=== PATIENT | female | born 1985 | race Caucasian/White ===

== ENCOUNTER 2020-06-23 08:09 | Outpatient (REF) | payer MEDICAID, SELFPAY | END 2020-06-23 08:10 | disposition home or self-care (01) | LOC: HO.LAB 08:09 | PROVIDERS: Visit Provider Internal Medicine | DX: Z20.828 Contact with and (suspected) exposure to other viral communicable diseases (principal) | CPT/HCPCS: C9803; U0003 ==

== ENCOUNTER 2020-07-22 07:42 | Outpatient (REF) | payer MEDICAID, SELFPAY | END 2020-07-22 07:43 | disposition home or self-care (01) | LOC: HO.LAB 07:42 | PROVIDERS: PCP Family Medicine; Visit Provider Internal Medicine | DX: Z20.828 Contact with and (suspected) exposure to other viral communicable diseases (principal) | CPT/HCPCS: 36415; C9803; U0003 ==

== ENCOUNTER 2020-07-28 09:53 | Outpatient (REF) | payer MEDICAID, SELFPAY ==
--- NOTE | 2020-07-28 | PFT_ITS ---
Forced vital capacity is normal. FEV1 moderately reduced. [id number] is markedly reduced. MVV slightly reduced. Post bronchodilator therapy, there is a significant response with significant increase in all flow volumes. Total lung capacity normal. Residual volume slightly increased. Diffusion capacity normal. CONCLUSION: Moderately severe obstructive airway disorder with almost complete reversibility after bronchodilator therapy. These findings are consistent with bronchial asthma. Clinical correlation is recommended. MD MAMIE Guidry/MODL / [id number]
== END 2020-07-28 09:54 | disposition home or self-care (01) ==
LOC: HO.RESP 09:53
PROVIDERS: Visit Provider Nurse Practitioner Family
DX: G47.30 Sleep apnea, unspecified (principal); R06.02 Shortness of breath; R07.81 Pleurodynia
CPT/HCPCS: 94060; 94727; 94729

== ENCOUNTER 2021-01-05 10:16 | Emergency (ER) | payer MEDICAID, SELFPAY ==
--- NOTE | ~2021-01-05 | US_ITS ---
EXAMINATION: US VENOUS ULTRASOUND WITH DOPPLER LOWER EXTREMITY, BILATERAL CLINICAL INFORMATION: Bilateral lower extremity pain and swelling. Assess for occult DVT. COMPARISON: None TECHNIQUE: Ultrasound of the deep veins is performed from the hip to the calf with compression sonography and color and pulse Doppler assessment. Spectral analysis with color-flow imaging is performed. FINDINGS: RIGHT: There is normal venous compression and respiratory variation and augmented flow. The visualized common femoral vein, superficial femoral vein, profunda femoral vein, popliteal vein, and the trifurcation region shows no evidence of deep venous thrombosis. No popliteal fossa cyst demonstrated. LEFT: There is normal venous compression and respiratory variation and augmented flow. The visualized common femoral vein, superficial femoral vein, profunda femoral vein, popliteal vein, and the trifurcation region shows no evidence of deep venous thrombosis. No popliteal fossa cyst demonstrated. US/US venous duplex LE BI IMPRESSION: No DVT demonstrated in the bilateral lower extremity.
[2021-01-05 10:54] VITALS: BP 151/93; PULSE 75; RESP 17; TEMP 36.7; O2SAT 100; BMI 40.7
--- NOTE | 2021-01-05 12:42 | ED_ITS ---
HPI - Extremity Injury (Lower) General Chief Complaint: Extremity Injury, Lower Stated Complaint: leg pain Time Seen by Provider: 01/05/21 11:19 Source: patient Mode of arrival: ambulatory History of Present Illness HPI Narrative: 35-year-old female with a past medical history of asthma presenting to the ED complaining of bilateral lower extremity swelling, heaviness, and paresthesias x2 weeks. Admits was sent in by PCP for rule out DVT. Reports area feeling cold . Denies taking oral OCPs, cigarette smoking, recent travel, personal history of blood clots. Denies fever, chills, SOB/CP, weakness Related Data Allergies Allergy/AdvReac Type Severity Reaction Status Date / Time No Known Allergies Allergy Mild NKA Verified 01/05/21 10:56 Review of Systems Review of Systems: Constitutional: No Fever, No Chills Cardiovascular: No Chest Pain, No SOB Respiratory: No Cough, No Wheezing Gastrointestinal: No Nausea, No Vomiting, No Abdominal pain Musculoskeletal: +joint pain, No Myalgias, + Joint Swelling Skin: No Skin Lesions, No rash Neuro: No Weakness, No Numbness, + Paresthesias Yes all other systems are reviewed and are negative [facility] Past Medical History Attestation statement: The following information was validated with the patient. Medical History (Updated 01/05/21 @ 12:48 by JOHN Millan) Asthma Physical Exam Vital Signs: Vital Signs: Last Vital Signs Temp 98.0 F 01/05/21 10:54 Pulse 75 01/05/21 10:54 Resp 17 01/05/21 10:54 BP 151/93 H 01/05/21 10:54 Pulse Ox 100 01/05/21 10:54 Body Mass Index 40.7 Const: General: cooperative and healthy appearing Orientation/consciousness: patient oriented x3 Limitations: no limitations HENMT: Head: Yes normal to inspection Ears: hearing grossly normal bilaterally General nose exam: Normal external nose present Face and sinus: Yes normal facial exam Eyes: General: appearance normal, both eyes and all related structures EOM: EOMs intact bilaterally Neck: Neck: Yes normal visual inspection Resp: Effort & Inspection: normal respiratory effort Cardio: Rate: regular rate Peripheral pulses: dorsalis pedis present Skin: Rashes: no rashes Wounds: no wounds Neuro: General: patient oriented x3, gait normal, tone normal and moves all extremities Gait exam (Neuro): Normal gait present Extrem: Other: Slight swelling in right lower extremity, no appreciable pitting edema, no calf tenderness. Neurovascular intact distally. Sensation intact to light touch. No cellulitis. General: Yes normal to inspection and Yes no calf tenderness Course Course Course Narrative: US venous duplex LE BI IMPRESSION: No DVT demonstrated in the bilateral lower extremity. >> results discussed with patient including worrisome signs and symptoms and strict return precautions. Is to follow up with PCP MDM - Extremity Injury (Lower) MDM Narrative Medical decision making narrative: 35-year-old female with a past medical history of asthma presenting to the ED complaining of bilateral lower extremity swelling, heaviness, and paresthesias x2 weeks. On exam VSS, NAD/well- appearing, physical exam as above. Rule out DVT. Low concern for PE Plan: Use duplex ultrasound Discharge Plan Discharge Clinical Impression: Swelling of both lower extremities Patient Disposition: Home, Self-Care Instructions: Leg Edema (ED) Additional Instructions: Your ultrasound was negative for any blood clot in your legs Take Tylenol and Motrin for pain/discomfort You should wear compression socks, elevate her legs If your pain/swelling persists or worsens, you develop any chest pain or shortness of breath please return to the ED Follow-up with your primary care doctor Referrals: Angelica Newman MD [Primary Care Provider] - 2 days
== END 2021-01-05 13:09 | disposition home or self-care (01) ==
PROVIDERS: Emergency Provider Emergency Medicine; PCP Family Medicine
DX: M79.89 Other specified soft tissue disorders (principal); M79.605 Pain in left leg; M79.604 Pain in right leg
CPT/HCPCS: 93970; 99283; 99284

== ENCOUNTER 2021-10-08 19:27 | Emergency (ER) | payer MEDICAID, SELFPAY ==
[2021-10-08 20:29] VITALS: BP 144/81; PULSE 75; RESP 18; TEMP 36.7; O2SAT 100; BMI 42.5
--- NOTE | 2021-10-09 00:44 | ED_ITS ---
HPI - Abdominal Pain General Chief Complaint: Abdominal Pain Stated Complaint: Lower abdominal pain Time Seen by Provider: 10/09/21 00:36 Source: patient Mode of arrival: ambulatory Limitations: no limitations History of Present Illness HPI narrative: Patient comes to the emergency room complaining of bilateral lower quadrant pain. Patient states that the pain started right after she lifted some heavy water bottle cases. Patient states that she has been feeling very nauseous, not vomiting or having any diarrhea. Patient states that the pain is worse in bilateral lower quadrants, seems a bit worse in the left lower quadrant. Related Data Previous Rx's Medication Instructions Recorded cyclobenzaprine 10 mg tablet 10 mg PO TID PRN #10 tab 10/09/21 ibuprofen 600 mg tablet 600 mg PO TID PRN #14 tab 10/09/21 Allergies Allergy/AdvReac Type Severity Reaction Status Date / Time No Known Allergies Allergy Mild NKA Verified 10/08/21 20:29 Review of Systems Review of Systems Constitutional : No Weight loss, No Fever, No Chills, No Night Sweats, No Fatigue, No Malaise ENT/Mouth : No Hearing loss, No Ear Pain, No Nasal Congestion, No Sinus Pain, No Hoarseness, No sore throat, No Rhinorrhea, No Swallowing Difficulty Eyes: No Eye Pain, No Swelling, No Redness, No Foreign Body, No Discharge, No Vision Changes Cardiovascular : No Chest Pain, No SOB, No Dyspnea on Exertion, No Orthopnea, No Edema, No Palpitations Respiratory : No Cough, No Sputum, No Wheezing, No Smoke Exposure, No Dyspnea Gastrointestinal : Complaining of Nausea, No Vomiting, No Diarrhea, No Constipation, complaining of bilateral lower quadrant pain pulling sensation. No Hematochezia, No Melena Genitourinary : no irregular bleeding, No Dysuria, No Urinary Frequency, No Hematuria, No Urinary Incontinence, No Urgency, No Flank Pain, No Urinary Flow Changes, No Hesitancy Musculoskeletal : No joint pain, No Myalgias, No Joint Swelling Skin : No Skin Lesions, No rash Neuro : No Weakness, No Numbness, No Paresthesias, No Loss of Consciousness, No Dizziness, No Headache Psych : No Anxiety/Panic, No Depression, No SI/HI/AH/VH, No Social Issues, Heme/Lymph: No Bruising, No Bleeding,No Lymphadenopathy Endocrine : No Polyuria, No Polydipsia, No Temperature Intolerance [facility], [facility] Past Medical History Medical History (Updated 10/09/21 @ 02:02 by Lavonne Garibay MD) Asthma Surgical History (Updated 10/09/21 @ 00:47 by Lavonne Garibay MD) History of cholecystectomy Hx of appendectomy Social History Social History Advance Directives: No Patient : No Physical Exam ED Vital Signs: Vital Signs - 24 hr 10/08/21 20:29 10/09/21 00:49 Temperature 98.0 F Pulse Rate 75 68 Respiratory Rate 18 14 Blood Pressure 144/81 H 126/71 Pulse Oximetry 100 100 BMI result Body Mass Index 42.5 Const Other: Appearance: Alert. Oriented X3. No acute distress. Well-appearing Eyes: Pupils equal, round and reactive to light. ENT: Pharynx normal. Neck: Normal inspection. Neck supple. No lymph nodes noted. No crepitus CVS: Normal heart rate and rhythm. Pulses normal. Normal S1 and S2 Respiratory: No respiratory distress. Breath sounds normal. No Wheezing. No rales Abdomen: Soft , abdomen is nontender to palpation, patient has mild discomfort on palpation in the inguinal canals, no palpable hernias Skin: Skin warm and dry. Normal skin color. Normal skin turgor. Extremities: No lower extremity edema. No Lacerations. No Rash Neuro: Oriented X 3. No motor deficit. No sensory deficit. Moving all extremities. No slurred speech. CN 2 through 12 grossly intact Psych: calm, cooperative, normal affect Course Course Course Narrative: Patient's labs are at baseline. Urinalysis is negative for UTI. Patient's abdominal exam is benign. Patient's source of pain likely musculoskeletal, strainedinguinal muscles/ligaments MDM - Abdominal Pain Lab Data Result diagrams: 10/09/21 00:55 10/09/21 00:55 Labs: Lab Results 10/09/21 10/09/21 10/09/21 Range/Units 00:55 00:55 01:25 WBC 8.0 (4.8-10.8) X10*3/uL RBC 4.76 (4.20-5.50) X10*6/uL Hgb 11.5 L (12.0-16.0) g/dl Hct 37.1 (37.0-47.0) % MCV 77.9 L (80.0-98.0) fL MCH 24.2 L (27.0-33.0) pg MCHC 31.0 (31.0-35.0) g/dl RDW 15.5 (11.0-16.0) % Plt Count 395 (160-400) X10*3/uL MPV 9.9 (9.4-12.3) fL Immature Gran % (Auto) 0.3 (0.0-0.4) % Neut % (Auto) 59.5 (45-73) % Lymph % (Auto) 32.1 (20-40) % Dent % (Auto) 5.5 (2-11) % Eos % (Auto) 2.3 (0-4) % Baso % (Auto) 0.3 (0-2) % Lymph # (Auto) 2.6 (1.2-4.9) X10*3/uL Dent # (Auto) 0.4 (0.1-1.2) X10*3/uL Eos # (Auto) 0.2 (0.0-0.4) X10*3/uL Baso # (Auto) 0.0 (0.0-0.2) X10*3/uL Abs Immat Gran (auto) 0.02 (0.00-0.03) X10*3/uL Absolute Neuts (auto) 4.8 (2.0-8.3) x10*3/uL Absolute Nucleated RBC 0.000 (0.0-0.012) X10*3/uL Nucleated RBC % (auto) 0.0 (0.0-0.2) /100WBC Sodium 140 (135-145) mmol/L Potassium 3.5 (3.3-5.1) mmol/L Chloride 102 (96-108) mmol/L Carbon Dioxide 28 (22-29) mmol/L Anion Gap 14 (12-20) BUN 9 (9-16) mg/dL Creatinine 0.77 (0.5-1.4) mg/dL Estim Creat Clear Calc 120.7 Estimated GFR > 60 Random Glucose 90 (60-115) mg/dL Calcium 9.5 (8.4-10.2) mg/dL Total Bilirubin 0.3 (0.0-1.0) mg/dL Direct Bilirubin < 0.2 (0.0-0.5) mg/dL AST 17 (5-31) U/L ALT 18 (0-31) U/L Alkaline Phosphatase 70 (39-117) U/L Total Protein 7.5 (6.5-8.0) g/dL Albumin 4.1 (3.5-5.0) g/dL Urine Color YELLOW Urine Appearance CLEAR Urine pH 6.0 (5.0-8.0) Ur Specific [place] >= 1.030 H (1.005-1.025) Urine Protein NEG (NEG-TRACE) MG/DL Urine Glucose (UA) NEG (NEG) MG/DL Urine Ketones NEG (NEG) MG/DL Urine Blood NEG (NEG) Urine Nitrite NEG (NEG) Ur Leukocyte Esterase NEG (NEG) Urine Test (NEGATIVE) 10/09/21 Range/Units 01:25 WBC (4.8-10.8) X10*3/uL RBC (4.20-5.50) X10*6/uL Hgb (12.0-16.0) g/dl Hct (37.0-47.0) % MCV (80.0-98.0) fL MCH (27.0-33.0) pg MCHC (31.0-35.0) g/dl RDW (11.0-16.0) % Plt Count (160-400) X10*3/uL MPV (9.4-12.3) fL Immature Gran % (Auto) (0.0-0.4) % Neut % (Auto) (45-73) % Lymph % (Auto) (20-40) % Dent % (Auto) (2-11) % Eos % (Auto) (0-4) % Baso % (Auto) (0-2) % Lymph # (Auto) (1.2-4.9) X10*3/uL Dent # (Auto) (0.1-1.2) X10*3/uL Eos # (Auto) (0.0-0.4) X10*3/uL Baso # (Auto) (0.0-0.2) X10*3/uL Abs Immat Gran (auto) (0.00-0.03) X10*3/uL Absolute Neuts (auto) (2.0-8.3) x10*3/uL Absolute Nucleated RBC (0.0-0.012) X10*3/uL Nucleated RBC % (auto) (0.0-0.2) /100WBC Sodium (135-145) mmol/L Potassium (3.3-5.1) mmol/L Chloride (96-108) mmol/L Carbon Dioxide (22-29) mmol/L Anion Gap (12-20) BUN (9-16) mg/dL Creatinine (0.5-1.4) mg/dL Estim Creat Clear Calc Estimated GFR Random Glucose (60-115) mg/dL Calcium (8.4-10.2) mg/dL Total Bilirubin (0.0-1.0) mg/dL Direct Bilirubin (0.0-0.5) mg/dL AST (5-31) U/L ALT (0-31) U/L Alkaline Phosphatase (39-117) U/L Total Protein (6.5-8.0) g/dL Albumin (3.5-5.0) g/dL Urine Color Urine Appearance Urine pH (5.0-8.0) Ur Specific [place] (1.005-1.025) Urine Protein (NEG-TRACE) MG/DL Urine Glucose (UA) (NEG) MG/DL Urine Ketones (NEG) MG/DL Urine Blood (NEG) Urine Nitrite (NEG) Ur Leukocyte Esterase (NEG) Urine Test NEGATIVE (NEGATIVE) Discharge Plan Discharge Clinical Impression: Inguinal muscle strain Patient Disposition: Home, Self-Care Instructions: Muscle Strain (ED) Additional Instructions: Please follow-up with your primary care physician tomorrow. If you have any worsening or new symptoms, please return to the emergency room or call 911 Prescriptions: New ibuprofen 600 mg tablet 600 mg PO TID PRN (Reason: pain) Qty: 14 0RF cyclobenzaprine 10 mg tablet 10 mg PO TID PRN (Reason: muscle spasm) Qty: 10 0RF
[2021-10-09 00:49] VITALS: BP 126/71; PULSE 68; RESP 14; O2SAT 100
[2021-10-09] MEDS: Ketorolac Tromethamine 30 MG/ML VIAL IVPUSH (01:01)
[2021-10-09 01:02] LABS: MANUAL DIFF FLAG NO
[2021-10-09] MEDS: ondansetron HCL 4 MG/2 ML VIAL IVPUSH (01:02)
[2021-10-09 01:03] LABS: Basophils Percent Auto 0.3 % (0-2); Eosinophils Absolute Auto 0.2 X10*3/uL (0.0-0.4); Eosinophils Percent Auto 2.3 % (0-4); Hematocrit 37.1 % (37.0-47.0); Hemoglobin 11.5 g/dl (12.0-16.0); Imm Gran Abs Auto 0.02 X10*3/uL (0.00-0.03); Imm Gran Pct Auto 0.3 % (0.0-0.4); Lymphocytes Absolute Auto 2.6 X10*3/uL (1.2-4.9); Lymphocytes Percent Auto 32.1 % (20-40); Mean Corpuscular Hemoglobin 24.2 pg (27.0-33.0); Mean Corpuscular Volume 77.9 fL (80.0-98.0); Mean Platelet Volume 9.9 fL (9.4-12.3); Monocytes Absolute Auto 0.4 X10*3/uL (0.1-1.2); Monocytes Percent Auto 5.5 % (2-11); Neutrophils Absolute Auto 4.8 x10*3/uL (2.0-8.3); Neutrophils Percent Auto 59.5 % (45-73); Platelet Count 395 X10*3/uL (160-400); Red Blood Count 4.76 X10*6/uL (4.20-5.50); Red Cell Distribution Width 15.5 % (11.0-16.0)
[2021-10-09 01:25] LABS: Alanine Aminotransferase 18 U/L (0-31); Albumin Level 4.1 g/dL (3.5-5.0); Alkaline Phosphatase 70 U/L (39-117); Anion Gap 14 (12-20); Aspartate Amino Transferase 17 U/L (5-31); Bilirubin Direct < 0.2 mg/dL (0.0-0.5); Bilirubin Total 0.3 mg/dL (0.0-1.0); Blood Urea Nitrogen 9 mg/dL (9-16); Calcium 9.5 mg/dL (8.4-10.2); Carbon Dioxide 28 mmol/L (22-29); Chloride 102 mmol/L (96-108); Creatinine Clr Calc Pharmacy 120.7; Estimated Glomerular Filt Rate > 60; Glucose Random 90 mg/dL (60-115); Potassium 3.5 mmol/L (3.3-5.1); Sodium 140 mmol/L (135-145); Total Protein 7.5 g/dL (6.5-8.0)
[2021-10-09 01:34] LABS: Appearance Urine CLEAR; Color Urine YELLOW; Glucose Urine UA NEG (NEG); Leukocyte Esterase Urine NEG (NEG); Nitrite Urine NEG (NEG); Specific Gravity - Urine >= 1.030 (1.005-1.025); Urine Blood NEG (NEG); Urine Ketones NEG (NEG); Urine Protein NEG (NEG-TRACE)
[2021-10-09 01:35] LABS: UPreg QC Valid YES; Urine Pregnancy NEGATIVE (NEGATIVE)
[2021-10-09 02:02] VITALS: BP 132/79; PULSE 67; RESP 14; O2SAT 100
== END 2021-10-09 02:06 | disposition home or self-care (01) ==
PROVIDERS: Emergency Provider Emergency Medicine; PCP Family Medicine
DX: S39.011A Strain of muscle, fascia and tendon of abdomen, initial encounter (principal); X50.0XXA Overexertion from strenuous movement or load, initial encounter; Y93.89 Activity, other specified; Y92.9 Unspecified place or not applicable; Y99.9 Unspecified external cause status
CPT/HCPCS: 36415; 80048; 80076; 81003; 81025; 85025; 96374; 96375; 99284; J1885; J2405

== ENCOUNTER 2021-11-17 04:22 | Emergency (ER) | payer MEDICAID, SELFPAY ==
[2021-11-17 04:43] VITALS: BP 144/86; PULSE 84; RESP 18; TEMP 36.6; O2SAT 97; BMI 42.5
--- NOTE | 2021-11-17 04:46 | ECG_ITS ---
Test Reason : arm pain Blood Pressure : / mmHG Vent. Rate : 073 BPM Atrial Rate : 073 BPM P-R Int : 140 ms QRS Dur : 076 ms QT Int : 414 ms P-R-T Axes : 018 011 029 degrees QTc Int : 456 ms Normal sinus rhythm Normal ECG When compared with ECG of 04-FEB-2020 20:39, No significant change was found Referred By: Generic ED Physician Electronically Signed By:DEIDRE SHULTZ MD
[2021-11-17 05:04] LABS: Hematocrit 34.5 % (37.0-47.0); Hemoglobin 10.8 g/dl (12.0-16.0); Mean Corpuscular HGB Conc 31.3 g/dl (31.0-35.0); Mean Corpuscular Hemoglobin 24.1 pg (27.0-33.0); Mean Platelet Volume 9.9 fL (9.4-12.3); Platelet Count 352 X10*3/uL (160-400); Red Blood Count 4.48 X10*6/uL (4.20-5.50); Red Cell Distribution Width 15.6 % (11.0-16.0); White Blood Count 7.2 X10*3/uL (4.8-10.8)
[2021-11-17 05:18] LABS: Alanine Aminotransferase 17 U/L (0-31); Albumin Level 3.6 g/dL (3.5-5.0); Alkaline Phosphatase 63 U/L (39-117); Anion Gap 11 (12-20); Aspartate Amino Transferase 16 U/L (5-31); Bilirubin Total 0.4 mg/dL (0.0-1.0); Blood Urea Nitrogen 8 mg/dL (9-16); Carbon Dioxide 26 mmol/L (22-29); Chloride 105 mmol/L (96-108); Creatinine Clr Calc Pharmacy 132.8; Estimated Glomerular Filt Rate > 60; Glucose Random 105 mg/dL (60-115); Potassium 3.4 mmol/L (3.3-5.1); Sodium 139 mmol/L (135-145)
[2021-11-17 05:24] LABS: Troponin-I High Sensitivity < 3.5 ng/L (<3.5-17.0)
[2021-11-17 05:25] LABS: Total Protein 6.7 g/dL (6.5-8.0)
--- NOTE | 2021-11-17 06:33 | ED_ITS ---
HPI - Extremity Problem General Chief complaint: General Medical Stated complaint: right arm pain Time Seen by Provider: 11/17/21 06:33 Source: patient Mode of arrival: ambulatory Limitations: no limitations History of Present Illness MD Complaint: extremity pain and joint pain Onset (ago): day(s) (few) Pain Consistency: constant Location: right and upper extremity Quality: aching, dull and constant Radiation: none Relieving factors: immobilization Exacerbating factors: range of motion and palpation Associated symptoms: denies other symptoms Context: other (no trauma) Related Data Previous Rx's Medication Instructions Recorded cyclobenzaprine 10 mg tablet 10 mg PO TID PRN #10 tab 10/09/21 ibuprofen 600 mg tablet 600 mg PO TID PRN #14 tab 10/09/21 diclofenac sodium 1 % topical gel 2 g TOPICAL QID #100 g 11/17/21 (Voltaren Arthritis Pain) prednisone 20 mg tablet 40 mg PO DAILY 4 Days #8 tab 11/17/21 tramadol 50 mg tablet 50 mg PO TID PRN #10 tab 11/17/21 Allergies Allergy/AdvReac Type Severity Reaction Status Date / Time No Known Allergies Allergy Mild NKA Verified 10/08/21 20:29 Review of Systems Review of Systems: Constitutional : No Fever, No Chills ENT/Mouth : No Ear Pain, No Hoarseness, No sore throat Eyes: No Eye Pain, No Swelling, No Redness, No Foreign Body Cardiovascular : No Chest Pain, No SOB Respiratory : No Cough, No Dyspnea Gastrointestinal : No Nausea, No Vomiting, No Diarrhea, No abdominal Pain Genitourinary : No Dysuria, No Hematuria Musculoskeletal : positive joint pain, No Myalgias, No Joint Swelling Skin : No Skin lacerations, No rash Neuro : No Weakness, No Numbness, No Loss of Consciousness, No Dizziness, No Headache All other systems reviewed and are negative [facility] Past Medical History Attestation statement: The following information was validated with the patient. Medical History Asthma Fibromyalgia Surgical History History of cholecystectomy Hx of appendectomy Social History Social History (Updated 11/17/21 @ 06:47 by Cheryle Welch DO) Patient Tobacco Use Status: Never used Tobacco Advance Directives: No Advance Directives Information Provided: Yes Physical Exam Vital Signs: Vital Signs: Last Vital Signs Temp 97.9 F 11/17/21 04:43 Pulse 84 11/17/21 04:43 Resp 18 11/17/21 04:43 BP 144/86 H 11/17/21 04:43 Pulse Ox 97 11/17/21 04:43 BMI result Body Mass Index 42.5 Appearance: Alert. Oriented X3. No acute distress. Eyes: Pupils equal, round and reactive to light. ENT: Pharynx normal. Neck: Normal inspection. Neck supple. CVS: Normal heart rate and rhythm. Pulses normal. Respiratory: No respiratory distress. Breath sounds normal. Abdomen: Soft and nontender. Skin: Skin warm and dry. Normal skin color. Normal skin turgor. Extremities: No lower extremity edema. RUE elbow ttp along medial and lateral condyles no joint swelling, full ROM no swelling no warmth distal NV intact SILT intact no signs of infection 2+ radial pulse Neuro: Oriented X 3. No motor deficit. No sensory deficit. MDM - Extremity (Nontraumatic) MDM Narrative Medical decision making narrative: 36 yo female with hx of fibromyalgia comes here with c/o R elbow pain no signs of infection, full ROM no swelling, distal NV intact ttp along epicondyles concerning for tendonitis - will rigoberto wrap the patient and start on anti- inflammatories Lab Data Result diagrams: 11/17/21 04:56 11/17/21 04:56 Labs: Lab Results 11/17/21 11/17/21 11/17/21 Range/Units 04:56 04:56 04:56 WBC 7.2 (4.8-10.8) X10*3/uL RBC 4.48 (4.20-5.50) X10*6/uL Hgb 10.8 L (12.0-16.0) g/dl Hct 34.5 L (37.0-47.0) % MCV 77.0 L (80.0-98.0) fL MCH 24.1 L (27.0-33.0) pg MCHC 31.3 (31.0-35.0) g/dl RDW 15.6 (11.0-16.0) % Plt Count 352 (160-400) X10*3/uL MPV 9.9 (9.4-12.3) fL Absolute Nucleated RBC 0.000 (0.0-0.012) X10*3/uL Nucleated RBC % (auto) 0.0 (0.0-0.2) /100WBC Sodium 139 (135-145) mmol/L Potassium 3.4 (3.3-5.1) mmol/L Chloride 105 (96-108) mmol/L Carbon Dioxide 26 (22-29) mmol/L Anion Gap 11 L (12-20) BUN 8 L (9-16) mg/dL Creatinine 0.70 (0.5-1.4) mg/dL Estim Creat Clear Calc 132.8 Estimated GFR > 60 Random Glucose 105 (60-115) mg/dL Calcium 9.0 (8.4-10.2) mg/dL Total Bilirubin 0.4 (0.0-1.0) mg/dL AST 16 (5-31) U/L ALT 17 (0-31) U/L Alkaline Phosphatase 63 (39-117) U/L Troponin I High Sens < 3.5 (<3.5-17.0) ng/L Total Protein 6.7 (6.5-8.0) g/dL Albumin 3.6 (3.5-5.0) g/dL ECG Data Attestation EKG: I personally reviewed and interpreted this ECG as follows: ECG interpretation date: 11/17/21 ECG interpretation time: 06:33 Interpretation: Rate: 73 Rhythm: NSR [place]: normal Normal P waves. Normal DERIC. Normal QRS complex. ST T wave : normal no CHERI qTC: normal prior studies: no acute ischemia The study has been interpreted contemporaneously by me. . Discharge Plan Discharge Clinical Impression: Right elbow tendinitis Patient Disposition: Home, Self-Care Instructions: Tendinitis (ED) Additional Instructions: return to ED for any worsening symptoms or concerns wear rigoberto wrap or anything with mild pressure for comfort Prescriptions: New prednisone 20 mg tablet 40 mg PO DAILY 4 Days Qty: 8 0RF diclofenac sodium [Voltaren Arthritis Pain] 1 % gel 2 g topical QID Qty: 100 0RF Rx Instructions: apply to single elbow, wrist or hand; for hand includes palm/fingers/back of hand tramadol 50 mg tablet 50 mg PO TID PRN (Reason: pain) Qty: 10 0RF No Action ibuprofen 600 mg tablet 600 mg PO TID PRN (Reason: pain) Qty: 14 0RF cyclobenzaprine 10 mg tablet 10 mg PO TID PRN (Reason: muscle spasm) Qty: 10 0RF Referrals: [facility] [Primary Care Provider] - 2 days (if not better)
[2021-11-17 06:42] VITALS: BP 128/76; PULSE 72; RESP 17; TEMP 36.4; O2SAT 98
[2021-11-17] MEDS: HYDROcodone Bit/Acetam 5/325 TABLET 1 TAB PO (06:54)
[2021-11-17] MEDS: predniSONE 20 MG TABLET 40 MG PO (06:54)
== END 2021-11-17 06:57 | disposition home or self-care (01) ==
PROVIDERS: Emergency Provider Emergency Medicine
DX: M65.221 Calcific tendinitis, right upper arm (principal); M79.601 Pain in right arm; Z79.899 Other long term (current) drug therapy
CPT/HCPCS: 36415; 80053; 84484; 85027; 93005; 99283; 99284

== ENCOUNTER → 2021-12-04 07:48 | Outpatient (BNVA) | payer MEDICAID, SELFPAY | PROVIDERS: Visit Provider Physician Assistant | DX: M77.11 Lateral epicondylitis, right elbow (principal) | CPT/HCPCS: 99202 ==

== ENCOUNTER → 2022-07-26 12:48 | Outpatient (REF) | payer MEDICAID, SELFPAY ==
--- NOTE | 2022-07-26 | HM_ITS ---
* Total monitoring time 1 day. * Underlying rhythm is sinus. Average ventricular rate 80/Min. Range 56 to 128/min. * No significant ectopy or arrhythmias. * Chest pain in diary correlates with sinus rhythm. MTDD
== END ==
LOC: HO.CARD 12:48
PROVIDERS: PCP Family Medicine; Visit Provider Registered Nurse
DX: R00.2 Palpitations (principal)
CPT/HCPCS: 93225

== ENCOUNTER → 2022-08-11 10:04 | Outpatient (BNVA) | payer MEDICAID, SELFPAY | PROVIDERS: PCP Family Medicine; Referring Provider Family Medicine; Visit Provider Internal Medicine Cardiovascular Disease | DX: R42 Dizziness and giddiness (principal) | CPT/HCPCS: 93005; 99202 ==

== ENCOUNTER → 2022-08-13 13:57 | Outpatient (REF) | payer MEDICAID, SELFPAY ==
--- NOTE | 2022-08-13 14:01 | CA_ITS ---
Transthoracic Echocardiogram Patient (Last, First, Middle): Brigette Burt, Gender: Female Date of : 1985 Age: 36 Procedure Date: 08/13/2022 Procedure Type: Transthoracic Echocardiogram Location: OP Height: 160.02 cm Weight: 108.86 kg BSA: 2.09 m2 Heart Rate: 82 bpm BP: 135 / 75 mmHg Finish Off Operator: SIMEON Referring MD: Ion Can MD Symptoms: R42 - Dizziness and giddiness Study Quality: Adequate ECG Rhythm: Sinus Conclusions: - The left ventricular systolic function is normal. The calculated ejection fraction is 66% by biplane method. - No obvious valvular pathology seen on this study. Findings Left Ventricle Normal left ventricular cavity size. There is normal left ventricular wall thickness. The left ventricular systolic function is normal. The calculated ejection fraction is 66% by biplane method. There is no evidence of regional wall motion abnormalities. Diastolic function is normal for age. LV peak GLS -18%. Right Ventricle Normal right ventricular cavity size and systolic function. Atria Both atria are normal in size. Aortic Valve There is a normal trileaflet aortic valve. There is no aortic valve stenosis. There is no aortic valve regurgitation. Mitral Valve The mitral valve appears normal. There is no mitral valve regurgitation. There is no mitral valve stenosis. Pulmonic Valve The pulmonic valve is likely normal. Tricuspid Valve Normal tricuspid valve structure. There is trace tricuspid valve regurgitation. There is no evidence of pulmonary hypertension. Great Vessels The asc aorta is normal in size. Venous The inferior vena cava is normal in size and collapses greater than 50% with inspiration. Pericardium/Pleural There is no evidence of pericardial effusion. Prior Study Comparison No prior study available for comparison. Recommendations, Care & Conclusions No obvious valvular pathology seen on this study. Measurements 2D Linear Measurements IVSd: 0.86 0.6-0.9/0.6-1.0 cm LVIDd: 4.32 3.9-5.3/4.2-5.9 cm LVIDd Index: 2.07 2.4-3.2/2.2-3.1 cm/m2 LVIDs: 2.45 2.0-3.6 cm LVPWd: 0.93 0.7-1.1 cm Ao Root: 3.20 2.1-3.5 cm LA Diam: 3.10 2.7-3.8/3.0-4.0 cm LAIDs Index: 1.48 1.5-2.3 cm/m2 LV Mass: 152.68 67-162/88-224 g LV Mass Index: 73.05 43-95/49-115 g/m2 LVOT Diam: 1.90 3.0+(-)1.3 cm 2D Systolic Function EF 4C: 72.60 >55% EF 2C: 56.00 >55% EF BiP: 66.40 >55% Mitral Valve MV Pk E: 0.97 MV PK A: 0.56 MV Decel Time: 223.00 E/A: 1.70 E'Lateral: 12.50 E'Medial: 9.68 E/E' Med: 10.10 E/E' Lat: 7.80 PHT: 65.00 MVA PHT: 3.38 Decel [place]: 4.36 Aortic Valve AoV Pk [place]: 1.71 AoV Mn [place]: 1.14 AoV VTI: 0.32 AoV Pk Grad: 12.00 Aov Mn Grad: 6.00 JANNET Cont.VTI: 2.09 LVOT LVOT Pk [place]: 1.32 LVOT Mn [place]: 0.89 LVOT VTI: 0.24 LVOT Pk Grad: 7.00 LVOT Mn Grad: 4.00 LVOT Diam: 1.90 LVOT Area: 2.84 Diastolic Function MV Pk E: 0.97 MV Pk A: 0.56 E/A: 1.70 E'Medial: 9.68 E/E' Med: 10.10 E' Laterial: 12.50 E/E' Lat: 7.80 Right Ventricle TAPSE (mm): 20.90 TVS' Celso: 12.80 Tricuspid Valve RA Press: 3.00 Great Vessels Aorta Ao Root-2D: 3.20 2.0-3.7 cm Sinus of Valsalva: 3.20 2.0-3.5 cm Ao Asc: 3.20 2.1-3.4 cm Pulmonary Valve PV Pk [place]: 1.24 Peak PV Grad: 6.00 Updated in Other Vendor System with Status of Final Monty Morgan MD electronically signed on 08/14/2022 12:31:29 PM with status of Final
--- NOTE | 2022-08-13 14:01 | HM_ITS ---
CARDIAC EVENT MONITOR Indication: Dizziness Technique: I was requested to reduce study on 09/28/2022. Patient is hooked up to cardiac event monitor on 08/13/2022 for total period of 30 days, this study was finalized today. Compliance rate is reported as 73%. Findings: Baseline was normal sinus rhythm with minimal heart rate of 61 beats per minute and maximum heart rate 141 beats per minute. No significant tachy or Fred arrhythmias noted. No significant pauses noted. Patient reported multiple symptoms including chest pressure, dizziness, irregular heartbeat and palpitations all correlated with sinus rhythm Conclusion: 1. Baseline was normal sinus rhythm with no pauses 2. No significant arrhythmias noted 3. Patient reported symptoms correlated with sinus rhythm MTDD
== END ==
LOC: HO.CARD 13:57
PROVIDERS: Visit Provider Internal Medicine Cardiovascular Disease
DX: R42 Dizziness and giddiness (principal)
CPT/HCPCS: 93270; 93306; 93356

== ENCOUNTER 2023-07-20 11:00 | Outpatient (REF) | payer OTHER, SELFPAY | END 2023-07-20 11:01 | disposition home or self-care (01) | LOC: HO.HHCL 11:00 | PROVIDERS: Visit Provider Family Medicine | DX: E61.1 Iron deficiency (principal); E55.9 Vitamin D deficiency, unspecified; E53.8 Deficiency of other specified B group vitamins | CPT/HCPCS: 36415; 82306; 82607; 82728; 85025 ==

== ENCOUNTER → 2023-08-18 12:49 | Outpatient (BNVA) | payer SELFPAY | PROVIDERS: PCP Family Medicine; Visit Provider Physician Assistant Medical | DX: S83.92XD Sprain of unspecified site of left knee, subsequent encounter (principal); X50.9XXD Other and unspecified overexertion or strenuous movements or postures, subsequent encounter | CPT/HCPCS: 73564; 99203 ==

== ENCOUNTER → 2023-08-25 13:01 | Outpatient (BNVA) | payer OTHER, SELFPAY | PROVIDERS: PCP Family Medicine; Visit Provider Physician Assistant Medical | DX: S83.92XD Sprain of unspecified site of left knee, subsequent encounter (principal); X50.9XXD Other and unspecified overexertion or strenuous movements or postures, subsequent encounter | CPT/HCPCS: 99213 ==

== ENCOUNTER 2023-08-31 19:44 | Emergency (ER) | payer MEDICAID, SELFPAY ==
--- NOTE | ~2023-08-31 | XR_ITS ---
EXAMINATION: XR CHEST CLINICAL INFORMATION: Shortness of breath COMPARISON: Previous chest x-ray most recent January 2020 TECHNIQUE: 2 views of the chest were obtained. FINDINGS: No significant abnormality is noted involving the heart, lungs, mediastinum, bony thorax or soft tissues. XR/XR chest 2V IMPRESSION: Unremarkable examination.
[2023-08-31 20:06] VITALS: BP 150/95; PULSE 85; RESP 18; TEMP 36.1; O2SAT 98; BMI 41.4
--- NOTE | 2023-08-31 20:07 | ECG_ITS ---
Test Reason : SOB Blood Pressure : / mmHG Vent. Rate : 090 BPM Atrial Rate : 090 BPM P-R Int : 122 ms QRS Dur : 076 ms QT Int : 362 ms P-R-T Axes : 026 010 037 degrees QTc Int : 442 ms Normal sinus rhythm Normal ECG When compared with ECG of 17-NOV-2021 04:47, No significant change was found Referred By: Ike Kang Electronically Signed By:Leo Lynch
--- NOTE | 2023-08-31 20:10 | ED_ITS ---
HPI - Asthma General Chief Complaint: Asthma Stated Complaint: asthma, difficulty breathing since tuesday Time Seen by Provider: 08/31/23 21:44 History of Present Illness HPI Narrative: 37 yo female with PMH of asthma, fibromyalgia was seen by [facility] on Tuesday for asthma - chest tightness but no wheezing started on nebs and prednisone - no improvement went back Tuesday and prednisone now x 1 week and using nebs every 3 hours but has chest tightness. She denies travel, procedures, OCP use. She notes she feels short of breath. She denies anxiety. No productive cough. She also notes the prednisone is giving her headaches MD complaint: shortness of breath Onset (ago): day(s) (7) Severity: moderate Context: none known Associated symptoms: dry cough Asthma History: childhood onset Treatments Prior to Arrival: other (steroid, nebulizer) Related Data Home Medications Medication Instructions Recorded Confirmed ferrous gluconate 324 mg (37.5 mg 324 mg PO DAILY 08/11/22 08/11/22 iron) tablet loratadine 10 mg tablet (Allergy 10 mg PO DAILY 08/11/22 08/11/22 Relief (loratadine)) sennosides 8.6 mg tablet (senna) 17.2 mg PO DAILY PRN constipation 08/11/22 08/11/22 Previous Rx's Medication Instructions Recorded cyclobenzaprine 10 mg tablet 10 mg PO TID PRN muscle spasm #10 10/09/21 tabs ibuprofen 600 mg tablet 600 mg PO TID PRN pain #14 tabs 10/09/21 prednisone 20 mg tablet 40 mg (2 x 20 mg) PO DAILY 4 days 11/17/21 #8 tabs naproxen 500 mg tablet 500 mg PO BID PRN back pain #28 08/18/23 tabs azithromycin 250 mg tablet See Rx Instructions PO .COMPLEX #6 09/01/23 tabs Allergies Allergy/AdvReac Type Severity Reaction Status Date / Time No Known Allergies Allergy Mild NKA Verified 08/31/23 20:06 Review of Systems 2 Review of Systems: Constitutional : No Fever, No Chills ENT/Mouth : No Hoarseness, No sore throat, No Rhinorrhea Eyes: No Redness, No Discharge, No Vision Changes Cardiovascular : No Chest Pain, positive SOB, positive Dyspnea on Exertion, No Edema Respiratory : positive Cough, No Sputum, no Wheezing, Gastrointestinal : No Nausea, No Vomiting, No Diarrhea, No abdominal Pain Genitourinary : No Dysuria, No Hematuria Musculoskeletal : No joint pain, No Myalgias Skin : No rash Neuro : No Weakness, No Numbness, No Headache Psych : No anxiety, depression Heme/Lymph: No Bruising, No Bleeding Endocrine : No Polyuria, No Polydipsia All other systems reviewed and are negative PMFSH Past Medical History Attestation statement: The following information was validated with the patient. Source: old records reviewed Medical History Fibromyalgia Asthma Surgical History Hx of appendectomy History of cholecystectomy Family History Family History Mother Diabetes Father Hypertension Social History Social History Alcohol intake: never Patient Tobacco Use Status: Never used Tobacco Smoked in Last 30 Days: No Use of substances other than those prescribed or required for medical reasons: No Advance Directives: No Advance Directives Information Provided: No Patient : No Current occupational status: unemployed Physical Exam 2 Vital Signs: Vital Signs: Last Vital Signs Temp 98.1 F 08/31/23 23:31 Pulse 95 09/01/23 00:05 Resp 18 09/01/23 00:05 BP 131/75 08/31/23 23:31 Pulse Ox 96 08/31/23 23:31 O2 Del Method Room Air 08/31/23 23:31 BMI result Body Mass Index 41.4 Appearance: Alert. Oriented X3. No acute distress. appears anxious Eyes: Pupils equal, round and reactive to light. ENT: Pharynx normal. Neck: Normal inspection. Neck supple. CVS: Normal heart rate and rhythm. Pulses normal. Respiratory: No respiratory distress. Breath sounds normal. Abdomen: Soft and nontender. Skin: Skin warm and dry. Normal skin color. Normal skin turgor. Extremities: No lower extremity edema. No calf ttp Neuro: Oriented X 3. No motor deficit. No sensory deficit. Course Course Course Narrative: Patient complains of chest pain with deep breath, wheezing and short of breath similar to prior asthma with frequent nebulizer use over past several days Chest x-ray COVID and flu tests are ordered This is rapid medical exam done in triage pending full evaluation and disposition by ER provider Reevaluation(s) Reevaluation #1: the patient was asleep and had to be woken up appears in no distress at sleep but then woken up states she is short of breath. at this time she can follow up with PCP Medications Administered Discontinued Medications Generic Name Dose Route Start Last Admin Trade Name Td PRN Reason Stop Dose Admin Acetaminophen 975 mg 08/31/23 23:52 09/01/23 00:15 Acetaminophen 325 Mg Tablet PO 08/31/23 23:53 975 mg ONCE ONE Administration Albuterol Sulfate 2.5 mg 09/01/23 00:01 09/01/23 00:05 Albuterol Sulfate (0.083%) 2.5 Mg/3 Ml Vial.Neb INHALE 09/01/23 00:02 2.5 mg ONCE ONE Administration Ketorolac Tromethamine 30 mg 08/31/23 23:52 09/01/23 00:15 Ketorolac Tromethamine 30 Mg/Ml Vial IM 08/31/23 23:53 30 mg ONCE ONE Administration Lorazepam 0.5 mg 08/31/23 22:19 08/31/23 22:42 Lorazepam 0.5 Mg Tablet PO 08/31/23 22:20 0.5 mg ONCE ONE Administration Medical Decision Making Medical Decision Making [facility] Narrative: 37 yo female with PMH of asthma who was seen by PCP comes in with c/o chest tightness and difficulty breathing but no wheezing she is PERC negative she appears anxious. At this time will need labs, EKG, CXR, swabs. PO anxiety medications. Possible anemia, pneumonia, dehydration, anxiety, reactive airway disease, CHF Differential Diagnosis Differential Diagnoses: The differential diagnosis associated with the presentation includes anemia, pneumonia, dehydration, anxiety, reactive airway disease, CHF Admission/Observation Consideration of admission/observation: Escalation of care including admission/observation considered labs, CXR, exam and VS reassuring - no hypoxia no distress has headache at this time will start on zpak and treat as bronchitis Lab Data [facility] Lab Attestation statement: I reviewed the patient's lab results. 08/31/23 22:34 08/31/23 22:34 Labs: Lab Results 08/31/23 08/31/23 Range/Units 20:23 22:34 WBC 12.7 H (4.8-10.8) X10*3/uL RBC 4.79 (4.20-5.50) X10*6/uL Hgb 11.8 L (12.0-16.0) g/dl Hct 36.7 L (37.0-47.0) % MCV 76.6 L (80.0-98.0) fL MCH 24.6 L (27.0-33.0) pg MCHC 32.2 (31.0-35.0) g/dl RDW 15.4 (11.0-16.0) % Plt Count 421 H (160-400) X10*3/uL MPV 9.6 (9.4-12.3) fL Immature Gran % (Auto) 0.8 H (0.0-0.4) % Neut % (Auto) 91.3 H (45-73) % Lymph % (Auto) 5.9 L (20-40) % Roosevelt % (Auto) 1.8 L (2-11) % Eos % (Auto) 0.0 (0-4) % Baso % (Auto) 0.2 (0-2) % Lymph # (Auto) 0.8 L (1.2-4.9) X10*3/uL Roosevelt # (Auto) 0.2 (0.1-1.2) X10*3/uL Eos # (Auto) 0.0 (0.0-0.4) X10*3/uL Baso # (Auto) 0.0 (0.0-0.2) X10*3/uL Abs Immat Gran (auto) 0.10 H (0.00-0.03) X10*3/uL Absolute Neuts (auto) 11.6 H (2.0-8.3) x10*3/uL Absolute Nucleated RBC 0.000 (0.0-0.012) X10*3/uL Nucleated RBC % (auto) 0.0 (0.0-0.2) /100WBC Smear Tech's Comments VERIFIED Sodium 137 (135-145) mmol/L Potassium 4.1 (3.3-5.1) mmol/L Chloride 104 (96-108) mmol/L Carbon Dioxide 24 (22-29) mmol/L Anion Gap 13 (12-20) BUN 12 (9-16) mg/dL Creatinine 0.85 (0.5-1.4) mg/dL Estim Creat Clear Calc 106.7 Estimated GFR > 60 Random Glucose 208 H (60-115) mg/dL Calcium 9.3 (8.4-10.2) mg/dL Magnesium 2.2 (1.6-2.6) mg/dL Total Bilirubin 0.1 (0.0-1.0) mg/dL Direct Bilirubin < 0.2 (0.0-0.5) mg/dL AST 19 (5-31) U/L ALT 25 (0-31) U/L Alkaline Phosphatase 74 (39-117) U/L Troponin I High Sens < 2.7 (<3.5-17.0) ng/L B-Natriuretic Peptide < 10 (<100) pg/mL Total Protein 7.1 (6.5-8.0) g/dL Albumin 3.8 (3.5-5.0) g/dL COVID-19 (NIKKIE) Negative (Negative) COVID-19 Clin Com See Note Influenza Type A (VERONICA) Negative (Negative) Influenza Type B (VERONICA) Negative (Negative) Influenza A & B Note N Independent Interpretation I performed an independent interpretation of an: EKG and Plain X-Ray (normal ) Interpretation: Rate: 90 Rhythm: NSR [place]: normal Normal P waves. Normal DERIC. Normal QRS complex. ST T wave : normal no CHERI qTC: 442 prior studies: no acute ischemia The study has been interpreted contemporaneously by me. . Radiology Impression Discussion of test interpretation with radiology: I have reviewed the radiologist's reading. Independent Historian Clinical information obtained from an independent historian. History obtained from or confirmed by: Spouse External Record Review External record reviewed: Office record Prescription Management I considered prescription management with: Antibiotic Discharge Plan Discharge Clinical Impression: Acute asthmatic bronchitis Patient Disposition: Home, Self-Care Instructions: Acute Bronchitis (ED) Additional Instructions: return for worsening symptoms or concerns. at this time given side effects of steroids will add on zpak for bronchitis inflammation. your labs and chest xray/electrocardiogram are normal your oxygen levels are all normal as well. Prescriptions: New azithromycin 250 mg tablet See Rx Instructions PO .COMPLEX Qty: 6 0RF Rx Instructions: For 250 mg dose pack: take 500 mg today (day 1), then 250 mg for 4 days (days 2-5) No Action ibuprofen 600 mg tablet 600 mg PO TID PRN (Reason: pain) Qty: 14 0RF cyclobenzaprine 10 mg tablet 10 mg PO TID PRN (Reason: muscle spasm) Qty: 10 0RF prednisone 20 mg tablet 40 mg PO DAILY 4 Days Qty: 8 0RF ferrous gluconate 324 mg (37.5 mg iron) tablet 324 mg PO DAILY sennosides [senna] 8.6 mg tablet 17.2 mg PO DAILY PRN (Reason: constipation) loratadine [Allergy Relief (loratadine)] 10 mg tablet 10 mg PO DAILY naproxen 500 mg tablet 500 mg PO BID PRN (Reason: back pain) Qty: 28 0RF Referrals: Angelica Newman MD [Primary Care Provider] - 1 day (call to follow up) Stand Alone Forms: Work/School Release
[2023-08-31 20:47] LABS: IDNOW Serial# 152EDE1D; Influenza A Negative (Negative); Influenza A & B2 Note N; Influenza B2 Negative (Negative)
[2023-08-31 20:48] LABS: COVID-19 Test Negative (Negative); IDNOW Serial# 08D9AD1C
[2023-08-31 21:29] VITALS: BP 143/74; PULSE 87; RESP 20; TEMP 37.1; O2SAT 97
[2023-08-31] MEDS: LORazepam 0.5 MG TABLET PO (22:42)
[2023-08-31 22:53] LABS: Basophils Percent Auto 0.2 % (0-2); Hematocrit 36.7 % (37.0-47.0); Hemoglobin 11.8 g/dl (12.0-16.0); Imm Gran Pct Auto 0.8 % (0.0-0.4); Lymphocytes Absolute Auto 0.8 X10*3/uL (1.2-4.9); Lymphocytes Percent Auto 5.9 % (20-40); MANUAL DIFF FLAG SCAN; Mean Corpuscular HGB Conc 32.2 g/dl (31.0-35.0); Mean Corpuscular Hemoglobin 24.6 pg (27.0-33.0); Mean Corpuscular Volume 76.6 fL (80.0-98.0); Mean Platelet Volume 9.6 fL (9.4-12.3); Monocytes Absolute Auto 0.2 X10*3/uL (0.1-1.2); Monocytes Percent Auto 1.8 % (2-11); Neutrophils Absolute Auto 11.6 x10*3/uL (2.0-8.3); Neutrophils Percent Auto 91.3 % (45-73); Platelet Count 421 X10*3/uL (160-400); Red Blood Count 4.79 X10*6/uL (4.20-5.50); Red Cell Distribution Width 15.4 % (11.0-16.0); SCAN SMEAR FLAG 1; White Blood Count 12.7 X10*3/uL (4.8-10.8)
[2023-08-31 23:04] LABS: Alanine Aminotransferase 25 U/L (0-31); Albumin Level 3.8 g/dL (3.5-5.0); Alkaline Phosphatase 74 U/L (39-117); Anion Gap 13 (12-20); Aspartate Amino Transferase 19 U/L (5-31); Bilirubin Direct < 0.2 mg/dL (0.0-0.5); Bilirubin Total 0.1 mg/dL (0.0-1.0); Blood Urea Nitrogen 12 mg/dL (9-16); Calcium 9.3 mg/dL (8.4-10.2); Carbon Dioxide 24 mmol/L (22-29); Chloride 104 mmol/L (96-108); Creatinine Clr Calc Pharmacy 106.7; Estimated Glomerular Filt Rate > 60; Glucose Random 208 mg/dL (60-115); Magnesium 2.2 mg/dL (1.6-2.6); Potassium 4.1 mmol/L (3.3-5.1); Sodium 137 mmol/L (135-145); Total Protein 7.1 g/dL (6.5-8.0)
[2023-08-31 23:07] LABS: B Type Natriuretic Peptide < 10 pg/mL (<100)
[2023-08-31 23:11] LABS: Troponin-I High Sensitivity < 2.7 ng/L (<3.5-17.0)
[2023-08-31 23:25] LABS: SLIDE REVIEW VERIFIED
[2023-08-31 23:31] VITALS: BP 131/75; PULSE 79; RESP 16; TEMP 36.7; O2SAT 96
[2023-09-01 00:05] VITALS: PULSE 95; RESP 18; O2SAT 98
[2023-09-01] MEDS: Albuterol Sulfate (0.083%) 2.5 MG/3 ML VIAL.NEB INHALE (00:05)
[2023-09-01] MEDS: Acetaminophen 325 MG TABLET 975 MG PO (00:15)
[2023-09-01] MEDS: Ketorolac Tromethamine 30 MG/ML VIAL IM (00:15)
== END 2023-09-01 01:43 | disposition home or self-care (01) ==
PROVIDERS: Physician Assistant Medical; Emergency Provider Emergency Medicine; PCP Family Medicine
DX: J20.9 Acute bronchitis, unspecified (principal); J45.909 Unspecified asthma, uncomplicated; R06.02 Shortness of breath; Z11.52 Encounter for screening for COVID-19
CPT/HCPCS: 36415; 71046; 80048; 80076; 83735; 83880; 84484; 85025; 87502; 87635; 93005; 94640; 96372; 99284; 99285; J1885

== ENCOUNTER → 2023-08-31 20:07 | Outpatient (BNV) | payer OTHER, SELFPAY | PROVIDERS: Emergency Provider Emergency Medicine; PCP Family Medicine; Visit Provider Internal Medicine Cardiovascular Disease | DX: R06.02 Shortness of breath (principal) | CPT/HCPCS: 93010 ==

== ENCOUNTER 2023-09-07 10:06 | Outpatient (AMB) | payer OTHER, SELFPAY ==
--- NOTE | 2023-09-07 10:19 | A.OFFVIS_ITS ---
Intake Vital Signs 09/07/23 10:20 Height 5 ft 3 in Weight 235 lb BMI 41.6 BP 132/70 Blood Pressure Location Lt brachial Pulse 88 Pulse Source Pulse Oximeter Pulse Oximetry (%) 99 Oxygen Delivery Method Room Air Intake Visit Reasons: Asthma Aging Room Operator Required: No Associate Software Application Engineer: Associate Software Application Engineer offered & declined Accompanied by: Spouse Allergies cat dander Allergy (Intermediate, Verified 09/07/23 10:30) wheezing, sneezing Medication List - Last Reconciled 09/07/23 by Dominga Han LPN albuterol sulfate 90 mcg/actuation 2 puffs inhalation Q6H PRN budesonide-formoterol 160-4.5 mcg/actuation (Symbicort) 2 puffs inhalation BID cetirizine (Allergy Relief (cetirizine)) 10 mg PO DAILY PRN cyclobenzaprine 10 mg PO TID PRN ergocalciferol (vitamin D2) 1,250 mcg PO QWEEK ferrous gluconate 324 mg PO DAILY fluticasone propionate 50 mcg/actuation (Flonase Allergy Relief) 2 sprays intranasal DAILY ibuprofen 600 mg PO TID PRN naproxen 500 mg PO BID PRN sennosides (senna) 17.2 mg PO DAILY PRN HPI Asthma HPI Details Brigette is a pleasant 37 year old female, never smoker with underlying asthma since childhood. She reports worsening asthma control with associated chest tightness and dyspnea that started on 08/26 after suspected URI. She denies fever, chills or sick contacts. At baseline she was moderately controlled on Symbicort 160, however after symptoms started she began using her albuterol more frequently without effect then was evaluated at urgent care where she was prescribed prednisone 40 mg x 5 days and advised to use albuterol neb q 4 hours. She again reported no help after a few days, went back to urgent care, where they increased prednisone to 60 mg x 7 days, again with minimal effect. On 08/31 she was evaluated at [facility] who stopped prednisone and started on azithromycin which was ultimately discontinued when she was evaluated at the [facility]. She was given IM dexamethasone followed by Po and reports improvements in symptoms. She continues to report chest tightness, dry cough and dyspnea. She denies wheezing. She reports mother with asthma otherwise no pertinent family history. She reports significant environmental allergies, no recent allergy testing. She does have pets at home including 1 dog to cats and 2 chinchillas. 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 [facility] Medical History (Updated 09/07/23 @ 11:27 by Lavonne Zuluaga NP) Fibromyalgia Asthma Surgical History Hx of appendectomy History of cholecystectomy Family History Mother Diabetes Father Hypertension Social History (Updated 09/07/23 @ 10:37 by Dominga Han LPN) Alcohol intake: never Patient Tobacco Use Status: Never used Tobacco Current occupational status: unemployed Review of Systems Const Denies chills, Denies excessive sweating, Denies fever(s), Denies headache(s) and Denies night sweats Eyes Denies dry eyes, Denies irritation and Denies itchy eyes ENT Reports Normal hearing present, Denies headache(s), Denies nasal congestion, Denies nasal discharge, Denies post nasal drip and Denies sore throat Card Denies chest pain, Denies chest pain at rest, Denies chest pain with activity, Denies claudication, Denies leg edema, Denies orthopnea and Denies paroxysmal nocturnal dyspnea Resp Denies chest congestion, Denies excessive phlegm production, Denies pain on inspiration, Denies pain with cough, Denies stridor and Denies wheezing Musc Denies myalgias Neuro Reports Normal hearing present and Denies headache(s) Endo Denies excessive sweating Remi/Lymph Denies lymphadenopathy Aller/Immun Denies itchy eyes, Denies seasonal rhinorrhea and Denies wheezing Physical Exam Vital Signs: Last Vital Signs Pulse 88 09/07/23 10:20 BP 132/70 09/07/23 10:20 Pulse Ox 99 09/07/23 10:20 Oxygen Delivery Method Room Air 09/07/23 10:20 BMI result Body Mass Index 41.6 Const General: cooperative, healthy appearing, comfortable, no acute distress, well developed and alert Nutritional Appearance: obese Orientation/consciousness: patient oriented x3 Limitations: no limitations HEENT Head: Yes normal to inspection, Yes normocephalic and Yes atraumatic Ears: hearing grossly normal bilaterally and external ears normal Eyes General: appearance normal, both eyes and all related structures Eyelids: Yes eyelids normal Sclerae: sclerae normal EOM: EOMs intact bilaterally Neck Neck: Yes normal visual inspection and Yes no lymphadenopathy Lymphatic: no lymphadenopathy noted Chest Chest palpation & inspection: normal inspection of the chest Resp Other: Diminished lung sounds, improved after DuoNeb Effort & Inspection: normal respiratory effort, able to speak in complete sentences, no audible wheezes, no cough, no stridor, not tachypneic, no tripod positioning and no use of accessory muscles Cardio Jugular venous distension: no JVD Rate: regular rate Rhythm: regular rhythm Skin Other: warm, dry General skin exam: no rashes or lesions noted Neuro General: patient oriented x3 Cranial nerves: Yes Normal hearing present Cognition (Neuro): normal cognition Gait exam (Neuro): Normal gait present Extrem General: Yes normal to inspection, Yes capillary refill normal, Yes no clubbing, cyanosis or edema and Yes no pedal edema Psych Appearance: grossly normal and well kempt Speech and movement: Normal speech and movement present and Clear speech present Affect: normal affect Attitude: cooperative Thought process: Normal thought process present Thought content: Normal thought content present Insight: Good insight present (Psych) Judgement: Good judgement present (Psych) Office Procedures Nebulizer Treatment Nebulizer Treatment [id number] RX initial, or Nebulizer Subsequent Treatment Office Meds ipratropium 0.5 mg-albuterol 3 mg (2.5 mg base)/3 mL nebulization soln Performing Provider: Lavonne Zuluaga NP Performing Location: [facility] Pulmonology [facility] Administered by: Dominga Han LPN on 09/07/23 11:20 Dose Route Admin Location Dispensed Lot Number Expiration Date [facility] Jamb Cutter 3 mL inhalation 3 mL [id number] 04/16/25 25111-228-83 [employer] Assessment & Plan Assessment & Plan (1) Asthma: Code(s): J45.909 - Unspecified asthma, uncomplicated (2) Environmental allergies: Code(s): Z91.09 - Other allergy status, other than to drugs and biological substances Plan Luzdey's if symptoms are likely from underlying asthma with allergic component. She was given a nebulizer treatment in office with significant improvement in symptoms. Will send prescription for DuoNeb and add Spiriva to regimen. Will also send for PFT and RAST to evaluate. All questions were answered and patient is in agreement of plan. Will follow-up to review response to regimen and results, or sooner if needed. Orders: Orders Immunoglobulin E 09/07/23 Z. - Other allergy status, other than to drugs and biological substances Resp Allergy Profile Region I 09/07/23 Z91.09 - Other allergy status, other than to drugs and biological substances AMB Nebulizer Treatment 09/07/23 J45.909 - Unspecified asthma, uncomplicated Complete Blood Count Auto Diff 09/07/23 Z. - Other allergy status, other than to drugs and biological substances Medications: New tiotropium bromide 1.25 mcg/actuation (Spiriva Respimat) 2 puffs inhalation DAILY 4 grams 3RF ipratropium-albuterol 0.5 mg-3 mg(2.5 mg base)/3 mL 3 mL inhalation Q6H PRN 180 mL 0RF wheezing Coding Level of Care Code New Pt Level 4 (23633) Diagnoses Asthma J45.909 Environmental allergies Z. CPT Codes Nebulizer Treatment - Nebulizer Treatment, initial or subsequent: 06973- Nebulizer/MDI RX initial, or Nebulizer Subsequent Treatment ([id number])
[2023-09-07 10:20] VITALS: BP 132/70; PULSE 88; O2SAT 99; BMI 41.6
== END 2023-09-07 11:26 | disposition home or self-care (01) ==
PROVIDERS: PCP Family Medicine; Referring Provider Internal Medicine; Visit Provider Nurse Practitioner Family
DX: J45.909 Unspecified asthma, uncomplicated (principal); Z91.09 Other allergy status, other than to drugs and biological substances
CPT/HCPCS: 99204

== ENCOUNTER → 2023-09-07 10:06 | Outpatient (BNVA) | payer OTHER, SELFPAY | PROVIDERS: PCP Family Medicine; Referring Provider Internal Medicine; Visit Provider Nurse Practitioner Family | DX: J45.909 Unspecified asthma, uncomplicated (principal); Z91.09 Other allergy status, other than to drugs and biological substances | CPT/HCPCS: 94640; 99202 ==

== ENCOUNTER → 2023-09-12 12:56 | Outpatient (BNVA) | payer OTHER, SELFPAY | PROVIDERS: PCP Family Medicine; Visit Provider Physician Assistant Medical | DX: S89.82XD Other specified injuries of left lower leg, subsequent encounter (principal); X50.9XXD Other and unspecified overexertion or strenuous movements or postures, subsequent encounter | CPT/HCPCS: 99213 ==

== ENCOUNTER 2023-09-22 13:00 | Outpatient (RCR) | payer OTHER, SELFPAY | END 2023-12-15 10:49 | disposition home or self-care (01) | LOC: HO.PT 13:00 | PROVIDERS: PCP Family Medicine; Visit Provider Physician Assistant Medical | DX: S89.92XD Unspecified injury of left lower leg, subsequent encounter (principal) | CPT/HCPCS: 97110; 97162 ==

== ENCOUNTER → 2023-09-26 13:04 | Outpatient (BNVA) | payer OTHER, SELFPAY | PROVIDERS: PCP Family Medicine; Visit Provider Physician Assistant Medical | DX: S83.8X2D Sprain of other specified parts of left knee, subsequent encounter (principal); X50.9XXD Other and unspecified overexertion or strenuous movements or postures, subsequent encounter | CPT/HCPCS: 99213 ==

== ENCOUNTER 2023-09-28 08:08 | Outpatient (REF) | payer OTHER, SELFPAY ==
[2023-09-28 08:32] LABS: MANUAL DIFF FLAG NO
[2023-09-28 08:42] LABS: Basophils Percent Auto 0.5 % (0-2); Eosinophils Absolute Auto 0.5 X10*3/uL (0.0-0.4); Eosinophils Percent Auto 6.5 % (0-4); Hematocrit 34.9 % (37.0-47.0); Hemoglobin 11.3 g/dl (12.0-16.0); Imm Gran Abs Auto 0.03 X10*3/uL (0.00-0.03); Imm Gran Pct Auto 0.4 % (0.0-0.4); Lymphocytes Absolute Auto 1.6 X10*3/uL (1.2-4.9); Lymphocytes Percent Auto 20.9 % (20-40); Mean Corpuscular HGB Conc 32.4 g/dl (31.0-35.0); Mean Corpuscular Hemoglobin 24.5 pg (27.0-33.0); Mean Corpuscular Volume 75.5 fL (80.0-98.0); Mean Platelet Volume 9.5 fL (9.4-12.3); Monocytes Absolute Auto 0.4 X10*3/uL (0.1-1.2); Monocytes Percent Auto 5.1 % (2-11); Neutrophils Absolute Auto 5.2 x10*3/uL (2.0-8.3); Neutrophils Percent Auto 66.6 % (45-73); Platelet Count 373 X10*3/uL (160-400); Red Blood Count 4.62 X10*6/uL (4.20-5.50); Red Cell Distribution Width 15.1 % (11.0-16.0); White Blood Count 7.8 X10*3/uL (4.8-10.8)
[2023-10-03 09:18] LABS: Immunoglobulin E 65
[2023-10-03 09:19] LABS: Class Cockroach 0; Class Dermatophagoides farinae 2; Class Mouse Urine Protein 0; E072-IgE Mouse Urine <0.10; I006-IgE Cockroach, German <0.10
[2023-10-03 09:20] LABS: Class Alternaria alternata 0; Class Aspergillus fumigatus 0; Class Cat Dander 3; Class Cladosporium herbarum 0; Class Dog Dander 1; Class Timothy Grass 0; G006 - IgE Timothy Grass <0.10; M002 - IgE Cladosporium herbar <0.10; M003 - IgE Aspergillus fumigat <0.10; M006 - IgE Alternaria alternat <0.10
[2023-10-03 09:21] LABS: Class Derm. pterony 2; Class Mountain Cedar 0; Class Oak 0; T006 - IgE Cedar, Mountain <0.10; T007 - IgE Oak, White <0.10
[2023-10-03 09:22] LABS: Class Bermuda Grass 0; Class Birch 0; Class Common Ragweed 0; Class Cottonwood 0; Class Elm 0; Class Maple Box Elder 0; Class Mugwort 0; Class Penicillium crysogenum 0; Class Rough Pigweed 0; Class Sheep Sorrel 0; Class Sycamore 0; Class Walnut Tree 0; Class White Ash 0; Class White Mulberry 0; G002 IgE Bermuda Grass <0.10; M001 IgE Penicillium chrysogen <0.10; T001 IgE Maple/Box Elder <0.10; T003 IgE Common Silver Birch <0.10; T008 IgE Elm, American <0.10; T010 - IgE Walnut <0.10; T011 - IgE Maple Leaf Sycamore <0.10; T014 - IgE Cottonwood <0.10; T015 - IgE Ash, White <0.10; T070 - IgE White Mulberry <0.10; W001 - IgE Ragweed, Short <0.10; W006 - IgE Mugwort <0.10; W014 IgE Pigweed, Common <0.10; W018 IgE Sheep Sorrel <0.10
== END 2023-09-28 08:09 | disposition home or self-care (01) ==
LOC: HO.LAB 08:08
PROVIDERS: PCP Family Medicine; Visit Provider Nurse Practitioner Family
DX: Z91.09 Other allergy status, other than to drugs and biological substances (principal)
CPT/HCPCS: 36415; 82785; 85025; 86003

== ENCOUNTER 2023-10-07 19:38 | Outpatient (REF) | payer OTHER, SELFPAY ==
--- NOTE | ~2023-10-07 | MR_ITS ---
EXAMINATION: MR KNEE WITHOUT CONTRAST, LEFT CLINICAL INFORMATION: Knee pain and swelling. COMPARISON: Radiographs 08/18/2023. TECHNIQUE: MRI of the knee without contrast was performed using routine sequences on a high-field scanner. FINDINGS: MENISCI: Medial Meniscus: Ill-defined degenerative partial tearing at the root of the posterior horn. Lateral Meniscus: Intact. LIGAMENTS: Cruciate: Intact. Collateral: Intact. EXTENSOR MECHANISM: Intact prepatellar subcutaneous edema. ARTICULAR CARTILAGE/BONE: Patellofemoral Compartment: Minimal cartilage surface irregularity along the median ridge of the patella. Medial Compartment: Mild cartilage thinning with areas of surface irregularity along the weightbearing aspect and small marginal osteophytes. Lateral Compartment: Normal. JOINT FLUID AND BURSAE: Small joint effusion and Russo's cyst. MR/MR knee LT wo con IMPRESSION: 1. Ill-defined degenerative partial tearing at the root of the posterior horn of the medial meniscus. 2. Mild patellofemoral/medial compartment osteoarthritis with a small joint effusion and Russo's cyst.
== END 2023-10-07 19:39 | disposition home or self-care (01) ==
LOC: HO.MRI 19:38
PROVIDERS: PCP Family Medicine; Visit Provider Internal Medicine
DX: M25.562 Pain in left knee (principal)
CPT/HCPCS: 73721

== ENCOUNTER → 2023-10-17 12:46 | Outpatient (BNVA) | payer OTHER, SELFPAY | PROVIDERS: PCP Family Medicine; Visit Provider Physician Assistant Medical | DX: S83.242D Other tear of medial meniscus, current injury, left knee, subsequent encounter (principal); M25.462 Effusion, left knee; X50.9XXD Other and unspecified overexertion or strenuous movements or postures, subsequent encounter | CPT/HCPCS: 99213 ==

== ENCOUNTER 2023-10-24 10:48 | Outpatient (REF) | payer OTHER, SELFPAY ==
--- NOTE | ~2023-10-24 | XR_ITS ---
EXAMINATION: XR CHEST CLINICAL INFORMATION: Patient stated cough, shortness of breath for one week, patient is asthmatic. Order states decreased airflow, moderately persistent asthma exacerbation. . COMPARISON: 08/31/2023 TECHNIQUE: 2 views of the chest were obtained. FINDINGS: There is no gross pneumothorax . Heart size is normal. Lung volumes are low. No pleural effusion. No focal consolidation to suggest pneumonia. Surgical clips in the upper abdomen. XR/XR chest 2V IMPRESSION: No evidence of pneumonia.
== END 2023-10-24 10:49 | disposition home or self-care (01) ==
LOC: HO.HHCX 10:48
PROVIDERS: Visit Provider General Practice
DX: J45.41 Moderate persistent asthma with (acute) exacerbation (principal)
CPT/HCPCS: 71046

== ENCOUNTER 2023-11-04 12:09 | Outpatient (AMB) | payer OTHER, SELFPAY ==
[2023-11-04 12:25] VITALS: BMI 41.6
--- NOTE | 2023-11-04 12:25 | MHC.OFFVIS ---
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 Currently states she has limited ROM, selling and feels as if her knee will give out when walking. Xrays updated with work connection as well as an MRI. Allergies cat dander Allergy (Intermediate, Verified 11/04/23 12:31) wheezing, sneezing Medication List - Last Reconciled 11/04/23 by Hang Caputo PA-C albuterol sulfate 90 mcg/actuation 2 puffs inhalation Q6H PRN budesonide-formoterol 160-4.5 mcg/actuation (Symbicort) 2 puffs inhalation BID cetirizine (Allergy Relief (cetirizine)) 10 mg PO DAILY PRN cyclobenzaprine 10 mg PO TID PRN ergocalciferol (vitamin D2) 1,250 mcg PO QWEEK ferrous gluconate 324 mg PO DAILY fluticasone propionate 50 mcg/actuation (Flonase Allergy Relief) 2 sprays intranasal DAILY ibuprofen 600 mg PO TID PRN ipratropium-albuterol 0.5 mg-3 mg(2.5 mg base)/3 mL 3 mL inhalation Q6H PRN naproxen 500 mg PO BID PRN sennosides (senna) 17.2 mg PO DAILY PRN tiotropium bromide 1.25 mcg/actuation (Spiriva Respimat) 2 puffs inhalation DAILY HPI 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 She was seen at work connection where x-rays were performed and an MRI order was placed. She currently states she has limited ROM, pain, and swelling in her knee which is aggravated with walking and going up and down the stairs. She does not have a history of diabetes. 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 Lateral retropatellar tenderness present. Full ROM with crepitus. Negative Xavi?s. No ligamentous laxity. NVI. Office Procedures Joint Injection/Drain Joint Injection/Drain Primary Site: left knee Prep: site was prepped using aseptic technique, ethochloride spray was applied and injection warnings given Injected: 80 mg of, DepoMedrol, with 8 mL of, 1% plain lidocaine and in the joint Approach Used: anterolateral Procedure: The patient tolerated the procedure well and there was some relief with the local anesthesia Coding 73265 - Glenohumeral/Tronchanteric Bursa/Intraarticular Procedure code (CPT) selection complete Results Reviewed Results Reviewed: MRI left knee 10/07/23 IMPRESSION: 1. Ill-defined degenerative partial tearing at the root of the posterior horn of the medial meniscus. 2. Mild patellofemoral/medial compartment osteoarthritis with a small joint effusion and Russo's cyst. IMPRESSION: 1. Ill-defined degenerative partial tearing at the root of the posterior horn of the medial meniscus. 2. Mild patellofemoral/medial compartment osteoarthritis with a small joint effusion and Russo's cyst. Assessment & Plan Assessment & Plan (1) Patellofemoral arthritis of left knee: Code(s): M17.12 - Unilateral primary osteoarthritis, left knee Category: Medical Plan We discussed options today which include steroid injection. They did consent to move forward with the left knee injection, which was tolerated well. I recommended rest, ice and elevation and OTC anti-inflammatories PRN for discomfort. If symptoms persist or worsens over the next 6-8 weeks, patient will contact the office, otherwise follow-up in 4 weeks, sooner if needed. A new order for physical therapy was placed today. She will continue with current light duty restrictions till November 18. Orders: Orders PT Evaluation and Treatment Today M17.12 - Unilateral primary osteoarthritis, left knee Medications: New celecoxib (Celebrex) 200 mg PO BID 60 caps 3RF 30 days Patient Instructions: Scribed for Hang Caputo PA-C, by Ar Choe medical billing instructor, on 11/04/2023 at 12:30 PM EST. Hang Rodriguez PA-C, have personally reviewed and agree with the information entered by the scribe.
== END 2023-11-04 13:19 | disposition home or self-care (01) ==
PROVIDERS: PCP Family Medicine; Visit Provider Physician Assistant
DX: M17.12 Unilateral primary osteoarthritis, left knee (principal)
CPT/HCPCS: 20610; 99214

== ENCOUNTER → 2023-11-04 12:09 | Outpatient (BNVA) | payer OTHER, SELFPAY | PROVIDERS: PCP Family Medicine; Visit Provider Physician Assistant | DX: M17.12 Unilateral primary osteoarthritis, left knee (principal) | CPT/HCPCS: 20610; 99212; J1010 ==

== ENCOUNTER 2023-11-11 14:02 | Outpatient (AMB) | payer OTHER, SELFPAY ==
--- NOTE | 2023-11-11 14:05 | MHC.OFFVIS ---
Vital Signs 11/11/23 14:06 Height 5 ft 3 in Weight 245 lb 2 oz BMI 43.4 BP 132/78 Blood Pressure Location Rt brachial Position Sitting Pulse 83 Pulse Source Pulse Oximeter Pulse Oximetry (%) 97 Oxygen Delivery Method Room Air Intake Visit Reasons: asthma Allergies cat dander Allergy (Intermediate, Verified 11/11/23 14:08) wheezing, sneezing HPI HPI asthma: Details: Brigette is a pleasant 38 year old female, never smoker with underlying asthma since childhood. She reported suboptimal control on symbicort requiring multiple courses of steroids over the last few months. At the last visit, she was started on spiriva and reports notable improvements overall. She denies dyspnea, cough or wheezing. She continues to report intermittent chest tightness which resolves with albuterol. Today she presents to review allergy testing. 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 Review of Systems Const Denies chills, Denies excessive sweating, Denies fever(s), Denies headache(s) and Denies night sweats Eyes Denies dry eyes, Denies irritation and Denies itchy eyes ENT Reports Normal hearing present, Denies headache(s), Denies nasal congestion, Denies nasal discharge, Denies post nasal drip and Denies sore throat Card Denies chest pain, Denies chest pain at rest, Denies chest pain with activity, Denies claudication, Denies leg edema, Denies orthopnea and Denies paroxysmal nocturnal dyspnea Resp Denies chest congestion, Denies excessive phlegm production, Denies pain on inspiration, Denies pain with cough, Denies stridor and Denies wheezing Musc Denies myalgias Neuro Reports Normal hearing present and Denies headache(s) Endo Denies excessive sweating Remi/Lymph Denies lymphadenopathy Aller/Immun Denies itchy eyes, Denies seasonal rhinorrhea and Denies wheezing Physical Exam Vital Signs: Last Vital Signs Pulse 83 11/11/23 14:06 BP 132/78 11/11/23 14:06 Pulse Ox 97 11/11/23 14:06 Oxygen Delivery Method Room Air 11/11/23 14:06 BMI result Body Mass Index 43.4 Const General: cooperative, healthy appearing, comfortable, no acute distress, well developed and alert Nutritional Appearance: obese Orientation/consciousness: patient oriented x3 Limitations: no limitations HEENT Head: Yes normal to inspection, Yes normocephalic and Yes atraumatic Ears: hearing grossly normal bilaterally and external ears normal Eyes General: appearance normal, both eyes and all related structures Eyelids: Yes eyelids normal Sclerae: sclerae normal EOM: EOMs intact bilaterally Neck Neck: Yes normal visual inspection and Yes no lymphadenopathy Lymphatic: no lymphadenopathy noted Chest Chest palpation & inspection: normal inspection of the chest Resp Effort & Inspection: normal respiratory effort, able to speak in complete sentences, no audible wheezes, no cough, no stridor, not tachypneic, no tripod positioning and no use of accessory muscles Auscultation: clear to auscultation bilaterally Cardio Jugular venous distension: no JVD Rate: regular rate Rhythm: regular rhythm Skin Other: warm, dry General skin exam: no rashes or lesions noted Neuro General: patient oriented x3 Cranial nerves: Yes Normal hearing present Cognition (Neuro): normal cognition Gait exam (Neuro): Normal gait present Extrem General: Yes normal to inspection, Yes capillary refill normal, Yes no clubbing, cyanosis or edema and Yes no pedal edema Psych Appearance: grossly normal and well kempt Speech and movement: Normal speech and movement present and Clear speech present Affect: normal affect Attitude: cooperative Thought process: Normal thought process present Thought content: Normal thought content present Insight: Good insight present (Psych) Judgement: Good judgement present (Psych) Assessment & Plan Assessment & Plan (1) Asthma: Code(s): J45.909 - Unspecified asthma, uncomplicated Category: Medical (2) Environmental allergies: Code(s): Z91.09 - Other allergy status, other than to drugs and biological substances Category: Medical Plan Brigette reports improvement in symptoms with adding spiriva. Reviewed allergy testing which revealed allergies to dust, cats and dogs. She does have both cats and a dog at home, which she frqeuently is triggered by despite using daily zyrtec. Recommended adding singulair. Discussed possible side effects. Will also send for PFT as this was not performed since 2020. All questions were answered and patient is in agreement of plan. Will follow-up to review response to regimen and results, or sooner if needed. If no improvement, will consider biologics. Orders: Orders PFT pulmonary function test Today J45.909 - Unspecified asthma, uncomplicated Medications: New montelukast (Singulair) 10 mg PO BEDTIME 30 tabs 3RF Coding Level of Care Code Est Pt Level 4 (35795) Diagnoses Asthma J45.909 Environmental allergies Z91.09
[2023-11-11 14:06] VITALS: BP 132/78; PULSE 83; O2SAT 97; BMI 43.4
== END 2023-11-11 16:16 | disposition home or self-care (01) ==
PROVIDERS: PCP Family Medicine; Visit Provider Nurse Practitioner Family
DX: J45.909 Unspecified asthma, uncomplicated (principal); Z91.09 Other allergy status, other than to drugs and biological substances
CPT/HCPCS: 99214

== ENCOUNTER → 2023-11-11 14:02 | Outpatient (BNVA) | payer OTHER, SELFPAY | PROVIDERS: PCP Family Medicine; Visit Provider Nurse Practitioner Family | DX: J45.909 Unspecified asthma, uncomplicated (principal); Z91.09 Other allergy status, other than to drugs and biological substances | CPT/HCPCS: 99212 ==

== ENCOUNTER 2023-11-17 10:35 | Outpatient (REF) | payer OTHER, SELFPAY ==
[2023-11-17 11:30] LABS: MANUAL DIFF FLAG NO
[2023-11-17 11:32] LABS: Basophils Percent Auto 0.3 % (0-2); Eosinophils Absolute Auto 0.2 X10*3/uL (0.0-0.4); Eosinophils Percent Auto 1.8 % (0-4); Hematocrit 36.4 % (37.0-47.0); Hemoglobin 11.8 g/dl (12.0-16.0); Imm Gran Abs Auto 0.05 X10*3/uL (0.00-0.03); Imm Gran Pct Auto 0.4 % (0.0-0.4); Lymphocytes Absolute Auto 1.7 X10*3/uL (1.2-4.9); Lymphocytes Percent Auto 14.8 % (20-40); Mean Corpuscular HGB Conc 32.4 g/dl (31.0-35.0); Mean Corpuscular Hemoglobin 24.4 pg (27.0-33.0); Mean Corpuscular Volume 75.2 fL (80.0-98.0); Mean Platelet Volume 9.9 fL (9.4-12.3); Monocytes Absolute Auto 0.5 X10*3/uL (0.1-1.2); Monocytes Percent Auto 4.7 % (2-11); Neutrophils Absolute Auto 8.9 x10*3/uL (2.0-8.3); Platelet Count 444 X10*3/uL (160-400); Red Blood Count 4.84 X10*6/uL (4.20-5.50); Red Cell Distribution Width 15.8 % (11.0-16.0); White Blood Count 11.5 X10*3/uL (4.8-10.8)
[2023-11-17 12:12] LABS: Erythrocyte Sedimentation Rate 27 MM/HR (0-20)
[2023-11-17 12:32] LABS: Anion Gap 13 (12-20); Blood Urea Nitrogen 11 mg/dL (9-16); Calcium 9.8 mg/dL (8.4-10.2); Carbon Dioxide 24 mmol/L (22-29); Chloride 104 mmol/L (96-108); Estimated Glomerular Filt Rate > 60; Glucose Random 88 mg/dL (60-115); Potassium 3.5 mmol/L (3.3-5.1); Sodium 137 mmol/L (135-145)
[2023-11-17 12:38] LABS: HBc Num1 5.52 S/CO (0.00-0.79); HBsAGNum1 0.28 S/CO (0.00-0.99); HIV AB/AG Nonreactive (Nonreactive); HIV Num 1 0.07 S/CO (0.00-0.99); Hepatitis A Antibody IgM 0.19 Index (0-0.79); Hepatitis B Surface Antigen Negative (Negative); ~HepC Num1 0.16 S/CO (0.00-0.79); ~Hepatitis A Antibody IgM Nonreactive (Nonreactive); ~Hepatitis B Surface Antibody REACTIVE (Nonreactive); ~Hepatitis C Antibody Nonreactive (Nonreactive)
[2023-11-17 12:39] LABS: TSH reflex Free T4 1.23 uIU/mL (0.32-4.0)
[2023-11-17 13:38] LABS: HBc Num2 5.57 S/CO; HBc Num3 5.46 S/CO; Hepatitis B Core Antibody Reactive (Nonreactive)
[2023-11-18 13:43] LABS: EBV-NA IgG Index >600.00 U/mL; EBV-VCA IgG Ab >750.00 U/mL; EBV-VCA IgM Ab <36.00 U/mL
[2023-11-18 17:34] LABS: RPR Rapid Plasma Reagin NON-REACTIVE (NON-REACTIVE)
[2023-11-18 23:28] LABS: Immunoglobulin E 95 kU/L (<OR=114)
[2023-11-20 00:23] LABS: TS Negative Control Passed; TS Panel A 0; TS Panel B 0; TS Positive Control Passed; TSpotTB Negative (Negative)
[2023-11-21 12:38] LABS: Anti Nuclear Antibody Pattern Nuclear, Speckled; Anti Nuclear Antibody Screen POSITIVE (NEGATIVE)
== END 2023-11-17 10:36 | disposition home or self-care (01) ==
LOC: HO.HHCL 10:35
PROVIDERS: Visit Provider Internal Medicine
DX: Z11.4 Encounter for screening for human immunodeficiency virus [HIV] (principal); G93.31 Postviral fatigue syndrome; R52 Pain, unspecified; J02.9 Acute pharyngitis, unspecified; I10 Essential (primary) hypertension
CPT/HCPCS: 36415; 80048; 82785; 84443; 85025; 85652; 86038; 86039; 86481; 86592; 86664; 86665; 86704; 86706; 86709; 86803; 87340; 87389

== ENCOUNTER → 2023-11-21 13:51 | Outpatient (BNVA) | payer OTHER, SELFPAY | PROVIDERS: PCP Family Medicine; Visit Provider Physician Assistant Medical | DX: S83.207D Unspecified tear of unspecified meniscus, current injury, left knee, subsequent encounter (principal); X50.9XXD Other and unspecified overexertion or strenuous movements or postures, subsequent encounter; M17.12 Unilateral primary osteoarthritis, left knee | CPT/HCPCS: 99213 ==

== ENCOUNTER 2023-11-22 08:57 | Outpatient (AMB) | payer OTHER, SELFPAY ==
--- NOTE | 2023-11-22 09:01 | A.OFFVIS_ITS ---
Vital Signs 11/22/23 09:02 Height 5 ft 3 in Weight 241 lb BMI 42.7 BP 132/80 Blood Pressure Location Lt brachial Position Sitting Pulse 75 Pulse Source Pulse Oximeter Pulse Oximetry (%) 97 Oxygen Delivery Method Room Air Intake Visit Reasons: asthma Allergies cat dander Allergy (Intermediate, Verified 11/22/23 09:04) wheezing, sneezing HPI HPI asthma: Details: Brigette is a pleasant 38 year old female, never smoker with underlying asthma since childhood. She reported suboptimal control on symbicort requiring multiple courses of steroids over the last few months. At the last visit, she was started on spiriva and reports notable improvements overall. She was also started on singulair but has yet to pick this up. Today she was scheduled for an acute visit as she reported white oral patches and wanted to be evaluated for thrush. Of note, she was recently seen by PCP with positive EBV suggestive of recent mono infection. Today she reports respiratory symptoms are controlled. 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 Review of Systems Const Denies chills, Denies excessive sweating, Denies fever(s), Denies headache(s) and Denies night sweats Eyes Denies dry eyes, Denies irritation and Denies itchy eyes ENT Reports Normal hearing present, Denies headache(s), Denies nasal congestion, Denies nasal discharge, Denies post nasal drip and Denies sore throat Card Denies chest pain, Denies chest pain at rest, Denies chest pain with activity, Denies claudication, Denies leg edema, Denies dyspnea, Denies dyspnea on exertion, Denies orthopnea and Denies paroxysmal nocturnal dyspnea Resp Denies chest congestion, Denies cough, Denies excessive phlegm production, [place] es pain on inspiration, Denies pain with cough, Denies dyspnea, Denies dyspnea on exertion, Denies stridor and Denies wheezing Musc Denies myalgias Neuro Reports Normal hearing present and Denies headache(s) Endo Denies excessive sweating Remi/Lymph Denies lymphadenopathy Aller/Immun Denies itchy eyes, Denies seasonal rhinorrhea and Denies wheezing Physical Exam Vital Signs: Last Vital Signs Pulse 75 11/22/23 09:02 BP 132/80 11/22/23 09:02 Pulse Ox 97 11/22/23 09:02 Oxygen Delivery Method Room Air 11/22/23 09:02 BMI result Body Mass Index 42.7 Const General: cooperative, healthy appearing, comfortable, no acute distress, well developed and alert Nutritional Appearance: obese Orientation/consciousness: patient oriented x3 Limitations: no limitations HEENT Head: Yes normal to inspection, Yes normocephalic and Yes atraumatic Ears: hearing grossly normal bilaterally and external ears normal Mouth: Normal oral and palatal mucosa present and oropharynx normal Eyes General: appearance normal, both eyes and all related structures Eyelids: Yes eyelids normal Sclerae: sclerae normal EOM: EOMs intact bilaterally Neck Neck: Yes normal visual inspection and Yes no lymphadenopathy Lymphatic: no lymphadenopathy noted Chest Chest palpation & inspection: normal inspection of the chest Resp Effort & Inspection: normal respiratory effort, able to speak in complete sentences, no audible wheezes, no cough, no stridor, not tachypneic, no tripod positioning and no use of accessory muscles Auscultation: clear to auscultation bilaterally Cardio Jugular venous distension: no JVD Rate: regular rate Rhythm: regular rhythm Skin Other: warm, dry General skin exam: no rashes or lesions noted Neuro General: patient oriented x3 Cranial nerves: Yes Normal hearing present Cognition (Neuro): normal cognition Gait exam (Neuro): Normal gait present Extrem General: Yes normal to inspection, Yes capillary refill normal, Yes no clubbing, cyanosis or edema and Yes no pedal edema Psych Appearance: grossly normal and well kempt Speech and movement: Normal speech and movement present and Clear speech present Affect: normal affect Attitude: cooperative Thought process: Normal thought process present Thought content: Normal thought content present Insight: Good insight present (Psych) Judgement: Good judgement present (Psych) Assessment & Plan Assessment & Plan (1) Asthma: Code(s): J45.909 - Unspecified asthma, uncomplicated Category: Medical (2) Environmental allergies: Code(s): Z91.09 - Other allergy status, other than to drugs and biological substances Category: Medical Plan Respiratory exam unremarkable. Advised patient to continue current regimen and start singulair. Oral patches likely related to recent mono, no abnormalities seen on exam today. All questions were answered and patient is in agreement of plan. Will follow-up to review response to regimen and PFT results which was ordered at the last visit. Coding Level of Care Code Est Pt Level 4 (71601) Diagnoses Asthma J45.909 Environmental allergies Z91.09
[2023-11-22 09:02] VITALS: BP 132/80; PULSE 75; O2SAT 97; BMI 42.7
== END 2023-11-22 09:29 | disposition home or self-care (01) ==
PROVIDERS: PCP Family Medicine; Visit Provider Nurse Practitioner Family
DX: J45.909 Unspecified asthma, uncomplicated (principal); Z91.09 Other allergy status, other than to drugs and biological substances
CPT/HCPCS: 99214

== ENCOUNTER → 2023-11-22 08:57 | Outpatient (BNVA) | payer OTHER, SELFPAY | PROVIDERS: PCP Family Medicine; Visit Provider Nurse Practitioner Family | DX: J45.909 Unspecified asthma, uncomplicated (principal); Z91.09 Other allergy status, other than to drugs and biological substances | CPT/HCPCS: 99212 ==

== ENCOUNTER 2023-12-05 10:59 | Outpatient (AMB) | payer OTHER, SELFPAY ==
--- NOTE | 2023-12-05 11:02 | A.OFFVIS_ITS ---
Vital Signs 12/05/23 11:05 Height 5 ft 3 in Weight 241 lb BMI 42.7 Intake Visit Reasons: ov- left knee s/p injection Intake Note: Brigette winters 38 year old female presents today for a WC follow up of left knee pain, DOI 08/10/23. Patient reports last injection on 11/04/23 did not provide her with any relief, she continues to have ongoing pain. No relief with ibuprofen or Tyle nol. Allergies cat dander Allergy (Intermediate, Verified 12/05/23 11:05) wheezing, sneezing HPI HPI ov- left knee s/p injection: Details: 38-year-old female who returns to the office today for a follow-up of left knee pain s/p work injury, 08/10/23. She had her last injection on 11/04/23 which did not provide her any relief. She continues to have ongoing pain and swelling in her knee that is aggravated with getting up after prolonged sitting, bending, stair use and walking. She finds no relief with ibuprofen or Tylenol. She had tried physical therapy that made pain worse. 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 Lateral retropatellar tenderness present. Full ROM with crepitus. Negative Xavi?s. No ligamentous laxity. NVI. Assessment & Plan Assessment & Plan (1) Patellofemoral arthritis of left knee: Code(s): M17.12 - Unilateral primary osteoarthritis, left knee Category: Medical Plan Dr. Fontenot was available to see the patient with me today. She will remain out of work till 6 weeks. She will continue working with physical therapy and we will get a preapproval for gel injection. She will see me back as planned in 6 weeks. Patient Instructions: Scribed for Hang Caputo PA-C, by Ar Choe family practice medical doctor, on 12/05/2023 at 11:00 AM EST.? I, Hang Caputo PA-C, have personally reviewed and agree with the information entered by the scribe. Coding Level of Care Code Est Pt Level 3 (16889) Diagnoses Patellofemoral arthritis of left knee M17.12
[2023-12-05 11:05] VITALS: BMI 42.7
== END 2023-12-05 11:46 | disposition home or self-care (01) ==
PROVIDERS: PCP Family Medicine; Visit Provider Physician Assistant
DX: M17.12 Unilateral primary osteoarthritis, left knee (principal)
CPT/HCPCS: 99213

== ENCOUNTER → 2023-12-05 10:59 | Outpatient (BNVA) | payer OTHER, SELFPAY | PROVIDERS: PCP Family Medicine; Visit Provider Physician Assistant | DX: M17.12 Unilateral primary osteoarthritis, left knee (principal) | CPT/HCPCS: 99212 ==

== ENCOUNTER 2024-01-10 11:00 | Outpatient (RCR) | payer OTHER, SELFPAY ==
--- NOTE | 2023-11-28 13:01 | MHC.PT.EP ---
[facility] [place] Office [place] Office [place] Office [address] Micheal Rosales [address] [phone] F: [phone] F: [phone] F: [phone] F: [phone] Physical Therapy Plan of Care Date of Evaluation: 11/28/23 Date of Surgery: NA Diagnosis: LEFT KNEE (KP) Assessment: INA IS A PLEASANT 38 YO FEMALE WHO RETURNS FOR A SECOND COURSE OF PT. ORIGINAL INJURY AT WORK IN JULY AND FIRST TRIAL OF PT WAS CAUSED INCREASED PAIN SO SHE WAS REFERRED BACK TO WORK CONNECTION WHO THEN SENT HER TO ORTHO. NOW TO TRIAL A SECOND COURSE OF PT FOLLOWING INJECTION. UPON EXAM SHE DEMONSTRATES DECREASED LE ROM, DECREASED STRENGTH, ALTERED GAIT AND INCREASED PAIN. FUNCTIONAL LIMITATIONS INCLUDE DECREASED TOLERANCE TO WALKING, STATIC POSITIONING, STAIR NEGOTIATION AND SQUATTING. 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 Manual therapy to restore motion and function. Therapeutic exercise to improve strength and flexibility. Neuromuscular re-education for posture and balance. Therapeutic activities to return to functional activities of daily living. Electronically signed by: TOMAS HUYNH PT DPT Please sign and return to therapist. Thank you for your referral.
== END 2024-02-09 15:42 | disposition home or self-care (01) ==
LOC: HO.PT 11:00
PROVIDERS: PCP Family Medicine; Visit Provider Physician Assistant
DX: M17.12 Unilateral primary osteoarthritis, left knee (principal)
CPT/HCPCS: 97110; 97140; 97161; 97530

== ENCOUNTER 2024-01-20 10:37 | Outpatient (AMB) | payer OTHER, SELFPAY ==
--- NOTE | 2024-01-20 10:47 | A.OFFVIS_ITS ---
Vital Signs 01/20/24 11:05 Height 5 ft 3 in Weight 240 lb BMI 42.5 Intake Visit Reasons: 6wk f/u LT knee PF syndrome-follow up Intake Note: Brigette winters 38 year old female presents today for a follow up for patellofemoral arthritis of left knee, DOI 08/10/23. Patient reports she has completed physical therapy two weeks ago and states she feels no improvement with her symptoms. She expresses her last 3 visit with PT made her feel worse, the pain has increased. She says she pushed herself to do the exercises they requested and each day was more time doing these so when she would leave therapy she had an exacerbation of pain and swelling. She would be interested in discussing injections today. No hx of DM. Allergies cat dander Allergy (Intermediate, Verified 01/20/24 11:05) wheezing, sneezing Medication List - Last Reconciled 01/20/24 by Hang Caputo PA-C albuterol sulfate 90 mcg/actuation 2 puffs inhalation Q6H PRN budesonide-formoterol 160-4.5 mcg/actuation (Symbicort) 2 puffs inhalation BID celecoxib (Celebrex) 200 mg PO BID 30 days cetirizine (Allergy Relief (cetirizine)) 10 mg PO DAILY PRN ergocalciferol (vitamin D2) 1,250 mcg PO QWEEK ferrous gluconate 324 mg PO DAILY fluticasone propionate 50 mcg/actuation (Flonase Allergy Relief) 2 sprays intranasal DAILY ipratropium-albuterol 0.5 mg-3 mg(2.5 mg base)/3 mL 3 mL inhalation Q6H PRN montelukast (Singulair) 10 mg PO BEDTIME naproxen 500 mg PO BID PRN sennosides (senna) 17.2 mg PO DAILY PRN tiotropium bromide 1.25 mcg/actuation (Spiriva Respimat) 2 puffs inhalation DAILY tramadol 50 mg PO BID PRN HPI HPI 6wk f/u LT knee PF syndrome-follow up: Details: 38-year-old female who returns to the office today for a follow-up of left knee pain, DOI 08/10/23. She has tried physical therapy with no relief and reports her last 3 PT visits made her pain worse. She currently states she has increased pain and swelling in her knee due to overusing her knee from the exercises. She is interested in having an injection today. She does not have a history of diabetes. 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 Lateral retropatellar tenderness present. Full ROM with crepitus. Negative Xavi?s. No ligamentous laxity. NVI. Office Procedures Joint Injection/Drain Joint Injection/Drain Primary Site: left knee Prep: site was prepped using aseptic technique, ethochloride spray was applied and injection warnings given Injected: 80 mg of, DepoMedrol, with 8 mL of, 1% plain lidocaine and in the joint Approach Used: anterolateral Procedure: The patient tolerated the procedure well and there was some relief with the local anesthesia Coding 93462 - Glenohumeral/Tronchanteric Bursa/Intraarticular Procedure code (CPT) selection complete Assessment & Plan Assessment & Plan (1) Patellofemoral arthritis of left knee: Code(s): M17.12 - Unilateral primary osteoarthritis, left knee Category: Medical Plan We discussed options today, which include steroid injection. The patient did consent to move forward with the left knee injection, which was tolerated well. I recommended rest, ice, and elevation and OTC anti-inflammatories as needed for discomfort. She will remain out of work for 2 weeks and then return full duty. We will also obtain a prior authorization of gel injection. If symptoms persist or worsen over the next 6-8 weeks, patient will contact the office, otherwise follow-up as needed. Patient Instructions: Scribed for Hang Caputo PA-C, by Ar Choe medical education specialist, on 01/20/2024 at 10:45 AM EST.? I, Hang Caputo PA-C, have personally reviewed and agree with the information entered by the scribe. Coding Level of Care Code Est Pt Level 3 (54060) Diagnoses Patellofemoral arthritis of left knee M17.12 CPT Codes Coding - Joint 7: 19476 - Glenohumeral/Tronchanteric Bursa/Intraarticular ([id number])
[2024-01-20 11:05] VITALS: BMI 42.5
== END 2024-01-20 12:47 | disposition home or self-care (01) ==
PROVIDERS: PCP Family Medicine; Visit Provider Physician Assistant
DX: M17.12 Unilateral primary osteoarthritis, left knee (principal); Z04.2 Encounter for examination and observation following work accident
CPT/HCPCS: 20610; 99213

== ENCOUNTER → 2024-01-20 10:37 | Outpatient (BNVA) | payer OTHER, SELFPAY | PROVIDERS: PCP Family Medicine; Visit Provider Physician Assistant | DX: M17.12 Unilateral primary osteoarthritis, left knee (principal) | CPT/HCPCS: 20610; 99212; J1010 ==

== ENCOUNTER 2024-01-26 09:16 | Outpatient (REF) | payer OTHER, SELFPAY ==
[2024-01-26 11:48] LABS: MANUAL DIFF FLAG NO
[2024-01-26 11:54] LABS: Basophils Percent Auto 0.3 % (0-2); Eosinophils Absolute Auto 0.2 X10*3/uL (0.0-0.4); Eosinophils Percent Auto 2.3 % (0-4); Hematocrit 35.5 % (37.0-47.0); Imm Gran Abs Auto 0.06 X10*3/uL (0.00-0.03); Imm Gran Pct Auto 0.6 % (0.0-0.4); Lymphocytes Absolute Auto 1.9 X10*3/uL (1.2-4.9); Lymphocytes Percent Auto 18.3 % (20-40); Mean Corpuscular Hemoglobin 23.3 pg (27.0-33.0); Mean Corpuscular Volume 75.1 fL (80.0-98.0); Mean Platelet Volume 9.8 fL (9.4-12.3); Monocytes Absolute Auto 0.5 X10*3/uL (0.1-1.2); Monocytes Percent Auto 4.3 % (2-11); Neutrophils Absolute Auto 7.7 x10*3/uL (2.0-8.3); Neutrophils Percent Auto 74.2 % (45-73); Platelet Count 426 X10*3/uL (160-400); Red Blood Count 4.73 X10*6/uL (4.20-5.50); White Blood Count 10.4 X10*3/uL (4.8-10.8)
[2024-01-26 12:04] LABS: Estimated Average Glucose 114 mg/dL; Hemoglobin A1c % 5.6 % (<6.0)
[2024-01-26 12:09] LABS: Rheumatoid Factor < 13.0 IU/mL (<15.0)
[2024-01-26 12:11] LABS: Alanine Aminotransferase 15 U/L (0-31); Albumin Level 3.8 g/dL (3.5-5.0); Alkaline Phosphatase 69 U/L (39-117); Anion Gap 10 (12-20); Aspartate Amino Transferase 14 U/L (5-31); Bilirubin Direct < 0.2 mg/dL (0.0-0.5); Bilirubin Total 0.2 mg/dL (0.0-1.0); Blood Urea Nitrogen 11 mg/dL (9-16); C Reactive Protein 1.04 mg/dL (< or = 0.50); Calcium 9.5 mg/dL (8.4-10.2); Carbon Dioxide 27 mmol/L (22-29); Chloride 105 mmol/L (96-108); Cholesterol 141 mg/dL (<200); Estimated Glomerular Filt Rate > 60; Glucose Random 92 mg/dL (60-115); HDL Cholesterol 45 mg/dL (>40); Iron 29 mcg/dL (30-160); LDL Cholesterol Calculated 86 mg/dL (<100); Percent Iron Saturation 9 % (15-50); Potassium 3.3 mmol/L (3.3-5.1); Sodium 139 mmol/L (135-145); Total Iron Binding Capacity 314 mcg/dL (228-428); Total Protein 7.1 g/dL (6.5-8.0); Triglycerides 52 mg/dL (<150); Unsaturated Iron Binding 285 ug/dL
[2024-01-26 12:23] LABS: Creatinine Urine 106.19 mg/dL; Microalbum/Creatinine Ratio Ur 5.6 ug/mg cr (<30)
[2024-01-26 12:28] LABS: Ferritin 18 ng/mL (10-122)
[2024-01-26 12:30] LABS: Vitamin B12 523 pg/mL (200-900)
[2024-01-26 12:35] LABS: Erythrocyte Sedimentation Rate 24 MM/HR (0-20)
[2024-01-27 13:44] LABS: Anti DNA DS Antibody <1 IU/mL
[2024-02-07 11:43] LABS: Anti Nuclear Antibody Pattern Nuclear, Speckled; Anti Nuclear Antibody Screen POSITIVE (NEGATIVE); Anti Nuclear Antibody Titer 1:40 titer
== END 2024-01-26 09:17 | disposition home or self-care (01) ==
LOC: HO.HHCL 09:16
PROVIDERS: Visit Provider Family Medicine
DX: Z13.1 Encounter for screening for diabetes mellitus (principal); R76.8 Other specified abnormal immunological findings in serum; R70.0 Elevated erythrocyte sedimentation rate; I10 Essential (primary) hypertension; E66.01 Morbid (severe) obesity due to excess calories; Z68.41 Body mass index [BMI] 40.0-44.9, adult; R53.82 Chronic fatigue, unspecified
CPT/HCPCS: 36415; 80048; 80061; 80076; 82043; 82570; 82607; 82728; 83036; 83540; 84443; 85025; 85652; 86038; 86039; 86140; 86225; 86431

== ENCOUNTER 2024-02-13 09:10 | Outpatient (AMB) | payer OTHER, SELFPAY ==
--- NOTE | 2024-02-13 09:22 | A.OFFVIS_ITS ---
Vital Signs 02/13/24 09:25 Height 5 ft 3 in Weight 240 lb BMI 42.5 Intake Visit Reasons: inj- LT knee Durolane injection Intake Note: Brigette a 38 year old female who presents today for a left knee Durolane injection. Allergies cat dander Allergy (Intermediate, Verified 02/13/24 09:25) wheezing, sneezing Medication List - Last Reconciled 02/13/24 by Hang Caputo PA-C albuterol sulfate 90 mcg/actuation 2 puffs inhalation Q6H PRN budesonide-formoterol 160-4.5 mcg/actuation (Symbicort) 2 puffs inhalation BID celecoxib (Celebrex) 200 mg PO BID 30 days cetirizine (Allergy Relief (cetirizine)) 10 mg PO DAILY PRN ergocalciferol (vitamin D2) 1,250 mcg PO QWEEK ferrous gluconate 324 mg PO DAILY fluticasone propionate 50 mcg/actuation (Flonase Allergy Relief) 2 sprays intranasal DAILY ipratropium-albuterol 0.5 mg-3 mg(2.5 mg base)/3 mL 3 mL inhalation Q6H PRN montelukast (Singulair) 10 mg PO BEDTIME naproxen 500 mg PO BID PRN sennosides (senna) 17.2 mg PO DAILY PRN tiotropium bromide 1.25 mcg/actuation (Spiriva Respimat) 2 puffs inhalation DAILY tramadol 50 mg PO BID PRN HPI HPI inj- LT knee Durolane injection: Details: Brigette is a 38-year-old female who presents today for a left knee Durolane injection. She states that she notices significant improvement. 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 Review of Systems Const All systems reviewed & are unremarkable except as noted in HPI and below Physical Exam Vital Signs: BMI result Body Mass Index 42.5 Const General: cooperative, healthy appearing, comfortable and no acute distress Orientation/consciousness: patient oriented x3 Neck Neck: Yes normal visual inspection and Yes no JVD Chest Chest palpation & inspection: normal inspection of the chest Resp Effort & Inspection: normal respiratory effort Auscultation: clear to auscultation bilaterally, crackles (no), rales (no), rhonchi (no) and wheezes (no) Cardio Jugular venous distension: no JVD Rate: regular rate Rhythm: regular rhythm Heart sounds: S1 normal heart sound present, S2 normal heart sound present, Murmur heart sound present (no) and Rub heart sound present (no) Neuro General: patient oriented x3 Extrem Other: Left knee: Skin intact, no erythema or joint effusion. Lateral retropatellar tenderness present. Full ROM with crepitus. Negative Xavi?s. No ligamentous laxity. NVI. General: Yes normal to inspection, Yes no pedal edema and Yes no calf tenderness Psych Appearance: grossly normal Mental Status: mental status grossly normal Speech and movement: Normal speech and movement present Office Procedures Joint Injection/Aspiration Joint Injection/Aspiration Details: durolane injection Primary Site: left knee Prep: site was prepped using aseptic technique, ethochloride spray was applied and injection warnings given Injected: in the joint Approach Used: anterolateral Procedure: The patient tolerated the procedure well Coding 35808 - Glenohumeral/Tronchanteric Bursa/Intraarticular Procedure code (CPT) selection complete Assessment & Plan Assessment & Plan (1) Patellofemoral arthritis of left knee: Code(s): M17.12 - Unilateral primary osteoarthritis, left knee Category: Medical Plan We discussed options today, which include Durolane injection. The patient did consent to move forward with the left knee Durolane injection, which was tolerated well. I recommended rest, ice, and elevation and OTC anti- inflammatories as needed for discomfort. If symptoms persist over the next 6-8 weeks, they will contact the office, otherwise as needed. Patient Instructions: Scribed for Hang Caputo PA-C, by tan Gtz scribe, on 02/13/2024 at 9:15 AM Hang MARTIN PA-C, have personally reviewed and agree with the information entered by the scribe. Coding Level of Care Code Procedure Only Diagnoses Patellofemoral arthritis of left knee M17.12 CPT Codes Coding - Joint 7: 51266 - Glenohumeral/Tronchanteric Bursa/Intraarticular ([id number])
[2024-02-13 09:25] VITALS: BMI 42.5
== END 2024-02-13 09:54 | disposition home or self-care (01) ==
PROVIDERS: PCP Family Medicine; Visit Provider Physician Assistant
DX: M17.12 Unilateral primary osteoarthritis, left knee (principal)
CPT/HCPCS: 20610

== ENCOUNTER → 2024-02-13 09:10 | Outpatient (BNVA) | payer OTHER, SELFPAY | PROVIDERS: PCP Family Medicine; Visit Provider Physician Assistant | DX: M17.12 Unilateral primary osteoarthritis, left knee (principal) | CPT/HCPCS: 20610; J7318 ==

== ENCOUNTER 2024-03-26 10:59 | Outpatient (AMB) | payer OTHER, SELFPAY ==
[2024-03-26 11:12] VITALS: BMI 42.5
--- NOTE | 2024-03-26 11:12 | A.OFFVIS_ITS ---
Vital Signs 03/26/24 11:12 Height 5 ft 3 in Weight 240 lb BMI 42.5 Intake Visit Reasons: OV - LT knee follow up Intake Note: Brigette is a 38 year old female who presents today for a follow up of her Left Knee Durolane injection administered on 02/13/24. Patient reports that this injection made the left knee worse as she has had increased knee pain since injection. Allergies cat dander Allergy (Intermediate, Verified 03/26/24 11:12) wheezing, sneezing HPI HPI OV - LT knee follow up: Details: Brigette is a 38 year old female who presents today for a follow up of her Left Knee Durolane injection administered on 02/13/24. Patient reports that this injection made the left knee worse as she has had increased knee pain since injection. This is a work-related injury. It occurred in July of this year. She has been frustrated that she has not improved and she still feels she can not engage in daily activities without pain. She has posteromedial pain as well as anterior pain. She feels swollen with fullness in the back of her knee. The only thing that helped for a brief period of time as a steroid injection. This helped for about a week. 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 Results Reviewed Results Reviewed: I personally reviewed the MR images. 1. Ill-defined degenerative partial tearing at the root of the posterior horn of the medial meniscus. 2. Mild patellofemoral/medial compartment osteoarthritis with a small joint effusion and Russo's cyst. Assessment & Plan Assessment & Plan (1) Medial meniscus tear: Code(s): S83.249A - Other tear of medial meniscus, current injury, unspecified knee, initial encounter Category: Medical Plan: This is a 38-year-old woman who has a work-related injury of her left knee. On exam and she has some medial tenderness with ongoing effusion. She reports having had pain now for almost 9 months with minimal improvement. I reviewed her MRI and she has a small posteromedial meniscus tear. She has some mild patellofemoral arthritis as well. Given her lack of improvement I recommend knee arthroscopy possible medial meniscus repair. I can not fully evaluate the integrity of the posterior horn of the medial meniscus and given her lack of and it is possible that she has a root tear that would benefit from repair. I discussed this with her as well as the risk of incomplete symptom resolution the risk of stiffness and the importance postoperative recovery. She is currently not working. I recommend she continue to stay out of work and we will proceed forward with knee arthroscopy and possible medial meniscus repair. All her questions were answered. Coding Level of Care Code Est Pt Level 4 (16352) Diagnoses Medial meniscus tear S83.249A
== END 2024-03-26 13:44 | disposition home or self-care (01) ==
PROVIDERS: PCP Family Medicine; Visit Provider Orthopaedic Surgery
DX: S83.242A Other tear of medial meniscus, current injury, left knee, initial encounter (principal)
CPT/HCPCS: 99214

== ENCOUNTER → 2024-03-26 10:59 | Outpatient (BNVA) | payer OTHER, SELFPAY | PROVIDERS: PCP Family Medicine; Visit Provider Orthopaedic Surgery | DX: S83.242A Other tear of medial meniscus, current injury, left knee, initial encounter (principal) | CPT/HCPCS: 99212 ==

== ENCOUNTER 2024-04-06 08:58 | Outpatient (REF) | payer OTHER, SELFPAY | END 2024-04-06 08:59 | disposition home or self-care (01) | LOC: HO.XRAY 08:58 | PROVIDERS: PCP Family Medicine; Visit Provider Physician Assistant | DX: M23.91 Unspecified internal derangement of right knee (principal) | CPT/HCPCS: 99212 ==

== ENCOUNTER 2024-04-06 09:42 | Outpatient (AMB) | payer OTHER, SELFPAY ==
--- NOTE | 2024-04-06 09:57 | A.OFFVIS_ITS ---
Intake Visit Reasons: NewProb- RT knee pain Intake Note: Brigette a 38 year old female who presents today for an evaluation of right knee pain. Patient reports pain in her right knee has been present for about 2 weeks. Denies injury. She believes this may be cause from over compensation. a little numbness in bilateral feet and toes. Her pain is mostly located at the posterior aspect of knee and travels to her calf as well as the anterior aspect. Find no relief with Tylenol or aleve. Allergies cat dander Allergy (Intermediate, Verified 03/26/24 11:12) wheezing, sneezing HPI HPI NewProb- RT knee pain: Details: 38-year-old female who presents to the office today for an evaluation of right knee pain for about 2 weeks. She denies any injury however she believes her right knee pain started due to overcompensating for her left knee. She currently states she has severe worsening pain at the posterior aspect of her knee that radiates to her calf as well as anterior aspect. Her pain is aggravated with going up and down the stairs. She also experiences mild numbness and tingling in her bilateral feet and toes. She denies any catching or locking of her knee. She finds no relief with Tylenol or Aleve. 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 Tenderness along the medial and lateral joint line. Full ROM with crepitus. Positive Xavi?s. No ligamentous laxity. NVI. Assessment & Plan Assessment & Plan (1) Internal derangement of right knee: Code(s): M23.91 - Unspecified internal derangement of right knee Category: Medical Plan An MRI of the right knee was ordered to further evaluate the integrity of meniscus given the pain and limitations with activities. Once the scan is complete, she will see me back to determine the next step in her treatment. She is content with this plan. Orders: Orders MR knee RT wo con Today M17.11 - Unilateral primary osteoarthritis, right knee Patient Instructions: Scribed for Hang Caputo PA-C, by Ar Choe medical health researcher, on 04/06/2024 at 9:45 AM EST.? I, Hang Caputo PA-C, have personally reviewed and agree with the information entered by the scribe. Coding Level of Care Code Est Pt Level 3 (58606) Complex EM visit Add On G2211 Diagnoses Internal derangement of right knee M23.91
== END 2024-04-06 11:49 | disposition home or self-care (01) ==
PROVIDERS: PCP Family Medicine; Visit Provider Physician Assistant
DX: M23.91 Unspecified internal derangement of right knee (principal)
CPT/HCPCS: 99213; G2211

== ENCOUNTER 2024-04-11 15:52 | Outpatient (REF) | payer OTHER, SELFPAY ==
--- NOTE | ~2024-04-11 | XR_ITS ---
EXAMINATION: XR KNEE, RIGHT XR KNEE, LEFT CLINICAL INFORMATION: Right and left knee pain. COMPARISON: Most recent left knee MRI dated 10/07/2023. TECHNIQUE: AP standing views of the right and left knee as well as lateral and sunrise views of the right knee. FINDINGS: Right knee: No acute fracture or dislocation. Mild medial compartment joint space narrowing. No marginal osteophytes. No osseous erosion. No abnormal soft tissue calcification. Trace joint effusion. Left knee: No acute fracture or dislocation. Mild medial compartment joint space narrowing with tiny marginal osteophytes. No osseous erosion. No abnormal soft tissue calcification. XR/XR knee LT 1V IMPRESSION: RIGHT KNEE: Mild medial compartment arthrosis. Trace joint effusion. LEFT KNEE: Mild medial compartment osteoarthritis. Electronically signed by: Glenn Don MD 06/13/2024 11:34 AM SURJIT
--- NOTE | ~2024-04-11 | XR_ITS ---
EXAMINATION: XR KNEE, RIGHT XR KNEE, LEFT CLINICAL INFORMATION: Right and left knee pain. COMPARISON: Most recent left knee MRI dated 10/07/2023. TECHNIQUE: AP standing views of the right and left knee as well as lateral and sunrise views of the right knee. FINDINGS: Right knee: No acute fracture or dislocation. Mild medial compartment joint space narrowing. No marginal osteophytes. No osseous erosion. No abnormal soft tissue calcification. Trace joint effusion. Left knee: No acute fracture or dislocation. Mild medial compartment joint space narrowing with tiny marginal osteophytes. No osseous erosion. No abnormal soft tissue calcification. XR/XR knee RT 3V IMPRESSION: RIGHT KNEE: Mild medial compartment arthrosis. Trace joint effusion. LEFT KNEE: Mild medial compartment osteoarthritis. Electronically signed by: Glenn Don MD 06/13/2024 11:34 AM SURJIT
== END 2024-04-11 15:53 | disposition home or self-care (01) ==
LOC: HO.XRAY 15:52
PROVIDERS: PCP Family Medicine; Visit Provider Physician Assistant
DX: M17.11 Unilateral primary osteoarthritis, right knee (principal); M25.562 Pain in left knee
CPT/HCPCS: 73560; 73562

== ENCOUNTER 2024-05-02 07:26 | Day surgery (SDC) | payer OTHER, SELFPAY ==
--- NOTE | 2024-05-01 08:18 | P.CONAN_ITS ---
Documented by User: Anna Lomeli NP 05/01/24 08:18 HPI - Anesthesia Eval Consult details Narrative: 38yo F for Left Knee Arthroscopy PMFSH Active Problems Active Problems: All Active Problems Internal derangement of right knee (Acute) Medial meniscus tear (Acute) Patellofemoral arthritis of left knee (Acute) Environmental allergies (Acute) Asthma (Acute) Dizziness (Acute) Lateral epicondylitis, right elbow (Acute) Past Medical History Medical History Fibromyalgia Asthma Family History Family History Mother Diabetes Father Hypertension Surgical History Surgical History Hx of appendectomy History of cholecystectomy Social History Social History Are you a primary healthcare risk control consultant to a significant other at home: No Do you presently have visiting nurse or other home services: No Alcohol intake: never Patient Tobacco Use Status: Never used Tobacco Use of substances other than those prescribed or required for medical reasons: No Have you been hit, kicked, punched, or otherwise hurt by someone within the past year? 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 Meds Allergies Allergy/AdvReac Type Severity Reaction Status Date / Time cat dander Allergy Intermediate wheezing, Verified 05/02/24 09:11 sneezing Home Medications ?Medication ?Instructions ?Recorded ?Confirmed ?Last Taken ?Type sennosides 8.6 mg tablet (senna) 17.2 mg PO DAILY PRN constipation 08/11/22 05/02/24 Unknown History albuterol sulfate 90 mcg/actuation 2 puff inhalation Q6H PRN 09/07/23 05/02/24 Unknown History aerosol inhaler Shortness Of Breath Or Wheezing budesonide-formoterol HFA 160 2 puff inhalation BID 02/05/02/24 05/02/24 History mcg-4.5 mcg/actuation aerosol inhaler (Symbicort) cetirizine 10 mg tablet (Allergy 10 mg PO DAILY PRN asthma 09/07/23 05/02/24 Unknown History Relief (cetirizine)) ergocalciferol (vitamin D2) 1,250 1,250 mcg PO QWEEK 09/07/23 05/02/24 Unknown History mcg (50,000 unit) capsule Assessment and Plan Assessment Anesthesia Assessment: Chart Reviewed Documented by User: Cinthia Murray MD 05/02/24 10:35 PMFSH Past Medical History Medical History Fibromyalgia Asthma Family History Family History Mother Diabetes Father Hypertension Family history of problems with anesthesia: No Surgical History Surgical History Hx of appendectomy History of cholecystectomy History of Problems with Anesthesia: No Social History Social History Are you a primary healthcare risk control consultant to a significant other at home: No Do you presently have visiting nurse or other home services: No Alcohol intake: never Patient Tobacco Use Status: Never used Tobacco Use of substances other than those prescribed or required for medical reasons: No Have you been hit, kicked, punched, or otherwise hurt by someone within the past year? 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 Meds Allergies Allergy/AdvReac Type Severity Reaction Status Date / Time cat dander Allergy Intermediate wheezing, Verified 05/02/24 09:11 sneezing Home Medications ?Medication ?Instructions ?Recorded ?Confirmed ?Last Taken ?Type sennosides 8.6 mg tablet (senna) 17.2 mg PO DAILY PRN constipation 08/11/22 05/02/24 Unknown History albuterol sulfate 90 mcg/actuation 2 puff inhalation Q6H PRN 09/07/23 05/02/24 Unknown History aerosol inhaler Shortness Of Breath Or Wheezing budesonide-formoterol HFA 160 2 puff inhalation BID 09/07/23 05/02/24 05/02/24 History mcg-4.5 mcg/actuation aerosol inhaler (Symbicort) cetirizine 10 mg tablet (Allergy 10 mg PO DAILY PRN asthma 09/07/23 05/02/24 Unknown History Relief (cetirizine)) ergocalciferol (vitamin D2) 1,250 1,250 mcg PO QWEEK 09/07/23 05/02/24 Unknown History mcg (50,000 unit) capsule Exam Airway Mallampati Class: II TM Dist: >3cm Neck ROM: Full Heart: RRR Lungs: CTA Assessment and Plan Assessment Anesthesia Assessment: Anesthesia Plan Discussed Final Anesthetic Review Family History of Problems with Anesthesia: No History of Problems with Anesthesia: No NPO: Yes ASA Class: III Final Preanesthetic Review: No Changes in Pt Med Stat, Meds/Allgs Chart Reviewed, Consent Obtained/Reviewed and Anes Risks/Benef Reviewed Patient Risk: Intermediate Procedure Risk: Low Anesthetic Plan Anesthetic Plan: GA Disposition: Standard PACU
[2024-05-02] VITALS (8 sets, daily range): BP systolic 142–154; BP diastolic 87–100; PULSE 71–85; RESP 14–18; TEMP 36.2–37.1; O2SAT 96–97; BMI 42.2
[2024-05-02 08:28] LABS: UPreg QC Valid YES; Urine Pregnancy NEGATIVE (NEGATIVE)
--- NOTE | 2024-05-02 08:42 | MHC.SHP ---
Pre-Procedural Eval Section A - 24 Hr Update-Section A only Date of Service: 05/02/24 The patient is an INPATIENT: No Changes since office visit: No Cold of Flu in the past 2 weeks, No New Medical Problems, No Changes in Medication and No Patient answered all questions The patient has been examined within 24 hours of the surgical procedure. The History & Physical has been completed within 30 days and I have reviewed it.: Yes Section B - Complete if H&P > 30 days Chief Complaint: Other tear of medial meniscus, current injury, Allergies: Allergies Allergy/AdvReac Type Severity Reaction Status Date / Time cat dander Allergy Intermediate wheezing, Verified 03/26/24 11:12 sneezing Plan I have reviewed the history and physical and performed a pertinent physical examination on my patient. No changes have occurred unless specified. Time Spent With Patient Time: Total time managing care of this patient today ____ minutes.
[2024-05-02] MEDS: Lactated Ringers 1,000 ML 100 ML IVCONT (09:08)
--- NOTE | 2024-05-02 11:14 | MHC.SHP ---
Pre-Procedural Eval Section A - 24 Hr Update-Section A only Date of Service: 05/02/24 Section B - Complete if H&P > 30 days Chief Complaint: Other tear of medial meniscus, current injury, Details of Present Illness: left knee MMT Relevant Family History (Specify if Yes): No Relevant Social History: None Present Medications: see Short Stay Collaborative assessment Medical History: No relevant PMH History of Previous Operations: No relevant previous surgery Allergies: Allergies Allergy/AdvReac Type Severity Reaction Status Date / Time cat dander Allergy Intermediate wheezing, Verified 05/02/24 09:11 sneezing Review of Systems Sugical H&P ROS: Negative: Constitution, Cardiovascular, Respiratory, Neurological, Psychiatric, Hem-Onc, Allergic/Immunologic, Gastrointestinal, Genitourinary, Musculoskeletal, Integumentary, Endocrine and Eyes/Ears/Nose/Throat Exam Surgical H&P Exam: Normal: HEENT, Normal: Heart, Normal: Lungs, Normal: Abdomen, Normal: Skin and Normal: Neurological and Significant Findings: Extremities Plan Diagnosis/Plan: Unchanged I have reviewed the history and physical and performed a pertinent physical examination on my patient. No changes have occurred unless specified. Time Spent With Patient Time: Total time managing care of this patient today ____ minutes.
--- NOTE | 2024-05-02 12:07 | P.BOP_ITS ---
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
--- NOTE | 2024-05-15 09:54 | P.OP_ITS ---
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 A time-out was called to identify proper site proper procedure proper surgeon and IV antibiotics per weight were administered. I began by exsanguinating the limb and insufflating tourniquet to 300 mm Hg. Then made a standard anterolateral stab incision. The knee was insufflated with water and 30 degree arthroscope was placed. There was grade 1 fibrillations of the patella but overall suprapatellar pouch and the gutters were clean. I descended into the medial compartment where I made my medial portal under direct visualization. There was obvious of complex tear of the posterior horn of the medial meniscus. The root was intact and there was grade 2 changes over the weight bearing portion of the MFC. I used a combination of biter shaver and cautery to remove unstable portions of the meniscus. Apporximately 30% meniscal volume was removed. Once I was satsfied with this the ACL was examined and found to be intact and the lateral compartment also was without the need for intervention. I then removed all instrumentation and closed the portals with skin glue. 25 mL of 2% Marcaine with epinephrine was injected into the joint and the surrounding soft tissues. Patient was then placed in sterile dressing extubated brought recovery room stable condition. There were no known complications.
== END 2024-05-02 13:46 | disposition home or self-care (01) ==
PROVIDERS: Nurse Practitioner; PCP Family Medicine; Visit Provider Orthopaedic Surgery
PROC: (CPT 29870; principal; 2024-05-02 10:30)
DX: S83.232A Complex tear of medial meniscus, current injury, left knee, initial encounter (principal); M17.12 Unilateral primary osteoarthritis, left knee; M23.322 Other meniscus derangements, posterior horn of medial meniscus, left knee; M25.562 Pain in left knee; M25.462 Effusion, left knee; X58.XXXA Exposure to other specified factors, initial encounter; Y93.9 Activity, unspecified; Y92.63 Factory as the place of occurrence of the external cause; Y99.8 Other external cause status; M79.7 Fibromyalgia; J45.909 Unspecified asthma, uncomplicated; Z79.51 Long term (current) use of inhaled steroids; Z79.899 Other long term (current) drug therapy; Z90.49 Acquired absence of other specified parts of digestive tract
CPT/HCPCS: 29881; 81025; J0131; J0171; J0690; J1100; J2003; J2250; J2405; J2704; J2795; J3010

== ENCOUNTER → 2024-05-02 07:26 | Outpatient (BNV) | payer OTHER, SELFPAY | PROVIDERS: PCP Family Medicine; Visit Provider Orthopaedic Surgery | DX: S83.232A Complex tear of medial meniscus, current injury, left knee, initial encounter (principal) | CPT/HCPCS: 29881 ==

== ENCOUNTER 2024-05-05 02:01 | Emergency (ER) | payer OTHER, SELFPAY ==
--- NOTE | 2024-05-05 | ECG_ITS ---
Test Reason : CHEST PRESSURE Blood Pressure : / mmHG Vent. Rate : 080 BPM Atrial Rate : 080 BPM P-R Int : 136 ms QRS Dur : 074 ms QT Int : 392 ms P-R-T Axes : 022 006 022 degrees QTc Int : 452 ms Normal sinus rhythm Normal ECG When compared with ECG of 31-AUG-2023 20:42, No significant change was found Referred By: Generic ED Physician Electronically Signed By:NELLY BOND
--- NOTE | ~2024-05-05 | XR_ITS ---
EXAMINATION: XR CHEST CLINICAL INFORMATION: Cough. COMPARISON: October 24, 2023 TECHNIQUE: Frontal view of the chest was obtained. FINDINGS: No significant abnormality is noted involving the heart, lungs, mediastinum, bony thorax or soft tissues. XR/XR chest 1V IMPRESSION: Unremarkable examination. Electronically signed by: Anish Aldridge MD 05/05/2024 03:02 AM EDT
[2024-05-05 02:08] VITALS: BP 134/92; PULSE 81; O2SAT 99
[2024-05-05 02:11] VITALS: BP 139/85; PULSE 79; RESP 20; TEMP 36.4; O2SAT 97; BMI 43.9
[2024-05-05 02:32] LABS: Hematocrit 34.8 % (37.0-47.0); Hemoglobin 11.1 g/dl (12.0-16.0); Mean Corpuscular HGB Conc 31.9 g/dl (31.0-35.0); Mean Corpuscular Hemoglobin 23.7 pg (27.0-33.0); Mean Corpuscular Volume 74.4 fL (80.0-98.0); Mean Platelet Volume 8.8 fL (9.4-12.3); Platelet Count 369 X10*3/uL (160-400); Red Blood Count 4.68 X10*6/uL (4.20-5.50); Red Cell Distribution Width 16.4 % (11.0-16.0); White Blood Count 11.3 X10*3/uL (4.8-10.8)
[2024-05-05 02:37] LABS: INTERNATIONAL NORM RATIO 0.9 (0.9-1.1); Prothrombin Time 10.6 SEC (10.9-12.4)
[2024-05-05 02:43] LABS: D Dimer High Sensitivity < 150 NG/ML
[2024-05-05 02:45] LABS: Anion Gap 13 (12-20); Blood Urea Nitrogen 9 mg/dL (9-16); Calcium 9.4 mg/dL (8.4-10.2); Carbon Dioxide 27 mmol/L (22-29); Chloride 103 mmol/L (96-108); Creatinine Clr Calc Pharmacy 122.2; Estimated Glomerular Filt Rate > 60; Glucose Random 105 mg/dL (60-115); Sodium 140 mmol/L (135-145)
--- NOTE | 2024-05-05 02:51 | ED_ITS ---
HPI - SOB/Dyspnea General Chief Complaint: Dyspnea Stated Complaint: SOB x9hrs and CP Time Seen by Provider: 05/05/24 02:50 Source: patient, family and EMS Mode of arrival: EMS Limitations: no limitations History of Present Illness ED Provider: Dr. Rao HPI Narrative: Patient is a 38 yo female with asthma who presents with increasing shortness of breath and wheezing. 3 days prior patient had knee surgery has been not ambulatory since that time. Related Data Home Medications ?Medication ?Instructions ?Recorded ?Confirmed sennosides 8.6 mg tablet (senna) 17.2 mg PO DAILY PRN constipation 08/11/22 05/02/24 albuterol sulfate 90 mcg/actuation 2 puff inhalation Q6H PRN 09/07/23 05/02/24 aerosol inhaler Shortness Of Breath Or Wheezing budesonide-formoterol HFA 160 2 puff inhalation BID 09/07/23 05/02/24 mcg-4.5 mcg/actuation aerosol inhaler (Symbicort) cetirizine 10 mg tablet (Allergy 10 mg PO DAILY PRN asthma 09/07/23 05/02/24 Relief (cetirizine)) ergocalciferol (vitamin D2) 1,250 1,250 mcg PO QWEEK 09/07/23 05/02/24 mcg (50,000 unit) capsule Previous Rx's ?Medication ?Instructions ?Recorded naproxen 500 mg tablet 500 mg PO BID PRN back pain #28 08/18/23 tabs ipratropium 0.5 mg-albuterol 3 mg 3 ml inhalation Q6H PRN wheezing 09/07/23 (2.5 mg base)/3 mL nebulization #180 mL soln tiotropium bromide 1.25 2 puff inhalation DAILY #4 grams 09/07/23 mcg/actuation mist for inhalation (Spiriva Respimat) hydrocodone 5 mg-acetaminophen 325 1 tab PO Q8H PRN pain 7 days #21 05/02/24 mg tablet tabs prednisone 20 mg tablet 60 mg (3 x 20 mg) PO DAILY #12 tabs 05/05/24 Allergies Allergy/AdvReac Type Severity Reaction Status Date / Time cat dander Allergy Intermediate wheezing, Verified 05/05/24 02:12 sneezing Review of Systems 2 Review of Systems: Yes all other systems are reviewed and are negative Neurologic: Denies Sensory deficit (Neuro) [facility] Past Medical History Medical History Fibromyalgia Asthma Surgical History Hx of appendectomy History of cholecystectomy Family History Family History Mother Diabetes Father Hypertension Social History Social History Are you a primary rn palliative care to a significant other at home: No Do you presently have visiting nurse or other home services: No Alcohol intake: never Patient Tobacco Use Status: Never used Tobacco Advance Directives: No Advance Directives Information Provided: No Current occupational status: employed 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 Physical Exam 2 Vital Signs: Vital Signs: Last Vital Signs Temp 97.6 F 05/05/24 02:11 Pulse 79 05/05/24 02:11 Resp 20 05/05/24 02:11 BP 139/85 05/05/24 02:11 Pulse Ox 97 05/05/24 02:11 O2 Del Method Room Air 05/05/24 02:11 BMI result Body Mass Index 43.9 Const: General: healthy appearing Nutritional Appearance: average body habitus Orientation/consciousness: oriented to person and patient oriented x3 Limitations: no limitations HEENT: Head: Yes normal to inspection Ears: external ears normal General nose exam: Normal external nose present Mouth: Normal oral and palatal mucosa present and oropharynx normal Throat: Yes posterior oropharynx normal Eyes: General: appearance normal, both eyes and all related structures Neck: Other: supple Neck: Yes normal visual inspection Chest: Chest palpation & inspection: normal inspection of the chest Resp: Auscultation: clear to auscultation bilaterally Cardio: Jugular venous distension: no JVD Rate: regular rate Rhythm: r egular rhythm Heart sounds: S1 normal heart sound present and S2 normal heart sound present GI: Inspection: Yes normal to inspection Palpation (GI): Soft to palpation, nontender and No hepatosplenomegaly present Auscultation: normal bowel sounds : General: Yes no CVA tenderness Back/Spine/Pelvis: Back: no CVA tenderness Skin: General skin exam: no rashes or lesions noted Neuro: General: oriented to person and patient oriented x3 Cranial nerves: Yes CN's II-XII intact bilaterally Motor exam (neuro): 5/5 motor strength present throughout Sensory Exam: No Sensory deficit (Neuro) Extrem: General: Yes normal to inspection Psych: Appearance: grossly normal Course Reevaluation(s) Reevaluation #1: no evidence of cardiac ischemia, negative ddimer, patient using her inhailer more frequently will start prednisone and dc home Time: 03:03 Medical Decision Making Differential Diagnosis Differential Diagnoses: The differential diagnosis associated with the presentation includes (PE, pneumonia, asthma exacerbation) Admission/Observation Consideration of admission/observation: Escalation of care including admission/observation considered (upon arrival patient was considered for admission) Lab Data 05/05/24 02:26 05/05/24 02:25 Labs: Lab Results 05/05/24 05/05/24 Range/Units 02:25 02:26 WBC 11.3 H (4.8-10.8) X10*3/uL RBC 4.68 (4.20-5.50) X10*6/uL Hgb 11.1 L (12.0-16.0) g/dl Hct 34.8 L (37.0-47.0) % MCV 74.4 L (80.0-98.0) fL MCH 23.7 L (27.0-33.0) pg MCHC 31.9 (31.0-35.0) g/dl RDW 16.4 H (11.0-16.0) % Plt Count 369 (160-400) X10*3/uL MPV 8.8 L (9.4-12.3) fL Absolute Nucleated RBC 0.000 (0.0-0.012) X10*3/uL Nucleated RBC % (auto) 0.0 (0.0-0.2) /100WBC PT 10.6 L (10.9-12.4) SEC INR 0.9 (0.9-1.1) D-Dimer High Sensitivty < 150 NG/ML Sodium 140 (135-145) mmol/L Potassium 3.0 L (3.3-5.1) mmol/L Chloride 103 (96-108) mmol/L Carbon Dioxide 27 (22-29) mmol/L Anion Gap 13 (12-20) BUN 9 (9-16) mg/dL Creatinine 0.76 (0.5-1.4) mg/dL Estim Creat Clear Calc 122.2 Estimated GFR > 60 Random Glucose 105 (60-115) mg/dL Calcium 9.4 (8.4-10.2) mg/dL Troponin I High Sens < 2.7 (<3.5-17.0) ng/L Independent Interpretation I performed an independent interpretation of an: EKG (sinus 80, no st or twave changes) and Plain X-Ray (CXR: no infiltrate) Independent Historian Clinical information obtained from an independent historian. History obtained from or confirmed by: Spouse Tests considered The following testing was considered but not selected: CT chest angio considered but ddimer was negative Prescription Management I considered prescription management with: Antibiotic (no evidence of pneumonia on xray) Discharge Plan Discharge Clinical Impression: Asthma Patient Disposition: Home, Self-Care Instructions: Asthma (ED) Prescriptions: New prednisone 20 mg tablet 60 mg PO DAILY Qty: 12 0RF No Action hydrocodone-acetaminophen 5-325 mg tablet 1 tab PO Q8H PRN (Reason: pain) 7 Days Qty: 21 0RF Rx Instructions: Partial Fill upon patient request. sennosides [senna] 8.6 mg tablet 17.2 mg PO DAILY PRN (Reason: constipation) albuterol sulfate 90 mcg/actuation HFA aerosol inhaler 2 puff inhalation Q6H PRN (Reason: Shortness Of Breath Or Wheezing) budesonide-formoterol [Symbicort] 160-4.5 mcg/actuation HFA aerosol inhaler 2 puff inhalation BID cetirizine [Allergy Relief (cetirizine)] 10 mg tablet 10 mg PO DAILY PRN (Reason: asthma) ergocalciferol (vitamin D2) 1,250 mcg (50,000 unit) capsule 1,250 mcg PO QWEEK Spiriva Respimat 1.25 mcg/actuation mist 2 puff inhalation DAILY Qty: 4 3RF ipratropium-albuterol 0.5 mg-3 mg(2.5 mg base)/3 mL solution for nebulization 3 ml inhalation Q6H PRN (Reason: wheezing) Qty: 180 0RF naproxen 500 mg tablet 500 mg PO BID PRN (Reason: back pain) Qty: 28 0RF Print Language: Kenyan
[2024-05-05 02:56] LABS: Troponin-I High Sensitivity < 2.7 ng/L (<3.5-17.0)
[2024-05-05 03:57] VITALS: BP 137/83; PULSE 77; RESP 18; TEMP 36.4; O2SAT 98
[2024-05-05] MEDS: Potassium Chloride ER 20 MEQ TAB.ER.PRT PO (03:57)
[2024-05-05] MEDS: predniSONE 20 MG TABLET 60 MG PO (03:57)
[2024-05-05 04:56] VITALS: BP 137/83; PULSE 77; RESP 18; TEMP 36.4; O2SAT 98
== END 2024-05-05 03:30 | disposition home or self-care (01) ==
PROVIDERS: Emergency Provider Emergency Medicine; PCP Family Medicine
DX: J45.909 Unspecified asthma, uncomplicated (principal); R06.02 Shortness of breath; Z79.899 Other long term (current) drug therapy
CPT/HCPCS: 36415; 71045; 80048; 84484; 85027; 85379; 85610; 93005; 99283; 99284

== ENCOUNTER → 2024-05-05 02:14 | Outpatient (BNV) | payer OTHER, SELFPAY | PROVIDERS: Emergency Provider Emergency Medicine; PCP Family Medicine; Visit Provider Internal Medicine | DX: R07.9 Chest pain, unspecified (principal) | CPT/HCPCS: 93010 ==

== ENCOUNTER 2024-05-10 13:16 | Outpatient (AMB) | payer OTHER, SELFPAY ==
--- NOTE | 2024-05-10 13:18 | A.OFFVIS_ITS ---
Intake Visit Reasons: PO LT Knee 05/02/24 NE Intake Note: Brigette a 38 year old female who presents today for a post operative visit s/p left knee on 05/02/24 NE. Patient reports she is doing well, states her current pain level is a 6 out of 10. Allergies cat dander Allergy (Intermediate, Verified 05/10/24 13:19) wheezing, sneezing HPI HPI PO LT Knee 05/02/24 NE: Details: 38-year-old female who returns to the office today for post-op left knee , 05/02/[address] Fontenot. She continues to have pain and rates the pain as 6 on the scale of 0-10. She is doing well otherwise and has no other concerns today. 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 No redness or drainage. Rom 0-90 degrees. Calf supple, nontender. NVI. 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 She will avoid any type of deep bending, kneeling, twisting, pivoting, or squatting and stair climbing for the next 6 weeks. She was given a course of physical therapy. She will see me back in 4 weeks for her routine postop appointment, sooner if needed. Orders: Orders PT Evaluation and Treatment Today M17.12 - Unilateral primary osteoarthritis, left knee Patient Instructions: Scribed for Hang Caputo PA-C, by Ar Choe medical billing supervisor, on 05/10/2024 at 1:30 PM EST.? I, Hang Caputo PA-C, have personally reviewed and agree with the information entered by the scribe. Coding Level of Care Code Global (42022) Diagnoses Patellofemoral arthritis of left knee M17.12
== END 2024-05-10 13:53 | disposition home or self-care (01) ==
PROVIDERS: PCP Family Medicine; Visit Provider Physician Assistant
DX: M17.12 Unilateral primary osteoarthritis, left knee (principal)
CPT/HCPCS: 99024

== ENCOUNTER → 2024-05-10 13:16 | Outpatient (BNVA) | payer OTHER, SELFPAY | PROVIDERS: PCP Family Medicine; Visit Provider Physician Assistant | DX: Z47.89 Encounter for other orthopedic aftercare (principal) | CPT/HCPCS: 99212 ==

== ENCOUNTER 2024-06-01 17:56 | Outpatient (REF) | payer OTHER, SELFPAY ==
--- NOTE | ~2024-06-01 | MR_ITS ---
EXAMINATION: MR KNEE WITHOUT CONTRAST, RIGHT CLINICAL INFORMATION: Right knee pain and swelling. Persistent pain. Osteoarthritis. COMPARISON: Most recent right knee radiograph dated 04/11/2024. TECHNIQUE: MRI of the knee without contrast was performed using routine sequences on a high-field scanner. FINDINGS: MENISCI: Medial Meniscus: Complete radial tear of the posterior root measuring up to 1.0 cm in ML dimension. Medial extrusion of the meniscal body with intrasubstance degenerative signal within the body and posterior horn. Lateral Meniscus: Intact. LIGAMENTS: Cruciate: Intact Collateral: Edema adjacent to the medial collateral ligament with slightly increased T2 signal within the intrasubstance, consistent with an acute grade 1 sprain/partial tear. Intact fibular collateral ligament. EXTENSOR MECHANISM: Intact. ARTICULAR CARTILAGE/BONE: Patellofemoral Compartment: Intact articular cartilage. Medial Compartment: Intact articular cartilage. Marrow edema within the medial aspect of the medial tibial plateau, consistent with an osseous contusion. Lateral Compartment: Intact articular cartilage. JOINT FLUID AND BURSAE: Small joint effusion and small Russo's cyst. MR/MR knee RT wo con IMPRESSION: 1. Complete radial tear of the medial meniscus posterior root measuring 1.0 cm in ML dimension with medial extrusion of the meniscal body. 2. Acute grade 1 sprain/partial tear of the medial collateral ligament. 3. Osseous contusion within the medial tibial plateau. No articular cartilage defect. 4. Small joint effusion and small Russo's cyst. Electronically signed by: Glenn Don MD 06/13/2024 11:33 AM [facility]
== END 2024-06-01 17:57 | disposition home or self-care (01) ==
LOC: HO.MRI 17:56
PROVIDERS: PCP Family Medicine; Visit Provider Physician Assistant
DX: M17.11 Unilateral primary osteoarthritis, right knee (principal)
CPT/HCPCS: 73721

== ENCOUNTER 2024-06-12 12:47 | Outpatient (AMB) | payer OTHER, SELFPAY ==
--- NOTE | 2024-06-12 12:52 | MHC.OFFVIS ---
Vital Signs 06/12/24 13:23 Height 5 ft 3 in Weight 248 lb BMI 43.9 Intake Visit Reasons: PO LT Knee 05/02/24 NE Intake Note: Brigette is a 38 year old female who presents today for a post operative visit s/p left knee (Medial Menisectomy & Chondroplasty) on 05/02/24 NE Allergies cat dander Allergy (Intermediate, Verified 05/10/24 13:19) wheezing, sneezing HPI HPI PO LT Knee 05/02/24 NE: Details: Six weeks status post left knee arthroscopy with intraoperative findings of medial meniscus tear and osteoarthritis. She is improving but still unable to stand for a long periods of time and has significant swelling in her left knee. 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 0-120 degrees of motion. Antalgic gait. Assessment & Plan Assessment & Plan (1) Medial meniscus tear: Code(s): S83.249A - Other tear of medial meniscus, current injury, unspecified knee, initial encounter Category: Medical Plan: Status post medial meniscectomy doing well. She has less medial joint line pain than prior to surgery but still with pain secondary to her patellofemoral OA. (2) Patellofemoral arthritis of left knee: Code(s): M17.12 - Unilateral primary osteoarthritis, left knee Category: Medical Plan: Intraoperative findings of patellofemoral osteoarthritis. She is having repeated effusions but improving slowly. I recommend that she may return to light duty but sedentary work only no extended standing and no lifting. Will see her back in 6 weeks. Coding Level of Care Code Global (23085) Diagnoses Medial meniscus tear S83.249A Patellofemoral arthritis of left knee M17.12
[2024-06-12 13:23] VITALS: BMI 43.9
== END 2024-06-12 14:45 | disposition home or self-care (01) ==
PROVIDERS: PCP Family Medicine; Visit Provider Orthopaedic Surgery
DX: S83.249A Other tear of medial meniscus, current injury, unspecified knee, initial encounter (principal); M17.12 Unilateral primary osteoarthritis, left knee
CPT/HCPCS: 99024

== ENCOUNTER → 2024-06-12 12:47 | Outpatient (BNVA) | payer OTHER, SELFPAY | PROVIDERS: PCP Family Medicine; Visit Provider Orthopaedic Surgery | DX: S83.242D Other tear of medial meniscus, current injury, left knee, subsequent encounter (principal); M17.12 Unilateral primary osteoarthritis, left knee | CPT/HCPCS: 99212 ==

== ENCOUNTER 2024-06-21 10:09 | Outpatient (AMB) | payer OTHER, SELFPAY ==
[2024-06-21 10:23] VITALS: BMI 43.9
--- NOTE | 2024-06-21 10:23 | MHC.OFFVIS ---
Vital Signs 06/21/24 10:23 Height 5 ft 3 in Weight 248 lb BMI 43.9 Intake Visit Reasons: OV-MRI f/u RT knee-book with NE Intake Note: Brigette is a 38 year old female who presents today for an MRI review of her right knee. Patient denies injury & believes that her right knee pain has started due to compensating for the left knee post operatively. History of Left Knee (Medial Meniscectomy & Chondroplasty) 05/02/24. At her last visit she was released for light duty but sedentary work only no extended standing and no lifting. Post op follow up booked for 07/26/24 IMPRESSION: 1. Complete radial tear of the medial meniscus posterior root measuring 1.0 cm in ML dimension with medial extrusion of the meniscal body. 2. Acute grade 1 sprain/partial tear of the medial collateral ligament. 3. Osseous contusion within the medial tibial plateau. No articular cartilage defect. 4. Small joint effusion and small Russo's cyst. Allergies cat dander Allergy (Intermediate, Verified 06/21/24 10:24) wheezing, sneezing HPI HPI OV-MRI f/u RT knee-book with NE: Details: Brigette is a 38 year old female who presents today for an MRI review of her right knee. Patient denies injury & believes that her right knee pain has started due to compensating for the left knee injury .History of Left Knee (Medial Meniscectomy & Chondroplasty) 05/02/24. At her last visit she was released for light duty but sedentary work only no extended standing and no lifting. Post op follow up booked for 07/26/24. She had an MRI of her right knee. Today she complains of pain with activity especially of the twisting and stairs in her right knee that is progressively worsened over the past 6 months. 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 Results Reviewed Results Reviewed: I personally reviewed the MR images. IMPRESSION: 1. Complete radial tear of the medial meniscus posterior root measuring 1.0 cm in ML dimension with medial extrusion of the meniscal body. 2. Acute grade 1 sprain/partial tear of the medial collateral ligament. 3. Osseous contusion within the medial tibial plateau. No articular cartilage defect. 4. Small joint effusion and small Russo's cyst. Assessment & Plan Assessment & Plan (1) Tear of medial meniscus of right knee: Code(s): S83.241A - Other tear of medial meniscus, current injury, right knee, initial encounter Category: Medical Plan: This is a 38-year-old with a right knee medial meniscus root tear. Given her age and the paucity of arthritic findings I recommend meniscus repair. This is important to prevent the early onset of osteoarthritis. I discussed the injury with her as well as the specifics of surgery. This does appear to be work related and in I recommend that she continue light duty. We will schedule surgery and I discussed with her the risks, benefits and alternatives including to, but not limited to, infection, pain, stiffness, extended recovery, arthritis, need for additional procedures. I explained the medical risks associated with surgery. She recently underwent left knee arthroscopy and understands this risks. She understands that the recovery from a medial meniscus root repair we will be more extensive in the recovery from a partial medial meniscectomy. Coding Level of Care Code Est Pt Level 4 (75245) Diagnoses Tear of medial meniscus of right knee S83.241A
== END 2024-06-21 11:06 | disposition home or self-care (01) ==
PROVIDERS: PCP Family Medicine; Visit Provider Orthopaedic Surgery
DX: S83.241A Other tear of medial meniscus, current injury, right knee, initial encounter (principal)
CPT/HCPCS: 99214

== ENCOUNTER → 2024-06-21 10:09 | Outpatient (BNVA) | payer OTHER, SELFPAY | PROVIDERS: PCP Family Medicine; Visit Provider Orthopaedic Surgery | DX: S83.241A Other tear of medial meniscus, current injury, right knee, initial encounter (principal); X58.XXXA Exposure to other specified factors, initial encounter; Y93.9 Activity, unspecified; Y92.9 Unspecified place or not applicable; Y99.9 Unspecified external cause status; Z98.890 Other specified postprocedural states | CPT/HCPCS: 99212 ==

== ENCOUNTER 2024-07-26 10:54 | Outpatient (RCR) | payer OTHER, SELFPAY ==
--- NOTE | 2024-07-26 16:23 | MHC.PT.DC ---
[facility] [place] Office [place] Office [place] [facility] [address] Micheal Rosales [address] [facility] [phone] F: [phone] F: [phone] F: [phone] F: [phone] Physical Therapy Discharge Report Diagnosis: LEFT knee Patellofemoral arthritis, medial femoral condyle chondromalacia and degenerative medial meniscal tear s/p LEFT knee medial meniscectomy (DOS: 05/02/24) (RS) Date of Surgery: 05/02/24 Date of Evaluation: 05/17/24 Date of Discharge: 07/26/24 Treatments to Date: 9 Cancellations to Date: No Shows to Date: Discharge Status: Achieved Goals Improved Function Independent with HEP Discharge Summary: Brigette presents with significant improvement with PT interventions post surgically for L knee and presents now with full AROM and strength of L knee, with only occasional soreness across joint line. She has met all her PT goals. We discuss proper form of stairs for when she has surgery soon to R knee. She feels ready for discharge for L knee today due to upcoming R knee surgery as R knee has limited progressions of L knee strengthening due to pain in WB positions in R LE. Electronically signed by: Devin Pollard, PT, DPT Please sign and return to therapist. Thank you for your referral.
== END 2024-07-26 16:24 | disposition home or self-care (01) ==
LOC: HO.PT 10:54
PROVIDERS: PCP Family Medicine; Visit Provider Physician Assistant
DX: M17.12 Unilateral primary osteoarthritis, left knee (principal)
CPT/HCPCS: 97110; 97161; 97530

== ENCOUNTER 2024-08-08 11:39 | Outpatient (REF) | payer OTHER, SELFPAY ==
[2024-08-08 13:31] LABS: MANUAL DIFF FLAG NO
--- OUTSIDE RECORDS SUMMARY | 2024-08-08 13:31 | XMS_ITS | Encounter Summary ---
Author Organization [employer] Address [address] [place] [address] Care Team Providers Care Corporate Auditor Name Role Phone [place], Angelica RAPP Primary Care Provider [phone]- [phone] Mike Fontenot MD Unavailable Reason for Visit * Reason Onset Date Comments chartprep 08/03/2024 Encounter Details Date Type Department Care Team (Late st Contact Info) Description 08/03/2024 Telephone [facility] [address] [place], [place] [phone] Macarena Ricci MA chartprep Social History Tobacco Use Types Packs/Day Years Used Date Smoking Tobacco: Never Passive Smoke Exposure: Never Smokeless Tobacco: Never Alcohol Use Standard Drinks/Week Comments Never 0 (1 standard drink = 0.6 oz pur e alcohol) Depression Answer Date Recorded Patient Health Questionnaire-9 Score 0 01/25/2024 Patient Health Questionnaire-9 Score 0 01/25/2024 Last PHQ-9: Questionnaire Data Not on file 0 01/25/2024 Housing Stability Answer Date Recorded What is your housing situation today? I have keri jose 07/20/[address] you li ve. Do you have problems with any of the following? None of the above 07/20/2023 Food Insecurity Answer Date Recorded Within the past 12 months, y ou worried that your food would run out before you got money to buy more: Never True 07/20/2023 Within the past 12 months,th e food you bought just didn't last and you didn't have enough money to get more: Never True 09/2023 Transportation Answer Date Recorded In the past 12 months, has l ack of transportation kept you from medical appts, meetings, work or from getting things needed for daily living? No 07/20/2023 Utilities Answer Date Recorded In the past 12 months, has t he electric, gas, oil or water company threatened to shut off services in your home? No 07/20/2023 Depression Answer Date Recorded Patient Health Questionnaire-2 Score 0 01/25/2024 Comments Unknown Sex and Gender Information Value Date Recorded Sex Assigned at Female 05/17/2022 10:19 AM EDT Legal Sex Female 10:19 AM EDT Gender Identity Female 05/17/2022 10:19 AM EDT Sexual Orientation Straight 05/17/2022 10 :19 AM EDT documented as of this encounter Miscellaneous Notes * Telephone Encounter - Macarena Ricci MA - 08/03/2024 3:17 PM EST ..Chart Prep Labs: none Images: none Vaccines due: Covid 19 /flu Referrals: complete Screenings: pap smear Overdue care gaps: Sbirt, SDOH documented in this encounter Plan of Treatment Not on file documented as of this encounter Visit Diagnoses Not on filedocumented in this encounter Additional Health Concerns Assessment Noted Time PHQ-9 Depression Total Score: 0 01/25/20 24 10:23 AM EDT documented as of this encounter Care Teams Corporate Auditor Relationship Specialty Start Date End Date Angelica Newman MD [address] [place] [id number] PCP - General Family Medicine 08/04/12 Mike Fontenot MD [address] [place] [address] [address] [place] [id number] Orthopaedic Surgery 06/13/24 documented as of this encounter
--- OUTSIDE RECORDS SUMMARY | 2024-08-08 13:31 | XMS_ITS | Encounter Summary ---
Author Organization [employer] Address [address] [facility] [address] [place] [address] Care Team Providers Care Certified Professional Midwife Name Role Phone Angelica Newman MD Primary Care Provider [phone]- [phone] Mike Fontenot MD Unavailable Reason for Visit * Reason Comments Med Refill Encounter Details Date Type Department Care Team ([facility] st Contact Info) Description 07/28/2024 Refill [facility] [address] [place], [place] [phone] Angelica Newman MD [address] [place], [place] [phone] Iron deficiency anemia, unspecified iron deficiency anemia type Social History Tobacco Use Types Packs/Day Years [...] AM EDT documented as of this encounter Plan of Treatment Not on file documented as of this encounter Visit Diagnoses Diagnosis Iron deficiency anemia, unspecified iron deficiency anemia type documented in this encounter Additional Health Concerns Assessment Noted Time PHQ-9 Depression Total Score: 0 01/25/20 24 10:23 AM EDT documented as of this encounter Care Teams Certified Professional Midwife Relationship Specialty Start Date End Date Angelica Newman MD [address] [place] [id number] PCP - General Family Medicine 08/04/12 Mike Fontenot MD [address] [place] [address] Orthopaedic Surgery 06/13/24 documented as of this encounter
--- OUTSIDE RECORDS SUMMARY | 2024-08-08 13:31 | XMS_ITS | Clinical Summary ---
Author Organization [employer] Address [address] [facility] [address] [place] [address] Care Team Providers Care Anode Crew Supervisor Name Role Phone Angelica Newman MD Primary Care Provider [phone] Mike Fontenot MD Unavailable Stephanie Strange Unavailable Herbert Self MD Unavailable [phone] Allergies No known active allergies Medications * This document contains information received from the source organization and may not represent a complete record from that organization. albuterol 108 (90 Base) MCG/ACT inhalerIndicati ons:Moderate persistent asthma with acute exacerbation Inhale 2 puffs every 6 (six) hours if needed for wheezing. 18 g 11 024 2024 Active albuterol (2.5 MG/3ML) 0.083% nebulizer solutionIndicat ions:Moderate persistent asthma with exacerbation Take 3 mL (2.5 mg) by nebulization every 4 (four) hours if needed for wheezing. 75 mL 3 024 2024 Active celecoxib (CeleBREX) 200 MG capsuleIndicati ons:Chronic midline low back pain, unspecified whether sciatica present Take 200 mg by mouth 2 times daily. Active montelukast (Singulair) 10 MG tabletIndicatio ns:Moderate persistent asthma without complication 10 MG ORALLY BEDTIME Active fluticasone (Flonase) 50 MCG/ACT nasal sprayIndication s:Seasonal allergies Administer 1-2 sprays into each nostril Once per day. Shake gently. Before first use, prime pump. After use, clean tip and replace cap. 16 g 2 024 2024 Active cholecalciferol (Vitamin D-3) 25 MCG (1000 UT) tabletIndicatio ns:Vitamin D Deficiency Take 1 tablet (25 mcg) by mouth Once per day. 90 tablet 3 024 2024 Active budesonide-form oterol (Symbicort) 160-4.5 MCG/ACT inhalerIndicati ons:Mild intermittent asthma without complication TAKE 2 PUFFS BY MOUTH TWICE A DAY IN THE MORNING AND IN THE EVENING 10.2 each 3 024 Active cetirizine (Allergy, Cetirizine,) 10 MG tabletIndicatio ns:Seasonal allergies 10 mg. 024 Active DULoxetine (Cymbalta) [address] capsuleIndicati ons:Fibromyalgi a Take 30 mg by mouth Once per day. Active ferrous sulfate 325 (65 Fe) MG EC tabletIndicatio ns:Iron deficiency anemia, unspecified iron deficiency anemia type TAKE 1 TABLET BY MOUTH EVERY OTHER DAY. DO NOT CRUSH, CHEW, OR SPLIT. 45 tablet 025 Active diclofenac (Voltaren) 75 MG EC tabletIndicatio ns:Fibromyalgia Take 1 tablet by mouth if needed in the morning and at bedtime for pain. 024 Active senna (Senokot) 8.6 MG tabletIndicatio ns:Constipation , unspecified constipation type Take 1 tablet (8.6 mg) by mouth at bedtime. 60 tablet 2 025 Active cetirizine (ZyrTEC) 10 MG tabletIndicatio ns:Seasonal allergies Take 1 tablet (10 mg) by mouth in the morning. 30 tablet 11 024 2024 Discontinued(D uplicate order (will not trigger notification to Pharmacy)) azithromycin (Zithromax) 250 MG tabletIndicatio ns:Moderate persistent asthma with acute exacerbation TAKE 2 TABLETS BY MOUTH TODAY, THEN TAKE 1 TABLET DAILY FOR 4 DAYS DIRECTED 024 2024 Discontinued ipratropium-alb uterol (Duo-Neb) 0.5-2.5 mg/3 mL nebulizer solutionIndicat ions:Moderate persistent asthma with acute exacerbation INHALE 1 VIAL VIA NEBULIZER EVERY 6 HOURS NEEDED FOR WHEEZING 024 2024 Discontinued naproxen (Naprosyn) 500 MG tabletIndicatio ns:Moderate persistent asthma with acute exacerbation TAKE 1 TABLET BY MOUTH TWICE A DAY NEEDED FOR BACK PAIN 024 2024 Discontinued Spiriva Respimat 1.25 MCG/ACT inhalerIndicati ons:Moderate persistent asthma with acute exacerbation TAKE 2 PUFFS BY MOUTH EVERY DAY 024 2024 Discontinued ergocalciferol (Vitamin D2) 1.25 MG (22820 UT) capsule TAKE 1 CAPSULE BY MOUTH ONE TIME PER WEEK 8 capsule 024 2024 Discontinued ferrous sulfate 325 (65 Fe) MG EC tabletIndicatio ns:Iron deficiency anemia, unspecified iron deficiency anemia type TAKE 1 TABLET BY MOUTH EVERY OTHER DAY. DO NOT CRUSH, CHEW, OR SPLIT. 45 tablet 2024 Discontinued butalbital-acet aminophen-caffe ine 50-325-40 MG tablet take 1 tab po daily prn migraine, no more than one per week 4 tablet 2 024 2024 Discontinued tiotropium (Spiriva Respimat) 1.25 MCG/ACT inhalerIndicati ons:Moderate persistent asthma with acute exacerbation daily 024 2024 Discontinued Active Problems Problem Noted Date Diagnosed Date Dietary counseling 08/08/2024 Assessment & Plan (08/08/2024 11:08 AM EST): Dietary Recommendations: Fruits, vegetables, whole grains, protein foods, and fat-free or low-fat dairy products are healthy choices. Eat different types of protein foods in your diet. This can include seafood, lean meats, poultry, beans, peas, lentils, nuts, seeds, soy products, and eggs. Limit foods and beverages higher in added sugars, saturated fat, and sodium. Exercise counseling 08/08/2024 Assessment & Plan (08/08/2024 11:08 AM EST): Exercise Recommendations: At least 150 minutes of moderate-intensity physical activity per week, or an equivalent combination of moderate- and vigorous-intensity activity Seasonal allergies 08/08/2024 Constipation 08/08/2024 Overview (08/08/2024): Reports intermittent mild constipation. No acute concerns, requests for Senna for better relief. -prescribed ariel (Senokot) 8.6 MG 08/08/24 Assessment & Plan (08/08/2024 11:24 AM EST): Reports intermittent mild constipation. No acute concerns, requests for Senna for better relief. -prescribed ariel (Senokot) 8.6 MG 08/08/24 H/O arthroscopic knee surgery left 05/16/2024 Overview (05/16/2024): Dr. Fontenot SHAWN positive 01/25/2024 Overview (01/25/2024): For years she has reported chronic pain, fatigue, arthralgias, myalgias and difficulty sleeping. Initial work up with labs was unremarkable and in September 2018 we diagnosed her with fibromyalgia. She repots over the last year symptoms have been worse and Labs on 11/2023 showed Pos low titers SHAWN (speckled, they were NEG on 2017), mildly high ESR and Pos EBV abs (hx old disease, no evidence of acute illness), other labs are normal. We explained that sxs may be related to previous EBV or that he is developing an autoimmune condition and may need addtl labs. Today, pt reports continued pain, fatigue and arthralgias. She agrees to repeat labs. Assessment & Plan (01/25/2024 1:00 PM EDT): For years she has reported chronic pain, fatigue, arthralgias, myalgias and difficulty sleeping. Initial work up with labs was unremarkable and in September 2018 we diagnosed her with fibromyalgia. She repots over the last year symptoms have been worse and Labs on 11/2023 showed Pos low titers SHAWN (speckled, they were NEG on 2018), mildly high ESR and Pos EBV abs (hx old disease, no evidence of acute illness), other labs are normal. We explained that sxs may be related to previous EBV or that he is developing an autoimmune condition and may need addtl labs. Today, pt reports continued pain, fatigue and arthralgias. She agrees to repeat labs. Elevated erythrocyte sedimentation rate 01/25/20 Chronic fatigue 01/25/2024 Class 3 severe obesity due t o excess calories with serious comorbidity and body mass index (BMI) of 40.0 to 44.9 in adult 01/25/2024 Overview (08/08/2024): Discussed weight, diet, exercise with patient in relation to health conditions. Used motivational interviewing to illicit change talk and established initial goals with patient. -ordered routine labs 08/08/24 Assessment & Plan (08/08/2024 11:25 AM EST): Discussed weight, diet, exercise with patient in relation to health conditions. Used motivational interviewing to illicit change talk and established initial goals with patient. -ordered routine labs 08/08/24 Pap smear for cervical cancer screening 01/25/20 Overview (08/08/2024): -will call [employer] to make appt today for PAP smear, 01/25/24 -has appt to have PAP done in September 2024. Assessment & Plan (08/08/2024 11:07 AM EST): -will call [employer] to make appt today for PAP smear, 01/25/24 -has appt to have PAP done in September 2024. Assessment & Plan (01/25/2024 10:46 AM EDT): -will call [employer] [facility] to make appt today for PAP smear, 01/25/24 Acute pain of left knee 07/20/2023 Overview (05/16/2024): -referral to PT sent 07/20/23 -ween by [facility] 11/04/23 for left knee injection, which was tolerated well -recommended rest, ice and elevation and OTC anti-inflammatories PRN for discomfort. If symptoms persist or worsens over the next 6-8 weeks, patient will contact the office, otherwise follow-up in 4 weeks, sooner if needed. -a new order for physical therapy was placed by ortho 11/04/23. She will continue with current light duty restrictions till November 18. -Seen 12/05/[address] Fontenot. She will remain out of work till 6 weeks. She will continue working with physical therapy and we will get a preapproval for gel injection. -Steroid injection with Ta-Ruby Caputo PA-C done 01/25/24 and left knee Durolane injection, which was tolerated well 02/13/24 -note from Dr. Recinos 03/27/24 recommend knee arthroscopy possible medial meniscus repair -s/p athroscopic repair 05/16/[address] Recinos Assessment & Plan (07/20/2023 11:00 AM EST): Referral to PT sent 07/20/23 Other specified health status 05/24/2023 Overview (08/08/2024): -next physical exam due after 08/08/25 -eye care facilitated by [facility] is encourage to make appt -Healthcare proxy given and filed 01/25/24 Assessment & Plan (08/08/2024 11:08 AM EST): -next physical exam due after 08/08/25 -eye care facilitated by [facility] is encourage to make appt -Healthcare proxy given and filed 01/25/24 Assessment & Plan (01/25/2024 10:43 AM EDT): -next physical exam due after 07/20/2024 -eye care facilitated by [facility] is encourage to make appt -Healthcare proxy given and filed 01/25/24 Assessment & Plan (07/20/2023 10:48 AM EST): -next physical exam due after 07/20/2024 -eye care facilitated by [facility] is encouraged to make appt Mild episode of recurrent major depressive disor cheli 09/02/2022 Overview (09/02/2022): Pt reports controlled off meds. Assessment & Plan (07/20/2023 9:03 AM EST): Pt reports controlled off meds. Assessment & Plan (09/02/2022 9:25 AM EST): Pt reports controlled off meds. Benign hypertension 09/03/2021 Overview (08/08/2024): -Blood pressure is at goal -Continue lifestyle modifications -Continue current medications Assessment & Plan (08/08/2024 11:09 AM EST): -Blood pressure is at goal -Continue lifestyle modifications -Continue current medications Assessment & Plan (01/25/2024 10:35 AM EDT): -Blood pressure is at goal -Continue lifestyle modifications -Continue current medications Assessment & Plan (11/17/2023 1:53 PM EDT): Uncontrolled today Recommended to check BP at home 3 x per wk and fu w/ PCP I gave her info regarding DASH diet and other lifestyle modifications to control HTN Fu w PCP in 4-6 wks Assessment & Plan (07/20/2023 9:03 AM EST): -Blood pressure is at goal -Continue lifestyle modifications -Continue current medications Migraine 09/03/2021 Sleep apnea 09/03/2021 Vitamin D deficiency 09/03/2021 Overview (07/20/2023): Lab Results Component Value Date [id number] 62 09/10/2022 VITD3 62 09/10/2022 VITD2 <8 09/10/2022 Assessment & Plan (07/20/2023 9:03 AM EST): No results found for: [id number] Lab Results Component Value Date [id number] 62 09/10/2022 VITD3 62 09/10/2022 VITD2 <8 09/10/2022 Moderate persistent asthma 09/17/2020 Overview (08/08/2024): -Seen by pulmonology with Lavonne Zuluaga [employer] 11/22/23 PFT ordered -Singular added 11/11/23, pt started 11/22/23 -continue albuterol prn -has FMLA for exacerbations. Assessment & Plan (08/08/2024 11:24 AM EST): -Seen by pulmonology with Lavonne Zuluaga [employer] RE[employer] 11/22/23 PFT ordered -Singular added 11/11/23, pt started 11/22/23 -continue albuterol prn -has FMLA for exacerbations. Assessment & Plan (02/22/2024 7:15 PM EDT): Limited aeration despite IRINA usage, rx for prednisone 40 mg prescribed, resume rescue inhalers this evening Call for persistent or worsening symptoms Assessment & Plan (01/25/2024 8:03 AM EDT): -Seen by pulmonology with Lavonne Zuluaga [employer] 11/22/23 PFT ordered -Duo neb and Spiriva added 09/13/23 -Singular added 11/11/23, pt started 11/22/23 -continue albuterol prn Assessment & Plan (07/20/2023 10:51 AM EST): Rx for albuterol sent 07/20/23 Fibromyalgia 10/04/2018 Overview (08/08/2024): Dx'd September 2018. She reports sx's are keeping her from working. Symptoms not controlled. Somatic sx's include: CP, SOB, HAs, sleep disturbance, chronic fatigue, total body pain, and gastritis. She did not have a response to Cymbalta or cyclobenzaprine but she did not take it regularly. She has had good response with amitriptyline 10mg qhs. Lower dose because she is sensitive to medications and it may help her HAs as well. She will continue amitriptyline 10mg. . -Restarted vitamin D 04/2021 -Saw beekeeper farmer recently has follow-up on 08/10/24. -Stable on Celebrex 200 mg. Assessment & Plan (08/08/2024 11:22 AM EST): Dx'd September 2018. She reports sx's are keeping her from working. Symptoms not controlled. Somatic sx's include: CP, SOB, HAs, sleep disturbance, chronic fatigue, total body pain, and gastritis. She did not have a response to Cymbalta or cyclobenzaprine but she did not take it regularly. She has had good response with amitriptyline 10mg qhs. Lower dose because she is sensitive to medications and it may help her HAs as well. She will continue amitriptyline 10mg. . -Restarted vitamin D 04/2021 -Saw beekeeper farmer recently has follow-up on 08/10/24. -Stable on Celebrex 200 mg. Assessment & Plan (07/20/2023 9:03 AM EST): Dx'd September 2018. She reports sx's are keeping her from working. Symptoms not controlled. Somatic sx's include: CP, SOB, HAs, sleep disturbance, chronic fatigue, total body pain, and gastritis. She did not have a response to Cymbalta or cyclobenzaprine but she did not take it regularly. She has had good response with amitriptyline 10mg qhs. Lower dose because she is sensitive to medications and it may help her HAs as well. She will continue amitriptyline 10mg. She is scheduled for drive thru testing later today because of increased body pain. -Restart vitamin D 04/2021 Assessment & Plan (09/02/2022 9:26 AM EST): Dx'd September 2018. She reports sx's are keeping her from working. Symptoms not controlled. Somatic sx's include: CP, SOB, HAs, sleep disturbance, chronic fatigue, total body pain, and gastritis. She did not have a response to Cymbalta or cyclobenzaprine but she did not take it regularly. She has had good response with amitriptyline 10mg qhs. Lower dose because she is sensitive to medications and it may help her HAs as well. She will continue amitriptyline 10mg. She is scheduled for drive thru testing later today because of increased body pain. -Restart vitamin D 04/2021 Chronic low back pain 12/13/2017 Anemia 09/16/2014 Overview (09/02/2022): Hgb improved 11.8 from 10.8 09/2020. Iron is low, she started iron supplementation on 10/09/2020. Assessment & Plan (07/20/2023 9:02 AM EST): Hgb improved 11.8 from 10.8 09/2020. Iron is low, she started iron supplementation on 10/09/2020. Assessment & Plan (09/03/2022 11:47 AM EST): Hgb improved 11.8 from 10.8 09/2020. Iron is low, she started iron supplementation on 10/09/2020. Hgb was 11 06/22/22. She completed iron, will recheck. BP well controlled. 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 07/21/19 Assessment & Plan (11/17/2023 1:53 PM EDT): Pt seems to have complications, will order labs Recommended to take tylenol PRN and rest and take 2-3 breaks / day Fu w/ PCP Body aches 11/17/2023 07/21/2024 Assessment & Plan (11/17/2023 1:53 PM EDT): Seems to be related post viral syndrome vs autoimmune disorder Recommended to take tylenol PRN and increase water intake and take 2-3 breaks /day Order labs and fu PCP No evidence of acute infection at this time Sore throat 11/17/2023 07/21/2024 Right elbow tendinitis 10/24/202307/21 Moderate persistent asthma with exacerbation 07/21/2024 Assessment & Plan (10/26/2023 8:31 AM EDT): Patient educated to avoid triggers C/w with Duonebs every 4-6 hours Prednisone 40mg for 7 days If symptoms persist or worsen I told patient she will have to go to emergency room for possible inpatient management ED precautions reviewed Note given for work excuse-- she needs her FMLA paperwork adjusted to cover a longer period, instructed her to go to and get that paperwork and bring it to medical records Followup with pulmonology Assessment & Plan (08/29/2023 11:46 AM EST): Patient educated to avoid triggers C/w albuteorl nebz Q 4hrs PRN Prednisone 60mg for 7 days If symptoms persist or worse I told patient she will have to go to emergency room for possible inpatient management ED precautions reviewed Referral to pulmonology Physical exam 07/20/2023 07/21/2024 Overview (07/20/2023): -Normal growth and development. -Anticipatory guidance discussed. -Preventative care / harm reduction discussed. Assessment & Plan (07/20/2023 9:04 AM EST): -Normal growth and development. -Anticipatory guidance discussed. -Preventative care / harm reduction discussed. Anxiety 04/29/2023 07/21/2024 Assessment & Plan (05/03/2023 10:46 AM EDT): Patient with symptoms of depression, anxiety and difficulty managing stress. Reason for visit was to assess symptoms, provide support and offer referral. Anxiety symptoms and stress are leading to an increase of symptoms. No risk for self- harm, SI or HI. Plan is to refer patient for OP individual therapy and provided follow-up BE to assess symptoms. At this time Brigette Chaudhari meets criteria for Visit Diagnoses: Problem List Items Addressed This Visit Other Anxiety Work-related stress Depression, unspecified Patient ready to address current needs Yes Strengths include strong family support. PLAN: 1. Follow up with [facility]: Recommended for follow-up: Scheduled BE in three weeks 2. Patient goal is to feel less anxious and start therapy 3. Behavioral Recommendations a. Referral for OP individual therapy b. Incorporate coping skills into daily routine Work-related stress 04/29/2023 05/24/20 Assessment & Plan (05/03/2023 10:46 AM EDT): Patient with symptoms of depression, anxiety and difficulty managing stress. Reason for visit was to assess symptoms, provide support and offer BH referral. Anxiety symptoms and stress are leading to an increase of symptoms. No risk for self- harm, SI or HI. Plan is to refer patient for OP individual therapy and provided follow-up BE to assess symptoms. At this time Brigette Chaudhari meets criteria for Visit Diagnoses: Problem List Items Addressed This Visit Other Anxiety Work-related stress Depression, unspecified Patient ready to address current needs Yes Strengths include strong family support. PLAN: 1. Follow up with [facility]: Recommended for follow-up: Scheduled BE in three weeks 2. Patient goal is to feel less anxious and start therapy 3. Behavioral Recommendations a. Referral for OP individual therapy b. Incorporate coping skills into daily routine Depression, unspecified 04/29/202301/2023 Assessment & Plan (05/03/2023 10:46 AM EDT): Patient with symptoms of depression, anxiety and difficulty managing stress. Reason for visit was to assess symptoms, provide support and offer BH referral. Anxiety symptoms and stress are leading to an increase of symptoms. No risk for self- harm, SI or HI. Plan is to refer patient for OP individual therapy and provided follow-up BE to assess symptoms. At this time Brigette Chaudhari meets criteria for Visit Diagnoses: Problem List Items Addressed This Visit Other Anxiety Work-related stress Depression, unspecified Patient ready to address current needs Yes Strengths include strong family support. PLAN: 1. Follow up with [facility]: Recommended for follow-up: Scheduled BE in three weeks 2. Patient goal is to feel less anxious and start therapy 3. Behavioral Recommendations a. Referral for OP individual therapy b. Incorporate coping skills into daily routine Encounters Date Type Department Care Team Description 08/08/2024 10:30 AM EST Office Visit [address] [address] Angelica Newman MD Fibromyalgia (Primary Dx); Benign hypertension; Moderate persistent asthma with acute exacerbation; Allergic rhinitis, unspecified seasonality, unspecified trigger; Seasonal allergies; Anemia, unspecified type; Constipation, unspecified constipation type; Dietary counseling; Exercise counseling; Class 3 severe obesity due to excess calories with serious comorbidity and body mass index (BMI) of 40.0 to 44.9 in adult ([facility]); Pap smear for cervical cancer screening; Encounter for immunization; Other specified health status 08/08/2024 Travel 08/03/2024 Telephone [facility] [address] [place] [phone] Macarena Ricci MA chartprep 07/28/2024 Refill [facility] [address] [place], [place] [phone] Angelica Newman MD Iron deficiency anemia, unspecified iron deficiency anemia type 07/27/2024 Patient Outreach [facility] [address] [place], [place] [phone] Angelica Newman MD Pre-visit Planning (Pre-visit planning - LVM ) 05/28/2024 Telephone [facility] [address] [place], [place] [phone] Jdae Rockwell MA July Recall from Last 3 Months Immunizations Name Administration Dates Next Due HPV, Quadrivalent 09/15/2012,05/02/2012,02/18/20 12 Hep B, adult 01/25/2024,08/24/2023,07/20/2023 Influenza High-dose Quadriva lent Preservative Free 07/20/2023 Influenza injectable quadriv alent preservative free 09/03/2021,07/05/2018,09/16/2014 Influenza, Split (incl. bina fied surface antigen) 10/02/2012 Influenza, seasonal, injecta ble, preservative free 08/08/2024 Pfizer Covid-19 Vaccine 12+ 12/18/2020, Pneumococcal Conjugate PCV 20 07/20/2023 Pneumococcal Polysaccharide PPSV23 01/10/2019, Tdap 09/16/2014 Social History Tobacco Use Types Packs/Day Years Used Date Smoking Tobacco: Never Passive Smoke Exposure: Never Smokeless Tobacco: Never Tobacco Cessation:Counseling Given: Not Answered Alcohol Use Standard Drinks/Week Comments Never 0 (1 standard drink = 0.6 oz pur e alcohol) Depression Answer Date Recorded Patient Health Questionnaire-9 Score 0 01/25/2024 Patient Health Questionnaire-9 Score 0 01/25/2024 Last PHQ-9: Questionnaire Data Not on file 0 01/25/2024 Housing Stability Answer Date Recorded What is your housing situation today? I have keri jose 08/08/[address] you li ve. Do you have problems with any of the following? None of the above 08/08/2024 Food Insecurity Answer Date Recorded Within the past 12 months, y ou worried that your food would run out before you got money to buy more: Never True 08/08/2024 Within the past 12 months,th e food you bought just didn't last and you didn't have enough money to get more: Never True Transportation Answer Date Recorded In the past 12 months, has l ack of transportation kept you from medical appts, meetings, work or from getting things needed for daily living? No 08/08/2024 Utilities Answer Date Recorded In the past 12 months, has t he electric, gas, oil or water company threatened to shut off services in your home? No 08/08/2024 Depression Answer Date Recorded Patient Health Questionnaire-2 Score 0 01/25/2024 Internet Access Answer Date Recorded Internet Access Q1 No 08/08/2024 Internet Access Q2 I do not want or need it 07/19 Comments Unknown Sex and Gender Information Value Date Recorded Sex Assigned at Female 05/17/2022 10:19 AM EDT Legal Sex Female 10:19 AM EDT Gender Identity Female 05/17/2022 10:19 AM EDT Sexual Orientation Straight 05/17/2022 10 :19 AM EDT Last Filed Vital Signs Vital Sign Reading Time Taken Comments Blood Pressure 134/66 08/08/2024 11:04 AM EST Pulse 85 08/08/2024 11:04 AM EST Temperature 36.5 ??C (97.7 ??F) 08/08/2024 11:[address] Respiratory Rate 20 08/08/2024 11:04 AM EST Oxygen Saturation 100% 08/08/2024 11:04 AM EST Inhaled Oxygen Concentration - - Weight 113 kg (250 lb) 08/08/2024 11:04 AM EST Height 160 cm (5' 3 ) 08/08/2024 11:04 AM EST Body Mass Index 44.29 08/08/2024 11:04 AM EST Plan of Treatment Health Maintenance Due Date Last Done Comments Cervical Cancer Screening 05/17/2023 HPV/Cotest 05/17/2023 Pap Smear 05/17/2023 05/17/2018 DTaP/Tdap/Td Vaccines (2 - Td or Tdap) 09/16/2024 09/16/2014 Depression Screening 01/24/2025 01/25/2024, 01/25/20 Alcohol/Substance Use Screening 08/08/2025 08/08/2024 COVID-19 Vaccine ( season) 2025 12/18/2020, 11/27/2020 Postponed from 03/18/2024 (Patient Refused) Family Planning (PISQ) 08/08/2025 08/08/2024 SDOH Screening 08/08/2025 08/08/2024 Tobacco Screening 08/08/2025 08/08/2024 Lipid Panel 01/25/2029 01/26/2024, 08/19, 08/20/2021, Additional history exists Zoster Vaccines (1 of 2) 2036 RSV Patients and Patients Aged 60 years or older (1 - 1-dose 75+ series) 2061 HPV Vaccines Completed 09/15/2012, 04/17, 02/18/2012 Pneumococcal Vaccine: Pediatrics (0 to 5 Years) and At-Risk Patients (6 to 64 Years) Completed 07/20/2023, 01/10/2019, 09/16/2014 HIV Screening Completed 11/17/2023, 09/10/2022 Hepatitis C Screening Completed 11/17/2023, 023 Hepatitis B Vaccines Completed 01/25/2024, 08/24/2023, 07/20/2023 Influenza Vaccine Completed 08/08/2024, , 09/03/2021, Additional history exists HIB Vaccines Aged Out No longer eligi ble based on patient's age to complete this topic Hepatitis A Vaccines Aged Out No long er eligible based on patient's age to complete this topic IPV Vaccines Aged Out No longer eligi ble based on patient's age to complete this topic Meningococcal Vaccine Aged Out No kim leena eligible based on patient's age to complete this topic RSV under 20 months Aged Out No longe r eligible based on patient's age to complete this topic Rotavirus Vaccines Aged Out No longer eligible based on patient's age to complete this topic Procedures Procedure Name Priority Date/Time Associated Diagnosis Comments KNEE WO CONTRAST RIGHT Routine 06/01/2024 6:36 PM EST LIPID PANEL, STANDARD Routine 01/26/2024 9:18 AM EDT Class 3 severe obesity due to excess calories with serious comorbidity and body mass index (BMI) of 40.0 to 44.9 in adult (CMS/HCC) HEPATITIS PANEL, GENERAL Routine 11/17/2023 10:36 AM EDT Body aches Post viral syndrome HIV 1/2 ANTIGEN/ANTIBODY, FOURTH GENERATION W/RFL Routine 11/17/2023 10:36 AM EDT Body aches Post viral syndrome PAP SMEAR Routine 05/17/2018 12:00 AM EDT from Last 3 Months or Most Recently Relevant to Health Maintenance Results * Knee w/o Contrast Right (06/01/2024 6:36 PM EST) Anatomical Region Laterality Modality Magnetic Resonan ce 06/01/2024 6:36 PM EST Narrative 06/13/2024 11:36 AM EST ? [facility] ?[address] ?[place] [address] ? Magnetic Resonance Report ? Signed ? Patient: Brigette Burt ?MR#: [id number] ?? [id number] ? : 1985 ?Acct:[id number] ? Age/Sex: 38 / F ?ADM Date: 11/15/24 ? Loc: HO.MRI ? Attending Dr: Hang Caputo PA-C ? Ordering Physician: Hang Caputo PA-C ?? Date of Service: 06/01/24 ?? Procedure(s): MR knee RT wo con ?? Accession Number(s): [id number] ? cc: Angelica Newman MD; Hang Caputo PA-C ? EXAMINATION: ?? MR KNEE WITHOUT CONTRAST, RIGHT ? CLINICAL INFORMATION: ?? Right knee pain and swelling. Persistent pain. Osteoarthritis. ? COMPARISON: ?? Most recent right knee radiograph dated 04/11/2024. ? TECHNIQUE: ?? MRI of the knee without contrast was performed using routine sequences ?? on a high-field scanner. ? FINDINGS: ? MENISCI: ? Medial Meniscus: Complete radial tear of the posterior root measuring ?? up to 1.0 cm in ML dimension. Medial extrusion of the meniscal body ?? with intrasubstance degenerative signal within the body and posterior ?? horn. ?? Lateral Meniscus: Intact. ? LIGAMENTS: ? Cruciate: Intact ?? Collateral: Edema adjacent to the medial collateral ligament with ?? slightly increased T2 signal within the intrasubstance, consistent with ?? an acute grade 1 sprain/partial tear. Intact fibular collateral ?? ligament. ? EXTENSOR MECHANISM: Intact. ? ARTICULAR CARTILAGE/BONE: ? Patellofemoral Compartment: Intact articular cartilage. ? Medial Compartment: Intact articular cartilage. Marrow edema within the ?? medial aspect of the medial tibial plateau, consistent with an osseous ?? contusion. ? Lateral Compartment: Intact articular cartilage. ? JOINT FLUID AND BURSAE: Small joint effusion and small Russo's cyst. ? MR/MR knee RT wo con ?? IMPRESSION: ?? 1. Complete radial tear of the medial meniscus posterior root measuring ?? 1.0 cm in ML dimension with medial extrusion of the meniscal body. ?? 2. Acute grade 1 sprain/partial tear of the medial collateral ligament. ?? 3. Osseous contusion within the medial tibial plateau. No articular ?? cartilage defect. ?? 4. Small joint effusion and small Russo's cyst. ? Electronically signed by: ??Glenn Don MD ??06/13/2024 11:33 AM EST ?? RP ? Dictated By: ?Glenn Don MD ? Signed By: ?<Electronically signed by Glenn Don MD in OV> ?06/13/24 1133 ? DD/ 1836 ? TD/TT: 06/01/24 1851 ? Curriculum Writer: SR ? Procedure Note Donotuseinterpreter, Image - 06/13/2024 [place] [address] Magnetic Resonance Report Signed Patient: Demetra Burt#: [id number] : 1985Acct:[id number] Age/Sex: 38 / FADM Date: 06/01/24 Loc: HO.MRI Attending Dr: Hang Caputo PA-C Ordering Physician: Hang Caputo PA-C Date of Service: 06/01/24 Procedure(s): MR knee RT wo con Accession Number(s): [id number] cc: Angelica Newman MD; Hang Caputo PA-C EXAMINATION: MR KNEE WITHOUT CONTRAST, RIGHT CLINICAL INFORMATION: Right knee pain and swelling. Persistent pain. Osteoarthritis. COMPARISON: Most recent right knee radiograph dated 04/11/2024. TECHNIQUE: MRI of the knee without contrast was performed using routine sequences on a high-field scanner. FINDINGS: MENISCI: Medial Meniscus: Complete radial tear of the posterior root measuring up to 1.0 cm in ML dimension. Medial extrusion of the meniscal body with intrasubstance degenerative signal within the body and posterior horn. Lateral Meniscus: Intact. LIGAMENTS: Cruciate: Intact Collateral: Edema adjacent to the medial collateral ligament with slightly increased T2 signal within the intrasubstance, consistent with an acute grade 1 sprain/partial tear. Intact fibular collateral ligament. EXTENSOR MECHANISM: Intact. ARTICULAR CARTILAGE/BONE: Patellofemoral Compartment: Intact articular cartilage. Medial Compartment: Intact articular cartilage. Marrow edema within the medial aspect of the medial tibial plateau, consistent with an osseous contusion. Lateral Compartment: Intact articular cartilage. JOINT FLUID AND BURSAE: Small joint effusion and small Russo's cyst. MR/MR knee RT wo con IMPRESSION: 1. Complete radial tear of the medial meniscus posterior root measuring 1.0 cm in ML dimension with medial extrusion of the meniscal body. 2. Acute grade 1 sprain/partial tear of the medial collateral ligament. 3. Osseous contusion within the medial tibial plateau. No articular cartilage defect. 4. Small joint effusion and small Russo's cyst. Electronically signed by: Glenn Don MD 06/13/2024 11:33 AM EST Dictated By: Glenn Don MD Signed By: <Electronically signed by Glenn Don MD in OV> 06/13/24 1133 DD/ 1836 TD/TT: 06/01/24 1851 Curriculum Writer: SR [facility] External Provider IMG MRI PROCEDURES Edited Result - Final * Lipid Panel, Standard (01/26/2024 9:18 AM EDT) Triglycerides 52 <150 mg/dL [facility] Comment:Desirable Triglyceri de: less than 150 mg/dLBorderline High Triglyceride 150-199 mg/dLHigh Triglyceride: 200-499 mg/dLVery High Triglyceride: greater than or equal to 5OO mg/dL Cholesterol 141 <200 mg/dL [facility] Comment:Desirable Cholestero l: less than 200 mg/dLBorderline High Cholesterol: 200-239 mg/dLHigh Cholesterol: greater than 239 mg/dL LDL Cholesterol Calculated 86 <100 mg/dL [facility] Comment:Desirable LDL: less than 100 mg/dLNear Optimal/Above Optimal LDL: 110- 129 mg/dLBorderline High LDL: 130-159 mg/dLHigh LDL: 160-189 mg/dLVery High LDL: greater than or equal to 190 mg/dL HDL Cholesterol 45 >40 mg/dL [facility] Comment:Desirable HDL: great er than 40 mg/dL Note: This HDL assay may give artificially low results in patients with liver disease. Blood Venous blood specimen / Unknown 01/26/2024 9:18 AM EDT 01/26/2024 11:45 AM EDT Angelica Newman MD LAB BLOOD ORDERABLES Final Result [facility] [address] [place] [phone] * Hepatitis Panel, General (11/17/2023 10:36 AM EDT) Hepatitis A IgM Nonreactive Nonreactive [facility] Comment:IgM antibodies to MAHAN V not detected; does not exclude earlyacute or recovered HAV infection. ~Hepatitis B Surface Antibody REACTIVE Nonreactive [facility] Comment:REACTIVE: > 11.99 mI U/mL Hepatitis B Core Antibody Reactive Nonreactive [facility] Comment:Presumptive evidence of anti-HBc. Hepatitis C Antibody Nonreactive Nonreactive [facility] Comment:Antibodies to HCV no t detected; does not exclude early acuteHCV infection. Hepatitis B Surface Ag Negative Negative [facility] Blood 11/17/2023 10:3 6 AM EDT 11/17/2023 11:28 AM EDT us Shawn House MD LAB BLOOD ORDERABLES Fin al Result [facility] [address] [place] [phone] * HIV-1/2 Antigen and Antibodies, Fourth Generation, with Reflexes (11/17/2023 10:36 AM EDT) Pathologist [facility] [place] HIV AB/AG Nonreactive Nonreactive [facility] Comment:HIV-1 p24 Ag and/or HIV-1/HIV-2 Ab not detected.A test result that is nonreactive does not exclude thepossibility of exposure to or infection with HIV-1 and/orHIV-2. Nonreactive results in this assay for individualswith prior exposure to HIV-1 and/or HIV-2 may be due toantigen and antibody levels that are below the limit ofdetection of this assay.The [employer] HIV Ag/Ab Combo assay result andsupplemental assay results should be interpreted inconjunction with the patient's clinical presentation,history and other laboratory results. If the results areinconsistent with clinical evidence, additional testing issuggested to confirm the result. Blood Venous blood specimen / Unknown 11/17/2023 10:36 AM EDT 11/17/2023 11:28 AM EDT us Shawn House MD LAB BLOOD ORDERABLES Fin al Result [facility] [address] [place] [phone] [phone] * Pap Smear (05/17/2018 12:00 AM EDT) Swab Historical Provider LAB CYTOLOGY ORDERABLES F inal Result IMAGING from Last 3 Months or Most Recently Relevant to Health Maintenance Insurance [facility] Advance Directives Documents on File Type Date Recorded Patient Painter Helper Expl anation Advance Directives and Living Will 01/25/2024 11:29 AM Health Care Proxy 01/25/24 Care Teams Anode Crew Supervisor Relationship Specialty Start Date End Date [place], MD Angelica [address] [place] [address] PCP - General Family Medicine 08/04/12 Mike Fontenot MD [address] [place] [address] [address] [place] [phone] Orthopaedic Surgery 06/13/24 Stephanie Strange [address] [place] [phone] Obstetrics and Gynecology 08/08/24 [place] [address] [place] [phone] Rheumatology 08/08/24
--- OUTSIDE RECORDS SUMMARY | 2024-08-08 13:31 | XMS_ITS | Clinical Summary ---
Author Organization [facility] Address [address] [place] [address] Phone Care Team Providers Care Hot Metal Charger Name Role Phone Angelica Newman MD Primary Care Provider [phone] Allergies No known active allergies Medications Medication Sig Dispensed Refills Start Date End Date Status DULoxetine (CYMBALTA) [address] capsule Take 30 mg by mouth daily. Active cyclobenzaprine (FLEXERIL) 5 mg tablet Take 5 mg by mouth 3 times daily as needed. Active Vitamin C tablet Take 100 mg by mouth daily. Active cholecalciferol (VITAMIN D-3) 50 mcg (2,000 unit) capsule Take 1 capsule (2,000 Units total) by mouth 1 (one) time each day. 12/25/2018 Active naproxen (NAPROSYN) 500 mg tablet Take 500 mg by mouth 2 times daily (with meals). Active albuterol 2.5 mg /3 mL (0.083 %) nebulizer solution Take 1 Vial by nebulization every 4 hours as needed. Active ferrous sulfate 325 mg (65 mg elemental iron) tablet Take 1 tablet (325 mg total) by mouth 1 (one) time each day. Active Symbicort 160-4.5 mcg/actuation inhaler 06/07/2024 Active celecoxib (CeleBREX) 200 mg capsule Take 1 capsule (200 mg total) by mouth 2 (two) times a day. 11/04/2023 Active cetirizine (ZyrTEC) 10 mg tablet Take 1 tablet (10 mg total) by mouth 1 (one) time each day in the morning. 08/16/2023 Active dexAMETHasone (DECADRON) 4 mg tablet TAKE 2 TABLETS BY MOUTH ONCE,INSTR:TO BE TAKEN ON 09/06 IN EVENING OR ACUTE COORDINATOR ON 09/0709/04/2023 Active ergocalciferol (VITAMIN D-2) 1,250 mcg (50,000 unit) capsule Take 1 capsule (50,000 Units total) by mouth 1 (one) time per week. 07/20/2023 Active fluticasone propionate (FLONASE) 50 mcg/actuation nasal spray USE 1 TO 2 SPRAYS INTO EACH NOSTRIL EVERY MORNING SHAKE GENTLY BEFORE USE 08/16/2023 Active HYDROcodone-acetami nophen (NORCO) 5-325 mg per tablet 1 TAB ORALLY EVERY 8 HOURS NEEDED FOR PAIN FOR 7 DAYS 05/02/2024 Active ipratropium-albuter oL (DUONEB) 0.5-2.5 mg/3 mL nebulizer solution INHALE 1 VIAL VIA NEBULIZER EVERY 6 HOURS NEEDED FOR WHEEZING 09/07/2023 Active montelukast (SINGULAIR) 10 mg tablet 10 MG ORALLY BEDTIME 12/15/2023 Acti ve Spiriva Respimat 1.25 mcg/actuation inhalation spray TAKE 2 PUFFS BY MOUTH EVERY DAY 12/19/2023 Active Immunizations Name Administration Dates Next Due HPV, Quadrivalent 09/15/2012,05/02/2012,02/18/20 12 Surgical History Surgery Date Site/Laterality Comments APPENDECTOMY 2004 PROCEDURE: [place] APPENDECTOMY TONSILLECTOMY ADENOIDECTOMY, BILATERAL MYRINGOTOMY AND TUBES PROCEDURE: [place] TONSILLECTOMY & ADENOIDECTOMY <AGE 13 TUBAL LIGATION PROCEDURE: HISTORICAL TUBAL LIGATION Medical History Medical History Date Comments Anemia 01/29/2008 DX:Anemia; COMME NT: H & H 9.7 / 29.8 Asthma DX:Asthma Bacterial vaginosis 09/19/2014 DX:Bacterial vaginosis; COMMENT: 02/18/12,02/13/08 Vitamin D insufficiency 09/19/2014 DX:Vitam in D insufficiency; COMMENT: Vitamin D = 23 History of colposcopy 01/03/2013 DX:History of colposcopy; COMMENT: chronic cervicitis with squamous metaplasia / FLOYD 1... Colpo 02/18/12 FLOYD 1 History of vitamin D deficiency 10/23/2012 DX:History of vitamin D deficiency; COMMENT: Vitamin D = 15 ASCUS with positive high ris k HPV cervical 10/23/2012 DX:ASCUS with positive high risk HPV cervical; COMMENT: ASCUS - H + HPV and 10/09/07 Dysplasia of cervix, high grade FLOYD 2 09/10/2011 DX:Dysplasia of cervix, high grade FLOYD 2 Dysplasia of cervix, low grade (FLOYD 1) 8 DX:Dysplasia of cervix, low grade (FLOYD 1) Family History Medical History Relation Name Comments Asthma Mother Diabetes Mother Colon cancer Paternal Grandmother Breast cancer Neg Hx Cervical cancer Neg Hx Ovarian cancer Neg Hx Prostate cancer Neg Hx Relation Name Status Comments Mother Paternal Grandmother Social History Tobacco Use Types Packs/Day Years Used Date Smoking Tobacco: Never Smokeless Tobacco: Never Alcohol Use Standard Drinks/Week Comments No 0 (1 standard drink = 0.6 oz pur e alcohol) Sex and Gender Information Value Date Recorded Sex Assigned at Not on file Gender Identity Not on file Sexual Orientation Not on file Job Start Date Occupation Industry Not on file Not on file Not on file Obstetrics History Para Term AB IAB SAB Ectopic Multiple Livin g Live Births 3 3 2 1 3 3 Date Outcome GA Total Labor Labor/2nd/3rd Weight Sex Type Anes PTL Bal[place] A1 A5 Name Clin 005 Term 37w 0d 3204 g (113 oz) M Vag-S pont None N Livin g Complications:None Delivery Location:[place] 006 Term 39w 0d 3175 g (112 oz) F Vag-S pont None N Livin g Delivery Location[place] Comments:shortened cer vix @ 3 months dilated 2 cm on bed rest 008 34w 2d 2211 g (78 oz) F Vag-S pont None Livin g [address] Plata Complications: labor Delivery Location:[facility] Plan of Treatment Upcoming Encounters Date Type Department Care Team (Late st Contact Info) Description 10/08/2024 2:30 PM EDT Office Visit Obstetrics & Gynecology - [address] [phone] Nicolle Aldridge, DEON [address] [place] [address] Health Maintenance Due Date Last Done Comments DTaP,Tdap,and Td Vaccines (1 - Tdap) 2005 Hepatitis B Vaccines (1 of 3 - 19+ 3-dose series) 2005 Cervical Cancer Screening: Pap Smear 05/17/2021 05/17/2018, 05/17/2018, 05/17/2018, Additional history exists Depression Screening 06/20/2022 Social Influencers of Health Screening 06/20/2022 COVID-19 Vaccine ( season) 2024 Influenza Vaccine (#1) 2024 HPV Vaccines Completed 09/15/2012, 04/17, 02/18/2012 HIV Screening Completed 05/17/2018 Hepatitis C Screening Completed 05/17/2018 HIB Vaccines Aged Out No longer eligi ble based on patient's age to complete this topic Hepatitis A Vaccines Aged Out No long er eligible based on patient's age to complete this topic IPV Vaccines Aged Out No longer eligi ble based on patient's age to complete this topic MMR Vaccines Aged Out No longer eligi ble based on patient's age to complete this topic Meningococcal ACWY Vaccine Aged Out N o longer eligible based on patient's age to complete this topic Pneumococcal Vaccine: Pediatrics (0 to 5 Years) and At-Risk Patients (6 to 64 Years) Aged Out No longer eligible based on patient's age to complete this topic RSV Immunization Patients Under 20 months Aged Out No longer eligible based on patient's age to complete this topic Varicella Vaccines Aged Out No longer eligible based on patient's age to complete this topic Procedures Procedure Name Priority Date/Time Associated Diagnosis Comments HEPATITIS C SCREENING Routine 05/17/2018 HIV SCREENING Routine 05/17/2018 PAP SMEAR Routine 05/17/2018 from Last 3 Months or Most Recently Relevant to Health Maintenance Results * HIV Screening (05/17/2018) HIV Screening abstracted Historical Provider MD ERIC HERNÁNDEZ E * Hepatitis C Screening (05/17/2018) Hepatitis C Screening abstracted Historical Provider MD ERIC HERNÁNDEZ E * Pap smear (05/17/2018) 05/17/2018 Narrative HISTORICAL TESTING LAB RESULTING AGENCY - 05/29/2018 3:27 PM EST [id number] THINPREP PAP, IMAGED: NEGATIVE FOR SQUAMOUS INTRAEPITHELIAL LESION AND MALIGNANCY . REACTIVE CELLULAR CHANGES. RESULT OF APTIMA HIGH RISK HPV ASSAY: ??NEGATIVE ?? (SEROTYPES 16,18,31,33,35,39,45,51,52,56,58,59,66,68) YANDY URENA , KATE(ASCP) (CASE SCREENED 05 25 2018) ASHISH YOO M.D. , PATHOLOGIST (CASE ELECTRONICALLY SIGNED 05 26 2018) ADEQUACY: SATISFACTORY ENDOCERVICAL/TRANSFORMATION ZONE COMPONENT PRESENT. SOURCE: THINPREP PAP HPV ANY DX: ??REFLEX 16 AND 18, CERVICAL, IMAGED: CLINICAL INFORMATION: HPV ANY DIAGNOSIS. PAP HX POSITIVE 09/10/11 FLOYD 2 [Z12.4, Z01.419] Stephanie Alexandr [facility] LAB CYTOLOGY ORDERAB LES HISTORICAL TESTING LAB RESULTING AGENCY from Last 3 Months or Most Recently Relevant to Health Maintenance Care Teams Hot Metal Charger Relationship Specialty Start Date End Date [place], MD Angelica [address] [place] [phone] PCP - General Internal Medicine 12/01/16
--- OUTSIDE RECORDS SUMMARY | 2024-08-08 13:31 | XMS_ITS | Encounter Summary ---
Author Organization [employer] Address [address] [facility] [address] [place] [address] Care Team Providers Care Hand Stone Polisher Name Role Phone Angelica Newman MD Primary Care Provider [phone]- [phone] Mike Fontenot MD Unavailable Stephanie Strange Unavailable Herbert Self MD Unavailable [phone] Encounter Details Date Type Department Care Team (Latest Contact Info) Description 08/08/2024 Travel Social History Tobacco Use Types Packs/Day Years [...] is your housing situation today? I have kerijosette jose 08/08/[address] you [...] documented as of this encounter Care Teams Hand Stone Polisher Relationship Specialty Start Date End Date Angelica Newman MD [address] [place] [address] PCP - General Family Medicine 08/04/12 Mike Fontenot MD [address] [place] [phone] Orthopaedic Surgery 06/13/24 Stephanie Strange [address] [address] Obstetrics and Gynecology 08/08/24 [place] [address] [place] [phone] Rheumatology 08/08/24 documented as of this encounter
--- OUTSIDE RECORDS SUMMARY | 2024-08-08 13:31 | XMS_ITS | Encounter Summary ---
Author Organization [employer] Address [address] [facility] 7t [place] [address] Care Team Providers Care Medical Director Name Role Phone Angelica Newman MD Primary Care Provider [phone] Mike Fontenot MD Unavailable Stephanie Strange Unavailable Herbert Self MD Unavailable [phone] Reason for Visit * Reason Comments physical Encounter Details Date Type Department Care Team (Late st Contact Info) Description 08/08/2024 10:30 AM EST Office Visit [facility] [address] [place] [address] Angelica Newman MD [address] [place], [place] [phone] Fibromyalgia (Primary Dx); Benign hypertension; Moderate persistent asthma with acute exacerbation; Allergic rhinitis, unspecified seasonality, unspecified trigger; Seasonal allergies; Anemia, unspecified type; Constipation, unspecified constipation type; Dietary counseling; Exercise counseling; Class 3 severe obesity due to excess calories with serious comorbidity and body mass index (BMI) of 40.0 to 44.9 in adult (CMS/HCC); Pap smear for cervical cancer screening; Encounter for immunization; Other specified health status Social History Tobacco Use Types Packs/Day Years [...] your housing situation today? I have keri sing 08/08/[address] you li [...] AM EDT documented as of this encounter Last Filed Vital Signs Vital Sign Reading [...] Mass Index 44.29 08/08/2024 11:04 AM EST documented in this encounter Progress Notes * Angelica Newman MD - 08/08/2024 10:30 AM EST Ellen Machuca is a 38 y.o. female with PMHx of hypertension, asthma, fibromyalgia, and depression who presents to the office today for chronic medical conditions and comprehensive annual evaluation. Pt reports she had some URI symptoms but is feeling better now. She notes she has an upcoming surgery next week possibly. Pt reports her ears feel blocked most of the time and she has had some dizziness. She also reports she had seen the [employer] Pattern[employer] and has a follow-up on this 08/10/24. Agrees to Flu vaccine today. Social History Lives with and 3 children. Wears seatbelt. Tobacco: denied Drugs: none Alcohol: No Sexuality: Sexually active. Partner(s) current: 1 Contraception: bilateral tubal ligation Suicide/Depression: The patient denies any present symptoms of depression or anxiety. Review of Systems Constitutional: Negative for fever and unexpected weight change. HENT: Ear feels blocked Respiratory: Negative for shortness of breath. Cardiovascular: Negative for chest pain. Gastrointestinal: Negative for abdominal pain. Genitourinary: Negative for difficulty urinating. Neurological: Positive for light-headedness. Current Outpatient Medications: cetirizine (Allergy, Cetirizine,) 10 MG tablet, 10 mg., Disp: , Rfl: diclofenac (Voltaren) 75 MG EC tablet, Take 1 tablet by mouth if needed in the morning and at bedtime for pain., Disp: , Rfl: albuterol (2.5 MG/3ML) 0.083% nebulizer solution, Take 3 mL (2.5 mg) by nebulization every 4 (four)hours if needed for wheezing., Disp: 75 mL, Rfl: 3 albuterol 108 (90 Base) MCG/ACT inhaler, Inhale 2 puffs every 6 (six) hours if needed for wheezing., Disp: 18 g, Rfl: 11 budesonide-formoterol (Symbicort) 160-4.5 MCG/ACT inhaler, TAKE 2 PUFFS BY MOUTH TWICE A DAY IN THEMORNING AND IN THE EVENING, Disp: 10.2 each, Rfl: 3 celecoxib (CeleBREX) 200 MG capsule, Take 200 mg by mouth 2 times daily., Disp: , Rfl: cholecalciferol (Vitamin D-3) 25 MCG (1000 UT) tablet, Take 1 tablet (25 mcg) by mouth Once per day., Disp: 90 tablet, Rfl: 3 DULoxetine (Cymbalta) [address] capsule, Take 30 mg by mouth Once per day., Disp: , Rfl: ferrous sulfate 325 (65 Fe) MG EC tablet, TAKE 1 TABLET BY MOUTH EVERY OTHER DAY. DO NOT CRUSH, CHEW, OR SPLIT., Disp: 45 tablet, Rfl: 0 fluticasone (Flonase) 50 MCG/ACT nasal spray, Administer 1-2 sprays into each nostril Once per day.Shake gently. Before first use, prime pump. After use, clean tip and replace cap., Disp: 16 g, Rfl:2 montelukast (Singulair) 10 MG tablet, 10 MG ORALLY BEDTIME, Disp: , Rfl: senna (Senokot) 8.6 MG tablet, Take 1 tablet (8.6 mg) by mouth at bedtime., Disp: 60 tablet, Rfl: 2 No Known Allergies Past Medical History: Diagnosis Date Allergic rhinitis 10/02/2012 Referral to negative notcher sent 07/20/23 SHAWN positive 01/25/2024 For years she has reported chronic pain, [...] (hx old disease, no evidence of acute Anemia 09/16/2014 Hgb improved 11.8 from 10.8 09/2020. Iron is low, she started iron supplementation on 10/09/2020. Benign hypertension 09/03/2021 -Blood pressure is at goal -Continue lifestyle modifications -Continue current medications Fibromyalgia 10/04/2018 Dx'd September 2018. She reports sx's are [...] she is sensitive to medications and it H/O arthroscopic knee surgery left 05/16/2024 Dr. Fontenot Mild episode of recurrent major depressive disorder (CMS/HCC) 09/02/2022 Pt reports controlled off meds. Moderate persistent asthma 09/17/2020 -Seen by pulmonology with Lavonne Zuluaga [employer] 11/22/23 PFT ordered -Duo neb and Spiriva added 09/13/23 -Singular added 11/11/23, pt started 11/22/23 -continue albuterol prn Vitamin D deficiency 09/03/2021 Lab Results Component Value Date [id number] 62 09/10/2022 VITD3 62 09/10/2022 VITD2 <8 09/10/2022 Past Surgical History: Procedure Laterality Date APPENDECTOMY CHOLECYSTECTOMY KNEE SURGERY Left 05/16/2024 Dr. Fontenot TUBAL LIGATION No family history on file. Objective Visit Vitals BP 134/66 (BP Location: Left arm, Patient Position: Sitting, BP Cuff Size: Adult) Pulse 85 Temp 97.7 ??F (36.5 ??C) (Oral) Resp 20 Ht 5' 3 (1.6 m) Wt 250 lb (113 kg) SpO2 100% BMI 44.29 kg/m?? Smoking Status Never BSA 2.24 m?? Physical Exam Constitutional: Appearance: Normal appearance. HENT: Head: Normocephalic. Right Ear: Tympanic membrane normal. Left Ear: Tympanic membrane normal. Mouth/Throat: Pharynx: Oropharynx is clear. Eyes: Pupils: Pupils are equal, round, and reactive to light. Cardiovascular: Rate and Rhythm: Normal rate and regular rhythm. Heart sounds: Normal heart sounds. Pulmonary: Effort: Pulmonary effort is normal. Breath sounds: Normal breath sounds. Abdominal: General: Abdomen is flat. Palpations: There is no mass. Tenderness: There is no abdominal tenderness. Musculoskeletal: General: Normal range of motion. Cervical back: Normal range of motion and neck supple. Lymphadenopathy: Cervical: No cervical adenopathy. Skin: General: Skin is warm and dry. Neurological: General: No focal deficit present. Mental Status: She is alert. Psychiatric: Behavior: Behavior normal. 38 y.o. female annual evaluation. Problem List Items Addressed This Visit Fibromyalgia - Primary Dx'd September 2018. She reports sx's are [...] because she is sensitive to medications and itmay help her HAs as well. She will continue amitriptyline 10mg. . -Restarted vitamin D 04/2021 -Saw setter out recently has follow-up on 08/10/24. -Stable on Celebrex 200 mg. Relevant Medications DULoxetine (Cymbalta) [address] capsule diclofenac (Voltaren) 75 MG EC tablet Benign hypertension -Blood pressure is at goal -Continue lifestyle modifications -Continue current medications Moderate persistent asthma -Seen by pulmonology with Lavonne Zuluaga [employer] 11/22/23 PFT ordered -Singular added 11/11/23, pt started 11/22/23 -continue albuterol prn -has FMLA for exacerbations. Allergic rhinitis Seasonal allergies Relevant Medications cetirizine (Allergy, Cetirizine,) 10 MG tablet Anemia Relevant Orders CBC auto differential Iron And Total Iron Binding Capacity Ferritin Constipation Reports intermittent mild constipation. No acute concerns, requests for Senna for better relief. -prescribed ariel (Senokot) 8.6 MG 08/08/24 Relevant Medications senna (Senokot) 8.6 MG tablet Dietary counseling Dietary Recommendations: Fruits, vegetables, whole grains, protein foods, and fat-free or low-fat dairy products are healthychoices. Eat different types of protein foods in your diet. This can include seafood, lean meats, poultry, beans, peas, lentils, nuts, seeds, soy products, and eggs. Limit foods and beverages higher in added sugars, saturated fat, and sodium. Exercise counseling Exercise Recommendations: At least 150 minutes of moderate-intensity physical activity per week, or an equivalent combinationof moderate- and vigorous-intensity activity Class 3 severe obesity due to excess calories with serious comorbidity and body mass index (BMI) of40.0 to 44.9 in adult ([facility]) Discussed weight, diet, exercise with patient in relation to health conditions. Used motivational interviewing to illicit change talk and established initial goals with patient. -ordered routine labs 08/08/24 Pap smear for cervical cancer screening -will call [employer] to make appt today for PAP smear, 01/25/24 -has appt to have PAP done in September 2024. Other specified health status -next physical exam due after 08/08/25 -eye care facilitated by [facility] [place] [facility] -dental home is encourage to make appt -Healthcare proxy given and filed 01/25/24 Other Visit Diagnoses Encounter for immunization Relevant Orders FLU VACCINE TRIVALENT (Fluarix) 6 mo + Annual Evaluation -Normal growth and development. -Anticipatory guidance discussed. -Preventative care / harm reduction discussed. Follow up in about 1 year (around 08/08/2025) for annual evaluation. I, Lele Swanson, am serving as a scribe to document services personally performed by Dr. Garcia, based on the patient's response to questions by provider and providers statements to me. documented in this encounter Miscellaneous Notes * Assessment & Plan Note - Lele Swanson - 08/08/2024 11:25 AM ESTAssociated Problem(s): Class 3 severe obesity due to excess calories with serious comorbidity and body mass index (BMI) of 40.0 to 44.9 in adult (CMS/[facility]) Discussed weight, diet, exercise with patient in relation to health conditions. Used motivational interviewing to illicit change talk and established initial goals with patient. -ordered routine labs 08/08/24 * Assessment & Plan Note - Lele Swanson - 08/08/2024 11:24 AM ESTAssociated Problem(s): Constipation Reports intermittent mild constipation. No acute concerns, requests for Senna for better relief. -prescribed ariel (Senokot) 8.6 MG 08/08/24 * Assessment & Plan Note - Lele Swanson - 08/08/2024 11:21 AM ESTAssociated Problem(s): Fibromyalgia Dx'd September 2018. She reports sx's are [...] because she is sensitive to medications and itmay help her HAs as well. She will continue amitriptyline 10mg. . -Restarted vitamin D 04/2021 -Saw setter out recently has follow-up on 08/10/24. -Stable on Celebrex 200 mg. * Assessment & Plan Note - Lele Swanson - 08/08/2024 11:13 AM ESTAssociated Problem(s): Moderate persistent asthma -Seen by pulmonology with Lavonne Zuluaga [employer] 11/22/23 PFT ordered -Singular added 11/11/23, pt started 11/22/23 -continue albuterol prn -has FMLA for exacerbations. * Assessment & Plan Note - Lele Swanson - 08/08/2024 11:09 AM ESTAssociated Problem(s): Benign hypertension -Blood pressure is at goal -Continue lifestyle modifications -Continue current medications * Assessment & Plan Note - Lele Sky - 08/08/2024 11:08 AM ESTAssociated Problem(s): Exercise counseling Exercise Recommendations: At least 150 minutes of moderate-intensity physical activity per week, or an equivalent combinationof moderate- and vigorous-intensity activity * Assessment & Plan Note - Lele Swanson - 08/08/2024 11:08 AM ESTAssociated Problem(s): Dietary counseling Dietary Recommendations: Fruits, vegetables, whole grains, protein foods, and fat-free or low-fat dairy products are healthychoices. Eat different types of protein foods in your diet. This can include seafood, lean meats, poultry, beans, peas, lentils, nuts, seeds, soy products, and eggs. Limit foods and beverages higher in added sugars, saturated fat, and sodium. * Assessment & Plan Note - Lele Swanson - 08/08/2024 11:08 AM ESTAssociated Problem(s): Other specified health status -next physical exam due after 08/08/25 -eye care facilitated by [facility] -dental home is encourage to make appt -Healthcare proxy given and filed 01/25/24 * Assessment & Plan Note - Lele Swanson - 08/08/2024 11:07 AM ESTAssociated Problem(s): Pap smear for cervical cancer screening -will call [employer] to make appt today for PAP smear, 01/25/24 -has appt to have PAP done in September 2024. documented in this encounter Plan of Treatment Scheduled Orders Name Type Priority Associated Diagnoses Orde r Schedule CBC auto differential Lab Routine Anemia, unspecified type Expected: 08/08/2024, Expires: 08/08/2025 Iron And Total Iron Binding Capacity Lab Routine Anemia, unspecified type Expected: 08/08/2024, Expires: 08/08/2025 Ferritin Lab Routine Anemia, unspecified type Expected: 08/08/2024, Expires: 08/08/2025 documented as of this encounter Visit Diagnoses Diagnosis Fibromyalgia- Primary Unspecified myalgia and myositis Benign hypertension Essential hypertension, benign Moderate persistent asthma with acute exacerbation Allergic rhinitis, unspecified seasonality, unspecified trigger Seasonal allergies Allergic rhinitis, cause unspecified Anemia, unspecified type Constipation, unspecified constipation type Dietary counseling Dietary surveillance and counseling Exercise counseling Class 3 severe obesity due to excess calories with serious comorbidity and body mass index (BMI) of 40.0 to 44.9 in adult ([facility]) Pap smear for cervical cancer screening Screening for malignant neoplasm of the cervix Encounter for immunization Other specified health status documented in this encounter Additional Health Concerns Assessment Noted Time PHQ-9 Depression Total Score: 0 01/25/20 24 10:23 AM EDT documented as of this encounter Care Teams Medical Director Relationship Specialty Start Date End Date Angelica Newman MD [address] [place] [address] PCP - General Family Medicine 08/04/12 Mike Fontenot MD [address] [place] [address] [address] [place] [address] Orthopaedic Surgery 06/13/24 Stephanie Strange [address] [place] [address] Obstetrics and Gynecology 08/08/24 [place] [address] [place] [phone] Rheumatology 08/08/24 documented as of this encounter
--- OUTSIDE RECORDS SUMMARY | 2024-08-08 13:32 | XMS_ITS | Encounter Summary ---
Author Organization [employer] Address [address] [facility] 7t [place] [address] Care Team Providers Care Supervisor Dog License Officer Name Role Phone Angelica Newman MD Primary Care Provider [phone] Mike Fontenot MD Unavailable Stephanie Strange Unavailable Herbert Self MD Unavailable [phone] Encounter Details Date Type Department Care Team (Late st Contact Info) Description 08/26/2023 Telephone [facility] [address] [place] [address] Angelica Newman MD [address] [place] [address] Social History Tobacco Use Types Packs/Day Years Used Date Smoking Tobacco: Never Passive Smoke Exposure: Never Smokeless Tobacco: Never Alcohol Use Standard Drinks/Week Comments Never 0 (1 standard drink = 0.6 oz pur e alcohol) Depression Answer Date Recorded Patient Health Questionnaire-9 Score 14 05/03/2023 Patient Health Questionnaire-9 Score 14 05/03/2023 Last PHQ-9: Questionnaire Data Not on file 1 Housing Stability Answer Date Recorded What is [...] Answer Date Recorded Patient Health Questionnaire-2 Score 6 05/03/2023 Comments Unknown Sex and Gender Information Value [...] Assessment Noted Time PHQ-9 Depression Total Score: 14 023 10:17 AM EDT documented as of this encounter Care Teams Supervisor Dog License Officer Relationship Specialty Start Date End Date Angelica Newman MD [address] [place] [address] PCP - General Family Medicine 08/04/12 Mike Fontenot MD [address] [place] [address] Orthopaedic Surgery 06/13/24 Stephanie Strange [address] [place] [address] Obstetrics and Gynecology 08/08/24 [place] [address] [place] [phone] Rheumatology 08/08/24 documented as of this encounter
--- OUTSIDE RECORDS SUMMARY | 2024-08-08 13:32 | XMS_ITS | Encounter Summary ---
Author Organization [employer] Address [address] [facility] 7t [place] [address] Care Team Providers Care Seismic Prospecting Observer Name Role Phone Angelica Newman MD Primary Care Provider [phone] Mike Fontenot MD Unavailable Stephanie Strange Unavailable Herbert Self MD Unavailable [phone] Reason for Visit * Reason Comments Med Refill Encounter Details Date Type Department Care Team (Late st Contact Info) Description 12/19/2023 Refill [facility] [address] [place], [place] [phone] Angelica Newman MD [address] [place], [place] [phone] Social History Tobacco Use Types Packs/Day Years [...] encounter Miscellaneous Notes * Telephone Encounter - Roma Godfrey RN - 12/22/2023 9:33 AM EDT Telephone call placed to pt regarding below message. No answer, left v/m. If pt returns call please inform her that she is done with weekly vitamin D. We are now sending parish daily lower dose vitamin D. It was sent to her pharmacy. Thank you! Please let pt know vit d changed to daily tab now that she has completed leeann. Rx sent t her pharmacy on file. Thank you. documented in this encounter Plan of Treatment Not on file documented as of this encounter Visit Diagnoses Not on filedocumented in this encounter Additional Health Concerns Assessment Noted Time PHQ-9 Depression Total Score: 14 023 10:17 AM EDT documented as of this encounter Care Teams Seismic Prospecting Observer Relationship Specialty Start Date End Date Angelica Newman MD [address] [place] [address] PCP - General Family Medicine 08/04/12 Mike Fontenot MD [address] [place] [address] Orthopaedic Surgery 06/13/24 Stephanie Strange [address] [address] Obstetrics and Gynecology 08/08/24 Herbert Self MD [address] [place] [address] Rheumatology 08/08/24 documented as of this encounter
--- OUTSIDE RECORDS SUMMARY | 2024-08-08 13:32 | XMS_ITS | Encounter Summary ---
Author Organization [employer] Address [address] [facility] 7t [place] [address] Care Team Providers Care Cost Control Analyst Name Role Phone Angelica Newman MD Primary Care Provider [phone] Mike Fontenot MD Unavailable Reason for Visit * Reason Onset Date Comments Med Refill 11/18/2023 Encounter Details Date Type Department Care Team ([facility] st Contact Info) Description 11/18/2023 Telephone [facility] MED[facility]INE [address] [place], [place] [phone] Angelica Newman MD [address] [place], [place] [phone] Med Refill Social History Tobacco Use Types Packs/Day Years [...] encounter Miscellaneous Notes * Telephone Encounter - Marilyn Viramontes LPN - 11/18/2023 3:54 PM EDT Please review medication below was discontinued * Telephone Encounter - Nilo Rock - 11/18/2023 3:51 PM EDT Tc from pt requesting a refill for ferrous gluconate (Fergon) 324 (38 Fe) MG table documented in this encounter Plan of Treatment Not on file documented as of this encounter Visit Diagnoses Not on filedocumented in this encounter Additional Health Concerns Assessment Noted Time PHQ-9 Depression Total Score: 14 023 10:17 AM EDT documented as of this encounter Care Teams Cost Control Analyst Relationship Specialty Start Date End Date Angelica Newman MD [address] [place] [address] PCP - General Family Medicine 08/04/12 Mike Fontenot MD [address] [place] [address] Orthopaedic Surgery 06/13/24 documented as of this encounter
--- OUTSIDE RECORDS SUMMARY | 2024-08-08 13:32 | XMS_ITS | Encounter Summary ---
Author Organization [employer] Address [address] [place] [address] 7t [place] [address] Care Team Providers Care Commercial Baking Teacher Name Role Phone Angelica Newman MD Primary Care Provider [phone] Mike Fontenot MD Unavailable Stephanie Strange Unavailable Herbert Self MD Unavailable [phone] Encounter Details Date Type Department Care Team (Late st Contact Info) Description 08/24/2022 Abstract [facility] MEDICINE [address] [place] [address] Angelica Newman MD [address] [place] [address] Social History Tobacco Use Types Packs/Day Years Used Date Smoking Tobacco: Never Smokeless Tobacco: Never Alcohol Use Standard Drinks/Week Comments Never 0 (1 standard drink = 0.6 oz pur e alcohol) Comments Unknown Sex and Gender Information Value Date Recorded Sex Assigned at Female 05/17/2022 10:19 AM EDT Legal Sex Female 10:19 AM EDT Gender Identity Female 05/17/2022 10:19 AM EDT Sexual Orientation Straight 05/17/2022 10 :19 AM EDT documented as of this encounter Plan of Treatment Not on file documented as of this encounter Procedures Procedure Name Priority Date/Time Associated Diagnosis Comments PAP SMEAR Routine 05/17/2018 12:00 AM EDT documented in this encounter Results * Pap Smear (05/17/2018 12:00 AM EDT) Swab us Historical Provider LAB CYTOLOGY ORDERABLES F inal Result IMAGING documented in this encounter Visit Diagnoses Not on filedocumented in this encounter Care Teams Commercial Baking Teacher Relationship Specialty Start Date End Date Angelica Newman MD [address] [place] [address] PCP - General Family Medicine 08/04/12 Mike Fontenot MD [address] [place] [address] Orthopaedic Surgery 06/13/24 Stephanie Strange [address] [place] [address] Obstetrics and Gynecology 08/08/24 [place] [address] [place] [phone] Rheumatology 08/08/24 documented as of this encounter
--- OUTSIDE RECORDS SUMMARY | 2024-08-08 13:32 | XMS_ITS | Encounter Summary ---
Author Organization [employer] Address [address] [facility] 7t [place] [address] Care Team Providers Care Supervisor Fish Hatchery Name Role Phone IroquoisAngelica MD Primary Care Provider [phone] Mike Fontenot MD Unavailable Stephanie Strange Unavailable Herbert Self MD Unavailable [phone] Encounter Details Date Type Department Care Team (Late st Contact Info) Description 08/16/2023 Orders Only [facility] MEDICINE [address] [place] [address] Trupti Parada MD [address] [place], [place] [phone] Chronic pain of left knee (Primary Dx) Social History Tobacco Use Types Packs/Day Years [...] your housing situation today? I have keri damon 07/20/[address] you li [...] as of this encounter Plan of Treatment Scheduled Orders Name Type Priority Associated Diagnoses Orde r Schedule XR Knee 1-2 Views Left Imaging Routine Chronic pain of left knee Expected: 08/16/2023, Expires: 08/16/2024 documented as of this encounter Visit Diagnoses Diagnosis Chronic pain of left knee- Primary documented in this encounter Additional Health Concerns Assessment Noted Time PHQ-9 Depression Total Score: 14 023 10:17 AM EDT documented as of this encounter Care Teams Supervisor Fish Hatchery Relationship Specialty Start Date End Date Angelica Newman MD [address] [place] [address] PCP - General Family Medicine 08/04/12 Mike Fontenot MD [address] [place] [address] Orthopaedic Surgery 06/13/24 Stephanie Strange [address] [place] [address] Obstetrics and Gynecology 08/08/24 [place] [address] [place] [phone] Rheumatology 08/08/24 documented as of this encounter
--- OUTSIDE RECORDS SUMMARY | 2024-08-08 13:32 | XMS_ITS | Encounter Summary ---
Author Organization [employer] Address [address] [facility] [address]t [place] [address] Care Team Providers Care Generator Mechanic Name Role Phone Angelica Newman MD Primary Care Provider [phone] Mike Fontenot MD Unavailable Stephanie Strange Unavailable Herbert Self MD Unavailable [phone] Reason for Visit * Reason Onset Date Comments Nurse Triage 02/22/2024 Encounter Details Date Type Department Care Team (Late st Contact Info) Description 02/22/2024 Telephone [facility] [address] [place] [address] Angelica Newman MD [address] [place], [place] [phone] Nurse Triage Social History Tobacco Use Types Packs/Day Years [...] encounter Miscellaneous Notes * Telephone Encounter - Sabine Chandler LPN - 02/22/2024 8:39 AM EDT Triage call returned to patient who reports onset of Asthma symptoms on Tuesday worsening today has chest tightness no cough no acute shortness of breath. No wheezing. [place] feverish yesterday. Has only had nebulizer medicine at home as she has not been able to afford co pays for other medications. Agrees to have case management contact her to see if she can get some assistance. ASK/Tristan SKETCH LINER today at 1115am. Protocol Used: Asthma Attack (Adult) Protocol-Based Disposition: See in Office or Video Visit Today Video visit not offered Positive Triage Question: * Patient wants to be seen * All higher-acuity triage questions were negative Care Advice Discussed: * Asthma Attack - Symptoms * Asthma Attack - Treatment - Quick-Relief Medicine * Asthma Attack - Treatment - Controller Medicine * Drink Plenty of Liquids and Use a Humidifier * Avoid Asthma Triggers * Reasons To Call Back - An asthma attack is not better after 2 or 3 quick-relief treatments (such as albuterol by inhaleror nebulizer) 20 minutes apart. - Quick-relief asthma medicine (such as albuterol by inhaler or nebulizer) is needed more often than every 4 hours - Mild asthma symptoms not better after 24 hours - Mild wheezing or other asthma symptoms come and go for more than 3 days - You become worse * Telephone Encounter - Mackenzie Jet - 02/22/2024 8:10 AM EDT Symptom: Asthma Attack - Caller Reports Outcome: Schedule a same-day appointment or talk to a nurse or provider today Reason: Trouble breathing and wheezing. The caller accepted this outcome Pt is asking for twice call, pt is at work. documented in this encounter Plan of Treatment Not on file documented as of this encounter Visit Diagnoses Not on filedocumented in this encounter Additional Health Concerns Assessment Noted Time PHQ-9 Depression Total Score: 0 01/25/20 24 10:23 AM EDT documented as of this encounter Care Teams Generator Mechanic Relationship Specialty Start Date End Date Angelica Newman MD [address] [place] [address] PCP - General Family Medicine 08/04/12 Mike Fontenot MD [address] [place] [address] Orthopaedic Surgery 06/13/24 Stephanie Strange [address] [place] [phone] Obstetrics and Gynecology 08/08/24 [place] [address] [place] [phone] Rheumatology 08/08/24 documented as of this encounter
--- OUTSIDE RECORDS SUMMARY | 2024-08-08 13:32 | XMS_ITS | Encounter Summary ---
Author Organization [employer] Address [address] [place] [address] 7t [place] [address] Care Team Providers Care Layout Man Name Role Phone Angelica Newman MD Primary Care Provider [phone]- [phone] Mike Fontenot MD Unavailable Stephanie Strange Unavailable Herbert Self MD Unavailable [phone] Encounter Details Date Type Department Care Team (Late st Contact Info) Description 03/23/2023 Orders Only [facility] [address] [place], [place] [phone] Angelica Newman MD [address] [place], [place] [phone] Social History Tobacco Use Types Packs/Day Years [...] on filedocumented in this encounter Care Teams Layout Man Relationship Specialty Start Date End Date Angelica Newman MD [address] [place], [place] [phone] PCP - General Family Medicine 08/04/12 Mike Fontenot MD [address] [place] [address] Orthopaedic Surgery 06/13/24 Stephanie Strange [address] [place] [phone] Obstetrics and Gynecology 08/08/24 [place] [address] [place] [phone] Rheumatology 08/08/24 documented as of this encounter
--- OUTSIDE RECORDS SUMMARY | 2024-08-08 13:32 | XMS_ITS | Encounter Summary ---
Author Organization [employer] [facility] Address [address] [facility] 7t [place] [address] Care Team Providers Care Client Technical Support Associate Name Role Phone Angelica Newman MD Primary Care Provider [phone]- [phone] Mike Fontenot MD Unavailable Stephanie Strange Unavailable Herbert Self MD Unavailable [phone] Encounter Details Date Type Department Care Team (Late st Contact Info) Description 06/23/2022 Orders Only [facility] [address] [place] [address] [facility] [address] [place] [address] Palpitations (Primary Dx) Social History Tobacco Use Types [...] Orientation Straight 05/17/2022 10 :19 AM EDT COVID-19 Exposure Response Date Recorded In the last 10 days, have yo u been in contact with someone who was confirmed or suspected to have Coronavirus/COVID-19? No / Unsure 06/22/2022 12:56 PM EST documented as of this encounter Plan of Treatment Not on file documented as of this encounter Visit Diagnoses Diagnosis Palpitations- Primary documented in this encounter Care Teams Client Technical Support Associate Relationship Specialty Start Date End Date Angelica Newman MD [address] [place] [address] PCP - General Family Medicine 08/04/12 Mike Fontenot MD [address] [place] [address] Orthopaedic Surgery 06/13/24 Stephanie Strange [address] [place] [address] Obstetrics and Gynecology 08/08/24 [place] [address] [place] [phone] Rheumatology 08/08/24 documented as of this encounter
--- OUTSIDE RECORDS SUMMARY | 2024-08-08 13:32 | XMS_ITS | Encounter Summary ---
Author Organization [employer] Address [address] [facility] 7[address] [place] [address] Care Team Providers Care Tenant Coordinator Name Role Phone Angelica Newman MD Primary Care Provider [phone] Mike Fontenot MD Unavailable Reason for Visit * Reason Comments Pre-visit Planning Pre-visit planning - LVM Encounter Details Date Type Department Care Team ([facility] st Contact Info) Description 07/27/2024 Patient Outreach [facility] [address] [place] [address] Angelica Newman MD [address] [place], [place] [phone] Pre-visit Planning (Pre-visit planning - LVM ) Social History Tobacco Use Types Packs/Day Years [...] AM EDT documented as of this encounter Progress Notes * Macarena Serna - 07/27/2024 11:24 AM EST CC Macarena Stacy placed outbound call to patient to complete pre-visit planning. No answer at this time. Patient name and were not confirmed. CC left voicemail requesting return call. Direct contact information provided. documented in this encounter Plan of Treatment Not on file documented as of this encounter Visit Diagnoses Not on filedocumented in this encounter Additional Health Concerns Assessment Noted Time PHQ-9 Depression Total Score: 0 01/25/20 10:23 AM EDT documented as of this encounter Care Teams Tenant Coordinator Relationship Specialty Start Date End Date Angelica Newman MD [address] [place] [address] PCP - General Family Medicine 08/04/12 Mike Fontenot MD [address] [place] [address] [address] [place] [address] Orthopaedic Surgery 06/13/24 documented as of this encounter
[2024-08-08 14:00] LABS: Basophils Percent Auto 0.3 % (0-2); Eosinophils Absolute Auto 0.3 X10*3/uL (0.0-0.4); Eosinophils Percent Auto 3.9 % (0-4); Hemoglobin 10.6 g/dl (12.0-16.0); Imm Gran Abs Auto 0.05 X10*3/uL (0.00-0.03); Imm Gran Pct Auto 0.7 % (0.0-0.4); Lymphocytes Absolute Auto 1.4 X10*3/uL (1.2-4.9); Lymphocytes Percent Auto 20.1 % (20-40); Mean Corpuscular HGB Conc 31.2 g/dl (31.0-35.0); Mean Corpuscular Hemoglobin 23.3 pg (27.0-33.0); Mean Corpuscular Volume 74.9 fL (80.0-98.0); Mean Platelet Volume 10.2 fL (9.4-12.3); Monocytes Absolute Auto 0.4 X10*3/uL (0.1-1.2); Monocytes Percent Auto 5.8 % (2-11); Neutrophils Absolute Auto 4.8 x10*3/uL (2.0-8.3); Neutrophils Percent Auto 69.2 % (45-73); Platelet Count 375 X10*3/uL (160-400); Red Blood Count 4.54 X10*6/uL (4.20-5.50); Red Cell Distribution Width 17.2 % (11.0-16.0); White Blood Count 6.9 X10*3/uL (4.8-10.8)
[2024-08-08 14:07] LABS: Iron 14 mcg/dL (30-160); Percent Iron Saturation 4 % (15-50); Total Iron Binding Capacity 342 mcg/dL (228-428); Unsaturated Iron Binding 328 ug/dL
[2024-08-08 14:38] LABS: Ferritin 14 ng/mL (10-122)
[2024-08-10 03:09] LABS: Immunoglobulin E 53 kU/L (<OR=114)
== END 2024-08-08 11:40 | disposition home or self-care (01) ==
LOC: HO.HHCL 11:39
PROVIDERS: Nurse Practitioner Family; Visit Provider Family Medicine
DX: D64.9 Anemia, unspecified (principal); Z91.09 Other allergy status, other than to drugs and biological substances
CPT/HCPCS: 36415; 82728; 82785; 83540; 85025

== ENCOUNTER 2024-08-09 10:51 | Outpatient (AMB) | payer OTHER, SELFPAY ==
[2024-08-09 10:55] VITALS: BMI 43.9
--- NOTE | 2024-08-09 10:55 | A.OFFVIS_ITS ---
Vital Signs 08/09/24 10:55 Height 5 ft 3 in Weight 248 lb BMI 43.9 Handedness Right Intake Visit Reasons: Preop RT MM root repair 08/15/24 NE Intake Note: Brigette is a 38 year old female who presents today for a pre op appointment for her right medial meniscus root repair 08/15/24 NE. Allergies cat dander Allergy (Intermediate, Verified 08/09/24 10:56) wheezing, sneezing HPI HPI Preop RT MM root repair 08/15/24 NE: Details: Ms. Chele Chaudhari is a 38-year-old?female?who presents in the office today for?her?preoperative history and physical exam prior to a meniscal root repair?to be performed on?08/15/2024?by?Dr. Fontenot. 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 Review of Systems Const All systems reviewed & are unremarkable except as noted in HPI and below Physical Exam Vital Signs: BMI result Body Mass Index 43.9 Const General: cooperative, healthy appearing, comfortable, no acute distress, well developed, alert and awake Orientation/consciousness: patient oriented x3 HEENT Head: Yes normal to inspection, Yes normocephalic and Yes atraumatic Eyes General: appearance normal, both eyes and all related structures Neck Neck: Yes normal visual inspection and Yes no lymphadenopathy Resp Effort & Inspection: normal respiratory effort and able to speak in complete sentences Cardio Rate: regular rate Peripheral pulses: Peripheral pulses 2+ throughout Skin General skin exam: no rashes or lesions noted Neuro General: patient oriented x3 Extrem Other: Positive Xavi's and tenderness to palpation medial joint line. Psych Mental Status: mental status grossly normal Assessment & Plan Assessment & Plan (1) Medial meniscus tear: Code(s): S83.249A - Other tear of medial meniscus, current injury, unspecified knee, initial encounter Category: Medical (2) Tear of medial meniscus of right knee: Code(s): S83.241A - Other tear of medial meniscus, current injury, right knee, initial encounter Category: Medical Plan Ms. Chele Chaudhari is a 38-year-old?female?who presents in the office today for?her?preoperative history and physical exam prior to a?right knee meniscal root repair?to be performed on?08/15/2024?by?Dr. Fontenot. I discussed in detail the procedure and what to expect pre and post operatively. We discussed the risks, benefits and alternatives to the surgery and the rehabilitation course. The risks include infection, bleeding, nerve injury, ongoing pain, swelling, and stiffness, perioperative risk of injury to bones and soft tissues, and blood clots.?? Post operative medications were sent to the pharmacy,?Percocet,?while in the office today. The patient was instructed that?she?should obtain the prescription prior to surgery but should not consume until after the procedure; as these should only be taken for postoperative pain management. Should the patient take these medications before surgery, a refill will not be sent to the pharmacy until their scheduled refill date.?? Medications sent: oxycodone-acetaminophen 5-325 mg (Percocet) PO Q4-6H PRN, quantity 42 tabs for 7 days Patient was fit for an ACL brace while the office today off the shelf. I have answered all questions and with their understanding they have consented to move forward with a right knee meniscal root repair to be performed on 08/15/[address] Fontenot. Follow-up will be at the post operative appointment on 08/23/2024, or sooner if needed.? Medications: New oxycodone-acetaminophen 5-325 mg Partial Fill upon patient request. 1 tab PO Q4-6H 7 days PRN 42 tabs 0RF pain Coding Level of Care Code Global (34085) Diagnoses Medial meniscus tear S83.249A Tear of medial meniscus of right knee S83.241A
== END 2024-08-09 11:17 | disposition home or self-care (01) ==
PROVIDERS: PCP Family Medicine; Visit Provider Physician Assistant
DX: S83.249A Other tear of medial meniscus, current injury, unspecified knee, initial encounter (principal); S83.241A Other tear of medial meniscus, current injury, right knee, initial encounter
CPT/HCPCS: 99024

== ENCOUNTER → 2024-08-09 10:51 | Outpatient (BNVA) | payer OTHER, SELFPAY | PROVIDERS: PCP Family Medicine; Visit Provider Physician Assistant | DX: Z01.818 Encounter for other preprocedural examination (principal); S83.241A Other tear of medial meniscus, current injury, right knee, initial encounter | CPT/HCPCS: 99212 ==

== ENCOUNTER 2024-08-15 05:54 | Day surgery (SDC) | payer OTHER, SELFPAY ==
[2024-08-13 11:03] VITALS: BMI 43.9
--- NOTE | 2024-08-14 09:40 | HO.ANESPROP2 ---
Documented by User: Anna Lomeli NP 08/14/24 09:42 HPI - Anesthesia Eval Consult details Narrative: 38yo F for Right Knee Arthroscopy (Medial Meniscus Root repair) BMI 44 s/p Left side 04/2024 with GA-LMA 4 PMFSH Active Problems Active Problems: All Active Problems Tear of medial meniscus of right knee (Acute) Internal derangement of right knee (Acute) Medial meniscus tear (Acute) Patellofemoral arthritis of left knee (Acute) Environmental allergies (Acute) Asthma (Acute) Dizziness (Acute) Lateral epicondylitis, right elbow (Acute) Past Medical History Medical History Fibromyalgia Asthma Family History Family History Mother Diabetes Father Hypertension Family history of problems with anesthesia: No Surgical History Surgical History Hx of appendectomy History of cholecystectomy History of Problems with Anesthesia: No Social History Social History Are you a primary landcare facilitator to a significant other at home: No Do you presently have visiting nurse or other home services: No Alcohol intake: never Patient Tobacco Use Status: Never used Tobacco Use of substances other than those prescribed or required for medical reasons: No Advance Directives: No Advance Directives Information Provided: Yes Current occupational status: employed 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 Meds Allergies Allergy/AdvReac Type Severity Reaction Status Date / Time cat dander Allergy Intermediate wheezing, Verified 08/09/24 10:56 sneezing Home Medications ?Medication ?Instructions ?Recorded ?Confirmed ?Last Taken ?Type sennosides 8.6 mg tablet (senna) 17.2 mg PO DAILY PRN constipation 08/11/22 05/02/24 Unknown History albuterol sulfate 90 mcg/actuation 2 puff inhalation Q6H PRN 09/07/23 05/02/24 Unknown History aerosol inhaler Shortness Of Breath Or Wheezing budesonide-formoterol HFA 160 2 puff inhalation BID 09/07/23 05/02/24 05/02/24 History mcg-4.5 mcg/actuation aerosol inhaler (Symbicort) cetirizine 10 mg tablet (Allergy 10 mg PO DAILY PRN asthma 09/07/23 05/02/24 Unknown History Relief (cetirizine)) ergocalciferol (vitamin D2) 1,250 1,250 mcg PO QWEEK 09/07/23 05/02/24 Unknown History mcg (50,000 unit) capsule Exam Height,Weight and Vital Signs: Height 5 ft 3 in Weight 112.491 kg Narrative Narrative: EKG 04/2024 Vent. Rate : 080 BPM Atrial Rate : 080 BPM P-R Int : 136 ms QRS Dur : 074 ms QT Int : 392 ms P-R-T Axes : 022 006 022 degrees QTc Int : 452 ms Normal sinus rhythm Normal ECG When compared with ECG of 31-AUG-2023 20:42, No significant change was found ECHO 2022 Conclusions: - The left ventricular systolic function is normal. The calculated ejection fraction is 66% by biplane method. - No obvious valvular pathology seen on this study. Assessment and Plan Assessment Anesthesia Assessment: Chart Reviewed Final Anesthetic Review Family History of Problems with Anesthesia: No History of Problems with Anesthesia: No Documented by User: Tessie Matthews MD [facility] Active Problems Active Problems: All Active Problems Tear of medial meniscus of right knee (Acute) Internal derangement of right knee (Acute) Medial meniscus tear (Acute) Patellofemoral arthritis of left knee (Acute) Environmental allergies (Acute) Asthma (Acute)- stable. Used inhaler this morning Dizziness (Acute) Lateral epicondylitis, right elbow (Acute) Increased BMI 44 Denies LEESA Past Medical History Medical History Fibromyalgia Asthma Family History Family History Mother Diabetes Father Hypertension Family history of problems with anesthesia: No Surgical History Surgical History Hx of appendectomy History of cholecystectomy History of Problems with Anesthesia: No Social History Social History Are you a primary landcare facilitator to a significant other at home: No Do you presently have visiting nurse or other home services: No Alcohol intake: never Patient Tobacco Use Status: Never used Tobacco Use of substances other than those prescribed or required for medical reasons: No Advance Directives: No Advance Directives Information Provided: Yes Current occupational status: employed 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 Meds Allergies Allergy/AdvReac Type Severity Reaction Status Date / Time cat dander Allergy Intermediate wheezing, Verified 08/09/24 10:56 sneezing Home Medications ?Medication ?Instructions ?Recorded ?Confirmed ?Last Taken ?Type sennosides 8.6 mg tablet (senna) 17.2 mg PO DAILY PRN constipation 08/11/22 05/02/24 Unknown History albuterol sulfate 90 mcg/actuation 2 puff inhalation Q6H PRN 09/07/23 05/02/24 Unknown History aerosol inhaler Shortness Of Breath Or Wheezing budesonide-formoterol HFA 160 2 puff inhalation BID 09/07/23 05/02/24 05/02/24 History mcg-4.5 mcg/actuation aerosol inhaler (Symbicort) cetirizine 10 mg tablet (Allergy 10 mg PO DAILY PRN asthma 09/07/23 05/02/24 Unknown History Relief (cetirizine)) ergocalciferol (vitamin D2) 1,250 1,250 mcg PO QWEEK 09/07/23 05/02/24 Unknown History mcg (50,000 unit) capsule Exam Height,Weight and Vital Signs: Height 5 ft 3 in Weight 112.491 kg Vital Signs Temp Pulse Resp BP Pulse Ox O2 Del Method 08/15/24 06:21 98.3 F 80 16 124/80 97 Room Air Pertinent Lab Results Pertinent Lab Results: Lab Results 08/15/24 Range/Units 06:12 Urine Test NEGATIVE (NEGATIVE) Airway Mallampati Class: II TM Dist: >3cm Neck ROM: Full Loose/Missing/Broken Teeth: Yes (Missing 3 molars) Heart: RRR Lungs: CTAB Assessment and Plan Assessment Anesthesia Assessment: Anesthesia Plan Discussed and Chart Reviewed Final Anesthetic Review Family History of Problems with Anesthesia: No History of Problems with Anesthesia: No NPO: Yes ASA Class: III Final Preanesthetic Review: No Changes in Pt Med Stat, Meds/Allgs Chart Reviewed, Consent Obtained/Reviewed and Anes Risks/Benef Reviewed Patient Risk: Intermediate Procedure Risk: Low Assessment/Block/Sedation in SS: Assess/Block/Sedation-SS Anesthetic Plan Anesthetic Plan: GA Disposition: Standard PACU
[2024-08-15] VITALS (9 sets, daily range): BP systolic 124–158; BP diastolic 80–97; PULSE 71–86; RESP 12–16; TEMP 36.6–37.2; O2SAT 96–98; BMI 43.7
--- OUTSIDE RECORDS SUMMARY | 2024-08-15 05:57 | XMS_ITS | Clinical Summary ---
Author Organization [facility] Address [address] [place] [address] Phone Care Team Providers Care Blower Mechanic Name Role Phone Angelica Newman MD Primary Care Provider +1- [phone] Allergies No known active allergies Medications Medication [...] BE TAKEN ON 09/06 IN EVENING OR TRAFFIC REPRESENTATIVE ON 09/0709/04/2023 Active ergocalciferol (VITAMIN D-2) 1,250 [...] Surgery Date Site/Laterality Comments APPENDECTOMY 2004 PROCEDURE: IN APPENDECTOMY TONSILLECTOMY ADENOIDECTOMY, BILATERAL MYRINGOTOMY AND TUBES PROCEDURE: IN TONSILLECTOMY & ADENOIDECTOMY <AGE 13 TUBAL LIGATION [...] pont None N Livin g Complications:None [place] Location:[place] 006 Term 39w 0d 3175 g (112 oz) F Vag-S pont None N Liv[place] g [place] Location[place] Comments:shortened cer vix @ 3 months dilated 2 cm on bed rest 008 34w 2d 2211 g (78 oz) F Vag-S pont None Livin g [address] Plata Complications: labor Delivery Location:[facility] Plan of Treatment Upcoming Encounters Date Type Department Care Team (Late st Contact Info) Description 10/08/2024 2:30 PM EDT Office Visit Obstetrics & Gynecology - [address] [phone] Nicolle Aldridge, DEON [address] [place] [address] Health Maintenance Due Date Last [...] RESULTING AGENCY - 05/29/2018 3:27 PM EST [id number] THINPREP PAP, IMAGED: NEGATIVE FOR SQUAMOUS INTRAEPITHELIAL [...] 09/10/11 FLOYD 2 [Z12.4, Z01.419] Stephanie Alexandr [facility] CYTOLOGY ORDERAB LES HISTORICAL TESTING LAB RESULTING AGENCY from Last 3 Months or Most Recently Relevant to Health Maintenance Care Teams Blower Mechanic Relationship Specialty Start Date End Date [place], [place] Angelica [address] [place] [phone] PCP - General Internal Medicine 12/01/16
[2024-08-15 06:56] LABS: UPreg QC Valid YES; Urine Pregnancy NEGATIVE (NEGATIVE)
--- NOTE | 2024-08-15 07:24 | MHC.SHP ---
Pre-Procedural Eval Section A - 24 Hr Update-Section A only Date of Service: 08/15/24 The patient is an INPATIENT: No Changes since office visit: No Cold of Flu in the past 2 weeks, No New Medical Problems, No Changes in Medication and No Patient answered all questions The patient has been examined within 24 hours of the surgical procedure. The History & Physical has been completed within 30 days and I have reviewed it.: Yes Section B - Complete if H&P > 30 days Chief Complaint: Other tear of medial meniscus, current injury, Allergies: Allergies Allergy/AdvReac Type Severity Reaction Status Date / Time cat dander Allergy Intermediate wheezing, Verified 08/09/24 10:56 sneezing Plan I have reviewed the history and physical and performed a pertinent physical examination on my patient. No changes have occurred unless specified. Time Spent With Patient Time: Total time managing care of this patient today ____ minutes.
--- NOTE | 2024-08-15 08:57 | PM.OP ---
Brief Operative Note Date of Service: 08/15/24 Pre-op diagnosis: right knee medial meniscus root tear Post-op diagnosis: same Procedure: Medial meniscus root repair Implants: [employer] Footprint x 1 Surgeon: Mike Fontenot MD Anesthesia: GLMA and local Was an Final Assembly Inspector used for this Procedure?: Yes Final Assembly Inspector: Gina Roberts Estimated blood loss (mL): 20 IV fluids (mL): 750 Pathology: none sent Condition: stable Disposition: PACU
[2024-08-15] MEDS: Ketorolac Tromethamine 15 MG/ML VIAL IVPUSH (09:18)
[2024-08-15] MEDS: oxyCODONE HCl Immed Release 5 MG TABLET PO (09:20)
[2024-08-15] MEDS: fentaNYL citrate/PF 100 MCG/2 ML VIAL 25 MCG IVPUSH (09:42)
[2024-08-15] MEDS: Haloperidol Lactate 5 MG/ML VIAL 1 MG IVPUSH (09:45)
--- NOTE | 2024-08-15 10:59 | P.OP_ITS ---
Operative Note Operative Note Date of Service: 08/15/24 Narrative: Date of Service: 08/15/24 Pre-op diagnosis: right knee medial meniscus root tear Post-op diagnosis: same Procedure: Medial meniscus root repair Implants: [employer]print x 1 Surgeon: Mike Fontenot MD Anesthesia: GLMA and local Was an Sales Representative [employer] used for this Procedure?: Yes Sales Representative [employer]: Gina Roberts Estimated blood loss (mL): 20 IV fluids (mL): 750 Pathology: none sent Condition: stable Disposition: PACU Procedure in detail: Patient was brought to the operating room placed supine on the arthroscopic table and prepped and draped in standard sterile fashion. A time-out was called to identify proper site proper procedure proper surgeon and IV antibiotics per weight were administered. I began by exsanguinating the limb and insufflating tourniquet to 300 mm Hg. Then made a standard anterolateral stab incision. The knee was insufflated with water and 30 degree arthroscope was placed. There was a normal PF joint. The suprapatellar pouch and the gutters were clean. I descended into the medial compartment where I made my medial portal under direct visualization. There was a complete tear of the root at its insertion with an otherwise normal meniscus. There were grade 1 changes in the tibial plateau and MFC. I used shaver to perform a limited chondroplasty. I then used a suture passer to pass two suture tapes through the free edge of the medial meniscus. I then used a ringed currette to debride the root insertion site. I then drilled a spin through the anterolateral tibia through the footprint using the root repair guide set at 55deg. I passed a nitinol loop through this and retrieved the two limbs of suture tape attached to the meniscus. I then brought the meniscus to its insertion site while flexed at 30 deg. The suture was then dunked into a footprint anchor anterolateral to the tibial tubercle. The rpepair was anatomic and I was satisfied. The ACL was examined and found to be intact and the lateral compartment also was without the need for intervention. I then removed all instrumentation and closed the portals with skin glue. 25 mL of 2% Marcaine with epinephrine was injected into the joint and the surrounding soft tissues. Patient was then placed in sterile dressing extubated brought recovery room stable condition. There were no known complications.
== END 2024-08-15 10:29 | disposition home or self-care (01) ==
LOC: HO.SSS 05:55
PROVIDERS: Nurse Practitioner; PCP Family Medicine; Visit Provider Orthopaedic Surgery
PROC: (CPT 29870; principal; 2024-08-15 07:30)
DX: S83.241A Other tear of medial meniscus, current injury, right knee, initial encounter (principal); J45.909 Unspecified asthma, uncomplicated; M79.7 Fibromyalgia; Z90.49 Acquired absence of other specified parts of digestive tract; X58.XXXA Exposure to other specified factors, initial encounter; Y93.9 Activity, unspecified; Y92.9 Unspecified place or not applicable; Y99.9 Unspecified external cause status
CPT/HCPCS: 29882; 81025; C1713; J0131; J0171; J0690; J1100; J1171; J1630; J1885; J1920; J2003; J2250; J2405; J2704; J2795; J3010

== ENCOUNTER → 2024-08-24 13:41 | Outpatient (BNVA) | payer OTHER, SELFPAY | PROVIDERS: PCP Family Medicine; Visit Provider Physician Assistant | DX: S83.241D Other tear of medial meniscus, current injury, right knee, subsequent encounter (principal); X58.XXXD Exposure to other specified factors, subsequent encounter; Z98.890 Other specified postprocedural states | CPT/HCPCS: 99212 ==

== ENCOUNTER → 2024-08-24 13:41 | Outpatient (AMB) | payer OTHER, SELFPAY ==
--- NOTE | 2024-08-24 13:50 | MHC.OFFVIS ---
Intake Visit Reasons: PO RT MM root repair 08/15/24 NE Intake Note: Brigette is a 38 year old female who presents today for a post op appointment for her right medial meniscus root repair 08/15/24 NE. Patient states that she is having pain in the knee. Allergies cat dander Allergy (Intermediate, Verified 08/24/24 13:55) wheezing, sneezing HPI HPI PO RT MM root repair 08/15/24 NE: Details: Ms. Chele Chaudhari is a 38-year-old female who presents to the office today status post right knee meniscal root repair performed on 08/15/[address] Fontenot. Patient is wearing the T ROM knee brace locked in extension as directed. She is using crutches to assist with ambulation. She unfortunately missed her 1st physical therapy appointment due to inclement weather. She reports that she has stopped using any narcotic medications. 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 Sutures intact. No surrounding erythema or drainage. No signs of infection. NVI. Assessment & Plan Assessment & Plan (1) Tear of medial meniscus of right knee: Code(s): S83.241A - Other tear of medial meniscus, current injury, right knee, initial encounter Category: Medical (2) S/P medial meniscus repair of right knee: Code(s): Z98.890 - Other specified postprocedural states Category: Surgical Plan Ms. Chele Chaudhari is a 38-year-old female who presents to the office today status post right knee meniscal root repair performed on 08/15/[address] Fontenot. Patient is wearing the T ROM knee brace locked in extension as directed. She is using crutches to assist with ambulation. She unfortunately missed her 1st physical therapy appointment due to inclement weather. She reports that she has stopped using any narcotic medications. While in the office today, the patient's sutures were removed. Steri-Strips were applied. She was encouraged to reach back out to physical therapy to reschedule her initial evaluation appointment as she was unable to make it due to inclement weather. The brace will remain in place and we do accordingly to the meniscal root repair protocol. She will follow up in [address] Fontenot, sooner if needed. Coding Level of Care Code Global (07888) Diagnoses Tear of medial meniscus of right knee S83.241A S/P medial meniscus repair of right knee Z98.890
== END | disposition home or self-care (01) ==
PROVIDERS: PCP Family Medicine; Visit Provider Physician Assistant
DX: S83.241A Other tear of medial meniscus, current injury, right knee, initial encounter (principal); Z98.890 Other specified postprocedural states
CPT/HCPCS: 99024

== ENCOUNTER 2024-09-17 13:39 | Outpatient (AMB) | payer OTHER, SELFPAY ==
--- NOTE | 2024-09-17 13:48 | MHC.OFFVIS ---
Intake Visit Reasons: PO- RT MM root repair 08/15/24 NE Intake Note: Brigette is a 38 year old female who presents today for a follow up 6 weeks s/p Right Medial Meniscus Root Repair 08/15/2024. She missed her first physical therapy appointment due to inclement weather, she has only had one physical therapy session. Allergies cat dander Allergy (Intermediate, Verified 08/24/24 13:55) wheezing, sneezing HPI HPI PO- RT MM root repair 08/15/24 NE: Details: Brigette is a 38 year old female who presents today for a follow up 6 weeks s/p Right Medial Meniscus Root Repair 08/15/2024. She missed her first physical therapy appointment due to inclement weather, she has only had one physical therapy session. She is bending 0-60 and using crutches with minimal weight bearing. 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 F/u 6 weeks. Progress WBAT and crutch weaning. f/u 6 weeks Coding Level of Care Code Global (89475) Diagnoses S/P medial meniscus repair of right knee Z98.890
--- OUTSIDE RECORDS SUMMARY | 2024-09-17 16:08 | XMS_ITS | Encounter Summary ---
Author Organization [facility] Address [address] [place] [address] Care Team Providers Care Electrician Locomotive Name Role Phone Angelica Newman MD Primary Care Provider [phone] Mike Fontenot MD Unavailable Stephanie Strange Unavailable Herbert Self MD Unavailable [phone] Encounter Details Date Type Department Care Team (Late st Contact Info) Description 06/23/2022 Orders Only [facility] MEDICINE [address] [place] [address] [facility] [address] [place] [address] Palpitations (Primary Dx) Social History Tobacco Use [...] Primary documented in this encounter Care Teams Electrician Locomotive Relationship Specialty Start Date End Date Angelica Newman MD [address] [place] [address] PCP - General Family Medicine 08/04/12 Mike Fontenot MD [address] [place] [address] Orthopaedic Surgery 06/13/24 Stephanie Strange [address] [place] [phone] Obstetrics and Gynecology 08/08/24 [place] [address] [place] [phone] Rheumatology 08/08/24 documented as of this encounter
--- OUTSIDE RECORDS SUMMARY | 2024-09-17 16:08 | XMS_ITS | Clinical Summary ---
Author Organization [facility] Address [address] [place] [address] Phone Care Team Providers Care Advertiser Name Role Phone Angelica Newman MD Primary Care Provider [phone] Allergies No known active allergies Medications DULoxetine (CYMBALTA) [address] capsule Take 30 mg by mouth daily. Active cyclobenzaprine (FLEXERIL) 5 mg tablet Take 5 mg by mouth 3 times daily as needed. Active Vitamin C tablet Take 100 mg by mouth daily. Active cholecalciferol (VITAMIN D-3) 50 mcg (2,000 unit) capsule Take 1 capsule (2,000 Units total) by mouth 1 (one) time each day. 9 Active naproxen (NAPROSYN) 500 mg tablet Take [...] each day. Active Symbicort 160-4.5 mcg/actuation inhaler 4 Active celecoxib (CeleBREX) 200 mg capsule Take 1 capsule (200 mg total) by mouth 2 (two) times a day. 4 Active cetirizine (ZyrTEC) 10 mg tablet Take 1 tablet (10 mg total) by mouth 1 (one) time each day in the morning. 4 Active dexAMETHasone (DECADRON) 4 mg tablet TAKE 2 TABLETS BY MOUTH ONCE,INSTR:TO BE TAKEN ON 09/06 IN EVENING OR RECORDER HELPER SEISMOGRAPH ON 09/07 4 Active ergocalciferol (VITAMIN D-2) 1,250 mcg (50,000 unit) capsule Take 1 capsule (50,000 Units total) by mouth 1 (one) time per week. 4 Active fluticasone propionate (FLONASE) 50 mcg/actuation nasal spray USE 1 TO 2 SPRAYS INTO EACH NOSTRIL EVERY MORNING SHAKE GENTLY BEFORE USE 4 Active HYDROcodone-rigoberto taminophen (NORCO) 5-325 mg per tablet 1 TAB ORALLY EVERY 8 HOURS NEEDED FOR PAIN FOR 7 DAYS 4 Active ipratropium-alb uteroL (DUONEB) 0.5-2.5 mg/3 mL nebulizer solution INHALE 1 VIAL VIA NEBULIZER EVERY 6 HOURS NEEDED FOR WHEEZING 4 Active montelukast (SINGULAIR) 10 mg tablet 10 MG ORALLY BEDTIME 4 Active Spiriva Respimat 1.25 mcg/actuation inhalation spray TAKE 2 PUFFS BY MOUTH EVERY DAY 4 Active Immunizations Name Administration Dates Next Due HPV, Quadrivalent 09/15/2012,05/02/2012,02/18/20 12 Surgical History Surgery Date Site/Laterality Comments APPENDECTOMY 2004 PROCEDURE: [place] APPENDECTOMY TONSILLECTOMY ADENOIDECTOMY, BILATERAL MYRINGOTOMY AND TUBES PROCEDURE: [place] TONSILLECTOMY & ADENOIDECTOMY <AGE 13 TUBAL LIGATION [...] Recorded Sex Assigned at Not on file Legal Sex Female 2:14 AM EST Gender Identity Not on file Sexual Orientation Not on file Obstetrics History Para Term AB IAB SAB Ectopic Multiple Livin g Live Births 3 3 2 1 3 3 Date Outcome GA Total Labor Labor/2nd/3rd Weight Sex Type Anes PTL Balbina A1 A5 Name Clin 005 Term 37w 0d 3204 g (113 oz) M Vag-S pont None N Livin g Complications:None Delivery Location:[place] 006 Term 39w 0d 3175 g (112 oz) F Vag-S pont None N Livin g Delivery Location:[place] Comments:shortened cer vix @ 3 months dilated 2 cm on bed rest 008 34w 2d 2211 g (78 oz) F Vag-S pont None Livin g [address] Plata Complications: labor Delivery Location:[facility] Plan of Treatment Upcoming Encounters Date Type Department Care Team (Late st Contact Info) Description 10/08/2024 2:30 PM EDT Office Visit Obstetrics & Gynecology - [address] [phone] Nicolle Aldridge, DEON [address] [place], [place] [id number] Health Maintenance Due Date Last Done Comments [...] patient's age to complete this topic Meningococcal B Vacine Aged Out No lo nger eligible based on patient's age to complete [...] Screening (05/17/2018) HIV Screening abstracted Historical Provider HEALTH MAINTENANCE Final Result * Hepatitis C Screening (05/17/2018) Hepatitis C Screening abstracted Historical Provider HEALTH MAINTENANCE Final Result * Pap smear (05/17/2018) 05/17/2018 Narrative HISTORICAL TESTING LAB RESULTING AGENCY - 05/29/2018 3:27 PM EST [id number] THINPREP PAP, IMAGED: NEGATIVE FOR SQUAMOUS INTRAEPITHELIAL LESION AND MALIGNANCY . REACTIVE CELLULAR CHANGES. RESULT OF APTIMA HIGH RISK HPV ASSAY: ??NEGATIVE ?? (SEROTYPES 16,18,31,33,35,39,45,51,52,56,58,59,66,68) KATE DE LA ROSA(ASCP) (CASE SCREENED 05 25 2018) ASHISH YOO M.D. , PATHOLOGIST (CASE ELECTRONICALLY SIGNED 05 26 2018) ADEQUACY: SATISFACTORY ENDOCERVICAL/TRANSFORMATION ZONE COMPONENT PRESENT. SOURCE: THINPREP PAP HPV ANY DX: ??REFLEX 16 AND 18, CERVICAL, IMAGED: CLINICAL INFORMATION: HPV ANY DIAGNOSIS. PAP HX POSITIVE 09/10/11 FLOYD 2 [Z12.4, Z01.419] Stephanie Strange [facility] LAB CYTOLOGY ORDERABLES Final R esult HISTORICAL TESTING LAB RESULTING AGENCY from Last 3 Months or Most Recently Relevant to Health Maintenance Insurance [facility] [employer] Care Teams Advertiser Relationship Specialty Start Date End Date Trent, MD Angelica [address] [place] [phone] PCP - General Internal Medicine 12/01/16
--- OUTSIDE RECORDS SUMMARY | 2024-09-17 16:08 | XMS_ITS | Encounter Summary ---
Author Organization [employer] Address [address] [facility] [place] [address] Care Team Providers Care Senior Laboratory Technician Name Role Phone Angelica Newman MD Primary Care Provider [phone]- [phone] Mike Fontenot MD Unavailable Stephanie Strange Unavailable Herbert Self MD Unavailable [phone] Reason for Visit * Reason Comments Med Refill Encounter Details Date Type Department Care Team (Late st Contact Info) Description 09/17/2024 Refill [facility] MEDICINE [address] [place] [address] Angelica Newman MD [address] [place], [place] [phone] Mild intermittent asthma without complication Social History Tobacco Use Types Packs/Day Years [...] as of this encounter Visit Diagnoses Diagnosis Mild intermittent asthma without complication documented in this encounter Additional Health Concerns Assessment Noted Time PHQ-9 Depression Total Score: 0 01/25/20 24 10:23 AM EDT documented as of this encounter Care Teams Senior Laboratory Technician Relationship Specialty Start Date End Date Angelica Newman MD [address] [place] [address] PCP - General Family Medicine 08/04/12 Mike Fontenot MD [address] [place] [address] Orthopaedic Surgery 06/13/24 Stephanie Strange [address] [place] [phone] Obstetrics and Gynecology 08/08/24 [place] [address] [place] [phone] Rheumatology 08/08/24 documented as of this encounter
--- OUTSIDE RECORDS SUMMARY | 2024-09-17 16:08 | XMS_ITS | Clinical Summary ---
Author Organization [employer] Address [address] [facility] 7t [place] [address] Care Team Providers Care Coil Rewind Machine Operator Name Role Phone Angelica Newman MD Primary Care Provider [phone] Mike Fontenot MD Unavailable Stephanie Strange Unavailable Herbert Self MD Unavailable [phone] Allergies No known active allergies Medications * This document contains information received from the source organization and may not represent a complete record from that organization. albuterol 108 (90 Base) MCG/ACT inhalerIndicatio ns:Moderate persistent asthma with acute exacerbation Inhale 2 puffs every 6 (six) hours if needed for wheezing. 18 g 11 4 Active albuterol (2.5 MG/3ML) 0.083% nebulizer solutionIndicati ons:Moderate persistent asthma with exacerbation Take 3 mL (2.5 mg) by nebulization every 4 (four) hours if needed for wheezing. 75 mL 3 4 Active celecoxib (CeleBREX) 200 MG capsuleIndicatio ns:Chronic midline low back pain, unspecified whether sciatica present Take 200 mg by mouth 2 times daily. 4 Active montelukast (Singulair) 10 MG tabletIndication s:Moderate persistent asthma without complication 10 MG ORALLY BEDTIME 4 Active fluticasone (Flonase) 50 MCG/ACT nasal sprayIndications :Seasonal allergies Administer 1-2 sprays into each nostril Once per day. Shake gently. Before first use, prime pump. After use, clean tip and replace cap. 16 g 2 4 025 Active cholecalciferol (Vitamin D-3) 25 MCG (1000 UT) tabletIndication s:Vitamin D Deficiency Take 1 tablet (25 mcg) by mouth Once per day. 90 tablet 3 4 025 Active budesonide-formo terol (Symbicort) 160-4.5 MCG/ACT inhalerIndicatio ns:Mild intermittent asthma without complication TAKE 2 PUFFS BY MOUTH TWICE A DAY IN THE MORNING AND IN THE EVENING 10.2 each 3 4 Active cetirizine (Allergy, Cetirizine,) 10 MG tabletIndication s:Seasonal allergies 10 mg. 4 Active DULoxetine (Cymbalta) [address] capsuleIndicatio ns:Fibromyalgia Take 30 mg by mouth Once per day. Active diclofenac (Voltaren) 75 MG EC tabletIndication s:Fibromyalgia Take 1 tablet by mouth if needed in the morning and at bedtime for pain. 4 Active senna (Senokot) 8.6 MG tabletIndication s:Constipation, unspecified constipation type Take 1 tablet (8.6 mg) by mouth at bedtime. 60 tablet 2 5 Active ferrous sulfate 325 (65 Fe) MG EC tabletIndication s:Iron deficiency anemia, unspecified iron deficiency anemia type TAKE 1 TABLET BY MOUTH EVERY DAY. DO NOT CRUSH, CHEW, OR SPLIT. 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 Assessment & Plan (08/08/2024 11:07 AM EST): -will call [facility] to make appt today for PAP smear, 01/25/24 -has appt to have PAP done in September 2024. Assessment & Plan (01/25/2024 10:46 AM EDT): -will call [facility] to make appt today for PAP smear, 01/25/24 Acute pain of left knee 07/20/2023 Overview (08/16/2024): -referral to PT sent 07/20/23 -ween by [facility] 11/04/23 for left knee injection, which [...] medial meniscus repair -s/p athroscopic repair 05/16/24 and 08/15/[address] Recinos Assessment & Plan (07/20/2023 11:00 AM EST): Referral to PT sent 07/20/23 Other specified health status 05/24/2023 Overview (08/08/2024): -next physical exam due after 08/08/25 -[facility] -Healthcare proxy given and filed 01/25/24 Assessment & Plan (08/08/2024 11:08 AM EST): -next physical exam due after 08/08/25 -[facility] -Healthcare proxy given and filed 01/25/24 Assessment & Plan (01/25/2024 10:43 AM EDT): -next physical exam due after 07/20/2024 -eye care facilitated [place] [facility] [place] is encourage to make appt -Healthcare proxy given and filed 01/25/24 Assessment & Plan (07/20/2023 10:48 AM EST): -next physical exam due after 07/20/2024 -[facility] Mild episode [...] Overview (07/20/2023): Lab Results Component Value Date [id number] 62 09/10/2022 VITD3 62 09/10/2022 VITD2 <8 09/10/2022 Assessment & Plan (07/20/2023 9:03 AM EST): No results found for: [id number] Lab Results Component Value Date [id number] 62 09/10/2022 VITD3 62 09/10/2022 VITD2 <8 09/10/2022 Moderate persistent asthma 09/17/2020 Overview (08/08/2024): -Seen by pulmonology with Lavonne Zuluaga ACCOUNT EXECUTIVE [employer] 11/22/23 PFT ordered -Singular added 11/11/23, pt started 11/22/23 -continue albuterol prn -has FMLA for exacerbations. Assessment & Plan (08/08/2024 11:24 AM EST): -Seen by pulmonology with Lavonne Zuluaga ACCOUNT EXECUTIVE [employer] 11/22/23 PFT ordered -Singular added 11/11/23, pt started 11/22/23 -continue albuterol prn -has FMLA for exacerbations. Assessment & Plan (02/22/2024 7:15 PM EDT): Limited aeration despite IRINA usage, rx for prednisone 40 mg prescribed, resume rescue inhalers this evening Call for persistent or worsening symptoms Assessment & Plan (01/25/2024 8:03 AM EDT): -Seen by pulmonology with Lavonne Zuluaga ACCOUNT EXEC[employer]IVE [employer] 11/22/23 PFT ordered -Duo neb and Spiriva [...] 10mg. . -Restarted vitamin D 04/2021 -Saw electrode turner and finisher recently has follow-up on 08/10/24. -Stable on [...] 10mg. . -Restarted vitamin D 04/2021 -Saw electrode turner and finisher recently has follow-up on 08/10/24. -Stable on [...] Allergic rhinitis 10/02/2012 Overview (07/20/2023): Referral to ice cutter sent 07/20/23 Assessment & Plan (07/20/2023 10:52 AM EST): Referral to ice cutter sent 07/20/23 Resolved Problems Problem Noted Date [...] family support. PLAN: 1. Follow up with [facility]: Recommended for follow-up: Scheduled BE in three [...] family support. PLAN: 1. Follow up with [facility]: Recommended for follow-up: Scheduled BE in three [...] family support. PLAN: 1. Follow up with [facility]: Recommended for follow-up: Scheduled BE in three weeks 2. Patient goal is to feel less anxious and start therapy 3. Behavioral Recommendations a. Referral for OP individual therapy b. Incorporate coping skills into daily routine Encounters Date Type Department Care Team Description 09/17/[address] [address] Angelica Newman MD Mild intermittent asthma without complication 08/15/2024 Orders Only GENERIC EXTERNAL DATA DEPARTMENT Provider, Generic External Data 08/08/2024 10:30 AM EST Office Visit [address] [address] Angelica Newman MD Fibromyalgia (Primary Dx); Benign hypertension; Moderate persistent asthma with acute exacerbation; Allergic rhinitis, unspecified seasonality, unspecified trigger; Seasonal allergies; Anemia, unspecified type; Constipation, unspecified constipation type; Dietary counseling; Exercise counseling; Class 3 severe obesity due to excess calories with serious comorbidity and body mass index (BMI) of 40.0 to 44.9 in adult ([facility]); Pap smear for cervical cancer screening; Encounter for immunization; Other specified health status 08/08/2024 Orders Only [address] [address] Angelica Newman MD Iron deficiency anemia, unspecified iron deficiency anemia type 08/08/2024 Travel 08/03/[address] [address] Macarena Ricci MA chartprep 07/28/[address] [address] Angelica Newman MD Iron deficiency anemia, unspecified iron deficiency anemia type 07/27/2024 Patient Outreach [address] [address] Angelica Newman MD Pre-visit Planning (Pre-visit planning - LVM ) from Last 3 Months Immunizations Name Administration [...] 09/16/2024 09/16/2014 Depression Screening 01/24/2025 01/25/2024, 01/25/20 24 Alcohol/Substance Use Screening 08/08/2025 08/08/2024 COVID-19 Vaccine [...] 5 Years) and At-Risk Patients (6 to 49) Years) Completed 07/20/2023, 01/10/2019, 09/16/2014 HIV Screening [...] Procedure Name Priority Date/Time Associated Diagnosis Comments HCG, QL, URINE Routine 08/15/2024 6:12 AM EST IMMUNOGLOBULIN E Routine 08/08/2024 11:4 2 AM EST Iron deficiency anemia, unspecified iron deficiency anemia type FERRITIN Routine 08/08/2024 11:42 AM EST Anemia, unspecified type IRON AND TOTAL IRON BINDING CAPACITY Routine 08/08/2024 11:42 AM EST Anemia, unspecified type CBC WITH AUTO DIFFERENTIAL Routine 08/08/2024 11:42 AM EST Anemia, unspecified type LIPID PANEL, STANDARD Routine 01/26/2024 9:18 AM [...] Recently Relevant to Health Maintenance Results * HCG, Qualitative, Urine (08/15/2024 6:12 AM EST) Urine NEGATIVE NEGATIVE [facility] Comment:This test was develo ped to detect early . Falsenegative results may occur after the 5th - 7th week ofpregnancy when using this test method. If clinicallyindicated, consider a serum hCG. 08/15/2024 6:12 AM EST 08/15/2024 6:49 AM EST us Generic External Data Provider LAB URINE ORDERAB LES Final Result [facility] [address] [place] [phone] * (ABNORMAL) CBC auto differential (08/08/2024 11:42 AM EST) Pathologist [facility] White Blood Count 6.9 4.8 - 10.8 X10*3/uL [facility] Red Blood Count 4.54 4.20 - 5.50 X10*6/uL [facility] Hemoglobin 10.6(L) 12.0 - 16.0 g/dl [facility] Hematocrit 34.0(L) 37.0 - 47.0 % [facility] Mean Corpuscular Volume 74.9(L) 80.0 - 98.0 fL [facility] Mean Corpuscular Hemoglobin 23.3(L) 27.0 - 33.0 pg [facility] Mean Corpuscular HGB Conc 31.2 31.0 - 35.0 g/dl [facility] Red Cell Distribution Width 17.2(H) 11.0 - 16.0 % [facility] Platelet Count 375 160 - 400 X10*3/uL [facility] Mean Platelet Volume 10.2 9.4 - 12.3 fL [facility] Neutrophils Percent Auto 69.2 45 - 73 % [facility] Imm Gran Pct Auto 0.7(H) 0.0 - 0.4 % [facility] Lymphocytes Percent Auto 20.1 20 - 40 % [facility] Monocytes Percent Auto 5.8 2 - 11 % [facility] Eosinophils Percent Auto 3.9 0 - 4 % [facility] Basophils Percent Auto 0.3 0 - 2 % [facility] NRBC Pct Auto 0.0 0.0 - 0.2 /100WBC [facility] Neutrophils Absolute Auto 4.8 2.0 - 8.3 x10*3/uL [facility] Imm Gran Abs Auto 0.05(H) 0.00 - 0.03 X10*3/uL [facility] Lymphocytes Absolute Auto 1.4 1.2 - 4.9 X10*3/uL [facility] Monocytes Absolute Auto 0.4 0.1 - 1.2 X10*3/uL [facility] Eosinophils Absolute Auto 0.3 0.0 - 0.4 X10*3/uL [facility] Basophils Absolute Auto 0.0 0.0 - 0.2 X10*3/uL [facility] NRBC Abs Auto 0.000 0.0 - 0.012 X10*3/uL [facility] Blood Venous blood specimen / Unknown 08/08/2024 11:42 AM EST 08/08/2024 1:27 PM EST Angelica Newman MD LAB BLOOD ORDERABLES Final Result [facility] [address] [place] [phone] * (ABNORMAL) Iron And Total Iron Binding Capacity (08/08/2024 11:42 AM EST) Iron 14(L) 30 - 160 mcg/dL [facility] Total Iron Binding Capacity 342 228 - 428 mcg/dL [facility] Percent Iron Saturation 4(L) 15 - 50 % [facility] Unsaturated Iron Binding 328 ug/dL [facility] Blood Venous blood specimen / Unknown 08/08/2024 11:42 AM EST 08/08/2024 1:27 PM EST Angelica Newman MD LAB BLOOD ORDERABLES Final Result Performing Organization Address [facility] Co de Phone Number [facility] [address] [place] [phone] * Immunoglobulin E (08/08/2024 11:42 AM EST) Immunoglobulin E 53 <CY=993 kU/L [facility] Comment:THIS TEST WAS PERFOR MED AT:[facility] [facility] [place] [id number] HWANG MD 08/08/2024 11:4 2 AM EST 08/08/2024 1:27 PM EST Generic External Data Provider LAB BLOOD ORDERAB LES Final Result Performing Organization Address [facility] Co in Phone Number [facility] [address] [place] [phone] * Ferritin (08/08/2024 11:42 AM EST) Pathologist [facility] Ferritin 14 10 - 122 ng/mL [facility] Blood Venous blood specimen / Unknown 08/08/2024 11:42 AM EST 08/08/2024 1:27 PM EST Angelica Newman MD LAB BLOOD ORDERABLES Final Result Performing Organization Address [facility] Co de Phone Number [facility] [address] [place] [phone] * Lipid Panel, Standard (01/26/2024 9:18 AM EDT) Triglycerides 52 <150 mg/dL [facility] Comment:Desirable Triglyceri de: less than 150 mg/dLBorderline High Triglyceride 150-199 mg/dLHigh Triglyceride: 200-499 mg/dLVery High Triglyceride: greater than or equal to 5OO mg/dL Cholesterol 141 <200 mg/dL [facility] Comment:Desirable Cholestero l: less than 200 mg/dLBorderline High Cholesterol: 200-239 mg/dLHigh Cholesterol: greater than 239 mg/dL LDL Cholesterol Calculated 86 <100 mg/dL [facility] Comment:Desirable LDL: less than 100 mg/dLNear Optimal/Above Optimal LDL: 110- 129 mg/dLBorderline High LDL: 130-159 mg/dLHigh LDL: 160-189 mg/dLVery High LDL: greater than or equal to 190 mg/dL HDL Cholesterol 45 >40 mg/dL [facility] Comment:Desirable HDL: great er than 40 mg/dL Note: This HDL assay may give artificially low results in patients with liver disease. Blood Venous blood specimen / Unknown 01/26/2024 9:18 AM EDT 01/26/2024 11:45 AM EDT us Angelica Newman MD LAB BLOOD ORDERABLES Final Result Performing Organization Address [facility]/ZIP Co de Phone Number [facility] [address] [place] [phone] * Hepatitis Panel, General (11/17/2023 10:36 AM EDT) Hepatitis A IgM Nonreactive Nonreactive [facility] Comment:IgM antibodies to MAHAN V not detected; does not exclude earlyacute or recovered HAV infection. ~Hepatitis B Surface Antibody REACTIVE Nonreactive [facility] Comment:REACTIVE: > 11.99 mI U/mL Hepatitis B Core Antibody Reactive Nonreactive [facility] Comment:Presumptive evidence of anti-HBc. Hepatitis C Antibody Nonreactive Nonreactive [facility] Comment:Antibodies to HCV no t detected; does not exclude early acuteHCV infection. Hepatitis B Surface Ag Negative Negative [facility] Blood 11/17/2023 10:3 6 AM EDT 11/17/2023 11:28 AM EDT us Shawn House MD LAB BLOOD ORDERABLES Fin al Result [facility] [address] [place] [phone] * HIV-1/2 Antigen and Antibodies, Fourth Generation, with Reflexes (11/17/2023 10:36 AM EDT) HIV AB/AG Nonreactive Nonreactive [facility] Comment:HIV-1 p24 Ag and/or HIV-1/HIV-2 Ab not detected.A test result that is nonreactive does not exclude thepossibility of exposure to or infection with HIV-1 and/orHIV-2. Nonreactive results in this assay for individualswith prior exposure to HIV-1 and/or HIV-2 may be due toantigen and antibody levels that are below the limit ofdetection of this assay.[email or web address] HIV Ag/Ab Combo assay result andsupplemental assay results should be interpreted inconjunction with the patient's clinical presentation,history and other laboratory results. If the results areinconsistent with clinical evidence, additional testing issuggested to confirm the result. Blood Venous blood specimen / Unknown 11/17/2023 10:36 AM EDT 11/17/2023 11:28 AM EDT us Shawn House MD LAB BLOOD ORDERABLES Fin al Result [facility] [address] [place] [phone] [phone] * Pap Smear (05/17/2018 12:00 AM EDT) Swab us Historical Provider LAB CYTOLOGY ORDERABLES F inal Result IMAGING from Last 3 Months or Most Recently Relevant to Health Maintenance Insurance [employer] [id number] [place] [address] Advance Directives Documents on File Type Date Recorded Patient Status Controller Expl anation Advance Directives and Living Will 01/25/2024 11:29 AM Health Care Proxy 01/25/24 Care Teams Coil Rewind Machine Operator Relationship Specialty Start Date End Date Trent, MD Angelica [address] [place] [phone] PCP - General Family Medicine 08/04/12 Mike Fontenot MD [address] [place] [phone] Orthopaedic Surgery 06/13/24 Stephanie Strange [address] [address] Obstetrics and Gynecology 08/08/24 [place] [address] [place] [phone] Rheumatology 08/08/24
--- OUTSIDE RECORDS SUMMARY | 2024-09-17 16:08 | XMS_ITS | Encounter Summary ---
Author Organization [employer] Address [address] [facility] 7t [place] [address] Care Team Providers Care Pond Worker Name Role Phone Angelica Newman MD Primary Care Provider [phone] Mike Fontenot MD Unavailable Stephanie Strange Unavailable Herbert Self MD Unavailable [phone] Reason for Visit * Reason Comments Med Refill Encounter Details Date Type Department Care Team (Late st Contact Info) Description 12/19/2023 Refill [facility] [address] [place], [place] [phone] Angelica Newman MD [address] [place], [place] [phone] Social History Tobacco Use Types Packs/Day Years [...] documented as of this encounter Care Teams Pond Worker Relationship Specialty Start Date End Date Angelica Newman MD [address] [place] [phone] PCP - General Family Medicine 08/04/12 Mike Fontenot MD [address] [place] [address] Orthopaedic Surgery 06/13/24 Stephanie Strange [address] [address] Obstetrics and Gynecology 08/08/24 Herbert Self MD [address] [place] [address] Rheumatology 08/08/24 documented as of this encounter
--- OUTSIDE RECORDS SUMMARY | 2024-09-17 16:08 | XMS_ITS | Encounter Summary ---
Author Organization [employer] Address [address] [facility] 7t [place] [address] Care Team Providers Care Manager Monitoring Name Role Phone Angelica Newman MD Primary Care Provider [phone]- [phone] Mike Fontenot MD Unavailable Stephanie Strange Unavailable Herbert Self MD Unavailable [phone] Encounter Details Date Type Department Care Team (Late st Contact Info) Description 08/26/2023 Telephone [facility] [address] [place] [address] Angelica Newman MD [address] [place] [address] Social History Tobacco Use Types Packs/Day Years [...] documented as of this encounter Care Teams Manager Monitoring Relationship Specialty Start Date End Date Angelica Newman MD [address] [place] [address] PCP - General Family Medicine 08/04/12 Mike Fontenot MD [address] [place] [address] Orthopaedic Surgery 06/13/24 Stephanie Strange [address] [place] [phone] Obstetrics and Gynecology 08/08/24 [place] [address] [place] [phone] Rheumatology 08/08/24 documented as of this encounter
--- OUTSIDE RECORDS SUMMARY | 2024-09-17 16:08 | XMS_ITS | Encounter Summary ---
Author Organization [employer] Address [address] [facility] 7t [place] [address] Care Team Providers Care Clinical Laboratory Scientist Name Role Phone Angelica Newman MD Primary Care Provider [phone]- [phone] Mike Fontenot MD Unavailable Stephanie Strange Unavailable Herbert Self MD Unavailable [phone] Reason for Visit * Reason Onset Date Comments Nurse Triage 02/22/2024 Encounter Details Date Type Department Care Team (Late st Contact Info) Description 02/22/2024 Telephone [facility] [address] [place] [address] Angelica Newman MD [address] [place], [place] [phone] Nurse Triage Social History Tobacco Use Types [...] no acute shortness of breath. No wheezing. [place] feverish yesterday. Has only had nebulizer medicine at home as she has not been able to afford co pays for other medications. Agrees to have case management contact her to see if she can get some assistance. ASK/Tristan VOICE PATHOLOGIST today at 1115am. Protocol Used: Asthma Attack [...] documented as of this encounter Care Teams Clinical Laboratory Scientist Relationship Specialty Start Date End Date Angelica Newman MD [address] [place] [address] PCP - General Family Medicine 08/04/12 Mike Fontenot MD [address] [place] [address] Orthopaedic Surgery 06/13/24 Stephanie Strange [address] [place] [phone] Obstetrics and Gynecology 08/08/24 [place] [address] [place] [phone] Rheumatology 08/08/24 documented as of this encounter
--- OUTSIDE RECORDS SUMMARY | 2024-09-17 16:08 | XMS_ITS | Encounter Summary ---
Author Organization [employer] Address [address] [facility] 7t [place] [address] Care Team Providers Care Sorority Mother Name Role Phone TrentAngelica MD Primary Care Provider [phone] Mike Fontenot MD Unavailable Stephanie Strange Unavailable Herbert Self MD Unavailable [phone] Encounter Details Date Type Department Care Team (Late st Contact Info) Description 08/16/2023 Orders Only [facility] [address] [place] [address] Trupti Parada MD [address] [place], [place] [phone] Chronic pain of left knee (Primary Dx) [...] documented as of this encounter Care Teams Sorority Mother Relationship Specialty Start Date End Date Angelica Newman MD [address] [place] [address] PCP - General Family Medicine 08/04/12 Mike Fontenot MD [address] [place] [address] Orthopaedic Surgery 06/13/24 Stephanie Strange [address] [place] [phone] Obstetrics and Gynecology 08/08/24 [place] [address] [place] [phone] Rheumatology 08/08/24 documented as of this encounter
--- OUTSIDE RECORDS SUMMARY | 2024-09-17 16:08 | XMS_ITS | Encounter Summary ---
Author Organization [employer] Address [address] [place] [address] 7t [place] [address] Care Team Providers Care Ramp Boss Name Role Phone Angelica Newman MD Primary Care Provider [phone] Mike Fontenot MD Unavailable Stephanie Strange Unavailable Herbert Self MD Unavailable [phone] Encounter Details Date Type Department Care Team (Late st Contact Info) Description 03/23/2023 Orders Only [facility] [address] [place], [place] [phone] Angelica Newman MD [address] [place], [place] [phone] Social History Tobacco Use Types Packs/Day Years [...] on filedocumented in this encounter Care Teams Ramp Boss Relationship Specialty Start Date End Date Angelica Newman MD [address] [place], [place] [phone] PCP - General Family Medicine 08/04/12 Mike Fontenot MD [address] [place] [address] Orthopaedic Surgery 06/13/24 Stephanie Strange [address] [place] [phone] Obstetrics and Gynecology 08/08/24 [place] [address] [place] [phone] Rheumatology 08/08/24 documented as of this encounter
--- OUTSIDE RECORDS SUMMARY | 2024-09-17 16:08 | XMS_ITS | Encounter Summary ---
Author Organization [employer] Address [address] [place] [address] 7t [place] [address] Care Team Providers Care Nursing Service Administrator Name Role Phone Angelica Newman MD Primary Care Provider [phone]- [phone] Mike Fontenot MD Unavailable Stephanie Strange Unavailable Herbert Self MD Unavailable [phone] Encounter Details Date Type Department Care Team (Late st Contact Info) Description 08/24/2022 Abstract [facility] MEDICINE [address] [place] [address] Angelica Newman MD [address] [place] [address] Social History Tobacco Use Types Packs/Day Years [...] on filedocumented in this encounter Care Teams Nursing Service Administrator Relationship Specialty Start Date End Date Angelica Newman MD [address] [place] [address] PCP - General Family Medicine 08/04/12 Mike Fontenot MD [address] [place] [address] Orthopaedic Surgery 06/13/24 Stephanie Strange [address] [place] [address] Obstetrics and Gynecology 08/08/24 [place] [address] [place] [phone] Rheumatology 08/08/24 documented as of this encounter
--- OUTSIDE RECORDS SUMMARY | 2024-09-17 16:08 | XMS_ITS | Encounter Summary ---
Author Organization [employer] Address [address] [facility] 7t [place] [address] Care Team Providers Care Business Office Associate Name Role Phone Angelica Newman MD Primary Care Provider [phone]- [phone] Mike Fontenot MD Unavailable Stephanie Strange Unavailable Herbert Self MD Unavailable [phone] Encounter Details Date Type Department Care Team (Late st Contact Info) Description 08/08/2024 Orders Only [facility] MEDICINE [address] [place] [address] Angelica Newman MD [address] [place], [place] [phone] Iron deficiency anemia, unspecified iron deficiency anemia [...] Procedure Name Priority Date/Time Associated Diagnosis Comments IMMUNOGLOBULIN E Routine 08/08/2024 11:4 2 AM EST Iron deficiency anemia, unspecified iron deficiency anemia type documented in this encounter Results * Immunoglobulin E (08/08/2024 11:42 AM EST) Immunoglobulin E 53 <KG=551 kU/L [facility] Comment:THIS TEST WAS PERFOR MED AT:[facility] [address] [id number] HWANG MD 08/08/2024 11:4 2 AM EST 08/08/2024 1:27 PM EST us Generic External Data Provider LAB BLOOD ORDERAB LES Final Result [facility] [address] [place] [phone] documented in this encounter Visit Diagnoses Diagnosis Iron deficiency anemia, unspecified iron deficiency anemia type documented in this encounter Additional Health Concerns Assessment Noted Time PHQ-9 Depression Total Score: 0 01/25/20 10:23 AM EDT documented as of this encounter Care Teams Business Office Associate Relationship Specialty Start Date End Date Angelica Newman MD [address] [place] [address] PCP - General Family Medicine 08/04/12 Mike Fontenot MD [address] [place] [address] Orthopaedic Surgery 06/13/24 Stephanie Strange [address] [place] [address] Obstetrics and Gynecology 08/08/24 [place] [address] [place] [phone] Rheumatology 08/08/24 documented as of this encounter
== END 2024-09-17 14:34 | disposition home or self-care (01) ==
PROVIDERS: PCP Family Medicine; Visit Provider Orthopaedic Surgery
DX: Z98.890 Other specified postprocedural states (principal)
CPT/HCPCS: 99024

== ENCOUNTER → 2024-09-17 13:39 | Outpatient (BNVA) | payer OTHER, SELFPAY | PROVIDERS: PCP Family Medicine; Visit Provider Orthopaedic Surgery | DX: Z98.890 Other specified postprocedural states (principal) | CPT/HCPCS: 99212 ==

== ENCOUNTER 2024-11-14 14:45 | Outpatient (RCR) | payer OTHER, SELFPAY ==
--- NOTE | 2024-09-10 15:28 | MHC.PT.EP ---
[facility] [place] Office [place] Office [place] Office [address] Micheal Rosales [address] [phone] F: [phone] F: [phone] F: [phone] F: [phone] Physical Therapy Plan of Care Date of Evaluation: 09/10/24 Date of Surgery: 08/15/24 Diagnosis: s/p RIGHT knee medial meniscal root repair (DOS: 08/15/24) Assessment: Brigette is a pleasant, motivated 38 y.o. female who is referred to PT by Gina Roberts PA-C, surgery performed by Dr. Mike Fontenot MD, with Dx of s/p RIGHT knee medial meniscal root repair (DOS: 08/15/24). Patient impairments include pain, limited ROM of knee, weakness in R knee, healing incision sites, weight bearing restrictions impacting gait pattern. Patient current functional limitations are difficulty with ambulation, stair use, bending, unable to work, unable to stand for prolonged periods of time. Patient will benefit from skilled PT to address aforementioned impairments and functional limitations to meet established goals. Frequency and Duration: The patient will be seen 2x/week for 6 weeks Short Term Goals: 3 weeks Patient demonstrates consistency and independence with HEP to self manage symptoms. Patient is able to show compliance with NWBing R LE restrictions with ambulation using knee brace for 6 weeks with bilateral axillary crutches. Mask Design Engineer Goals: 6 weeks Patient demonstrates increased R knee flexion ROM 90 degrees to be able to follow protocol guidelines and improve sit to stand. Patient presents with increased R knee quad strength to be able to perform SLR with strong contraction to transition out of knee brace when appropriate. Treatment Plan: Modalities to reduce pain, spasms and effusion. Manual therapy to restore motion and function. Therapeutic exercise to improve strength and flexibility. Neuromuscular re-education for posture and balance. Therapeutic activities to return to functional activities of daily living. Electronically signed by: Devin Pollard, PT, DPT Please sign and return to therapist. Thank you for your referral.
--- NOTE | 2025-01-01 15:08 | MHC.PT.DC ---
[facility] [place] Office [place] Office [place] Office [address] Micheal Rosales [address] [phone] F: [phone] F: [phone] F: [phone] F: [phone] Physical Therapy Discharge Report Diagnosis: s/p RIGHT knee medial meniscal root repair (DOS: 08/15/24) Date of Surgery: 08/15/24 Date of Evaluation: 09/10/24 Date of Discharge: 01/01/25 Treatments to Date: 5 Cancellations to Date: 4 No Shows to Date: 6 Discharge Status: Improved Function Recommend MD Follow-up Visit Non-compliance Discharge Summary: Brigette was inconsistent with her PT attendance post operatively. During her PT sessions she was able to wean off AD and brace as her strength and ROM improved. She ceased attending sessions after 11/14/24. She would have received benefit from continuing and completing PT sessions but she ceased attending sessions. She is discharged for non-compliance with attendance. She has FUP appointments with orthopedic MD. Electronically signed by: Devin Pollard, PT, DPT Please sign and return to therapist. Thank you for your referral.
== END 2025-01-01 15:09 | disposition home or self-care (01) ==
LOC: HO.PT 14:45
PROVIDERS: PCP Family Medicine; Visit Provider Physician Assistant
DX: Z98.890 Other specified postprocedural states (principal)
CPT/HCPCS: 97110; 97116; 97161; 97530; 97535

== ENCOUNTER 2024-11-15 12:06 | Outpatient (AMB) | payer OTHER, SELFPAY ==
[2024-11-15 12:15] VITALS: BMI 41.6
--- NOTE | 2024-11-15 12:15 | MHC.OFFVIS ---
Vital Signs 11/15/24 12:15 Height 5 ft 3 in Weight 235 lb BMI 41.6 Intake Visit Reasons: OV- RT MM root repair 08/15/24 NE Intake Note: Brigette is a 38 year old female who presents today for a follow up about 3 months s/p Right Medial Meniscus Root Repair 08/15/2024. At her last visit she was instructed to wean crutches and begin WBAT - continue PT. States she has continued to attend P.T and has notice improvement with her ROM and is having less pain. Accompanied by: Alfred Allergies cat dander Allergy (Intermediate, Verified 11/15/24 12:16) wheezing, sneezing HPI HPI OV- RT MM root repair 08/15/24 NE: Details: Three months status post right medial meniscus root repair. She has been doing well with no complaints. She has been slow to ambulate 100% without stiffness or discomfort but she feels like she is getting there. She is hesitant to go back to work as her job requires significant lifting. 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 No effusion. Full range of motion. Mild discomfort over the posterolateral knee with deep palpation. No pain with Xavi's testing. No pain with deep flexion. Assessment & Plan Assessment & Plan (1) S/P medial meniscus repair of right knee: Code(s): Z98.890 - Other specified postprocedural states Category: Surgical Plan: Status post root repair doing well . She has been compliant is working her fitness and physical therapy exercises. She has a job that requires heavy lifting and twisting and recommend she abstain from that for least another month. She will see me back in 4 weeks to discuss her return to work. Coding Level of Care Code Global (72301) Diagnoses S/P medial meniscus repair of right knee Z98.890
== END 2024-11-15 12:41 | disposition home or self-care (01) ==
LOC: HO.HOS 12:07
PROVIDERS: PCP Family Medicine; Visit Provider Orthopaedic Surgery
DX: Z47.89 Encounter for other orthopedic aftercare (principal); S83.241D Other tear of medial meniscus, current injury, right knee, subsequent encounter
CPT/HCPCS: 99213

== ENCOUNTER → 2024-11-15 12:06 | Outpatient (BNVA) | payer OTHER, SELFPAY | PROVIDERS: PCP Family Medicine; Visit Provider Orthopaedic Surgery | DX: Z98.890 Other specified postprocedural states (principal) | CPT/HCPCS: 99212 ==

== ENCOUNTER 2024-12-17 13:03 | Outpatient (AMB) | payer OTHER, SELFPAY ==
[2024-12-17 13:04] VITALS: BMI 41.6
--- NOTE | 2024-12-17 13:04 | A.OFFVIS_ITS ---
Vital Signs 12/17/24 13:04 Height 5 ft 3 in Weight 235 lb BMI 41.6 Intake Visit Reasons: OV- RT MM root repair 08/15/24 NE- Intake Note: Brigette is a 39 year old female who presents today for a follow up of her Right Knee s/p Right Medial Meniscus Root Repair 08/15/24. 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 Patient reports that she is still having some continued pain of the right knee. She has concerns about returning to work as she is having increased swelling and pain with regional facilities specialist. When descending stairs with right leg first she feels as though the knee may give out/buckle on her. Allergies cat dander Allergy (Intermediate, Verified 12/17/24 13:14) wheezing, sneezing HPI HPI OV- RT MM root repair 08/15/24 NE-: Details: Brigette is a 39 year old female who presents today for a follow up of her Right Knee s/p Right Medial Meniscus Root Repair 08/15/24. 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 Patient reports that she is still having some continued pain of the right knee. She has concerns about returning to work as she is having increased swelling and pain with regional facilities specialist. When descending stairs with right leg first she feels as though the knee may give out/buckle on her. She also has a history of left knee arthroscopy. Intraoperatively she had moderate arthritic changes of the left knee. The left knee actually bothers him more than the right knee. She feels like she has pain and swelling that are constantly present. 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 Full range of motion. Stable to varus and valgus stress. Right knee with no effusion. Full range of motion. Negative Xavi's. No tenderness to palpation. Assessment & Plan Assessment & Plan (1) S/P medial meniscus repair of right knee: Code(s): Z98.890 - Other specified postprocedural states Category: Surgical Plan: Right knee is doing well. She may return to work as tolerated. No restrictions. I do not recommend deep squatting or heavy lifting but she states that is not part of her position. (2) Arthritis of left knee: Code(s): M17.12 - Unilateral primary osteoarthritis, left knee Category: Medical Plan: Left knee osteoarthritis. She has had injections in the past. The most helpful was gel injections which she had over a year ago. I recommend repeat gel injections left knee. Coding Level of Care Code Est Pt Level 3 (76083) Complex EM visit Add On G2211 Diagnoses S/P medial meniscus repair of right knee Z98.890 Arthritis of left knee M17.12
--- OUTSIDE RECORDS SUMMARY | 2024-12-17 14:02 | XMS_ITS | Encounter Summary ---
Author Organization [employer] Address [address] [facility] 7t [place] [address] Care Team Providers Care Monogram And Letter Paster Name Role Phone Angelica Newman MD Primary Care Provider [phone]- [phone] Mike Fontenot MD Unavailable Stephanie Strange Unavailable Herbert Self MD Unavailable [phone] Reason for Visit * Reason Onset Date Comments Nurse Triage 02/22/2024 Encounter Details Date Type Department Care Team (Late st Contact Info) Description 02/22/2024 Telephone [facility] MEDICINE [address] [place], [place] [phone] Angelica Newman MD [address] [place], [place] [phone] Nurse Triage Social History Tobacco Use Types [...] no acute shortness of breath. No wheezing. [place] feverish yesterday. Has only had nebulizer medicine at home as she has not been able to afford co pays for other medications. Agrees to have case management contact her to see if she can get some assistance. ASK/Tristan STRAIGHTEDGE MAN today at 1115am. Protocol Used: Asthma Attack [...] become worse * Telephone Encounter - Mackenzie Chaudhary - 02/22/2024 8:10 AM EDT Symptom: Asthma [...] documented as of this encounter Care Teams Monogram And Letter Paster Relationship Specialty Start Date End Date Angelica Newman MD [address] [place] [address] PCP - General Family Medicine 08/04/12 Mike Fontenot MD [address] [place] [address] Drive [address] [place] [address] Orthopaedic Surgery 06/13/24 Stephanie Strange [address] [place] [address] Obstetrics and Gynecology 08/08/24 [place] [address] [place] [phone] Rheumatology 08/08/24 documented as of this encounter
== END 2024-12-17 14:59 | disposition home or self-care (01) ==
LOC: HO.HOS 13:03
PROVIDERS: PCP Family Medicine; Visit Provider Orthopaedic Surgery
DX: Z47.89 Encounter for other orthopedic aftercare (principal); S82.892D Other fracture of left lower leg, subsequent encounter for closed fracture with routine healing; M17.12 Unilateral primary osteoarthritis, left knee
CPT/HCPCS: 99213; G2211

== ENCOUNTER → 2024-12-17 13:03 | Outpatient (BNVA) | payer OTHER, SELFPAY | PROVIDERS: PCP Family Medicine; Visit Provider Orthopaedic Surgery | DX: M17.12 Unilateral primary osteoarthritis, left knee (principal); Z98.890 Other specified postprocedural states | CPT/HCPCS: 99212 ==

== ENCOUNTER 2025-01-22 11:05 | Outpatient (REF) | payer OTHER, SELFPAY ==
--- OUTSIDE RECORDS SUMMARY | 2025-01-22 12:11 | XMS_ITS | Encounter Summary ---
Author Organization [employer] Address [address] [facility] 7t [place] [address] Care Team Providers Care Light Industrial Supervisor Name Role Phone Angelica Newman MD Primary Care Provider [phone] Mike Fontenot MD Unavailable Stephanie Strange Unavailable Herbert Self MD Unavailable [phone] Encounter Details Date Type Department Care Team (Latest Contact Info) Description 01/22/2025 Travel Social History Tobacco Use Types Packs/Day [...] AM EDT documented as of this encounter Functional Status * Over the last 2 weeks, how often have you been bothered by any of the following problems? Question Answer Date of Assessment Author Feeling nervous, anxious, or on edge 1 01/22/2025 12:11 PM EDT Christy Nolan MA Not being able to stop or co ntrol worrying 1 01/22/2025 12:11 PM EDT Christy Nolan MA Worrying too much about diff erent things 1 01/22/2025 12:11 PM EDT Christy Nolan [place] Trouble relaxing 1 01/22/2025 12:11 PM EDT Christy Nolan MA Being so restless that it is hard to sit still 1 01/22/2025 12:11 PM EDT Christy Nolan MA Becoming easily annoyed or irritable 1 01/22/2025 12:11 PM EDT Christy Nolan MA Feeling afraid as if somethi ng awful might happen 1 01/22/2025 12:11 PM EDT Christy Nolan MA NANY-7 Total Score 7 01/22/2025 12:11 PM SARAHT Christy Nolan MA documented as of this encounter Plan of Treatment Upcoming Encounters Date Type Department Care Team (Late st Contact Info) Description 03/22/2025 11:30 AM EDT Office Visit [facility] MEDICINE [address] [place] [address] Angelica Newman MD [address] [place] [address] documented as of this encounter Visit Diagnoses Not on filedocumented in this encounter Additional Health Concerns Assessment Noted Time PHQ-9 Depression Total Score: 0 01/25/20 24 10:23 AM EDT documented as of this encounter Care Teams Light Industrial Supervisor Relationship Specialty Start Date End Date Angelica Newman MD [address] [place] [address] PCP - General Family Medicine 08/04/12 Mike Fontenot MD [address] [place] [address] Drive [address] [place] [address] Orthopaedic Surgery 06/13/24 Stephanie Strange [address] [place] [address] Obstetrics and Gynecology 08/08/24 [place] [address] [place] [phone] Rheumatology 08/08/24 documented as of this encounter
[2025-01-22 12:21] LABS: MANUAL DIFF FLAG NO
[2025-01-22 12:24] LABS: Hematocrit 35.8 % (37.0-47.0); Hemoglobin 11.2 g/dl (12.0-16.0); Imm Gran Abs Auto 0.03 X10*3/uL (0.00-0.03); Imm Gran Pct Auto 0.4 % (0.0-0.4); Lymphocytes Absolute Auto 1.7 X10*3/uL (1.2-4.9); Mean Corpuscular HGB Conc 31.3 g/dl (31.0-35.0); Mean Corpuscular Hemoglobin 23.7 pg (27.0-33.0); Mean Corpuscular Volume 75.7 fL (80.0-98.0); NRBC Abs Auto 0.000 X10*3/uL (0.0-0.012); NRBC Pct Auto 0.0 /100WBC (0.0-0.2); Platelet Count 413 X10*3/uL (160-400); Red Blood Count 4.73 X10*6/uL (4.20-5.50); White Blood Count 8.2 X10*3/uL (4.8-10.8)
[2025-01-22 12:47] LABS: Alanine Aminotransferase 17 U/L (0-31); Albumin Level 4.3 g/dL (3.5-5.0); Alkaline Phosphatase 72 U/L (39-117); Anion Gap 10 (12-20); Aspartate Amino Transferase 24 U/L (5-31); Blood Urea Nitrogen 10 mg/dL (9-16); Calcium 9.1 mg/dL (8.4-10.2); Carbon Dioxide 28 mmol/L (22-29); Chloride 105 mmol/L (96-108); Estimated Glomerular Filt Rate > 60; Iron 22 mcg/dL (30-160); Percent Iron Saturation 6 % (15-50); Potassium 3.5 mmol/L (3.3-5.1); Sodium 139 mmol/L (135-145); Total Iron Binding Capacity 371 mcg/dL (228-428); Total Protein 7.4 g/dL (6.5-8.0); Unsaturated Iron Binding 349 ug/dL
[2025-01-22 13:07] LABS: Ferritin 10 ng/mL (10-122)
[2025-01-22 13:10] LABS: Folate 8.4 ng/mL (> or = 4.0); Vitamin B12 278 pg/mL (200-900)
== END 2025-01-22 11:06 | disposition home or self-care (01) ==
LOC: HO.HHCL 11:05
PROVIDERS: PCP Family Medicine; Visit Provider Student in an Organized Health Care Education/Training Program
DX: R60.0 Localized edema (principal); D64.9 Anemia, unspecified
CPT/HCPCS: 36415; 80053; 82607; 82728; 82746; 83540; 83880; 84443; 85025

== ENCOUNTER 2025-01-23 14:19 | Outpatient (REF) | payer OTHER, SELFPAY ==
--- NOTE | ~2025-01-23 | US_ITS ---
EXAMINATION: US LOWER EXTREMITY VEINS BILATERAL HISTORY: anemia, BILAT EDEMA, BILAT KNEE SURGERY COMPARISON: Comparison is made with the prior examination dated 01/05/2021. TECHNIQUE: Duplex and color Doppler sonographic examination of the deep venous system of the bilateral lower extremities was performed. FINDINGS: The right common femoral, superficial femoral, and popliteal veins are patent demonstrating normal compressibility, spontaneous flow, and augmentation. There is a normal color and spectral Doppler waveform appearance of the visualized deep venous system above the knee. The posterior tibial and peroneal veins are patent. The left common femoral, superficial femoral, and popliteal veins are patent demonstrating normal compressibility, spontaneous flow, and augmentation. There is a normal color and spectral Doppler waveform appearance of the visualized deep venous system above the knee. The posterior tibial and peroneal veins are patent. Incidental note is made of a 4.9 x 1.1 x 2.8 cm fluid collection in the popliteal fossa, consistent with a Russo's cyst. US/US venous duplex LE BI IMPRESSION: 1. No evidence of acute DVT in the bilateral lower extremities. 2. Left popliteal fossa Russo's cyst as described. Electronically signed by: Sea Eller MD 01/23/2025 03:21 PM EDT
--- OUTSIDE RECORDS SUMMARY | 2025-01-23 14:55 | XMS_ITS | Encounter Summary ---
Author Organization [employer] Address [address] [facility] 7t [place] [address] Care Team Providers Care Osteopathic Neurologist Name Role Phone Angelica Newman MD Primary Care Provider [phone]- [phone] Mike Fontenot MD Unavailable Stephanie Strange Unavailable Herbert Self MD Unavailable [phone] Encounter Details Date Type Department Care Team [...] Description 03/22/2025 11:30 AM EDT Office Visit [facility] MEDICINE [address] [place] [address] Angelica Newman MD [address] [place] [address] documented as of this encounter Visit Diagnoses Not on filedocumented in this encounter Additional Health Concerns Assessment Noted Time PHQ-9 Depression Total Score: 0 01/25/20 24 10:23 AM EDT documented as of this encounter Care Teams Osteopathic Neurologist Relationship Specialty Start Date End Date Angelica Newman MD [address] [place] [address] PCP - General Family Medicine 08/04/12 Mike Fontenot MD [address] [place] [address] Drive [address] [place] [address] Orthopaedic Surgery 06/13/24 Stephanie Strange [address] [place] [address] Obstetrics and Gynecology 08/08/24 [place] [address] [place] [phone] Rheumatology 08/08/24 documented as of this encounter
== END 2025-01-23 14:20 | disposition home or self-care (01) ==
LOC: HO.US 14:19
PROVIDERS: PCP Family Medicine; Visit Provider Student in an Organized Health Care Education/Training Program
DX: D64.9 Anemia, unspecified (principal)
CPT/HCPCS: 93970

== ENCOUNTER → 2025-01-23 14:26 | Outpatient (BNV) | payer OTHER, SELFPAY | PROVIDERS: PCP Family Medicine; Visit Provider Radiology Diagnostic Radiology | DX: M71.22 Synovial cyst of popliteal space [Baker], left knee (principal) | CPT/HCPCS: 93970 ==

== ENCOUNTER 2025-02-25 13:32 | Outpatient (AMB) | payer OTHER, SELFPAY ==
--- NOTE | 2025-02-25 13:34 | A.OFFVIS_ITS ---
Vital Signs 02/25/25 13:36 Height 5 ft 3 in Weight 235 lb BMI 41.6 Intake Visit Reasons: Inj - Bilateral Euflexxa #1 Intake Note: Brigette is a 39 year old female who presents today for Bilateral Knee Euflexxa injections #1. 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 Site was prepped using aseptic technique. Patient tolerated the procedure well. Shoulders, Hips, Knees, Knee Large Joint Injection : Bilateral Knee Coding Procedure code (CPT) selection complete Assessment & Plan Assessment & Plan (1) Localized osteoarthritis of knees, bilateral: Code(s): M17.0 - Bilateral primary osteoarthritis of knee Category: Medical Plan: Euflexxa 1 of 3 bilateral knees. No complications Coding Level of Care Code Est Pt Level 2 (06325) Diagnoses Localized osteoarthritis of knees, bilateral M17.0 CPT Codes Shoulders, Hips, Knees, - Knee Large Joint Injection 97898: Bilateral Knee ([id number])
[2025-02-25 13:36] VITALS: BMI 41.6
== END 2025-02-25 13:50 | disposition home or self-care (01) ==
LOC: HO.HOS 13:33
PROVIDERS: PCP Family Medicine; Visit Provider Orthopaedic Surgery
DX: M17.0 Bilateral primary osteoarthritis of knee (principal)
CPT/HCPCS: 20610

== ENCOUNTER → 2025-02-25 13:32 | Outpatient (BNVA) | payer OTHER, SELFPAY | PROVIDERS: PCP Family Medicine; Visit Provider Orthopaedic Surgery | DX: M17.0 Bilateral primary osteoarthritis of knee (principal) | CPT/HCPCS: 20610; J7323 ==

== ENCOUNTER 2025-03-04 13:07 | Outpatient (AMB) | payer OTHER, SELFPAY ==
--- NOTE | 2025-03-04 13:30 | MHC.OFFVIS ---
Intake Visit Reasons: Inj - Bilateral Euflexxa #2 Allergies cat dander Allergy (Intermediate, Verified 02/25/25 13:36) wheezing, sneezing HPI HPI Inj - Bilateral Euflexxa #2: Details: Here for 2/3 Euflexxa bilateral PFSH Medical History Fibromyalgia Asthma Surgical History Hx of appendectomy History of cholecystectomy Family History Mother Diabetes Father Hypertension Social History Are you a primary home health aide caregiver to a significant other at home: No Do you presently have visiting nurse or other home services: No Alcohol intake: never Patient Tobacco Use Status: Never used Tobacco Current occupational status: employed 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 Site was prepped using aseptic technique. Patient tolerated the procedure well. Shoulders, Hips, Knees, Knee Large Joint Injection : Bilateral Knee Coding Procedure code (CPT) selection complete Assessment & Plan Assessment & Plan (1) Localized osteoarthritis of knees, bilateral: Code(s): M17.0 - Bilateral primary osteoarthritis of knee Category: Medical Plan: Bilateral knees injected. Follow up 1 week Coding Level of Care Code Est Pt Level 2 (21788) Diagnoses Localized osteoarthritis of knees, bilateral M17.0 CPT Codes Shoulders, Hips, Knees, - Knee Large Joint Injection 27958: Bilateral Knee ([id number])
--- OUTSIDE RECORDS SUMMARY | 2025-03-04 14:02 | XMS_ITS | Encounter Summary ---
Author Organization [employer] Address [address] [facility] 7t [place] [address] Care Team Providers Care Floor Care Specialist Name Role Phone Angelica Newman MD Primary Care Provider [phone] Mike Fontenot MD Unavailable Stephanie Strange Unavailable Herbert Self MD Unavailable [phone] Reason for Visit * Reason Onset Date Comments Nurse Triage 02/22/2024 Encounter Details Date Type Department Care Team (Late st Contact Info) Description 02/22/[address] [facility] MEDICINE [address] [place], [place] [phone] Angelica Newman MD [address] [place], [place] [phone] Nurse Triage Social History Tobacco Use Types [...] no acute shortness of breath. No wheezing. [place] feverish yesterday. Has only had nebulizer medicine at home as she has not been able to afford co pays for other medications. Agrees to have case management contact her to see if she can get some assistance. ASK/Tristan SECURITY CHECKER today at 1115am. Protocol Used: Asthma Attack [...] documented in this encounter Plan of Treatment Upcoming Encounters Date Type Department Care Team (Late st Contact Info) Description 03/22/2025 11:30 AM EDT Office Visit [facility] MEDICINE [address] [place] [address] Angelica Newman MD [address] [place] [address] documented as of this encounter Visit Diagnoses Not on filedocumented in this encounter Additional Health Concerns Assessment Noted Time PHQ-9 Depression Total Score: 0 01/25/20 24 10:23 AM EDT documented as of this encounter Care Teams Floor Care Specialist Relationship Specialty Start Date End Date Angelica Newman MD [address] [place] [address] PCP - General Family Medicine 08/04/12 Mike Fontenot MD [address] [place] [address] Orthopaedic Surgery 06/13/24 Stephanie Strange [address] [place] [address] Obstetrics and Gynecology 08/08/24 [place] [address] [place] [phone] Rheumatology 08/08/24 documented as of this encounter
== END 2025-03-04 13:35 | disposition home or self-care (01) ==
LOC: HO.HOS 13:08
PROVIDERS: PCP Family Medicine; Visit Provider Orthopaedic Surgery
DX: M17.0 Bilateral primary osteoarthritis of knee (principal)
CPT/HCPCS: 20610

== ENCOUNTER → 2025-03-04 13:07 | Outpatient (BNVA) | payer OTHER, SELFPAY | PROVIDERS: PCP Family Medicine; Visit Provider Orthopaedic Surgery | DX: M17.0 Bilateral primary osteoarthritis of knee (principal) | CPT/HCPCS: 20610; J7323 ==

== ENCOUNTER 2025-03-11 13:44 | Outpatient (AMB) | payer OTHER, SELFPAY ==
--- NOTE | 2025-03-11 13:46 | MHC.OFFVIS ---
Vital Signs 03/11/25 13:53 Height 5 ft 3 in Weight 235 lb BMI 41.6 Intake Visit Reasons: Inj - Bilateral Euflexxa #3 Intake Note: Brigette is a 39 year old female who presents today for her Last Euflexxa Injection of the series, #3. patient has found slight relief with the injection. Allergies cat dander Allergy (Intermediate, Verified 02/25/25 13:36) wheezing, sneezing HPI HPI Inj - Bilateral Euflexxa #3: Details: Brigette is a 39 year old female who presents today for her Last Euflexxa Injection of the series, #3. patient has found slight relief with the injection. 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 Site was prepped using aseptic technique. Patient tolerated the procedure well. Shoulders, Hips, Knees, Knee Large Joint Injection : Bilateral Knee Coding Procedure code (CPT) selection complete Assessment & Plan Assessment & Plan (1) Localized osteoarthritis of knees, bilateral: Code(s): M17.0 - Bilateral primary osteoarthritis of knee Category: Medical Plan: Injected bilateral knees Euflexxa. November f/u PRN Coding Level of Care Code Est Pt Level 2 (76914) Diagnoses Localized osteoarthritis of knees, bilateral M17.0 CPT Codes Shoulders, Hips, Knees, - Knee Large Joint Injection : Bilateral Knee ([id number])
[2025-03-11 13:53] VITALS: BMI 41.6
--- OUTSIDE RECORDS SUMMARY | 2025-03-11 15:02 | XMS_ITS | Encounter Summary ---
Author Organization [employer] Address [address] [facility] 7t [place] [address] Care Team Providers Care Utility Assembler Name Role Phone Angelica Newman MD Primary Care Provider [phone]- [phone] Mike Fontenot MD Unavailable Stephanie Strange Unavailable Herbert Self MD Unavailable Encounter Details Date Type Department Care Team (Late st Contact Info) Description 08/16/[address] [facility] [address] [place] [address] Trupti Parada MD [address] [place], [place] [phone] Chronic pain of left knee (Primary Dx) [...] [facility] [address] [place] [address] Angelica Newman MD [address] [place] [address] Scheduled Orders Name Type Priority Associated Diagnoses [...] documented as of this encounter Care Teams Utility Assembler Relationship Specialty Start Date End Date Angelica Newman MD [address] [place] [address] PCP - General Family Medicine 08/04/12 Mike Fontenot MD [address] [place] [address] Orthopaedic Surgery 06/13/24 Stephanie Strange [address] [address] Obstetrics and Gynecology 08/08/24 Herbert Self MD [address] [place] [address] Rheumatology 08/08/24 documented as of this encounter
--- OUTSIDE RECORDS SUMMARY | 2025-03-11 15:02 | XMS_ITS | Encounter Summary ---
Author Organization [employer] Address [address] [facility] 7t [place] [address] Care Team Providers Care Gauge And Instrument Inspector Name Role Phone Angelica Newman MD Primary Care Provider [phone]- [phone] Mike Fontenot MD Unavailable Stephanie Strange Unavailable Herbert Self MD Unavailable [phone] Encounter Details Date Type Department Care Team (Late st Contact Info) Description 08/26/2023 Telephone [facility] MED[facility]INE [address] [place] [address] Angelica Newman MD [address] [place], [place] [phone] Social History Tobacco Use Types Packs/Day Years [...] Description 03/22/2025 11:30 AM EDT Office Visit [facility] [address] [place] [address] Angelica Newman MD [address] [place] [address] documented as of this encounter Visit Diagnoses Not on filedocumented in this encounter Additional Health Concerns Assessment Noted Time PHQ-9 Depression Total Score: 14 023 10:17 AM EDT documented as of this encounter Care Teams Gauge And Instrument Inspector Relationship Specialty Start Date End Date Angelica Newman MD [address] [place] [address] PCP - General Family Medicine 08/04/12 Mike Fontenot MD [address] [place] [address] Orthopaedic Surgery 06/13/24 Stephanie Strange [address] [place] [phone] Obstetrics and Gynecology 08/08/24 Herbert Self MD [address] [place] [address] Rheumatology 08/08/24 documented as of this encounter
--- OUTSIDE RECORDS SUMMARY | 2025-03-11 15:02 | XMS_ITS | Encounter Summary ---
Author Organization [employer] [facility] Address [address] [facility] 7t [place] [address] Care Team Providers Care Measurement Superintendent Name Role Phone Angelica Newman MD Primary Care Provider [phone]- [phone] Mike Fontenot MD Unavailable Stephanie Strange Unavailable Herbert Self MD Unavailable [phone] Encounter Details Date Type Department Care Team (Late st Contact Info) Description 03/23/2023 Orders Only [facility] MEDICINE [address] [place] [address] [phone] Angelica Newman MD [address] [place], [place] [phone] Social History Tobacco Use Types Packs/Day Years [...] Description 03/22/2025 11:30 AM EDT Office Visit [facility] MEDICINE [address] [place] [address] [phone] Angelica Newman MD [address] [place] [address] [phone] documented as of this encounter Visit Diagnoses Not on filedocumented in this encounter Care Teams Measurement Superintendent Relationship Specialty Start Date End Date Angelica Newman MD [address] [place] [address] PCP - General Family Medicine 08/04/12 Mike Fontenot MD [address] [place] [address] [address] [place] [address] Orthopaedic Surgery 06/13/24 Stephanie Strange [address] [place] [address] Obstetrics and Gynecology 08/08/24 [place] [address] [place] [phone] Rheumatology 08/08/24 documented as of this encounter
--- OUTSIDE RECORDS SUMMARY | 2025-03-11 15:02 | XMS_ITS | Encounter Summary ---
Author Organization [employer] Address [address] [facility] 7t [place] [address] Care Team Providers Care Exercise Science Internship Name Role Phone Angelica Newman MD Primary Care Provider [phone]- [phone] Mike Fontenot MD Unavailable Stephanie Strange Unavailable Herbert Self MD Unavailable [phone] Reason for Visit * Reason Comments Med Refill Encounter Details Date Type Department Care Team (Late st Contact Info) Description 12/19/[address] [facility] [address] [place], [place] [phone] Angelica Newman MD [address] [place] [address] Social History Tobacco Use Types Packs/Day Years [...] Description 03/22/2025 11:30 AM EDT Office Visit [facility] [address] [place] [address] Angelica Newman MD [address] [place] [address] documented as of this encounter Visit Diagnoses Not on filedocumented in this encounter Additional Health Concerns Assessment Noted Time PHQ-9 Depression Total Score: 14 023 10:17 AM EDT documented as of this encounter Care Teams Exercise Science Internship Relationship Specialty Start Date End Date Angelica Newman MD [address] [place] [address] PCP - General Family Medicine 08/04/12 Mike Fontenot MD [address] [place] [address] Orthopaedic Surgery 06/13/24 Stephanie Strange [address] [place] [address] Obstetrics and Gynecology 08/08/24 [place] [address] [place] [phone] Rheumatology 08/08/24 documented as of this encounter
--- OUTSIDE RECORDS SUMMARY | 2025-03-11 15:02 | XMS_ITS | Encounter Summary ---
Author Organization [facility] Address [address] [facility] 7t [place] [address] Care Team Providers Care Tile Layer Drainage Name Role Phone Angelica Newman MD Primary Care Provider [phone]- [phone] Mike Fontenot MD Unavailable Stephanie Strange Unavailable Herbert Self MD Unavailable [phone] Reason for Visit * Reason Onset Date Comments Nurse Triage 02/22/2024 Encounter Details Date Type Department Care Team (Late st Contact Info) Description 02/22/2024 Telephone [facility] [address] [place], [place] [phone] Angelica Newman MD [address] [place], [place] [phone] Nurse Triage Social History Tobacco Use Types [...] no acute shortness of breath. No wheezing. [place] feverish yesterday. Has only had nebulizer medicine at home as she has not been able to afford co pays for other medications. Agrees to have case management contact her to see if she can get some assistance. ASK/Tristan JEWEL OLIVING MACHINE OPERATOR today at 1115am. Protocol Used: Asthma Attack [...] Description 03/22/2025 11:30 AM EDT Office Visit [facility] [address] [place] [address] Angelica Newman MD [address] [place] [address] documented as of this encounter Visit Diagnoses Not on filedocumented in this encounter Additional Health Concerns Assessment Noted Time PHQ-9 Depression Total Score: 0 01/25/20 24 10:23 AM EDT documented as of this encounter Care Teams Tile Layer Drainage Relationship Specialty Start Date End Date Angelica Newman MD [address] [place] [address] PCP - General Family Medicine 08/04/12 Mike Fontenot MD [address] [place] [address] Orthopaedic Surgery 06/13/24 Stephanie Strange [address] [place] [address] Obstetrics and Gynecology 08/08/24 [place] [address] [place] [phone] Rheumatology 08/08/24 documented as of this encounter
--- OUTSIDE RECORDS SUMMARY | 2025-03-11 15:02 | XMS_ITS | Encounter Summary ---
Author Organization [employer] [facility] Address [address] [facility] 7t [place] [address] Care Team Providers Care Network Support Administrator Name Role Phone Angelica Newman MD Primary Care Provider [phone]- [phone] Mike Fontenot MD Unavailable Stephanie Strange Unavailable Herbert Self MD Unavailable [phone] Encounter Details Date Type Department Care Team (Late st Contact Info) Description 08/24/2022 Abstract [facility] MEDICINE [address] [place] [address] [phone] Angelica Newman MD [address] [place] [address] [phone] Social History Tobacco Use Types Packs/Day Years [...] Description 03/22/2025 11:30 AM EDT Office Visit [facility] MEDICINE [address] [place] [address] [phone] Angelica Newman MD [address] [place] [address] [phone] documented as of this encounter Procedures Procedure Name Priority Date/Time Associated Diagnosis Comments PAP SMEAR Routine 05/17/2018 12:00 AM EDT documented in this encounter Results * Pap Smear (05/17/2018 12:00 AM EDT) Swab us Historical Provider LAB CYTOLOGY ORDERABLES F inal Result IMAGING documented in this encounter Visit Diagnoses Not on filedocumented in this encounter Care Teams Network Support Administrator Relationship Specialty Start Date End Date Angelica Newman MD [address] [place] [address] PCP - General Family Medicine 08/04/12 Mike Fontenot MD [address] [place] [address] Orthopaedic Surgery 06/13/24 Stephanie Strange [address] [place] [address] Obstetrics and Gynecology 08/08/24 [place] [address] [place] [phone] Rheumatology 08/08/24 documented as of this encounter
--- OUTSIDE RECORDS SUMMARY | 2025-03-11 15:02 | XMS_ITS | Clinical Summary ---
Author Organization [employer] Address [address] [facility] [address] [place] [address] Care Team Providers Care Barbed Wire Machine Operator Name Role Phone Angelica Newman MD Primary Care Provider [phone] Mike Fontenot MD Unavailable Stephanie Strange Unavailable Herbert Self MD Unavailable [phone] Allergies No known active allergies Medications * This document contains information received from the source organization and may not represent a complete record from that organization. albuterol (2.5 MG/3ML) 0.083% nebulizer solutionIndicati ons:Moderate persistent asthma with exacerbation Take 3 mL (2.5 mg) by nebulization every 4 (four) hours if needed for wheezing. 75 mL 3 4 Active montelukast (Singulair) 10 MG tabletIndication s:Moderate persistent asthma without complication 10 MG ORALLY BEDTIME 4 Active fluticasone (Flonase) 50 MCG/ACT nasal sprayIndications :Seasonal allergies Administer 1-2 sprays into each nostril Once per day. Shake gently. Before first use, prime pump. After use, clean tip and replace cap. 16 g 2 4 Active cetirizine (Allergy, Cetirizine,) 10 MG tabletIndication s:Seasonal allergies 10 mg. 4 Active DULoxetine (Cymbalta) [address] capsuleIndicatio ns:Fibromyalgia Take 30 mg by mouth Once per day. Active senna (Senokot) 8.6 MG tabletIndication s:Constipation, unspecified constipation type Take 1 tablet (8.6 mg) by mouth at bedtime. 60 tablet 2 5 Active albuterol 108 (90 Base) MCG/ACT inhalerIndicatio ns:Moderate persistent asthma with acute exacerbation INHALE 2 PUFFS EVERY 6 HOURS IF NEEDED FOR WHEEZING. 8.5 g 11 5 Active budesonide-formo terol (Symbicort) 160-4.5 MCG/ACT inhalerIndicatio ns:Mild intermittent asthma without complication TAKE 2 PUFFS BY MOUTH TWICE A DAY IN THE MORNING AND IN THE EVENING 10.2 each 3 5 Active meloxicam (Mobic) 15 MG tablet 5 Active ferrous sulfate 325 (65 Fe) MG EC tabletIndication s:Iron deficiency anemia, unspecified iron deficiency anemia type Take 1 tablet (325 mg) by mouth with breakfast. TAKE 1 TABLET BY MOUTH EVERY DAY. DO NOT CRUSH, CHEW, OR SPLIT. Frequency increased 90 tablet 5 Active Ascorbic Acid (vitamin C) 250 MG tablet Take 1 tablet (250 mg) by mouth Once per day. 90 tablet 5 026 Active Active Problems Problem Noted Date Diagnosed Date Bilateral lower extremity edema 01/22/2025 Assessment & Plan (01/22/2025 10:33 PM EDT): CBC 07/2024 Hb 10.6 -denies menorrhagia,denies melenas nor BRPR on daily iron Bl LE edema 1 + pitting ,no calf tenderness Suggestive with venous insufficiency likely associated w Obesity Will r/o DVT but seems unlikely from clinical presentation -planned to f w ortho for knee inj -bl LE doppler US to r/o DVT sent as STAT and for Bl venous insuff US -advised to raise legs -CBC,chem,TSH m, PRoBNP,anemia labs -f w PCP in next 4 to 6 weeks , if neg workup could consdier compression stockings vs vacular referral -for anemia FOBT given pt denies heavy menstrual periods and anemia can worsen LE edema -weight loss advised and f w PCP Dietary counseling 08/08/2024 Assessment & Plan (08/08/2024 [...] cancer screening 01/25/20 Overview (08/08/2024): -will call Licensed Nurse Practitioner to make appt today for PAP smear, 01/25/24 -has appt to have PAP done in September 2024. Assessment & Plan (08/08/2024 11:07 AM EST): -will call Licensed Nurse Practitioner to make appt today for PAP smear, 01/25/24 -has appt to have PAP done in September 2024. Assessment & Plan (01/25/2024 10:46 AM EDT): -will call Licensed Nurse Practitioner to make appt today for PAP smear, 01/25/24 Acute pain of left knee 07/20/2023 Overview (02/27/2025): -referral to PT sent 07/20/23 -ween by [facility] 11/04/23 for left knee injection, which [...] preapproval for gel injection. -Steroid injection with Albino-Ruby Caputo PA-C done 01/25/24 and left knee Durolane injection, which was tolerated well 02/13/24 -note from Dr. eRcinos 03/27/24 recommend knee arthroscopy possible medial meniscus repair -s/p athroscopic repair 05/16/24 and 08/15/[address] Recinos -s/p Bilateral Euflexxa #[address] Fontenot 02/25/25 Assessment & Plan (07/20/2023 11:00 AM EST): Referral to PT sent 07/20/23 Other specified health status 05/24/2023 Overview (08/08/2024): -next physical exam due after 08/08/25 -eye care facilitated by [facility] -dental home is encourage to make appt -Healthcare proxy given and filed 01/25/24 Assessment & Plan (08/08/2024 11:08 AM EST): -next physical exam due after 08/08/25 -eye care facilitated by [facility] -dental home is encourage to make appt -Healthcare proxy given and filed 01/25/24 Assessment & Plan (01/25/2024 10:43 AM EDT): -next physical exam due after 07/20/2024 -eye care facilitated by [facility] -formerly [facility] is encourage to make appt -Healthcare proxy given and filed 01/25/24 Assessment & Plan (07/20/2023 10:48 AM EST): -next physical exam due after 07/20/2024 -eye care facilitated by [facility] -formerly [facility] is encouraged to make appt Mild [...] Overview (07/20/2023): Lab Results Component Value Date [id number] 62 09/10/2022 VITD3 62 09/10/2022 VITD2 <8 09/10/2022 Assessment & Plan (07/20/2023 9:03 AM EST): No results found for: [id number] Lab Results Component Value Date [id number] 62 09/10/2022 VITD3 62 09/10/2022 VITD2 <8 09/10/2022 Moderate persistent asthma 09/17/2020 Overview (08/08/2024): -Seen by pulmonology with Lavonne Zuluaga [facility] 11/22/23 PFT ordered -Singular added 11/11/23, pt started 11/22/23 -continue albuterol prn -has FMLA for exacerbations. Assessment & Plan (08/08/2024 11:24 AM EST): -Seen by pulmonology with Lavonne Zuluaga [facility] 11/22/23 PFT ordered -Singular added 11/11/23, pt started 11/22/23 -continue albuterol prn -has FMLA for exacerbations. Assessment & Plan (02/22/2024 7:15 PM EDT): Limited aeration despite IRINA usage, rx for prednisone 40 mg prescribed, resume rescue inhalers this evening Call for persistent or worsening symptoms Assessment & Plan (01/25/2024 8:03 AM EDT): -Seen by pulmonology with Lavonne Zuluaga [facility] 11/22/23 PFT ordered -Duo neb and Spiriva [...] 10mg. . -Restarted vitamin D 04/2021 -Saw [facility] attendant recently has follow-up on 08/10/24. -Stable on [...] 10mg. . -Restarted vitamin D 04/2021 -Saw [facility] attendant recently has follow-up on 08/10/24. -Stable on [...] Allergic rhinitis 10/02/2012 Overview (07/20/2023): Referral to [facility] sent 07/20/23 Assessment & Plan (07/20/2023 10:52 AM EST): Referral to [facility] sent 07/20/23 Resolved Problems Problem Noted Date Diagnosed Date Resolved Date Post viral syndrome 11/17/2023 01/04/20 25 Assessment & Plan (11/17/2023 1:53 PM EDT): [...] family support. PLAN: 1. Follow up with [facility]: Recommended for follow-up: Scheduled BE in three [...] family support. PLAN: 1. Follow up with [facility]: Recommended for follow-up: Scheduled BE in three [...] family support. PLAN: 1. Follow up with [facility]: Recommended for follow-up: Scheduled BE in three weeks 2. Patient goal is to feel less anxious and start therapy 3. Behavioral Recommendations a. Referral for OP individual therapy b. Incorporate coping skills into daily routine Encounters Date Type Department Care Team Description 02/08/2025 Orders Only [address] [address] Mariel Lee MD Synovial cyst of popliteal space, unspecified laterality (Primary Dx) 02/08/[address] [address] Angelica Newman MD Referral 02/04/[address] [address] Angelica Newman MD Medication Question 01/23/2025 Orders Only [address] [address] Mariel Lee MD Iron deficiency anemia, unspecified iron deficiency anemia type 01/23/2025 Results Follow-Up [facility] [address] [place] [phone] Angelica Newman MD [facility] US Lower Extremity Venous Duplex Bilateral 01/22/2025 10:00 AM EDT Office Visit [address] [address] Mariel Lee MD Anemia, unspecified type (Primary Dx); Lower extremity edema; Bilateral lower extremity edema 01/22/2025 Results Follow-Up [address] [address] Mariel Lee MD CBC auto differential 01/22/2025 Travel 01/21/[address] [address] Angelica Newman MD Chart Prep 01/21/[address] [facility] [address] [place] [address] [phone] Angelica Newman MD Nurse Triage 01/08/[address] [phone] Angelica Newman MD Mild intermittent asthma without complication 12/28/[address] [phone] Angelica Newman MD No Show 12/13/2024 Refill [facility] [address] [place], [place] [phone] Angelica Newman MD Moderate persistent asthma with acute exacerbation from Last 3 Months Immunizations Immunization Administration Dates Next Due HPV, Quadrivalent 09/15/2012,05/02/2012,02/18/20 [...] Sign Reading Time Taken Comments Blood Pressure 130/82 01/22/2025 10:20 AM EDT Pulse 69 01/22/2025 10:20 AM EDT Temperature 36.1 C (97 F) 01/22/2025 10:20 AM EDT Respiratory Rate 16 01/22/2025 10:20 AM EDT Oxygen Saturation 100% 08/08/2024 11:04 AM EST Inhaled Oxygen Concentration - - Weight 111 kg (245 lb 6 oz) 01/22/2025 10:20 AM EDT Height 160 cm (5' 3 ) 01/22/2025 10:20 AM EDT Body Mass Index 43.47 01/22/2025 10:20 AM EDT Plan of Treatment Upcoming Encounters Date Type Department Care Team (Late st Contact Info) Description 03/22/2025 11:30 AM EDT Office Visit [facility] [address] [place] [address] Angelica Newman MD [address] [place] [address] Health Maintenance Due Date Last Done Comments Cervical Cancer Screening 05/17/2023 HPV/Cotest 05/17/2023 Pap Smear 05/17/2023 05/17/2018 DTaP/Tdap/Td Vaccines (2 - Td or Tdap) 09/16/2024 09/16/2014 Depression Screening 01/24/2025 01/25/2024, 01/25/20 24 Influenza Vaccine (#1) 2025 , 07/20/2023, 09/03/2021, Additional history exists Alcohol/Substance Use Screening 08/08/2025 08/08/2024 COVID-19 Vaccine ( season) 2025 12/18/2020, 11/27/2020 Postponed from 03/18/2024 (Patient Refused) Family Planning (PISQ) 08/08/2025 08/08/2024 SDOH Screening 08/08/2025 08/08/2024 Disability Screening 01/22/2026 01/22/2025 Tobacco Screening 01/22/2026 01/22/2025 Lipid Panel 01/25/2029 01/26/2024, 08/19, 08/20/2021, Additional history exists Zoster Vaccines (1 of 2) 2036 RSV Patients and Patients Aged 60 years or older (1 - 1-dose 75+ series) 2061 HPV Vaccines Completed 09/15/2012, 04/17, 02/18/2012 Pneumococcal Vaccine: Pediatrics (0 to 5 Years) and At-Risk Patients (6 to 49) Years Completed 07/20/2023, 01/10/2019, 09/16/2014 HIV Screening Completed 11/17/2023, 09/10/2022 Hepatitis C Screening Completed 11/17/2023, 023 Hepatitis B Vaccines Completed 01/25/2024, 08/24/2023, 07/20/2023 HIB Vaccines Aged Out No longer eligi ble based on patient's age to complete this topic Hepatitis A Vaccines Aged Out No long er eligible based on patient's age to complete this topic IPV Vaccines Aged Out No longer eligi ble based on patient's age to complete this topic Meningococcal B Vaccine Aged Out No l onger eligible based on patient's age to complete [...] Procedure Name Priority Date/Time Associated Diagnosis Comments VASC US LOWER EXTREMITY VENOUS DUPLEX BILATERAL Routine 01/23/2025 2:43 PM EDT US DOPPLER EXT LOWER VENOUS BILATERAL STAT 01/23/2025 Anemia, unspecified type VITAMIN B12/FOLATE, SERUM PANEL Routine 01/22/2025 11:09 AM EDT Anemia, unspecified type FERRITIN Routine 01/22/2025 11:09 AM EDT Anemia, unspecified type IRON AND TOTAL IRON BINDING CAPACITY Routine 01/22/2025 11:09 AM EDT Anemia, unspecified type TSH W/REFLEX TO FT4 Routine 01/22/2025 1 1:09 AM EDT Lower extremity edema COMPREHENSIVE METABOLIC PANEL Routine 01/22/2025 11:09 AM EDT Lower extremity edema NT-PROBNP Routine 01/22/2025 11:09 AM EDT Lower extremity edema CBC WITH AUTO DIFFERENTIAL Routine 01/22/2025 11:09 AM EDT Anemia, unspecified type LIPID PANEL, STANDARD Routine [...] Recently Relevant to Health Maintenance [facility] Extremity Venous Duplex Bilateral (01/23/2025 2:43 PM EDT) 01/23/2025 2:43 PM EDT Narrative [facility] - 01/23/2025 3:24 PM EDT [place] [address] Ultrasound Report Signed Patient: Brigette Burt MR#: [id number] : 1985 Acct:[id number] Age/Sex: 39 / F ADM Date: 01/23/25 Loc: HO.US Attending Dr: Mariel Morataya MD Ordering Physician: Mariel Lee MD Date of Service: 01/23/25 Procedure(s): US venous duplex LE BI Accession Number(s): [id number] cc: Angelica Newman MD; Mariel Lee MD EXAMINATION: US LOWER EXTREMITY VEINS BILATERAL HISTORY: anemia, BILAT EDEMA, BILAT KNEE SURGERY COMPARISON: Comparison is made with the prior examination dated 01/05/2021. TECHNIQUE: Duplex and color Doppler sonographic examination of the deep venous system of the bilateral lower extremities was performed. FINDINGS: The right common femoral, superficial femoral, and popliteal veins are patent demonstrating normal compressibility, spontaneous flow, and augmentation. There is a normal color and spectral Doppler waveform appearance of the visualized deep venous system above the knee. The posterior tibial and peroneal veins are patent. The left common femoral, superficial femoral, and popliteal veins are patent demonstrating normal compressibility, spontaneous flow, and augmentation. There is a normal color and spectral Doppler waveform appearance of the visualized deep venous system above the knee. The posterior tibial and peroneal veins are patent. Incidental note is made of a 4.9 x 1.1 x 2.8 cm fluid collection in the popliteal fossa, consistent with a Russo's cyst. US/US venous duplex LE BI IMPRESSION: 1. No evidence of acute DVT in the bilateral lower extremities. 2. Left popliteal fossa Russo's cyst as described. Electronically signed by: Sea Eller MD 01/23/2025 03:21 PM EDT RP Dictated By: Sea Eller MD Signed By: <Electronically signed by Sea Eller MD in OV> 01/23/25 1521 DD/ 1443 TD/TT: 01/23/25 1453 Retail Custodial Associate: Procedure Note Donotuseinterpreter, Image - 01/23/2025 [place] [address] Ultrasound Report Signed Patient: Demetra Burt#: [id number] : 1985Acct:[id number] Age/Sex: 39 / FADM Date: 01/23/25 Loc: HO.US Attending Dr: Mariel Morataya MD Ordering Physician: Mariel Lee MD Date of Service: 01/23/25 Procedure(s): US venous duplex LE BI Accession Number(s): [id number] cc: Angelica Newman MD; Mariel Lee MD EXAMINATION: US LOWER EXTREMITY VEINS BILATERAL HISTORY: anemia, BILAT EDEMA, BILAT KNEE SURGERY COMPARISON: Comparison is made with the prior examination dated 01/05/2021. TECHNIQUE: Duplex and color Doppler sonographic examination of the deep venous system of the bilateral lower extremities was performed. FINDINGS: The right common femoral, superficial femoral, and popliteal veins are patent demonstrating normal compressibility, spontaneous flow, and augmentation. There is a normal color and spectral Doppler waveform appearance of the visualized deep venous system above the knee. The posterior tibial and peroneal veins are patent. The left common femoral, superficial femoral, and popliteal veins are patent demonstrating normal compressibility, spontaneous flow, and augmentation. There is a normal color and spectral Doppler waveform appearance of the visualized deep venous system above the knee. The posterior tibial and peroneal veins are patent. Incidental note is made of a 4.9 x 1.1 x 2.8 cm fluid collection in the popliteal fossa, consistent with a Russo's cyst. US/US venous duplex LE BI IMPRESSION: 1. No evidence of acute DVT in the bilateral lower extremities. 2. Left popliteal fossa Russo's cyst as described. Electronically signed by: Sea Eller MD 01/23/2025 03:21 PM EDT RP Dictated By: Sea Eller MD Signed By: <Electronically signed by Sea Eller MD in OV> 01/23/25 1521 DD/ 1443 TD/TT: 01/23/25 1453 Retail Custodial Associate: us Mariel Morataya MD CV VASCULAR PROCE DURES Final Result [facility] [address] [place] [phone] * US Doppler Ext Lower Venous Bilateral (01/23/2025) Anatomical Region Laterality Modality Body Ultrasound us Mariel Morataya MD IMG US PROCEDURES Final Result * Vitamin B12 (Cobalamin) and Folate Panel, Serum (01/22/2025 11:09 AM EDT) Vitamin B12 278 200 - 900 pg/mL [facility] Comment:NORMAL 200-900 PG/ML INDETERMINATE 160-199 PG/ML DEFICIENT < 160 PG/ML Folate 8.4 > or = 4.0 ng/mL [facility] Comment:Reference Values:> o r = 4.0 ng/mL< 4.0 ng/mL suggests folate deficiency Methotrexate, aminopterin and folinic acid(leucovorin) are chemotherapeutic agents whose molecularstructures are similar to folate; therefore, the Architectfolate assay cannot be used for patients using these drugs. Blood 01/22/2025 11:0 9 AM EDT 01/22/2025 12:19 PM EDT us Mariel Morataya MD LAB BLOOD ORDERAB LES Final Result Performing Organization Address [facility] Co de Phone Number [facility] [address] [place] [phone] * TSH W/Reflex to FT4 (01/22/2025 11:09 AM EDT) Pathologist [facility] [place] TSH reflex Free T4 0.94 0.32 - 4.0 uIU/mL [facility] Blood Venous blood specimen / Unknown 01/22/2025 11:09 AM EDT 01/22/2025 12:19 PM EDT us Mariel Morataya MD LAB BLOOD ORDERAB LES Final Result Performing Organization Address [facility] de Phone Number [facility] [address] [place] [phone] * NT-proBNP (01/22/2025 11:09 AM EDT) Pathologist [facility] [place] NT-proBNP 66 <125 pg/mL [facility] Comment:THIS TEST WAS PERFOR MED AT:[facility] [address] [phone] HWANG MD Venous blood specimen / Unknown 01/22/2025 11:09 AM EDT 01/22/2025 12:12 PM EDT us Mariel Morataya MD LAB BLOOD ORDERAB LES Final Result Performing Organization Address [facility] Co de Phone Number [facility] [address] [place] [phone] * (ABNORMAL) CBC auto differential (01/22/2025 11:09 AM EDT) Pathologist [facility] [place] White Blood Count 8.2 4.8 - 10.8 X10*3/uL [facility] Red Blood Count 4.73 4.20 - 5.50 X10*6/uL [facility] Hemoglobin 11.2(L) 12.0 - 16.0 g/dl [facility] Hematocrit 35.8(L) 37.0 - 47.0 % [facility] Mean Corpuscular Volume 75.7(L) 80.0 - 98.0 fL [facility] Mean Corpuscular Hemoglobin 23.7(L) 27.0 - 33.0 pg [facility] Mean Corpuscular HGB Conc 31.3 31.0 - 35.0 g/dl [facility] Red Cell Distribution Width 17.0(H) 11.0 - 16.0 % [facility] Platelet Count 413(H) 160 - 400 X10*3/uL [facility] Mean Platelet Volume 10.1 9.4 - 12.3 fL [facility] Neutrophils Percent Auto 70.4 45 - 73 % [facility] Imm Gran Pct Auto 0.4 0.0 - 0.4 % [facility] Lymphocytes Percent Auto 21.1 20 - 40 % [facility] Monocytes Percent Auto 5.5 2 - 11 % [facility] Eosinophils Percent Auto 2.2 0 - 4 % [facility] Basophils Percent Auto 0.4 0 - 2 % [facility] NRBC Pct Auto 0.0 0.0 - 0.2 /100WBC [facility] Neutrophils Absolute Auto 5.7 2.0 - 8.3 x10*3/uL [facility] Imm Gran Abs Auto 0.03 0.00 - 0.03 X10*3/uL [facility] Lymphocytes Absolute Auto 1.7 1.2 - 4.9 X10*3/uL [facility] Monocytes Absolute Auto 0.5 0.1 - 1.2 X10*3/uL [facility] Eosinophils Absolute Auto 0.2 0.0 - 0.4 X10*3/uL [facility] Basophils Absolute Auto 0.0 0.0 - 0.2 X10*3/uL [facility] NRBC Abs Auto 0.000 0.0 - 0.012 X10*3/uL [facility] Blood Venous blood specimen / Unknown 01/22/2025 11:09 AM EDT 01/22/2025 12:19 PM EDT Angelica Newman MD LAB BLOOD ORDERABLES Final Result Performing Organization Address [facility]/ZIP Co de Phone Number [facility] [address] [place] [phone] * (ABNORMAL) Iron And Total Iron Binding Capacity (01/22/2025 11:09 AM EDT) Iron 22(L) 30 - 160 mcg/dL [facility] Total Iron Binding Capacity 371 228 - 428 mcg/dL [facility] Percent Iron Saturation 6(L) 15 - 50 % [facility] Unsaturated Iron Binding 349 ug/dL [facility] Blood Venous blood specimen / Unknown 01/22/2025 11:09 AM EDT 01/22/2025 12:19 PM EDT Mariel Morataya MD LAB BLOOD ORDERAB LES Final Result Performing Organization Address [facility] Co de Phone Number [facility] [address] [place] [phone] * Ferritin (01/22/2025 11:09 AM EDT) Ferritin 10 10 - 122 ng/mL [facility] Blood Venous blood specimen / Unknown 01/22/2025 11:09 AM EDT 01/22/2025 12:19 PM EDT Mariel Morataya MD LAB BLOOD ORDERAB LES Final Result Performing Organization Address City/[facility]/ZIP Co de Phone Number [facility] [address] [place] [phone] * (ABNORMAL) Comprehensive Metabolic Panel (01/22/2025 11:09 AM EDT) Sodium 139 135 - 145 mmol/L [facility] Potassium 3.5 3.3 - 5.1 mmol/L [facility] Chloride 105 96 - 108 mmol/L [facility] Carbon Dioxide 28 22 - 29 mmol/L [facility] Anion Gap 10(L) 12 - 20 [facility] Urea Nitrogen (BUN) 10 9 - 16 mg/dL [facility] Creatinine, Serum 0.61 0.5 - 1.4 mg/dL [facility] Estimated Glomerular Filt Rate >60 [facility] Comment:Chronic Kidney Disea se: Estimated GFR < 60 mL/min/1.18o2Liuipd Kidney Disease: Estimated GFR < 15 mL/min/1.73m2 Glucose 95 60 - 115 mg/dL [facility] Calcium 9.1 8.4 - 10.2 mg/dL [facility] Bilirubin, Total 0.2 0.0 - 1.0 mg/dL [facility] Aspartate Amino Transferase 24 5 - 31 U/L [facility] Alanine Aminotransferase 17 0 - 31 U/L [facility] Total Protein 7.4 6.5 - 8.0 g/dL [facility] Albumin Level 4.3 3.5 - 5.0 g/dL [facility] Alkaline Phosphatase 72 39 - 117 U/L [facility] Blood Venous blood specimen / Unknown 01/22/2025 11:09 AM EDT 01/22/2025 12:19 PM EDT us Mariel Morataya MD LAB BLOOD ORDERAB LES Final Result [facility] [address] [place] [phone] * Lipid Panel, Standard (01/26/2024 9:18 AM EDT) Triglycerides 52 <150 mg/dL [facility] Comment:Desirable Triglyceri de: less than 150 mg/dLBorderline High Triglyceride 150-199 mg/dLHigh Triglyceride: 200-499 mg/dLVery High Triglyceride: greater than or equal to 5OO mg/dL Cholesterol 141 <200 mg/dL [facility] Comment:Desirable Cholestero l: less than 200 mg/dLBorderline High Cholesterol: 200-239 mg/dLHigh Cholesterol: greater than 239 mg/dL LDL Cholesterol Calculated 86 <100 mg/dL [facility] Comment:Desirable LDL: less than 100 mg/dLNear Optimal/Above Optimal LDL: 110- 129 mg/dLBorderline High LDL: 130-159 mg/dLHigh LDL: 160-189 mg/dLVery High LDL: greater than or equal to 190 mg/dL HDL Cholesterol 45 >40 mg/dL [facility] Comment:Desirable HDL: great er than 40 mg/dL Note: This HDL assay may give artificially low results in patients with liver disease. Blood Venous blood specimen / Unknown 01/26/2024 9:18 AM EDT 01/26/2024 11:45 AM EDT us Angelica Newman MD LAB BLOOD ORDERABLES Final Result [facility] [address] [place] [address] [phone] * Hepatitis Panel, General (11/17/2023 10:36 AM EDT) Hepatitis A IgM Nonreactive Nonreactive [facility] Comment:IgM antibodies to MAHAN V not detected; does not exclude earlyacute or recovered HAV infection. ~Hepatitis B Surface Antibody REACTIVE Nonreactive [facility] Comment:REACTIVE: > 11.99 mI U/mL Hepatitis B Core Antibody Reactive Nonreactive [facility] Comment:Presumptive evidence of anti-HBc. Hepatitis C Antibody Nonreactive Nonreactive [facility] Comment:Antibodies to HCV no t detected; does not exclude early acuteHCV infection. Hepatitis B Surface Ag Negative Negative [facility] Blood 11/17/2023 10:3 6 AM EDT 11/17/2023 11:28 AM EDT Shawn House MD LAB BLOOD ORDERABLES Fin al Result Performing Organization Address [facility] Co de Phone Number [facility] [address] [place] [phone] * HIV-1/2 Antigen and Antibodies, Fourth Generation, with Reflexes (11/17/2023 10:36 AM EDT) HIV AB/AG Nonreactive Nonreactive [facility] Comment:HIV-1 p24 Ag and/or HIV-1/HIV-2 Ab not detected.A test result that is nonreactive does not exclude thepossibility of exposure to or infection with HIV-1 and/orHIV-2. Nonreactive results in this assay for individualswith prior exposure to HIV-1 and/or HIV-2 may be due toantigen and antibody levels that are below the limit ofdetection of this assay.The [employer] HIV Ag/Ab Combo assay result andsupplemental assay results should be interpreted inconjunction with the patient's clinical presentation,history and other laboratory results. If the results areinconsistent with clinical evidence, additional testing issuggested to confirm the result. Blood Venous blood specimen / Unknown 11/17/2023 10:36 AM EDT 11/17/2023 11:28 AM EDT Shawn House MD LAB BLOOD ORDERABLES Fin al Result Performing Organization Address [facility] Co de Phone Number [facility] [address] [place] [phone] * Pap Smear (05/17/2018 12:00 AM EDT) Swab Sarah Provider LAB CYTOLOGY ORDERABLES F inal Result Performing Organization Address [facility] Co de Phone Number IMAGING from Last 3 Months or Most Recently Relevant to Health Maintenance Insurance [facility] [facility] [facility] Advance Directives Documents on File Type Date Recorded Patient Veneer Stacker Expl anation Advance Directives and Living Will 01/25/2024 11:29 AM Health Care Proxy 01/25/24 Care Teams Barbed Wire Machine Operator Relationship Specialty Start Date End Date Haines, MD Angelica [address] [place] [phone] PCP - General Family Medicine 08/04/12 Mike Fontenot MD [address] [place] [address] Orthopaedic Surgery 06/13/24 Stephanie Strange [address] [place] [address] Obstetrics and Gynecology 08/08/24 [place] [address] [place] [phone] Rheumatology 08/08/24
--- OUTSIDE RECORDS SUMMARY | 2025-03-11 15:02 | XMS_ITS | Encounter Summary ---
Author Organization [facility] [facility] Address [address] [facility] 7t [place] [address] Care Team Providers Care Combustion Analyst Name Role Phone Angelica Newman MD Primary Care Provider [phone]- [phone] Mike Fontenot MD Unavailable Stephanie Strange Unavailable Herbert Self MD Unavailable [phone] Encounter Details Date Type Department Care Team (Late Contact Info) Description 06/23/2022 Orders Only [facility] [address] [place] [address] [facility] [address] [place], [place] [phone] Palpitations (Primary Dx) Social History Tobacco Use [...] Encounters Date Type Department Care Team (Late Contact Info) Description 03/22/2025 11:30 AM EDT Office Visit [facility] [address] [place] [address] Angelica Newman MD [address] [place] [address] documented as of this encounter Visit Diagnoses Diagnosis Palpitations- Primary documented in this encounter Care Teams Combustion Analyst Relationship Specialty Start Date End Date Angelica Newman MD [address] [place] [address] PCP - General Family Medicine 08/04/12 Mike Fontenot MD [address] [place] [address] [address] [place] [address] Orthopaedic Surgery 06/13/24 Stephanie Strange [address] [place] [address] Obstetrics and Gynecology 08/08/24 Herbert Self MD [address] [place] [phone] Rheumatology 08/08/24 documented as of this encounter
--- OUTSIDE RECORDS SUMMARY | 2025-03-11 15:03 | XMS_ITS | Encounter Summary ---
Author Organization [employer] Address [address] [facility] 7t [place] [address] Care Team Providers Care Stage Rigger Name Role Phone Angelica Newman MD Primary Care Provider [phone]- [phone] Mike Fontenot MD Unavailable Stephanie Strange Unavailable Herbert Self MD Unavailable [phone] Encounter Details Date Type Department Care Team (Late st Contact Info) Description 08/08/2024 Orders Only [facility] [address] [place] [address] Angelica Newman MD [address] [place], [place] [phone] Iron deficiency anemia, unspecified iron deficiency anemia [...] Description 03/22/2025 11:30 AM EDT Office Visit [facility] [address] [place] [address] Angelica Newman MD [address] [place] [address] documented as of this encounter Procedures Procedure Name Priority Date/Time Associated Diagnosis Comments IMMUNOGLOBULIN E Routine 08/08/2024 11:4 2 AM EST Iron deficiency anemia, unspecified iron deficiency anemia type documented in this encounter Results * Immunoglobulin E (08/08/2024 11:42 AM EST) Immunoglobulin E 53 <UG=192 kU/L [facility] Comment:THIS TEST WAS PERFOR MED AT:[employer] [place] [phone] HWANG MD 08/08/2024 11:4 2 AM EST 08/08/2024 1:27 PM EST us Generic External Data Provider LAB BLOOD ORDERAB LES Final Result [facility] [address] [place] [phone] [phone] documented in this encounter Visit Diagnoses Diagnosis Iron deficiency anemia, unspecified iron deficiency anemia type documented in this encounter Additional Health Concerns Assessment Noted Time PHQ-9 Depression Total Score: 0 01/25/20 10:23 AM EDT documented as of this encounter Care Teams Stage Rigger Relationship Specialty Start Date End Date Angelica Newman MD [address] [place] [address] PCP - General Family Medicine 08/04/12 Mike Fontenot MD [address] [place] [address] Orthopaedic Surgery 06/13/24 Stephanie Strange [address] [place] [address] Obstetrics and Gynecology 08/08/24 [place] [address] [place] [phone] Rheumatology 08/08/24 documented as of this encounter
--- OUTSIDE RECORDS SUMMARY | 2025-03-11 15:03 | XMS_ITS | Encounter Summary ---
Author Organization [employer] Address [address] [facility] 7 [place] [address] Care Team Providers Care Industrial Machine Operator Name Role Phone Angelica Newman MD Primary Care Provider [phone]- [phone] Mike Fontenot MD Unavailable Stephanie Strange Unavailable Herbert Self MD Unavailable Encounter Details Date Type Department Care Team (Latest Contact Info) Description 01/22/2025 Results Follow-Up [facility] [address] [place] [address] Mariel Lee MD [address] [place] [address] CBC auto differential Social History Tobacco Use Types Packs/Day Years [...] Worrying too much about diff erent things 01/22/2025 12:11 PM EDT Christy Nolan [place] Trouble relaxing 1 01/22/2025 12:11 PM EDT Christy Nolan [place] Being so restless that it is hard to sit still 1 01/22/2025 12:11 PM EDT Christy Nolan [place] Becoming easily annoyed or irritable 01/22/2025 12:11 PM EDT Christy Nolan MA Feeling afraid as if somethi ng awful might happen 1 01/22/2025 12:11 PM EDT Christy Nolan MA NANY-7 Total Score 7 01/22/2025 12:11 PM EDT Christy Nolan [place] documented as of this encounter Miscellaneous Notes * Result Encounter Note - Mariel Morataya MD - 01/22/2025 4:05 PM EDT Pd rest of labs documented in this encounter Plan of Treatment Upcoming Encounters Date Type Department Care Team (Late st Contact Info) Description 03/22/2025 11:30 AM EDT Office Visit [facility] [address] [place] [address] Angelica Newman MD [address] [place] [address] documented as of this encounter Visit Diagnoses Not on filedocumented in this encounter Additional Health Concerns Assessment Noted Time PHQ-9 Depression Total Score: 0 01/25/20 24 10:23 AM EDT documented as of this encounter Care Teams Industrial Machine Operator Relationship Specialty Start Date End Date Angelica Newman MD [address] [place] [address] PCP - General Family Medicine 08/04/12 Mike Fontenot MD [address] [place] [address] Orthopaedic Surgery 06/13/24 Stephanie Strange [address] [place] [address] Obstetrics and Gynecology 08/08/24 [place] [address] [place] [phone] Rheumatology 08/08/24 documented as of this encounter
--- OUTSIDE RECORDS SUMMARY | 2025-03-11 15:03 | XMS_ITS | Encounter Summary ---
Author Organization [employer] Address [address] [facility] 7t [place] [address] Care Team Providers Care Cafeteria Supervisor Name Role Phone Angelica Newman MD Primary Care Provider [phone]- [phone] Mike Fontenot MD Unavailable Stephanie Strange Unavailable Herbert Self MD Unavailable [phone] Reason for Visit * Reason Onset Date Comments Referral 02/08/2025 Encounter Details Date Type Department Care Team (Late st Contact Info) Description 02/08/2025 Telephone [facility] [address] [place], [place] [phone] Angelica Newman MD [address] [place] [address] Referral Social History Tobacco Use Types Packs/Day Years [...] encounter Miscellaneous Notes * Telephone Encounter - Bing Londono RN - 02/08/2025 11:40 AM EDT Pt follows with [facility] Orthopedics for right medial meniscus tear. 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 Dr Gary 01/23/25 Please inform pt -bl LE doppler US reports is showing of a 4.9 x 1.1 x 2.8 cm fluid collection in the popliteal fossa, consistent with a Russo's cyst. She has a cyst in back of knee that can continue to follow with her clinical operations specialist if causing pain but this is not explaining leg swelling * Telephone Encounter - Margy Brandon - 02/08/2025 8:49 AM EDT TC from patient requesting a new referral to Orthopedics. Patient stated that the PCP ordered an ultrasound, which showed a cyst behind her left knee. Patient was advised by Orthopedics to obtain a referral. Contact pot at [phone] No need feather renovator documented in this encounter Plan of Treatment Upcoming Encounters Date Type Department Care Team (Late st Contact Info) Description 03/22/2025 11:30 AM EDT Office Visit [facility] [address] [place] [address] Angelica Newman MD [address] [place] [address] documented as of this encounter Visit Diagnoses Not on filedocumented in this encounter Additional Health Concerns Assessment Noted Time PHQ-9 Depression Total Score: 0 01/25/20 24 10:23 AM EDT documented as of this encounter Care Teams Cafeteria Supervisor Relationship Specialty Start Date End Date Angelica Newman MD [address] [place] [address] PCP - General Family Medicine 08/04/12 Mike Fontenot MD [address] [place] [address] Drive [address] [place] [address] Orthopaedic Surgery 06/13/24 Stephanie Strange [address] [place] [address] Obstetrics and Gynecology 08/08/24 [place] [address] [place] [phone] Rheumatology 08/08/24 documented as of this encounter
== END 2025-03-11 14:00 | disposition home or self-care (01) ==
LOC: HO.HOS 13:44
PROVIDERS: PCP Family Medicine; Visit Provider Orthopaedic Surgery
DX: M17.0 Bilateral primary osteoarthritis of knee (principal)
CPT/HCPCS: 20610

== ENCOUNTER → 2025-03-11 13:44 | Outpatient (BNVA) | payer OTHER, SELFPAY | PROVIDERS: PCP Family Medicine; Visit Provider Orthopaedic Surgery | DX: M17.0 Bilateral primary osteoarthritis of knee (principal) | CPT/HCPCS: 20610; J7323 ==

== ENCOUNTER 2025-04-12 12:56 | Emergency (ER) | payer OTHER, SELFPAY ==
[2025-04-12] VITALS (7 sets, daily range): BP systolic 128–154; BP diastolic 67–86; PULSE 66–75; RESP 18; TEMP 36.7–36.8; O2SAT 100; BMI 91.3
--- NOTE | ~2025-04-12 | XR_ITS ---
EXAMINATION: XR CHEST CLINICAL INFORMATION: dyspnea COMPARISON: 05/05/2024 TECHNIQUE: 2 views of the chest were obtained. FINDINGS: No significant abnormality is noted involving the heart, lungs, mediastinum, bony thorax or soft tissues. XR/XR chest 2V IMPRESSION: No acute disease. Electronically signed by: Will Ramsay MD 04/12/2025 01:55 PM EDT RP
--- NOTE | 2025-04-12 12:58 | ECG_ITS ---
Test Reason : pain Blood Pressure : */* mmHG Vent. Rate : 73 BPM Atrial Rate : 73 BPM P-R Int : 140 ms QRS Dur : 78 ms QT Int : 410 ms P-R-T Axes : -1 -2 14 degrees QTcB Int : 451 ms Normal sinus rhythm Normal ECG When compared with ECG of 05-May-2024 02:14, No significant change was found Referred By: Javy Pardo Electronically Signed By: Leo Lynch
--- NOTE | 2025-04-12 13:26 | ED.GENADULT ---
HPI - General Adult General Chief complaint: Chest Pain Stated complaint: chest pain Time Seen by Provider: 04/12/25 17:07 Source: patient, family and RN notes reviewed Limitations: no limitations and language barrier (pt refused formal certified court/medical interpreter; requesting family at bedside) History of Present Illness HPI narrative: 39-year-old female who has a history of asthma, presents for evaluation of chest pain and lightheadedness. Patient states that while at work today she had gradual onset of chest pressure that was located in the center of her chest and radiated throughout. It has been constant throughout the day. She does reported that has improved small amount. She reports having episodes of lightheadedness particularly when she has been ambulating. She denies any fevers chills nausea or vomiting. She does report a history of similar episode on Tuesday but resolved on its own. She does report taking bupropion for weight loss, starting that approximately 3 weeks ago. She has been eating and drinking normally. She has been urinating without difficulty. Related Data Home Medications ?Medication ?Instructions ?Recorded ?Confirmed sennosides 8.6 mg tablet (senna) 17.2 mg PO DAILY PRN constipation 08/11/22 05/02/24 albuterol sulfate 90 mcg/actuation 2 puff inhalation Q6H PRN 09/07/23 05/02/24 aerosol inhaler Shortness Of Breath Or Wheezing budesonide-formoterol HFA 160 2 puff inhalation BID 09/07/23 05/02/24 mcg-4.5 mcg/actuation aerosol inhaler (Symbicort) cetirizine 10 mg tablet (Allergy 10 mg PO DAILY PRN asthma 09/07/23 05/02/24 Relief (cetirizine)) ergocalciferol (vitamin D2) 1,250 1,250 mcg PO QWEEK 09/07/23 05/02/24 mcg (50,000 unit) capsule ferrous sulfate 325 mg (65 mg 325 mg PO DAILY 03/11/25 iron) tablet,delayed release Previous Rx's ?Medication ?Instructions ?Recorded naproxen 500 mg tablet 500 mg PO BID PRN back pain #28 08/18/23 tabs ipratropium 0.5 mg-albuterol 3 mg 3 ml inhalation Q6H PRN wheezing 09/07/23 (2.5 mg base)/3 mL nebulization #180 mL soln tiotropium bromide 1.25 2 puff inhalation DAILY #4 grams 09/07/23 mcg/actuation mist for inhalation (Spiriva Respimat) meloxicam 15 mg tablet 15 mg PO DAILY 30 days #30 tabs 01/21/25 naproxen 500 mg tablet 500 mg PO BID PRN pain 7 days #14 04/12/25 tabs ondansetron 4 mg disintegrating 4 mg PO Q8H PRN nausea and 04/12/25 tablet vomiting #12 tabs Allergies Allergy/AdvReac Type Severity Reaction Status Date / Time cat dander Allergy Intermediate wheezing, Verified 04/12/25 13:26 sneezing Review of Systems Review of Systems: Yes all other systems are reviewed and are negative Cardiovascular: Cardiovascular: Reports chest pain Respiratory: Respiratory: Denies cough Gastrointestinal: Gastrointestinal: Denies abdominal pain Musculoskeletal: Musculoskeletal: Denies joint swelling [facility] Past Medical History Medical History Fibromyalgia Asthma Surgical History Hx of appendectomy History of cholecystectomy Family History Family History Mother Diabetes Father Hypertension Social History Social History Are you a primary child care centre director to a significant other at home: No Do you presently have visiting nurse or other home services: No Alcohol intake: never Patient Tobacco Use Status: Never used Tobacco Smoked in Last 30 Days: No Advance Directives: No Advance Directives Information Provided: No Patient : No Current occupational status: employed 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 Physical Exam ED Vital Signs: Vital Signs - 24 hr 04/12/25 13:22 04/12/25 13:59 04/12/25 17:04 Temperature 98.1 F Pulse Rate 73 69 69 Respiratory Rate 18 18 18 Blood Pressure 144/67 H 154/74 H 150/80 H Pulse Oximetry 100 100 100 Oxygen Delivery Method Room Air Room Air Room Air 04/12/25 17:29 04/12/25 17:29 04/12/25 17:30 Temperature Pulse Rate 72 66 74 Respiratory Rate Blood Pressure 128/74 146/86 H 151/85 H Pulse Oximetry Oxygen Delivery Method 04/12/25 19:28 04/12/25 21:30 Temperature 98.3 F Pulse Rate 75 75 Respiratory Rate 18 18 Blood Pressure 147/86 H 147/86 H Pulse Oximetry 100 100 Oxygen Delivery Method Room Air Room Air BMI result Body Mass Index 91.3 Const General: cooperative Resp Other: Lung sounds clear throughout Cardio Rate: regular rate Rhythm: regular rhythm Extrem Other: No calf tenderness or pedal edema Course Course Course Narrative: RME, this is a rapid medical exam performed by Randall Pardo please refer to primary provider for complete H&P- 39-year-old female presents for evaluation of chest pain. Plan for labs, EKG obtained on arrival. Reevaluation(s) Reevaluation #1: April 12, 6:55 p.m. patient is hemodynamically stable. IV fluid continues but slowly. Urinalysis is pending. She had mild nausea earlier which has since resolved with Zofran. Repleting potassium. Reassessment pending Patient reports good improvement after IV fluids and medication. She feels comfortable with discharge plan home. No further questions at this time. Patient to follow up PCP. Patient advised to return if any symptoms worsen to improve. Medications Administered Discontinued Medications Generic Name Dose Route Start Last Admin Trade Name Freq PRN Reason Stop Dose Admin Sodium Chloride 1,000 mls @ 999 mls/hr 04/12/25 17:30 04/12/25 19:30 Ns IV 04/12/25 18:30 Infused .Q1H1M THERESE Infusion Ketorolac Tromethamine 15 mg 04/12/25 17:28 04/12/25 17:42 Ketorolac Tromethamine 15 Mg/Ml Vial IVPUSH 04/12/25 17:29 15 mg ONCE ONE Administration Ondansetron HCl 4 mg 04/12/25 17:44 04/12/25 17:46 Ondansetron Hcl 4 Mg/2 Ml Vial IVPUSH 04/12/25 17:45 4 mg ONCE ONE Administration Potassium Chloride 40 meq 04/12/25 17:32 04/12/25 17:49 Potassium Chloride Packet 20 Meq Packet PO 04/12/25 17:33 40 meq ONCE ONE Administration Medical Decision Making Medical Decision Making MDM Narrative: 39-year-old female with 1 day history of chest pressure that associated lightheadedness. Hemodynamically stable at this time without any orthostasis. Trial of IV fluids and Toradol. We will replete potassium. No risk factors for PE or ACS. Urinalysis pending. Patient has a history of anemia which is baseline. Differential Diagnosis Differential Diagnoses: The differential diagnosis associated with the presentation includes Dehydration UTI Viral syndrome PE Anxiety Lab Data MDM Lab Attestation statement: I reviewed the patient's lab results. 04/12/25 14:06 04/12/25 14:06 Labs: Lab Results 04/12/25 04/12/25 04/12/25 Range/Units 14:06 17:57 19:28 WBC 7.6 (4.8-10.8) X10*3/uL RBC 4.55 (4.20-5.50) X10*6/uL Hgb 11.1 L (12.0-16.0) g/dl Hct 34.0 L (37.0-47.0) % MCV 74.7 L (80.0-98.0) fL MCH 24.4 L (27.0-33.0) pg MCHC 32.6 (31.0-35.0) g/dl RDW 17.0 H (11.0-16.0) % Plt Count 388 (160-400) X10*3/uL MPV 9.4 (9.4-12.3) fL Immature Gran % (Auto) 0.3 (0.0-0.4) % Neut % (Auto) 70.5 (45-73) % Lymph % (Auto) 20.1 (20-40) % Hardee % (Auto) 5.2 (2-11) % Eos % (Auto) 3.4 (0-4) % Baso % (Auto) 0.5 (0-2) % Lymph # (Auto) 1.5 (1.2-4.9) X10*3/uL Hardee # (Auto) 0.4 (0.1-1.2) X10*3/uL Eos # (Auto) 0.3 (0.0-0.4) X10*3/uL Baso # (Auto) 0.0 (0.0-0.2) X10*3/uL Abs Immat Gran (auto) 0.02 (0.00-0.03) X10*3/uL Absolute Neuts (auto) 5.4 (2.0-8.3) x10*3/uL Absolute Nucleated RBC 0.000 (0.0-0.012) X10*3/uL Nucleated RBC % (auto) 0.0 (0.0-0.2) /100WBC D-Dimer High Sensitivty < 150 NG/ML Sodium 140 (135-145) mmol/L Potassium 3.1 L (3.3-5.1) mmol/L Chloride 106 (96-108) mmol/L Carbon Dioxide 27 (22-29) mmol/L Anion Gap 10 L (12-20) BUN 7 L (9-16) mg/dL Creatinine 0.65 (0.5-1.4) mg/dL Estim Creat Clear Calc 231.5 Estimated GFR > 60 Random Glucose 84 (60-115) mg/dL Calcium 9.2 (8.4-10.2) mg/dL Total Bilirubin 0.2 (0.0-1.0) mg/dL AST 21 (5-31) U/L ALT 15 (0-31) U/L Alkaline Phosphatase 65 (39-117) U/L Troponin I High Sens < 2.7 (<3.5-17.0) ng/L Total Protein 7.2 (6.5-8.0) g/dL Albumin 4.2 (3.5-5.0) g/dL Lipase 16 (8-78) U/L Beta HCG, Quant < 2 mIU/mL Urine Color Yellow Urine Appearance Clear Urine pH 8.0 (5.0-9.0) Ur Specific Dietrich <= 1.005 (1.005-1.025) Urine Protein Negative (Neg-Trace) mg/dL Urine Glucose (UA) Negative (Negative) mg/dL Urine Ketones Negative (Negative) mg/dL Urine Blood Negative (Negative) Urine Nitrite Negative (Negative) Ur Leukocyte Esterase Negative (Negative) COVID-19 (NIKKIE) Negative (Negative) COVID-19 Clin Com See Note Influenza Type A (VERONICA) Negative (Negative) Influenza Type B (VERONICA) Negative (Negative) Influenza A & B Note See Note Independent Interpretation I performed an independent interpretation of an: EKG Radiology Impression Discussion of test interpretation with radiology: I have reviewed the radiologist's reading. Independent Historian Clinical information obtained from an independent historian. History obtained from or confirmed by: Spouse Discharge Plan Discharge Clinical Impression: Chest pain Qualifiers: Chest pain type: unspecified Qualified Code(s): R07.9 - Chest pain, unspecified Patient Disposition: Home, Self-Care Instructions: Chest Pain (ED) Additional Instructions: Rest. Avoid strenuous activity. Naproxen as directed. Take with food. Zofran as directed for nausea Drink plenty of fluids. Follow-up with your primary care provider. Call this week to schedule a follow-up appointment. Return to the emergency department if you have any worsening of symptoms, or any concerns. Get well soon! Prescriptions: New ondansetron 4 mg tablet,disintegrating 4 mg PO Q8H PRN (Reason: nausea and vomiting) Qty: 12 0RF naproxen 500 mg tablet 500 mg PO BID PRN (Reason: pain) 7 Days Qty: 14 0RF Rx Instructions: Take with food. No Action meloxicam 15 mg tablet 15 mg PO DAILY 30 Days Qty: 30 0RF sennosides [senna] 8.6 mg tablet 17.2 mg PO DAILY PRN (Reason: constipation) albuterol sulfate 90 mcg/actuation HFA aerosol inhaler 2 puff inhalation Q6H PRN (Reason: Shortness Of Breath Or Wheezing) budesonide-formoterol [Symbicort] 160-4.5 mcg/actuation HFA aerosol inhaler 2 puff inhalation BID cetirizine [Allergy Relief (cetirizine)] 10 mg tablet 10 mg PO DAILY PRN (Reason: asthma) ergocalciferol (vitamin D2) 1,250 mcg (50,000 unit) capsule 1,250 mcg PO QWEEK Spiriva Respimat 1.25 mcg/actuation mist 2 puff inhalation DAILY Qty: 4 3RF ipratropium-albuterol 0.5 mg-3 mg(2.5 mg base)/3 mL solution for nebulization 3 ml inhalation Q6H PRN (Reason: wheezing) Qty: 180 0RF ferrous sulfate 325 mg (65 mg iron) tablet,delayed release (DR/EC) 325 mg PO DAILY naproxen 500 mg tablet 500 mg PO BID PRN (Reason: back pain) Qty: 28 0RF Stand Alone Forms: Work/School Release Interventions: ED Discharge Assessment Last Done: 04/12/25 21:30 Discharge Date/Time: 04/12/25 21:31 Print Language: Czech
[2025-04-12 14:18] LABS: MANUAL DIFF FLAG NO
[2025-04-12 14:19] LABS: Hematocrit 34.0 % (37.0-47.0); Hemoglobin 11.1 g/dl (12.0-16.0); Imm Gran Abs Auto 0.02 X10*3/uL (0.00-0.03); Imm Gran Pct Auto 0.3 % (0.0-0.4); Lymphocytes Absolute Auto 1.5 X10*3/uL (1.2-4.9); Mean Corpuscular HGB Conc 32.6 g/dl (31.0-35.0); Mean Corpuscular Hemoglobin 24.4 pg (27.0-33.0); Mean Corpuscular Volume 74.7 fL (80.0-98.0); NRBC Abs Auto 0.000 X10*3/uL (0.0-0.012); NRBC Pct Auto 0.0 /100WBC (0.0-0.2); Platelet Count 388 X10*3/uL (160-400); Red Blood Count 4.55 X10*6/uL (4.20-5.50); White Blood Count 7.6 X10*3/uL (4.8-10.8)
[2025-04-12 14:38] LABS: COVID-19 Test Negative (Negative); IDNOW Serial# 55D5AD1C; IDNOW Serial# 58CA691E; Influenza B2 Negative (Negative)
[2025-04-12 14:43] LABS: Alanine Aminotransferase 15 U/L (0-31); Albumin Level 4.2 g/dL (3.5-5.0); Alkaline Phosphatase 65 U/L (39-117); Anion Gap 10 (12-20); Aspartate Amino Transferase 21 U/L (5-31); Blood Urea Nitrogen 7 mg/dL (9-16); Calcium 9.2 mg/dL (8.4-10.2); Carbon Dioxide 27 mmol/L (22-29); Chloride 106 mmol/L (96-108); Creatinine Clr Calc Pharmacy 231.5; Estimated Glomerular Filt Rate > 60; Lipase 16 U/L (8-78); Potassium 3.1 mmol/L (3.3-5.1); Sodium 140 mmol/L (135-145); Total Protein 7.2 g/dL (6.5-8.0)
[2025-04-12 14:44] LABS: Troponin-I High Sensitivity < 2.7 ng/L (<3.5-17.0)
--- OUTSIDE RECORDS SUMMARY | 2025-04-12 16:42 | XMS_ITS | Encounter Summary ---
Author Organization [employer] [facility] Address [address] [facility] 7t [place] [address] Care Team Providers Care Pipeliner Name Role Phone Angelica Newman MD Primary Care Provider [phone]- [phone] Mike Fontenot MD Unavailable Stephanie Strange Unavailable Herbert Self MD Unavailable [phone] Encounter Details Date Type Department Care Team (Late st Contact Info) Description 08/24/2022 Abstract [facility] MED[facility]INE [address] [place], [place] [phone] Angelica Newman MD [address] [place], [place] [phone] Social History Tobacco Use Types Packs/Day Years [...] Care Team (Late st Contact Info) Description 04/19/2025 9:30 AM EDT Procedure Visit [facility] [address] [place], [place] [phone] Angelica Newman MD [address] [place], [place] [phone] documented as of this encounter Procedures Procedure Name Priority Date/Time Associated Diagnosis Comments PAP SMEAR Routine 05/17/2018 12:00 AM EDT documented in this encounter Results * Pap Smear (05/17/2018 12:00 AM EDT) Swab us Historical Provider LAB CYTOLOGY ORDERABLES F inal Result IMAGING documented in this encounter Visit Diagnoses Not on filedocumented in this encounter Care Teams Pipeliner Relationship Specialty Start Date End Date Angelica Newman MD [address] [place] [address] PCP - General Family Medicine 08/04/12 Mike Fontenot MD [address] [place] [address] Orthopaedic Surgery 06/13/24 Stephanie Strange [address] [place] [address] Obstetrics and Gynecology 08/08/24 [place] [address] [place] [phone] Rheumatology 08/08/24 documented as of this encounter
--- OUTSIDE RECORDS SUMMARY | 2025-04-12 16:42 | XMS_ITS | Encounter Summary ---
Author Organization [employer] Address [address] [facility] [address] 7t [place] [address] Care Team Providers Care Centrifugal Supervisor Name Role Phone Angelica Newman MD Primary Care Provider [phone] Mike Fontenot MD Unavailable Stephanie Strange Unavailable Herbert Self MD Unavailable [phone] Encounter Details Date Type Department Care Team (Late st Contact Info) Description 08/16/2023 Orders Only [facility] MEDICINE 230 [place] [address] Trupti Parada MD 230 [place], [place] [phone] Chronic pain of left knee (Primary Dx) [...] Description 04/19/2025 9:30 AM EDT Procedure Visit [facility] [address] [place] [address] Angelica Newman MD [address] [place] [address] Scheduled Orders Name Type Priority Associated Diagnoses [...] documented as of this encounter Care Teams Centrifugal Supervisor Relationship Specialty Start Date End Date Angelica Newman MD [address] [place] [address] PCP - General Family Medicine 08/04/12 Mike Fontenot MD [address] [place] [address] Orthopaedic Surgery 06/13/24 Stephanie Strange [address] [address] Obstetrics and Gynecology 08/08/24 Herbert Self MD [address] [place] [address] Rheumatology 08/08/24 documented as of this encounter
--- OUTSIDE RECORDS SUMMARY | 2025-04-12 16:42 | XMS_ITS | Encounter Summary ---
Author Organization [employer] Address 75 [facility] 7t [place] [address] Care Team Providers Care Laundry Or Dry Cleaners Counter Clerk Name Role Phone Angelica Newman MD Primary Care Provider [phone] Mike Fontenot MD Unavailable Stephanie Strange Unavailable Herbert Self MD Unavailable [phone] Reason for Visit * Reason Onset Date Comments Nurse Triage 02/22/2024 Encounter Details Date Type Department Care Team (Late st Contact Info) Description 02/22/2024 Telephone [facility] MEDICINE 230 [place], [place] [phone] Angelica Newman MD 230 [place], [place] [phone] Nurse Triage Social History Tobacco Use Types [...] no acute shortness of breath. No wheezing. Quinton feverish yesterday. Has only had nebulizer medicine at home as she has not been able to afford co pays for other medications. Agrees to have case management contact her to see if she can get some assistance. ASK/Tristan [employer] BU[employer] PACKER today at 1115am. Protocol Used: Asthma Attack [...] Upcoming Encounters Date Type Department Care Team ([facility] st Contact Info) Description 04/19/2025 9:30 AM EDT Procedure Visit [facility] MEDICINE 230 [place] [address] Angelica Newman MD [address] [place] [address] documented as of this encounter Visit Diagnoses Not on filedocumented in this encounter Additional Health Concerns Assessment Noted Time PHQ-9 Depression Total Score: 0 01/25/20 24 10:23 AM EDT documented as of this encounter Care Teams Laundry Or Dry Cleaners Counter Clerk Relationship Specialty Start Date End Date Angelica Newman MD 230 [place] [address] PCP - General Family Medicine 08/04/12 Mike Fontenot MD [address] [place] [address] Orthopaedic Surgery 06/13/24 Stephanie Strange [address] [place] [address] Obstetrics and Gynecology 08/08/24 [place] [address] [place] [phone] Rheumatology 08/08/24 documented as of this encounter
--- OUTSIDE RECORDS SUMMARY | 2025-04-12 16:42 | XMS_ITS | Encounter Summary ---
Author Organization [employer] Address [address] [facility] [address] 7t [place] [address] Care Team Providers Care Network Support Analyst Name Role Phone Angelica Newman MD Primary Care Provider [phone]- [phone] Mike Fontenot MD Unavailable Stephanie Strange Unavailable Herbert Self MD Unavailable [phone] Encounter Details Date Type Department Care Team (Late st Contact Info) Description 04/12/2025 Orders Only [facility] External Provider, [facility] Social History Tobacco Use Types Packs/Day Years Used Date Smoking Tobacco: Never Passive Smoke Exposure: Never Smokeless Tobacco: Never Alcohol Use Standard Drinks/Week Comments Never 0 (1 standard drink = 0.6 oz pur e alcohol) Depression Answer Date Recorded Patient Health Questionnaire-9 Score 19 03/22/2025 Patient Health Questionnaire-9 Score 19 03/22/2025 Last PHQ-9: Questionnaire Data Not on file 0 03/22/2025 Housing Stability Answer Date Recorded What is [...] Answer Date Recorded Patient Health Questionnaire-2 Score 4 03/22/2025 Internet Access Answer Date Recorded Internet Access [...] Upcoming Encounters Date Type Department Care Team ([facility] st Contact Info) Description 04/19/2025 9:30 AM EDT Procedure Visit [facility] MEDICINE 230 [place], [place] [phone] Angelica Newman MD 230 [place] [address] documented as of this encounter Procedures Procedure Name Priority Date/Time Associated Diagnosis Comments INFLUENZA A B2 ID NOW (MASON) Routine 04/12/2025 2:06 PM EDT COVID-19 ID NOW (MASON) Routine 04/12/2025 2:06 PM EDT HIGH SENSITIVITY TROPONIN I Routine 04/12/2025 2:06 PM EDT CBC WITH AUTO DIFFERENTIAL Routine 04/12/2025 2:06 PM EDT HCG, TOTAL, QN Routine 04/12/2025 2:06 PM EDT LIPASE Routine 04/12/2025 2:06 PM EDT COMPREHENSIVE METABOLIC PANEL Routine 04/12/2025 2:06 PM EDT XR CHEST 2 VIEWS Routine 04/12/2025 1:45 PM EDT documented in this encounter Results * High Sensitivity Troponin I (04/12/2025 2:06 PM EDT) TROPONIN I HIGH SENSITIVITY <2.7 <3.5 - 17.0 ng/L [facility] Comment:The Mason high sens itivity Troponin-I results should beused in conjunction with other diagnostic information suchas ECG, clinical observations and information, and patientsymptoms to aid in the diagnosis of [place]. 04/12/2025 2:06 PM EDT 04/12/2025 2:16 PM EDT us Generic External Data Provider LAB BLOOD ORDERAB LES Final Result [facility] [address] [place] [phone] * hCG, Total, Quantitative (04/12/2025 2:06 PM EDT) Pathologist [facility] HCG Quantitative <2 mIU/mL [facility] Comment:Weeks post LMP Appro ximate hCG(Last Menstrual Period) Range (mIU/ml)3 - 4 weeks 9 - 1304 - 5 weeks 75 - 2,6005 - 6 weeks 850 - 20,8006 - 7 weeks 4000 - 100,2007 - 12 weeks 11,500 - 289,16282 - 16 weeks 18,300 - 137,81342 - 29 weeks (2nd trimester) 1,400 - 53,32084 - 41 weeks (3rd trimester) 940 - 60,000The Mason B- hCG assay is used for the early detection ofpregnancy; it cannot be used to diagnose any conditionunrelated to . If a B-hCG level is not supportedby the clinical evidence, results should be confirmed by analternative method (qualitative urine hCG, for example). 04/12/2025 2:06 PM EDT 04/12/2025 2:16 PM EDT us Generic External Data Provider LAB BLOOD ORDERAB LES Final Result [facility] [address] [place] [address] [phone] * Lipase (04/12/2025 2:06 PM EDT) Lipase 16 8 - 78 U/L [facility] 04/12/2025 2:06 PM EDT 04/12/2025 2:16 PM EDT us Generic External Data Provider LAB BLOOD ORDERAB LES Final Result Performing Organization Address [facility]/ZIP Co de Phone Number [facility] [address] [place] [address] [phone] * (ABNORMAL) Comprehensive Metabolic Panel (04/12/2025 2:06 PM EDT) Sodium 140 135 - 145 mmol/L [facility] Potassium 3.1(L) 3.3 - 5.1 mmol/L [facility] Chloride 106 96 - 108 mmol/L [facility] Carbon Dioxide 27 22 - 29 mmol/L [facility] Anion Gap 10(L) 12 - 20 [facility] Urea Nitrogen (BUN) 7(L) 9 - 16 mg/dL [facility] Creatinine, Serum 0.65 0.5 - 1.4 mg/dL [facility] Creatinine Clr Calc Pharmacy 231.5 [facility] Comment:Provided height and weight: 160.02 cm,233.8 kg.eGFR (calculated from the MDRD study equation) and eCrCl(calculated from the Cockcroft-Gault equation) are based ondifferent parameters and may not yield comparable results.If eCrCl result is absurd, please check patient'sheight/weight. Estimated Glomerular Filt Rate >60 [facility] Comment:Chronic Kidney Disea se: Estimated GFR < 60 mL/min/1.76f2Dilzyr Kidney Disease: Estimated GFR < 15 mL/min/1.73m2 Glucose 84 60 - 115 mg/dL [facility] Calcium 9.2 8.4 - 10.2 mg/dL [facility] Bilirubin, Total 0.2 0.0 - 1.0 mg/dL [facility] Aspartate Amino Transferase 21 5 - 31 U/L [facility] Alanine Aminotransferase 15 0 - 31 U/L [facility] Total Protein 7.2 6.5 - 8.0 g/dL [facility] Albumin Level 4.2 3.5 - 5.0 g/dL [facility] Alkaline Phosphatase 65 39 - 117 U/L [facility] 04/12/2025 2:06 PM EDT 04/12/2025 2:16 PM EDT us Generic External Data Provider LAB BLOOD ORDERAB LES Final Result [facility] [address] [place] [address] [phone] * COVID-19 ID NOW ([employer]) (04/12/2025 2:06 PM EDT) IDNOW SERIAL# [id number] [facility] COVID-19 TEST Negative Negative [facility] COVID-19 NOTE See Note [facility] Comment: Results are for the identification of SARS-CoV2 RNA. TheSARS-CoV2 RNA is generally detectable in respiratory samplesduring the acute phase of infection. Positive results areindicative of the presence of SARS-CoV-2 RNA; clinicalcorrelation with patient history and other diagnosticinformation is necessary to determine patient infectionstatus. Positive results do not rule out bacterial infectionor co- infection with other viruses.Testing facilities within the [facility] and itsterritories are required to report all positive results tothe appropriate public health authorities.Negative results should be treated as presumptive and, ifinconsistent with clinical signs and symptoms or necessaryfor patient management, should be tested with differentauthorized or cleared molecular tests. Negative results donot preclude SARS-CoV2 RNA infection and should not be usedas the sole basis for patient management decisions. Negativeresults should be considered in the context of a patient'srecent exposures, history and the presence of clinical signsand symptoms consistent with COVID-19.This test has been authorized by the FDA under an EmergencyUse Authorization (EUA) for use by authorized laboratories.Testing performed on the Mason ID NOW utilizing NAAT. 04/12/2025 2:06 PM EDT 04/12/2025 2:16 PM EDT Generic External Data Provider LAB MOLECULAR DARRION GNOSTICS ORDERABLES Final Result Performing Organization Address [facility] Co de Phone Number [facility] [address] [place] [phone] * Influenza A B2 ID NOW (Mason) (04/12/2025 2:06 PM EDT) Pathologist [facility] IDNOW SERIAL# [id number] [facility] Influenza A Negative Negative [facility] Influenza B2 Negative Negative [facility] Influenza A B2 Note See Note [facility] Comment:The Mason ID NOW In fluenza A B2 test is used for thequalitative detection of influenza A and B from patientswith signs and symptoms of respiratory infection.Negative results do not preclude influenza virus infectionand should not be used as the sole basis for diagnosis,treatment or other patient management decisions.There is a risk of false negative results due to thepresence of variants in the viral targets of the assay, lowlevels of virus in the specimen and co- infection withRespiratory Syncytial Virus. 04/12/2025 2:06 PM EDT 04/12/2025 2:16 PM EDT Generic External Data Provider LAB MICROBIOLOGY - GENERAL ORDERABLES Final Result Performing Organization Address [facility] Co de Phone Number [facility] [address] [place] [phone] * (ABNORMAL) CBC auto differential (04/12/2025 2:06 PM EDT) White Blood Count 7.6 4.8 - 10.8 X10*3/uL [facility] Red Blood Count 4.55 4.20 - 5.50 X10*6/uL [facility] Hemoglobin 11.1(L) 12.0 - 16.0 g/dl [facility] Hematocrit 34.0(L) 37.0 - 47.0 % [facility] Mean Corpuscular Volume 74.7(L) 80.0 - 98.0 fL [facility] Mean Corpuscular Hemoglobin 24.4(L) 27.0 - 33.0 pg [facility] Mean Corpuscular HGB Conc 32.6 31.0 - 35.0 g/dl [facility] Red Cell Distribution Width 17.0(H) 11.0 - 16.0 % [facility] Platelet Count 388 160 - 400 X10*3/uL [facility] Mean Platelet Volume 9.4 9.4 - 12.3 fL [facility] Neutrophils Percent Auto 70.5 45 - 73 % [facility] Imm Gran Pct Auto 0.3 0.0 - 0.4 % [facility] Lymphocytes Percent Auto 20.1 20 - 40 % [facility] Monocytes Percent Auto 5.2 2 - 11 % [facility] Eosinophils Percent Auto 3.4 0 - 4 % [facility] Basophils Percent Auto 0.5 0 - 2 % [facility] NRBC Pct Auto 0.0 0.0 - 0.2 /100WBC [facility] Neutrophils Absolute Auto 5.4 2.0 - 8.3 x10*3/uL [facility] Imm Gran Abs Auto 0.02 0.00 - 0.03 X10*3/uL [facility] Lymphocytes Absolute Auto 1.5 1.2 - 4.9 X10*3/uL [facility] Monocytes Absolute Auto 0.4 0.1 - 1.2 X10*3/uL [facility] Eosinophils Absolute Auto 0.3 0.0 - 0.4 X10*3/uL [facility] Basophils Absolute Auto 0.0 0.0 - 0.2 X10*3/uL [facility] NRBC Abs Auto 0.000 0.0 - 0.012 X10*3/uL [facility] 04/12/2025 2:06 PM EDT 04/12/2025 2:16 PM EDT us Generic External Data Provider LAB BLOOD ORDERAB LES Final Result Performing Organization Address City/State/[facility] Co de Phone Number [facility] [address] [place] [phone] * XR Chest 2 Views (04/12/2025 1:45 PM EDT) Anatomical Region Laterality Modality Chest Radiographic Naomi ging 04/12/2025 1:45 PM EDT Narrative 04/12/2025 1:58 PM EDT [address] [address] XRay Report Signed Patient: Brigette Burt MR#: [id number] : 1985 Acct:[id number] Age/Sex: 39 / F ADM Date: 04/12/25 Loc: .ED Attending Dr: Ordering Physician: Javy Pardo Date of Service: 04/12/25 Procedure(s): XR chest 2V Accession Number(s): [id number] cc: Angelica Newman MD; Javy Pardo Reason for Exam: dyspnea EXAMINATION: XR CHEST CLINICAL INFORMATION: dyspnea COMPARISON: 05/05/2024 TECHNIQUE: 2 views of the chest were obtained. FINDINGS: No significant abnormality is noted involving the heart, lungs, mediastinum, bony thorax or soft tissues. XR/XR chest 2V IMPRESSION: No acute disease. Electronically signed by: Will Ramsay MD 04/12/2025 01:55 PM EDT Dictated By: Will Ramsay MD Signed By: <Electronically signed by Will Ramsay MD in OV> 04/12/25 1355 DD/ 1345 TD/TT: 04/12/25 1347 Sales Development Executive: Procedure Note Donotuseinterpreter, Image - 04/12/2025 [facility] [address] [place] [address] XRay Report Signed Patient: Demetra Burt#: [id number] : 1985Acct:[id number] Age/Sex: 39 / FADM Date: 04/12/25 Loc: .ED Attending Dr: Ordering Physician: Javy Pardo Date of Service: 04/12/25 Procedure(s): XR chest 2V Accession Number(s): [id number] cc: Angelica Newman MD; Javy Pardo Reason for Exam: dyspnea EXAMINATION: XR CHEST CLINICAL INFORMATION: dyspnea COMPARISON: 05/05/2024 TECHNIQUE: 2 views of the chest were obtained. FINDINGS: No significant abnormality is noted involving the heart, lungs, mediastinum, bony thorax or soft tissues. XR/XR chest 2V IMPRESSION: No acute disease. Electronically signed by: Will Ramsay MD 04/12/2025 01:55 PM EDT RP Dictated By: Will Ramsay MD Signed By: <Electronically signed by Will Ramsay MD in OV> 04/12/25 1355 DD/ 1345 TD/TT: 04/12/25 1347 Sales Development Executive: [facility] External Provider IMG XR PROCEDURES Final Result documented in this encounter Visit Diagnoses Not on filedocumented in this encounter Additional Health Concerns Assessment Noted Time PHQ-9 Depression Total Score: 19 025 11:57 AM EDT documented as of this encounter Care Teams Network Support Analyst Relationship Specialty Start Date End Date Angelica Newman MD [address] [place] [address] PCP - General Family Medicine 08/04/12 Mike Fontenot MD [address] [place] [address] Orthopaedic Surgery 06/13/24 Stephanie Strange [address] [address] Obstetrics and Gynecology 08/08/24 Herbert Self MD [address] [place] [address] Rheumatology 08/08/24 documented as of this encounter
--- OUTSIDE RECORDS SUMMARY | 2025-04-12 16:42 | XMS_ITS | Encounter Summary ---
Author Organization [employer] Address [address] [facility] [address] 7t [place] [address] Care Team Providers Care Band Booker Name Role Phone Angelica Newman MD Primary Care Provider [phone] Mike Fontenot MD Unavailable Stephanie Strange Unavailable Herbert Self MD Unavailable [phone] Encounter Details Date Type Department Care Team (Late st Contact Info) Description 08/26/2023 Telephone [facility] MEDICINE [address] [place] [address] Angelica Newman MD [address] [place], [place] [phone] Social History Tobacco Use Types Packs/Day Years [...] Description 04/19/2025 9:30 AM EDT Procedure Visit [facility] [address] [place] [address] Angelica Newman MD [address] [place] [address] documented as of this encounter Visit Diagnoses Not on filedocumented in this encounter Additional Health Concerns Assessment Noted Time PHQ-9 Depression Total Score: 14 023 10:17 AM EDT documented as of this encounter Care Teams Band Booker Relationship Specialty Start Date End Date Angelica Newman MD [address] [place] [address] PCP - General Family Medicine 08/04/12 Mike Fontenot MD [address] [place] [address] Orthopaedic Surgery 06/13/24 Stephanie Strange [address] [place] [address] Obstetrics and Gynecology 08/08/24 Herbert Self MD [address] [place] [address] Rheumatology 08/08/24 documented as of this encounter
--- OUTSIDE RECORDS SUMMARY | 2025-04-12 16:42 | XMS_ITS | Encounter Summary ---
Author Organization [employer] [facility] Address [address] [facility] 7t [place] [address] Care Team Providers Care Production Shift Supervisor Name Role Phone Angelica Newman MD Primary Care Provider [phone] Mike Fontenot MD Unavailable Stephanie Strange Unavailable Herbert Self MD Unavailable [phone] Encounter Details Date Type Department Care Team (Late st Contact Info) Description 03/23/2023 Orders Only [facility] MED[facility]INE [address] [place], [place] [phone] Angelica Newman MD [address] [place], [place] [phone] Social History Tobacco Use Types Packs/Day Years [...] 9:30 AM EDT Procedure Visit [facility] [address] [place], [place] [phone] Angelica Newman MD [address] [place], [place] [phone] documented as of this encounter Visit Diagnoses Not on filedocumented in this encounter Care Teams Production Shift Supervisor Relationship Specialty Start Date End Date Angelica Newman MD [address] [place] [address] PCP - General Family Medicine 08/04/12 Mike Fontenot MD [address] [place] [address] [address] [place] [address] Orthopaedic Surgery 06/13/24 Stephanie Strange [address] [place] [address] Obstetrics and Gynecology 08/08/24 [place] [address] [place] [phone] Rheumatology 08/08/24 documented as of this encounter
--- OUTSIDE RECORDS SUMMARY | 2025-04-12 16:42 | XMS_ITS | Encounter Summary ---
Author Organization [employer] Address [address] [facility] 7t [place] [address] Care Team Providers Care Executive Director Sheltered Workshop Name Role Phone Angelica Newman MD Primary Care Provider [phone] Mike Fontenot MD Unavailable Stephanie Strange Unavailable Herbert Self MD Unavailable [phone] Reason for Visit * Reason Comments Med Refill Encounter Details Date Type Department Care Team (Late st Contact Info) Description 12/19/2023 Refill [facility] [address] [place], [place] [phone] Angelica Newman MD [address] [place] [address] Social History Tobacco Use Types Packs/Day Years [...] Description 04/19/2025 9:30 AM EDT Procedure Visit [facility] [address] [place] [address] Angelica Newman MD [address] [place], [place] [phone] documented as of this encounter Visit Diagnoses Not on filedocumented in this encounter Additional Health Concerns Assessment Noted Time PHQ-9 Depression Total Score: 14 023 10:17 AM EDT documented as of this encounter Care Teams Executive Director Sheltered Workshop Relationship Specialty Start Date End Date Angelica Newman MD [address] [place] [address] PCP - General Family Medicine 08/04/12 Mike Fontenot MD [address] [place] [address] Orthopaedic Surgery 06/13/24 Stephanie Strange [address] [place] [address] Obstetrics and Gynecology 08/08/24 [place] [address] [place] [phone] Rheumatology 08/08/24 documented as of this encounter
--- OUTSIDE RECORDS SUMMARY | 2025-04-12 16:42 | XMS_ITS | Encounter Summary ---
Author Organization [facility] Address [address] [place] [address] Care Team Providers Care Spa Therapist Name Role Phone Angelica Newman MD Primary Care Provider [phone] Mike Fontenot MD Unavailable Stephanie Strange Unavailable Herbert Self MD Unavailable [phone] Encounter Details Date Type Department Care Team (Late Contact Info) Description 06/23/2022 Orders Only [facility] [address] [place] [address] [facility] [address] [place], [place] [phone] Palpitations (Primary Dx) Social History Tobacco Use [...] Department Care Team (Late Contact Info) Description 04/19/2025 9:30 AM EDT Procedure Visit [facility] [address] [place] [address] Angelica Newman MD [address] [place] [address] documented as of this encounter Visit Diagnoses Diagnosis Palpitations- Primary documented in this encounter Care Teams Spa Therapist Relationship Specialty Start Date End Date Angelica Newman MD [address] [place] [address] PCP - General Family Medicine 08/04/12 Mike Fontenot MD [address] [place] [address] [address] [id number] Orthopaedic Surgery 06/13/24 Stephanie Strange [address] [place] [phone] Obstetrics and Gynecology 08/08/24 Herbert Self MD [address] [place] [phone] Rheumatology 08/08/24 documented as of this encounter
--- OUTSIDE RECORDS SUMMARY | 2025-04-12 16:43 | XMS_ITS | Encounter Summary ---
Author Organization [employer] Address [address] [facility] [address] [place] [address] Care Team Providers Care Woodenware Assembler Name Role Phone Angelica Newman MD Primary Care Provider [phone] Mike Fontenot MD Unavailable Stephanie Strange Unavailable Herbert Self MD Unavailable [phone] Encounter Details Date Type Department Care Team (Late st Contact Info) Description 08/08/2024 Orders Only [facility] [address] [place] [address] Angelica Newman MD [address] [place], [place] [phone] Iron deficiency anemia, unspecified iron deficiency anemia [...] 9:30 AM EDT Procedure Visit [facility] [address] [place], [place] [phone] Angelica Newman MD [address] [place] [address] documented as of this encounter Procedures Procedure Name Priority Date/Time Associated Diagnosis Comments IMMUNOGLOBULIN E Routine 08/08/2024 11:4 2 AM EST Iron deficiency anemia, unspecified iron deficiency anemia type documented in this encounter Results * Immunoglobulin E (08/08/2024 11:42 AM EST) Immunoglobulin E 53 <[id number] kU/L [facility] Comment:THIS TEST WAS PERFOR MED AT:[employer] [place] [id number] HWANG MD 08/08/2024 11:4 2 AM EST 08/08/2024 1:27 PM EST us Generic External Data Provider LAB BLOOD ORDERAB LES Final Result [facility] [address] [place] [address] [phone] documented in this encounter Visit Diagnoses Diagnosis Iron deficiency anemia, unspecified iron deficiency anemia type documented in this encounter Additional Health Concerns Assessment Noted Time PHQ-9 Depression Total Score: 0 01/25/20 10:23 AM EDT documented as of this encounter Care Teams Woodenware Assembler Relationship Specialty Start Date End Date Angelica Newman MD [address] [place] [address] PCP - General Family Medicine 08/04/12 Mike Fontenot MD [address] [place] [address] Orthopaedic Surgery 06/13/24 Stephanie Strange [address] [place] [phone] Obstetrics and Gynecology 08/08/24 [place] [address] [place] [phone] Rheumatology 08/08/24 documented as of this encounter
--- OUTSIDE RECORDS SUMMARY | 2025-04-12 16:43 | XMS_ITS | Clinical Summary ---
Author Organization [employer] Address [address] [facility] [address] [place] [address] Care Team Providers Care Refinery [employer] Name Role Phone Angelica Newman MD Primary Care Provider [phone] Mike Fontenot MD Unavailable Stephanie Strange Unavailable Herbert Self MD Unavailable [phone] Allergies No known active allergies Medications * This document contains information received from the source organization and may not represent a complete record from that organization. albuterol (2.5 MG/3ML) 0.083% nebulizer solutionIndicat ions:Moderate persistent asthma with exacerbation Take 3 mL (2.5 mg) by nebulization every 4 (four) hours if needed for wheezing. 75 mL 3 024 Active montelukast (Singulair) 10 MG tabletIndicatio ns:Moderate persistent asthma without complication 10 MG ORALLY BEDTIME 024 Active fluticasone (Flonase) 50 MCG/ACT nasal sprayIndication s:Seasonal allergies Administer 1-2 sprays into each nostril Once per day. Shake gently. Before first use, prime pump. After use, clean tip and replace cap. 16 g 2 024 Active cetirizine (Allergy, Cetirizine,) 10 MG tabletIndicatio ns:Seasonal allergies 10 mg. 024 Active senna (Senokot) 8.6 MG tabletIndicatio ns:Constipation , unspecified constipation type Take 1 tablet (8.6 mg) by mouth at bedtime. 60 tablet 2 025 Active albuterol 108 (90 Base) MCG/ACT inhalerIndicati ons:Moderate persistent asthma with acute exacerbation INHALE 2 PUFFS EVERY 6 HOURS IF NEEDED FOR WHEEZING. 8.5 g 11 025 Active budesonide-form oterol (Symbicort) 160-4.5 MCG/ACT inhalerIndicati ons:Mild intermittent asthma without complication TAKE 2 PUFFS BY MOUTH TWICE A DAY IN THE MORNING AND IN THE EVENING 10.2 each 3 025 Active ferrous sulfate 325 (65 Fe) MG EC tabletIndicatio ns:Iron deficiency anemia, unspecified iron deficiency anemia type Take 1 tablet (325 mg) by mouth with breakfast. TAKE 1 TABLET BY MOUTH EVERY DAY. DO NOT CRUSH, CHEW, OR SPLIT. Frequency increased 90 tablet 025 Active meloxicam (Mobic) 15 MG tabletIndicatio ns:Chronic pain of both knees Take 15 mg by mouth. Active buPROPion (Wellbutrin) 100 MG tabletIndicatio ns:Mood disorder (CMS/HCC) Take 1 tablet (100 mg) by mouth 2 times daily. 60 tablet 3 025 2025 Active DULoxetine (Cymbalta) [address] capsuleIndicati ons:Fibromyalgi a Take 30 mg by mouth Once per day. 2024 Discontinued meloxicam (Mobic) 15 MG tablet 025 2024 Discontinued(M ed list cleanup (will not trigger notification to Pharmacy)) Ascorbic Acid (vitamin C) 250 MG tablet Take 1 tablet (250 mg) by mouth Once per day. 90 tablet 025 2024 Discontinued(M ed list cleanup (will not trigger notification to Pharmacy)) Active Problems Problem Noted Date Diagnosed Date [...] -weight loss advised and f w PCP Seasonal allergies 08/08/2024 Constipation 08/08/2024 Overview (08/08/2024): [...] repeat labs. Elevated erythrocyte sedimentation rate 01/25/20 Class 3 severe obesity due t o excess calories with serious comorbidity and body mass index (BMI) of 40.0 to 44.9 in adult 01/25/2024 Overview (03/22/2025): Baseline weight 250lbs 07/18/24 BMI Readings from Last 3 Encounters: 03/22/25 42.55 kg/m 01/22/25 43.47 kg/m 08/08/24 44.29 kg/m Wt Readings from Last 3 Encounters: 03/22/25 240 lb 3.2 oz (109 kg) 01/22/25 245 lb 6 oz (111 kg) 08/08/24 250 lb (113 kg) Discussed weight, diet, exercise with patient in relation to health conditions. Used motivational interviewing to illicit change talk and established initial goals with patient. -ordered routine labs 08/08/24 Assessment & Plan (03/25/2025 9:45 AM EDT): -start Welbutrin 100 milligrams twice a day. She's not a candidate for Phentermine given her anxiety and palpitation history. She will self-refer to weight management clinic Assessment & Plan (08/08/2024 11:25 AM EST): Discussed weight, diet, exercise with patient in relation to health conditions. Used motivational interviewing to illicit change talk and established initial goals with patient. -ordered routine labs 08/08/24 Pap smear for cervical cancer screening 01/25/20 Overview (08/08/2024): -will call [facility] to make appt today for PAP smear, 01/25/24 -has appt to have PAP done in September 2024. Assessment & Plan (08/08/2024 11:07 AM EST): -will call [facility] to make appt today for PAP smear, 01/25/24 -has appt to have PAP done in September 2024. Assessment & Plan (01/25/2024 10:46 AM EDT): -will call [facility] to make appt today for PAP smear, 01/25/24 Acute pain of left knee 07/20/2023 Overview (02/27/2025): -referral to PT sent 07/20/23 -ween by [facility] 11/04/23 for left knee injection, which [...] due after 08/08/25 -eye care facilitated by [facility] is encourage to make appt -Healthcare proxy given and filed 01/25/24 Assessment & Plan (08/08/2024 11:08 AM EST): -next physical exam due after 08/08/25 -eye care facilitated by [facility] is encourage to make appt -Healthcare proxy given and filed 01/25/24 Assessment & Plan (01/25/2024 10:43 AM EDT): -next physical exam due after 07/20/2024 -eye care facilitated by [facility] is encourage to make appt -Healthcare proxy given and filed 01/25/24 Assessment & Plan (07/20/2023 10:48 AM EST): -next physical exam due after 07/20/2024 -eye care facilitated by [facility] is encouraged to make appt Mild [...] modifications -Continue current medications Assessment & Plan (03/25/2025 9:45 AM EDT): -Blood pressure is at goal [...] Overview (07/20/2023): Lab Results Component Value Date [id number] 62 09/10/2022 VITD3 62 09/10/2022 VITD2 <8 09/10/2022 Assessment & Plan (07/20/2023 9:03 AM EST): No results found for: [id number] Lab Results Component Value Date [id number] 62 09/10/2022 VITD3 62 09/10/2022 VITD2 <8 09/10/2022 Moderate persistent asthma 09/17/2020 Overview (08/08/2024): -Seen by pulmonology with Lavonne Zuluaga NP 11/22/23 PFT ordered -Singular added 11/11/23, pt started 11/22/23 -continue albuterol prn -has FMLA for exacerbations. Assessment & Plan (03/25/2025 9:45 AM EDT): -Currently well controlled. -Seen by pulmonology with Lavonne Zuluaga FINANCE ASSISTANT 11/22/23 PFT ordered -Singular added 11/11/23, pt started 11/22/23 -continue albuterol prn -has FMLA for exacerbations. Assessment & Plan (08/08/2024 11:24 AM EST): -Seen by pulmonology with Lavonne Zuluaga FINANCE ASSISTANT 11/22/23 PFT ordered -Singular added 11/11/23, pt started 11/22/23 -continue albuterol prn -has FMLA for exacerbations. Assessment & Plan (02/22/2024 7:15 PM EDT): Limited aeration despite IRINA usage, rx for prednisone 40 mg prescribed, resume rescue inhalers this evening Call for persistent or worsening symptoms Assessment & Plan (01/25/2024 8:03 AM EDT): -Seen by pulmonology with Lavonne Zuluaga FINANCE ASSISTANT 11/22/23 PFT ordered -Duo neb and Spiriva [...] 10mg. . -Restarted vitamin D 04/2021 -Saw stenciler recently has follow-up on 08/10/24. -Stable on [...] 10mg. . -Restarted vitamin D 04/2021 -Saw stenciler recently has follow-up on 08/10/24. -Stable on [...] Allergic rhinitis 10/02/2012 Overview (07/20/2023): Referral to critical care physician sent 07/20/23 Assessment & Plan (07/20/2023 10:52 AM EST): Referral to critical care physician sent 07/20/23 Resolved Problems Problem Noted Date Diagnosed Date Resolved Date Dietary counseling 08/08/2024 Assessment & Plan [...] saturated fat, and sodium. 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 PLAN: 1. Follow up with [facility]: Recommended for follow-up: Scheduled BE [...] support. PLAN: 1. Follow up with [facility]: Recommended for follow-up: Scheduled BE [...] support. PLAN: 1. Follow up with [facility]: Recommended for follow-up: Scheduled BE in three weeks 2. Patient goal is to feel less anxious and start therapy 3. Behavioral Recommendations a. Referral for OP individual therapy b. Incorporate coping skills into daily routine Encounters Date Type Department Care Team Description 04/12/2025 Orders Only [facility] External Provider, [facility] 03/22/2025 11:30 AM EDT Office Visit [facility] [address] [place] [phone] Angelica Newman MD Benign hypertension (Primary Dx); Moderate persistent asthma with acute exacerbation; Chronic pain of both knees; Positive depression screening; Mood disorder (CMS/HCC); Class 3 severe obesity due to excess calories with serious comorbidity and body mass index (BMI) of 40.0 to 44.9 in adult; Dietary counseling; Exercise counseling; Encounter for immunization 03/22/2025 Travel 03/15/2025 Patient Outreach [facility] [address] [place] [phone] Angelica Newman MD Pre-visit Planning (Pre visit planning LVM ) 03/15/2025 Travel 02/08/2025 Orders Only [address] [address] Mariel Lee MD Synovial cyst of popliteal space, unspecified laterality (Primary Dx) 02/08/[address] [address] Angelica Newman MD Referral 02/04/[address] [address] Angelica Newman MD Medication Question 01/23/2025 Orders Only [address] [address] Mariel Lee MD Iron deficiency anemia, unspecified iron deficiency anemia type 01/23/2025 Results Follow-Up [facility] [address] [place] [phone] Angelica Newman MD [facility] US Lower Extremity Venous Duplex Bilateral 01/22/2025 10:00 AM EDT Office Visit [facility] [address] [place] [address] Mariel Lee MD Anemia, unspecified type (Primary Dx); Lower extremity edema; Bilateral lower extremity edema 01/22/2025 Results Follow-Up [facility] [address] [place] [address] Mariel Lee MD CBC auto differential 01/22/2025 Travel 01/21/2025 Telephone [facility] [address] [place] [address] Angelica Newman MD Chart Prep 01/21/[address] [address] Angelica Newman MD Nurse Triage from Last 3 Months Immunizations Immunization Administration Dates Next Due HPV, Quadrivalent 09/15/2012,05/02/2012,02/18/20 12 Hep B, adult 01/25/2024,08/24/2023,07/20/2023 Influenza High-dose Quadriva lent Preservative Free 07/20/2023 Influenza injectable quadriv alent preservative free 09/03/2021,07/05/2018,09/16/2014 Influenza, Split (incl. bina fied surface antigen) 10/02/2012 Influenza, seasonal, injecta ble, preservative free 08/08/2024 Pfizer Covid-19 Vaccine 12+ 12/18/2020, Pneumococcal Conjugate PCV 20 07/20/2023 Pneumococcal Polysaccharide PPSV23 01/10/2019, Tdap 03/22/2025,09/16/2014 Social History Tobacco Use Types Packs/Day Years Used Date Smoking Tobacco: Never Passive Smoke Exposure: Never Smokeless Tobacco: Never Tobacco Cessation:Counseling Given: Not Answered Alcohol Use Standard Drinks/Week Comments Never 0 (1 standard drink = 0.6 oz pur e alcohol) Depression Answer Date Recorded Patient Health Questionnaire-9 Score 19 03/22/2025 Patient Health Questionnaire-9 Score 03/22/2025 Last PHQ-9: Questionnaire Data Not on [...] Sign Reading Time Taken Comments Blood Pressure 136/84 03/22/2025 11:30 AM EDT Pulse 87 03/22/2025 11:30 AM EDT Temperature 37.2 C (98.9 F) 03/22/2025 11:30 AM EDT Respiratory Rate 20 03/22/2025 11:30 AM EDT Oxygen Saturation 98% 03/22/2025 11:30 AM EDT Inhaled Oxygen Concentration - - Weight 109 kg (240 lb 3.2 oz) 03/22/2025 11:30 A M EDT Height 160 cm (5' 3 ) 03/22/2025 11:30 AM EDT Body Mass Index 42.55 03/22/2025 11:30 AM EDT Plan of Treatment Upcoming Encounters Date Type Department Care Team (Late st Contact Info) Description 04/19/2025 9:30 AM EDT Procedure Visit [facility] [address] [place] [address] Angelica Newman MD [address] [place] [address] Health Maintenance Due Date Last Done Comments Cervical Cancer Screening 05/17/2023 HPV/Cotest 05/17/2023 Pap Smear 05/17/2023 05/17/2018 COVID-19 Vaccine (3 - 2024- season) 2025 12/18/2020, 11/27/2020 Influenza Vaccine (#1) 2025 , 07/20/2023, 09/03/2021, Additional history exists Alcohol/Substance Use Screening 08/08/2025 08/08/2024 Family Planning (PISQ) 08/08/2025 08/08/2024 SDOH Screening 08/08/2025 08/08/2024 Depression Monitoring 09/19/2025 03/22/2025, 025 Disability Screening 03/15/2026 03/15/2025 Tobacco Screening 03/22/2026 03/22/2025 Lipid Panel 01/25/2029 01/26/2024, 08/19, 08/20/2021, Additional history exists DTaP/Tdap/Td Vaccines (3 - Td or Tdap) 03/22/2035 03/22/2025, 09/16/2014 Zoster Vaccines (1 of 2) 2036 RSV [...] Procedure Name Priority Date/Time Associated Diagnosis Comments HIGH SENSITIVITY TROPONIN I Routine 04/12/2025 2:06 PM EDT HCG, TOTAL, QN Routine 04/12/2025 2:06 PM EDT LIPASE Routine 04/12/2025 2:06 PM EDT COMPREHENSIVE METABOLIC PANEL Routine 04/12/2025 2:06 PM EDT COVID-19 ID NOW ([employer]) Routine 04/12/2025 2:06 PM EDT CBC WITH AUTO DIFFERENTIAL Routine 04/12/2025 2:06 PM EDT INFLUENZA A B2 ID NOW (MASON) Routine 04/12/2025 2:06 PM EDT XR CHEST 2 VIEWS Routine 04/12/2025 1:45 PM EDT VASC US LOWER EXTREMITY VENOUS DUPLEX BILATERAL [...] Recently Relevant to Health Maintenance Results * Influenza A B2 ID NOW (Mason) (04/12/2025 2:06 PM EDT) IDNOW SERIAL# [id number] [facility] Influenza A Negative Negative [facility] Influenza B2 Negative Negative [facility] Influenza A B2 Note See Note [facility] Comment:The Mason ID NOW In [...] EDT us Generic External Data Provider LAB MICROBIOLOGY - GENERAL ORDERABLES Final Result [facility] [address] [place] [phone] * COVID-19 ID NOW (MASON) (04/12/2025 2:06 PM EDT) IDNOW SERIAL# [id number] [facility] COVID-19 TEST Negative Negative [facility] COVID-19 NOTE See Note [facility] Comment: Results are for the identification of SARS-CoV2 RNA. TheSARS-CoV2 RNA is generally detectable in respiratory samplesduring the acute phase of infection. Positive results areindicative of the presence of SARS-CoV-2 RNA; clinicalcorrelation with patient history and other diagnosticinformation is necessary to determine patient infectionstatus. Positive results do not rule out bacterial infectionor co- infection with other viruses.Testing facilities within the [facility] and [facility] are required to report all positive results [...] GNOSTICS ORDERABLES Final Result Performing Organization Address [facility]/ZIP Co de Phone Number [facility] [address] [place] [phone] * High Sensitivity Troponin I (04/12/2025 2:06 PM EDT) [facility] TROPONIN I HIGH SENSITIVITY <2.7 <3.5 - 17.0 ng/L [facility] Comment:The Mason high sens itivity Troponin-I results should beused in conjunction with other diagnostic information suchas ECG, clinical observations and information, and patientsymptoms to aid in the diagnosis of AK. 04/12/2025 2:06 PM EDT 04/12/2025 2:16 PM EDT Generic External Data Provider LAB BLOOD ORDERAB LES Final Result Performing Organization Address [facility] Co de Phone Number [facility] [address] [place] [phone] * (ABNORMAL) CBC auto differential (04/12/2025 2:06 PM EDT) Only the most recent of2 resultswithin the time period is included. [facility] White Blood Count 7.6 4.8 - 10.8 X10*3/uL [facility] Red Blood Count 4.55 4.20 - 5.50 X10*6/uL [facility] Hemoglobin 11.1(L) 12.0 - 16.0 g/dl [facility] Hematocrit 34.0(L) 37.0 - 47.0 % [facility] Mean Corpuscular Volume 74.7(L) 80.0 - 98.0 fL [facility] Mean Corpuscular Hemoglobin 24.4(L) 27.0 - 33.0 pg [facility] Mean Corpuscular HGB Conc 32.6 31.0 - 35.0 g/dl [facility] Red Cell Distribution Width 17.0(H) 11.0 - 16.0 % [facility] Platelet Count 388 160 - 400 X10*3/uL [facility] Mean Platelet Volume 9.4 9.4 - 12.3 fL [facility] Neutrophils Percent Auto 70.5 45 - 73 % [facility] Imm Gran Pct Auto 0.3 0.0 - 0.4 % [facility] Lymphocytes Percent Auto 20.1 20 - 40 % [facility] Monocytes Percent Auto 5.2 2 - 11 % [facility] Eosinophils Percent Auto 3.4 0 - 4 % [facility] Basophils Percent Auto 0.5 0 - 2 % [facility] NRBC Pct Auto 0.0 0.0 - 0.2 /100WBC [facility] Neutrophils Absolute Auto 5.4 2.0 - 8.3 x10*3/uL [facility] Imm Gran Abs Auto 0.02 0.00 - 0.03 X10*3/uL [facility] Lymphocytes Absolute Auto 1.5 1.2 - 4.9 X10*3/uL [facility] Monocytes Absolute Auto 0.4 0.1 - 1.2 X10*3/uL [facility] Eosinophils Absolute Auto 0.3 0.0 - 0.4 X10*3/uL [facility] Basophils Absolute Auto 0.0 0.0 - 0.2 X10*3/uL [facility] NRBC Abs Auto 0.000 0.0 - 0.012 X10*3/uL [facility] 04/12/2025 2:06 PM EDT 04/12/2025 2:16 PM EDT us Generic External Data Provider LAB BLOOD ORDERAB LES Final Result [facility] [address] [place] [phone] * hCG, Total, Quantitative (04/12/2025 2:06 PM EDT) HCG Quantitative <2 mIU/mL [facility] Comment:Weeks post LMP Appr oximate hCG(Last Menstrual Period) Range (mIU/ml)3 - 4 weeks 9 - 1304 - 5 weeks 75 - 2,6005 - 6 weeks 850 - 20,8006 - 7 weeks 4000 - 100,2007 - 12 weeks 11,500 - 289,13451 - 16 weeks 18,300 - 137,46301 - 29 weeks (2nd trimester) 1,400 - 53,65335 - 41 weeks (3rd trimester) 940 - 60,000The Mason B-hCG assay is used for the early detection ofpregnancy; it cannot be used to diagnose any conditionunrelated to . If a B-hCG level is not supportedby the clinical evidence, results should be confirmed by analternative method (qualitative urine hCG, for example). 04/12/2025 2:06 PM EDT 04/12/2025 2:16 PM EDT Generic External Data Provider LAB BLOOD ORDERAB LES Final Result Performing Organization Address [facility]/ZIP Co de Phone Number [facility] [address] [place] [phone] * Lipase (04/12/2025 2:06 PM EDT) Pathologist [facility] Lipase 16 8 - 78 U/L [facility] 04/12/2025 2:06 PM EDT 04/12/2025 2:16 PM EDT Generic External Data Provider LAB BLOOD ORDERAB LES Final Result Performing Organization Address [facility] Co de Phone Number [facility] [address] [place] [phone] * (ABNORMAL) Comprehensive Metabolic Panel (04/12/2025 2:06 PM EDT) Only the most recent of2 resultswithin the time period is included. Sodium 140 135 - 145 mmol/L [facility] Potassium 3.1(L) 3.3 - 5.1 mmol/L [facility] Chloride 106 96 - 108 mmol/L [facility] Carbon Dioxide 27 22 - 29 mmol/L [facility] Anion Gap 10(L) 12 - 20 [facility] Urea Nitrogen (BUN) 7(L) 9 - 16 mg/dL [facility] Creatinine, Serum 0.65 0.5 - 1.4 mg/dL [facility] Creatinine Clr Calc Pharmacy 231.5 [facility] Comment:Provided height and weight: 160.02 cm,233.8 kg.eGFR (calculated from the MDRD study equation) and eCrCl(calculated from the Cockcroft-Gault equation) are based ondifferent parameters and may not yield comparable results.If eCrCl result is absurd, please check patient'sheight/weight. Estimated Glomerular Filt Rate >60 [facility] Comment:Chronic Kidney Disea se: Estimated GFR < 60 mL/min/1.29o0Wfeuma Kidney Disease: Estimated GFR < 15 mL/min/1.73m2 Glucose 84 60 - 115 mg/dL [facility] Calcium 9.2 8.4 - 10.2 mg/dL [facility] Bilirubin, Total 0.2 0.0 - 1.0 mg/dL [facility] Aspartate Amino Transferase 21 5 - 31 U/L [facility] Alanine Aminotransferase 15 0 - 31 U/L [facility] Total Protein 7.2 6.5 - 8.0 g/dL [facility] Albumin Level 4.2 3.5 - 5.0 g/dL [facility] Alkaline Phosphatase 65 39 - 117 U/L [facility] 04/12/2025 2:06 PM EDT 04/12/2025 2:16 PM EDT us Generic External Data Provider LAB BLOOD ORDERAB LES Final Result [facility] [address] [place] [phone] * XR Chest 2 Views (04/12/2025 1:45 PM EDT) Anatomical Region Laterality Modality Chest Radiographic Naomi ging 04/12/2025 1:45 PM EDT Narrative 04/12/2025 1:58 PM EDT [address] [address] XRay Report Signed Patient: Brigette Burt MR#: [id number] : 1985 Acct:[id number] Age/Sex: 39 / F ADM Date: 04/12/25 Loc: .ED Attending Dr: Ordering Physician: Javy Pardo Date of Service: 04/12/25 Procedure(s): XR chest 2V Accession Number(s): [id number] cc: Angelica Newman MD; Javy Pardo Reason [...] 04/12/25 1355 DD/ 1345 TD/TT: 04/12/25 1347 Taffy Puller: Procedure Note Donotuseinterpreter, Image - 04/12/[address] [address] XRay Report Signed Patient: Ct BurtR#: [id number] : 1985Acct:[id number] Age/Sex: 39 / FADM Date: 04/12/25 Loc: .ED Attending Dr: Ordering Physician: Javy Pardo Date of Service: 04/12/25 Procedure(s): XR chest 2V Accession Number(s): [id number] cc: Angelica Newman MD; Javy Pardo Reason [...] 04/12/25 1355 DD/ 1345 TD/TT: 04/12/25 1347 Taffy Puller: [facility] External Provider IMG XR PROCEDURES Final Result * [facility] US Lower Extremity Venous Duplex Bilateral (01/23/2025 2:43 PM EDT) 01/23/2025 2:43 PM EDT Narrative [facility] - 01/23/2025 3:24 PM EDT [address] [address] Ultrasound Report Signed Patient: Brigette Burt MR#: [id number] : 1985 Acct:[id number] Age/Sex: 39 / F ADM Date: 01/23/25 Loc: . Attending Dr: Mariel Morataya MD Ordering Physician: Mariel Lee MD Date of Service: 01/23/25 Procedure(s): US venous duplex LE Accession Number(s): [id number] cc: Angelica Newman MD; Mariel Lee MD [...] 01/23/25 1521 DD/ 1443 TD/TT: 01/23/25 1453 Taffy Puller: Procedure Note Donotuseinterpreter, Image - 01/23/2025 [place] [address] Ultrasound Report Signed Patient: Demetra Burt#: [id number] : 1985Acct:[id number] Age/Sex: 39 / FADM Date: 01/23/25 Loc: .US Attending Dr: Mariel Morataya MD Ordering Physician: Mariel Lee MD Date of Service: 01/23/25 Procedure(s): US venous duplex LE BI Accession Number(s): [id number] cc: Angelica Newman MD; Mariel Lee MD [...] 01/23/25 1521 DD/ 1443 TD/TT: 01/23/25 1453 Taffy Puller: us Mariel Morataya MD CV VASCULAR PROCE DURES Final Result [facility] [address] [place] [phone] * US Doppler Ext Lower Venous Bilateral (01/23/2025) Anatomical Region Laterality Modality Body Ultrasound us Mariel Morataya MD IMG US PROCEDURES Final Result * Vitamin B12 (Cobalamin) and Folate Panel, Serum (01/22/2025 11:09 AM EDT) Vitamin B12 278 200 - 900 pg/mL [facility] Comment:NORMAL 200-900 PG/ML INDETERMINATE 160-199 PG/ML DEFICIENT < 160 PG/ML Folate 8.4 > or = 4.0 ng/mL [facility] Comment:Reference Values:> o r = 4.0 ng/mL< 4.0 ng/mL suggests folate deficiency Methotrexate, aminopterin and folinic acid(leucovorin) are chemotherapeutic agents whose molecularstructures are similar to folate; therefore, the Architectfolate assay cannot be used for patients using these drugs. Blood 01/22/2025 11:0 9 AM EDT 01/22/2025 12:19 PM EDT us Mariel Morataya MD LAB BLOOD ORDERAB LES Final Result Performing Organization Address [facility] Health/[facility] Co de Phone Number [facility] [address] [place] [phone] * TSH W/Reflex to FT4 (01/22/2025 11:09 AM EDT) TSH reflex Free T4 0.94 0.32 - 4.0 uIU/mL [facility] Blood Venous blood specimen / Unknown 01/22/2025 11:09 AM EDT 01/22/2025 12:19 PM EDT us Mariel Morataya MD LAB BLOOD ORDERAB LES Final Result Performing Organization Address [facility]/ZIP Co de Phone Number [facility] [address] [place] [phone] * NT-proBNP (01/22/2025 11:09 AM EDT) NT-proBNP 66 <125 pg/mL [facility] Comment:THIS TEST WAS PERFOR MED AT:[facility] [place] [phone] HWANG MD Venous blood specimen / Unknown 01/22/2025 11:09 AM EDT 01/22/2025 12:12 PM EDT us Mariel Morataya MD LAB BLOOD ORDERAB LES Final Result Performing Organization Address City/[facility] Co de Phone Number [facility] [address] [place] [phone] * (ABNORMAL) Iron And Total Iron Binding Capacity (01/22/2025 11:09 AM EDT) [facility] Iron 22(L) 30 - 160 mcg/dL [facility] Total Iron Binding Capacity 371 228 - 428 mcg/dL [facility] Percent Iron Saturation 6(L) 15 - 50 % [facility] Unsaturated Iron Binding 349 ug/dL [facility] Blood Venous blood specimen / Unknown 01/22/2025 11:09 AM EDT 01/22/2025 12:19 PM EDT us Mariel Morataya MD LAB BLOOD ORDERAB LES Final Result Performing Organization Address [facility]/ZIP Co de Phone Number [facility] [address] [place] [phone] * Ferritin (01/22/2025 11:09 AM EDT) [facility] Ferritin 10 10 - 122 ng/mL [facility] Blood Venous blood specimen / Unknown 01/22/2025 11:09 AM EDT 01/22/2025 12:19 PM EDT us Mariel Morataya MD LAB BLOOD ORDERAB LES Final Result Performing Organization Address [facility]/ZIP Co de Phone Number [facility] [address] [place] [phone] * Lipid Panel, Standard (01/26/2024 9:18 AM EDT) Pathologist [facility] Triglycerides 52 <150 mg/dL [facility] Comment:Desirable Triglyceri de: less than 150 mg/dLBorderline High Triglyceride 150-199 mg/dLHigh Triglyceride: 200-499 mg/dLVery High Triglyceride: greater than or equal to 5OO mg/dL Cholesterol 141 <200 mg/dL [facility] Comment:Desirable Cholestero l: less than 200 mg/dLBorderline High Cholesterol: 200-239 mg/dLHigh Cholesterol: greater than 239 mg/dL LDL Cholesterol Calculated 86 <100 mg/dL [facility] Comment:Desirable LDL: less than 100 mg/dLNear Optimal/Above Optimal LDL: 110- 129 mg/dLBorderline High LDL: 130-159 mg/dLHigh LDL: 160-189 mg/dLVery High LDL: greater than or equal to 190 mg/dL HDL Cholesterol 45 >40 mg/dL [facility] Comment:Desirable HDL: great er than 40 mg/dL Note: This HDL assay may give artificially low results in patients with liver disease. Blood Venous blood specimen / Unknown 01/26/2024 9:18 AM EDT 01/26/2024 11:45 AM EDT us Angelica Newman MD LAB BLOOD ORDERABLES Final Result [facility] [address] [place] [phone] * Hepatitis Panel, General (11/17/2023 10:36 AM EDT) Hepatitis A IgM Nonreactive Nonreactive [facility] Comment:IgM antibodies to MAHAN V not detected; does not exclude earlyacute or recovered HAV infection. ~Hepatitis B Surface Antibody REACTIVE Nonreactive [facility] Comment:REACTIVE: > 11.99 mI U/mL Hepatitis B Core Antibody Reactive Nonreactive [facility] Comment:Presumptive evidence of anti-HBc. Hepatitis C Antibody Nonreactive Nonreactive [facility] Comment:Antibodies to HCV no t detected; does not exclude early acuteHCV infection. Hepatitis B Surface Ag Negative Negative [facility] Blood 11/17/2023 10:3 6 AM EDT 11/17/2023 11:28 AM EDT us Shawn House MD LAB BLOOD ORDERABLES Fin al Result Performing Organization Address [facility] Co de Phone Number [facility] [address] [place] [phone] * HIV-1/2 Antigen and Antibodies, Fourth Generation, with Reflexes (11/17/2023 10:36 AM EDT) HIV AB/AG Nonreactive Nonreactive [facility] Comment:HIV-1 p24 Ag and/or HIV-1/HIV-2 Ab not detected.A test result that is nonreactive does not exclude thepossibility of exposure to or infection with HIV-1 and/orHIV-2. Nonreactive results in this assay for individualswith prior exposure to HIV-1 and/or HIV-2 may be due toantigen and antibody levels that are below the limit ofdetection of this assay.The [employer] HIV Ag/Ab Combo assay result andsupplemental assay results should be interpreted inconjunction with the patient's clinical presentation,history and other laboratory results. If the results areinconsistent with clinical evidence, additional testing issuggested to confirm the result. Blood Venous blood specimen / Unknown 11/17/2023 10:36 AM EDT 11/17/2023 11:28 AM EDT us Shawn House MD LAB BLOOD ORDERABLES Fin al Result Performing Organization Address [facility] Co de Phone Number [facility] [address] [place] [phone] * Pap Smear (05/17/2018 12:00 AM EDT) Swab us Historical Provider LAB CYTOLOGY ORDERABLES F inal Result Performing Organization Address City/[facility] Co de Phone Number IMAGING from Last 3 Months or Most Recently Relevant to Health Maintenance Insurance [place] [id number] Advance Directives Documents on File Type Date Recorded Patient Processing Associate Expl anation Advance Directives and Living Will 01/25/2024 11:29 AM Health Care Proxy 01/25/24 Care Teams Refinery Operator Polymerization Plant Relationship Specialty Start Date End Date [place], MD Angelica [address] [place] [address] PCP - General Family Medicine 08/04/12 Mike Fontenot MD [address] [place] [address] Orthopaedic Surgery 06/13/24 Stephanie Strange [address] [place] [phone] Obstetrics and Gynecology 08/08/24 Herbert Self MD [address] [place] [phone] Rheumatology 08/08/24
[2025-04-12] MEDS: Potassium Chloride Packet 20 MEQ PACKET 40 MEQ PO (17:49)
[2025-04-12 18:22] LABS: D Dimer High Sensitivity < 150 NG/ML
[2025-04-12 19:34] LABS: Appearance Urine Clear; Glucose Urine UA Negative (Negative); PH 8.0 (5.0-9.0); Specific Gravity - Urine <= 1.005 (1.005-1.025)
--- NOTE | 2025-04-12 19:41 | PC.NURSE ---
Assumed care of pt, presents with midsternal intermittent chest pain, x 3 days, pt states chest pain started while at work, pt felt pressure in her chest with dyspnea, currently denies chest pain but is have chest pressure, aaox4 pending dispo
== END 2025-04-12 21:31 | disposition home or self-care (01) ==
PROVIDERS: Physician Assistant; Emergency Provider Emergency Medicine Emergency Medical Services; PCP Family Medicine
DX: R07.9 Chest pain, unspecified (principal); R42 Dizziness and giddiness; D64.9 Anemia, unspecified; J45.909 Unspecified asthma, uncomplicated; Z79.899 Other long term (current) drug therapy
CPT/HCPCS: 36415; 71046; 80053; 81003; 83690; 84484; 84702; 85025; 85379; 87502; 87635; 93005; 96361; 96374; 96375; 99284; 99285; J1885; J2405

== ENCOUNTER → 2025-04-12 12:58 | Outpatient (BNV) | payer OTHER, SELFPAY | PROVIDERS: Emergency Provider Emergency Medicine Emergency Medical Services; PCP Family Medicine; Visit Provider Internal Medicine Cardiovascular Disease | DX: R07.89 Other chest pain (principal) | CPT/HCPCS: 93010 ==

== ENCOUNTER → 2025-04-12 13:27 | Outpatient (BNV) | payer OTHER, SELFPAY | PROVIDERS: PCP Family Medicine; Visit Provider Radiology Diagnostic Radiology | DX: R06.00 Dyspnea, unspecified (principal) | CPT/HCPCS: 71046 ==

== ENCOUNTER 2025-04-19 | Outpatient (REF) | payer OTHER, SELFPAY ==
[2025-04-23 21:06] LABS: C. trachomatis RNA TMA NOT DETECTED (NOT DETECTED); N. gonorrhoeae RNA TMA NOT DETECTED (NOT DETECTED); Trichomonas (NAAT) NOT DETECTED (NOT DETECTED)
--- OUTSIDE RECORDS SUMMARY | 2025-04-29 11:15 | XMS_ITS | Encounter Summary ---
Author Organization [facility] [facility] Address [address] [facility] [address] 7t [place] [address] Care Team Providers Care Foundry Supervisor Name Role Phone Angelica Newman MD Primary Care Provider [phone]- [phone] Mike Fontenot MD Unavailable Stephanie Strange Unavailable Herbert Self MD Unavailable [phone] Encounter Details Date Type Department Care Team (Late st Contact Info) Description 08/24/2022 Abstract [facility] [address] [place] [address] Angelica Newman MD [address] [place], [place] [phone] Social History Tobacco Use Types Packs/Day Years [...] on filedocumented in this encounter Care Teams Foundry Supervisor Relationship Specialty Start Date End Date Angelica Newman MD [address] [place] [address] PCP - General Family Medicine 08/04/12 Mike Fontenot MD [address] [place] [address] Orthopaedic Surgery 06/13/24 Stephanie Strange [address] [place] [address] Obstetrics and Gynecology 08/08/24 [place] [address] [place] [phone] Rheumatology 08/08/24 documented as of this encounter
--- OUTSIDE RECORDS SUMMARY | 2025-04-29 11:15 | XMS_ITS | Encounter Summary ---
Author Organization [email or web address] Address [address] 7t [place] [address] Care Team Providers Care Manager Alliance Name Role Phone Angelica Newman MD Primary Care Provider [phone]- [phone] Mike Fontenot MD Unavailable Stephanie Strange Unavailable Herbert Self MD Unavailable [phone] Encounter Details Date Type Department Care Team (Late st Contact Info) Description 04/24/2025 Results Follow-Up [facility] [address] [place] [address] Angelica Newman MD [address] [place] [address] Pap Smear, STI testing add on (NG, CT, Trich) Social History Tobacco Use Types Packs/Day Years Used Date Smoking Tobacco: Never Passive Smoke Exposure: Never Smokeless Tobacco: Never Alcohol Use Standard Drinks/Week Comments Never 0 (1 standard drink = 0.6 oz pur e alcohol) Depression Answer Date Recorded Patient Health Questionnaire-9 Score 03/22/2025 Patient Health Questionnaire-9 Score 03/22/2025 Last [...] encounter Miscellaneous Notes * Telephone Encounter - Bri Aparicio - 04/25/2025 2:47 PM EDT Normal lab test letter sent on 04/25/2025. documented in this encounter Plan of Treatment Not on file documented as of this encounter Visit Diagnoses Not on filedocumented in this encounter Additional Health Concerns Assessment Noted Time PHQ-9 Depression Total Score: 19 025 11:57 AM EDT documented as of this encounter Care Teams Manager Alliance Relationship Specialty Start Date End Date Angelica Newman MD [address] [place] [address] PCP - General Family Medicine 08/04/12 Mike Fontenot MD [address] [place] [address] Orthopaedic Surgery 06/13/24 Stephanie Strange [address] [address] Obstetrics and Gynecology 08/08/24 Herbert Self MD [address] [place] [address] Rheumatology 08/08/24 documented as of this encounter
--- OUTSIDE RECORDS SUMMARY | 2025-04-29 11:15 | XMS_ITS | Encounter Summary ---
Author Organization [facility] Address [address] [facility] 7t [place] [address] Care Team Providers Care Material Analyst Name Role Phone Angelica Newman MD Primary Care Provider [phone]- [phone] Mike Fnotenot MD Unavailable Stephanie Strange Unavailable Herbert Self MD Unavailable Encounter Details Date Type Department Care Team (Late st Contact Info) Description 06/23/2022 Orders Only [facility] MED[facility]INE [address] [place] [address] [facility] [address] [place], [place] [phone] Palpitations (Primary Dx) Social History Tobacco Use [...] Primary documented in this encounter Care Teams Material Analyst Relationship Specialty Start Date End Date Angelica Newman MD [address] [place] [address] PCP - General Family Medicine 08/04/12 Mike Fontenot MD [address] [place] [address] Orthopaedic Surgery 06/13/24 Stephanie Strange [address] [place] [address] Obstetrics and Gynecology 08/08/24 Herbert Self MD [address] [place] [phone] Rheumatology 08/08/24 documented as of this encounter
--- OUTSIDE RECORDS SUMMARY | 2025-04-29 11:15 | XMS_ITS | Encounter Summary ---
Author Organization [employer] Address [address] [facility] 7t [place] [address] Care Team Providers Care Small Order Cutter Name Role Phone Angelica Newman MD Primary Care Provider [phone]- [phone] Mike Fontenot MD Unavailable Stephanie Strange Unavailable Herbert Self MD Unavailable [phone] Reason for Visit * Reason Onset Date Comments Nurse Triage 02/22/2024 Encounter Details Date Type Department Care Team (Late st Contact Info) Description 02/22/2024 Telephone [facility] [address] [place], [place] [phone] Angelica Newman MD [address] [place], [place] [phone] Nurse Triage Social History Tobacco Use Types [...] no acute shortness of breath. No wheezing. [place] feverish yesterday. Has only had nebulizer medicine at home as she has not been able to afford co pays for other medications. Agrees to have case management contact her to see if she can get some assistance. ASK/Tristan ASSISTANT PLANT MANAGER today at 1115am. Protocol Used: Asthma Attack [...] documented as of this encounter Care Teams Small Order Cutter Relationship Specialty Start Date End Date Angelica Newman MD [address] [place] [address] PCP - General Family Medicine 08/04/12 Mike Fontenot MD [address] [place] [address] Drive [address] [place] [address] Orthopaedic Surgery 06/13/24 Stephanie Strange [address] [place] [address] Obstetrics and Gynecology 08/08/24 [place] [address] [place] [phone] Rheumatology 08/08/24 documented as of this encounter
--- OUTSIDE RECORDS SUMMARY | 2025-04-29 11:15 | XMS_ITS | Encounter Summary ---
Author Organization [employer] Address [address] [facility] [address] 7[address] [place] [address] Care Team Providers Care French Tutor Name Role Phone Angelica Newman MD Primary Care Provider [phone]- [phone] Mike Fontenot MD Unavailable Stephanie Strange Unavailable Herbert Self MD Unavailable [phone] Encounter Details Date Type Department Care Team (Late st Contact Info) Description 08/16/2023 Orders Only [facility] MED[facility]INE [address] [place] [address] Trupti Parada MD [address] [place], [place] [phone] Chronic pain of left knee (Primary Dx) [...] documented as of this encounter Care Teams French Tutor Relationship Specialty Start Date End Date Angelica Newman MD [address] [place] [address] PCP - General Family Medicine 08/04/12 Mike Fontenot MD [address] [place] [address] Orthopaedic Surgery 06/13/24 Stephanie Strange [address] [place] [address] Obstetrics and Gynecology 08/08/24 [place] [address] [place] [phone] Rheumatology 08/08/24 documented as of this encounter
--- OUTSIDE RECORDS SUMMARY | 2025-04-29 11:15 | XMS_ITS | Encounter Summary ---
Author Organization [employer] Address [address] [facility] 7t [place] [address] Care Team Providers Care Food Safety Coordinator Name Role Phone Angelica Newman MD Primary Care Provider [phone]- [phone] Mike Fontenot MD Unavailable Stephanie Strange Unavailable Herbert Self MD Unavailable [phone] Encounter Details Date Type Department Care Team (Late st Contact Info) Description 08/08/2024 Orders Only [facility] [address] [place] [address] Angelica Newman MD [address] [place], [place] [phone] Iron deficiency anemia, unspecified iron deficiency anemia [...] (08/08/2024 11:42 AM EST) Immunoglobulin E 53 <LO=684 kU/L [facility] Comment:THIS TEST WAS PERFOR MED AT[employer] [address] [phone] HWANG MD 08/08/2024 11:4 2 AM EST 08/08/2024 1:27 PM EST us Generic External Data Provider LAB BLOOD ORDERAB LES Final Result [facility] [address] [place] [phone] documented in this encounter Visit Diagnoses Diagnosis Iron deficiency anemia, unspecified iron deficiency anemia type documented in this encounter Additional Health Concerns Assessment Noted Time PHQ-9 Depression Total Score: 0 01/25/20 24 10:23 AM EDT documented as of this encounter Care Teams Food Safety Coordinator Relationship Specialty Start Date End Date Angelica Newman MD [address] [place] [address] PCP - General Family Medicine 08/04/12 Mike Fontenot MD [address] [place] [address] [address] [place] [address] Orthopaedic Surgery 06/13/24 Stephanie Strange [address] [place] [address] Obstetrics and Gynecology 08/08/24 [place] [address] [place] [phone] Rheumatology 08/08/24 documented as of this encounter
--- OUTSIDE RECORDS SUMMARY | 2025-04-29 11:15 | XMS_ITS | Clinical Summary ---
Author Organization [employer] Address [address] [facility] [address] [place] [address] Care Team Providers Care Beater Out Name Role Phone Angelica Newman MD Primary Care Provider [phone] Mike Fontenot MD Unavailable Stephanie Strange Unavailable Herbert Self MD Unavailable [phone] Allergies No known active allergies Medications * This document contains information received from the source organization and may not represent a complete record from that organization. albuterol (2.5 MG/3ML) 0.083% nebulizer solutionIndicat ions:Moderate persistent asthma with exacerbation Take 3 mL (2.5 mg) by nebulization every 4 (four) hours if needed for wheezing. 75 mL 3 08/29/19 24 Active montelukast (Singulair) 10 MG tabletIndicatio ns:Moderate persistent asthma without complication 10 MG ORALLY BEDTIME 11/11/19 24 Active fluticasone (Flonase) 50 MCG/ACT nasal sprayIndication s:Seasonal allergies Administer 1-2 sprays into each nostril Once per day. Shake gently. Before first use, prime pump. After use, clean tip and replace cap. 16 g 2 11/20/19 24 Active cetirizine (Allergy, Cetirizine,) 10 MG tabletIndicatio ns:Seasonal allergies 10 mg. 09/07/19 24 Active albuterol 108 (90 Base) MCG/ACT inhalerIndicati ons:Moderate persistent asthma with acute exacerbation INHALE 2 PUFFS EVERY 6 HOURS IF NEEDED FOR WHEEZING. 8.5 g 11 12/15/19 25 Active budesonide-form oterol (Symbicort) 160-4.5 MCG/ACT inhalerIndicati ons:Mild intermittent asthma without complication TAKE 2 PUFFS BY MOUTH TWICE A DAY IN THE MORNING AND IN THE EVENING 10.2 each 3 01/09/20 25 Active ferrous sulfate 325 (65 Fe) MG EC tabletIndicatio ns:Iron deficiency anemia, unspecified iron deficiency anemia type Take 1 tablet (325 mg) by mouth with breakfast. TAKE 1 TABLET BY MOUTH EVERY DAY. DO NOT CRUSH, CHEW, OR SPLIT. Frequency increased 90 tablet 01/24/20 25 Active meloxicam (Mobic) 15 MG tabletIndicatio ns:Chronic pain of both knees Take 15 mg by mouth. Active buPROPion (Wellbutrin) 100 MG tabletIndicatio ns:Mood disorder (CMS/HCC) Take 1 tablet (100 mg) by mouth 2 times daily. 60 tablet 3 03/22/20 25 2025 Active Senna-Time 8.6 MG tabletIndicatio ns:Constipation , unspecified constipation type TAKE 1 TABLET (8.6 MG) BY MOUTH AT BEDTIME. 60 tablet 2 04/15/20 25 Active senna (Senokot) 8.6 MG tabletIndicatio ns:Constipation , unspecified constipation type Take 1 tablet (8.6 mg) by mouth at bedtime. 60 tablet 2 08/08/19 25 2024 Discontinued Active Problems Problem Noted Date [...] -ordered routine labs 08/08/24 Assessment & Plan (04/19/2025 10:20 AM EDT): Orders: Hepatic Function Panel; Future Lipid Panel, Standard; Future Basic Metabolic Panel; Future Assessment & Plan (03/25/2025 9:45 AM EDT): [...] cancer screening 01/25/20 Overview (08/08/2024): -will call [facility] to make appt today for PAP smear, 01/25/24 -has appt to have PAP done in September 2024. Assessment & Plan (08/08/2024 11:07 AM EST): -will call [facility] to make appt today for PAP smear, 01/25/24 -has appt to have PAP done in September 2024. Assessment & Plan (01/25/2024 10:46 AM EDT): -will call [facility] to make appt today for PAP smear, 01/25/24 Acute pain of left knee 07/20/2023 Overview (02/27/2025): -referral to PT sent 07/20/23 -ween by [facility] 11/04/23 for left knee injection, which [...] due after 08/08/25 -[facility] -dental home is encourage to make appt -Healthcare proxy given and filed 01/25/24 Assessment & Plan (08/08/2024 11:08 AM EST): -next physical exam due after 08/08/25 -eye care facilitated by [facility] is encourage to make appt -Healthcare proxy given and filed 01/25/24 Assessment & Plan (01/25/2024 10:43 AM EDT): -next physical exam due after 07/20/2024 -eye care facilitated by [facility] is encourage to make appt -Healthcare proxy given and filed 01/25/24 Assessment & Plan (07/20/2023 10:48 AM EST): -next physical exam due after 07/20/2024 -eye care facilitated by [facility] is encouraged to make appt Mild episode [...] modifications -Continue current medications Assessment & Plan (04/19/2025 10:20 AM EDT): Assessment & Plan (03/25/2025 9:45 AM EDT): [...] Overview (07/20/2023): Lab Results Component Value Date [id number] 62 09/10/2022 VITD3 62 09/10/2022 VITD2 <8 09/10/2022 Assessment & Plan (04/19/2025 10:20 AM EDT): Orders: Vitamin D, 25-Hydroxy, Total, Immunoassay; Future Assessment & Plan (07/20/2023 9:03 AM EST): No results found for: [id number] Lab Results Component Value Date [id number] 62 09/10/2022 VITD3 62 09/10/2022 VITD2 <8 09/10/2022 Moderate persistent asthma 09/17/2020 Overview (08/08/2024): -Seen by pulmonology with Lavonne Zuluaga LOOM OPERATOR 11/22/23 PFT ordered -Singular added 11/11/23, pt started 11/22/23 -continue albuterol prn -has FMLA for exacerbations. Assessment & Plan (03/25/2025 9:45 AM EDT): -Currently well controlled. -Seen by pulmonology with Lavonne Zuluaga LOOM OPERATOR 11/22/23 PFT ordered -Singular added 11/11/23, pt started 11/22/23 -continue albuterol prn -has FMLA for exacerbations. Assessment & Plan (08/08/2024 11:24 AM EST): -Seen by pulmonology with Lavonne Zuluaga LOOM OPERATOR 11/22/23 PFT ordered -Singular added 11/11/23, pt started 11/22/23 -continue albuterol prn -has FMLA for exacerbations. Assessment & Plan (02/22/2024 7:15 PM EDT): Limited aeration despite IRINA usage, rx for prednisone 40 mg prescribed, resume rescue inhalers this evening Call for persistent or worsening symptoms Assessment & Plan (01/25/2024 8:03 AM EDT): -Seen by pulmonology with Lavonne Zuluaga LOOM OPERATOR 11/22/23 PFT ordered -Duo neb and Spiriva [...] 10mg. . -Restarted vitamin D 04/2021 -Saw make up girl recently has follow-up on 08/10/24. -Stable on [...] 10mg. . -Restarted vitamin D 04/2021 -Saw make up girl recently has follow-up on 08/10/24. -Stable on [...] iron supplementation on 10/09/2020. Assessment & Plan (04/19/2025 10:20 AM EDT): Orders: CBC auto differential; Future Ferritin; Future TSH with Reflex to Free T4; Future Iron And Total Iron Binding Capacity; Future Assessment & Plan (07/20/2023 9:02 AM EST): Hgb improved 11.8 from 10.8 09/2020. Iron is low, she started iron supplementation on 10/09/2020. Assessment & Plan (09/03/2022 11:47 AM EST): Hgb improved 11.8 from 10.8 09/2020. Iron is low, she started iron supplementation on 10/09/2020. Hgb was 11 06/22/22. She completed iron, will recheck. BP well controlled. Allergic rhinitis 10/02/2012 Overview (07/20/2023): Referral to fire and safety helper sent 07/20/23 Assessment & Plan (07/20/2023 10:52 AM EST): Referral to fire and safety helper sent 07/20/23 Resolved Problems Problem Noted [...] family support. PLAN: 1. Follow up with [facility]: Recommended for follow-up: Scheduled BE in three [...] family support. PLAN: 1. Follow up with C: Recommended for follow-up: Scheduled BE in three weeks 2. Patient goal is to feel less anxious and start therapy 3. Behavioral Recommendations a. Referral for OP individual therapy b. Incorporate coping skills into daily routine Depression, unspecified 04/29/2023 1101/2023 Assessment & Plan (05/03/2023 10:46 AM EDT): [...] Encounters Date Type Department Care Team Description 04/24/2025 Results Follow-Up [facility] [address] [place] [phone] Angelica Newman MD Pap Smear, STI testing add on (NG, CT, Trich) 04/19/2025 9:30 AM EDT Procedure Visit [facility] [address] [place] [phone] Angelica Newman MD Cervical cancer screening (Primary Dx); Encounter for immunization; Benign hypertension; Anemia, unspecified type; Vitamin D deficiency; Class 3 severe obesity due to excess calories with serious comorbidity and body mass index (BMI) of 40.0 to 44.9 in adult (HCC) 04/19/2025 Travel 04/18/2025 Telephone [facility] [address] [place] [phone] Angelica Newman MD chart prep 04/15/2025 Results Follow-Up [address] [address] Angelica Newman MD CBC auto differential, Influenza A B2 ID NOW (Mason), COVID-19 ID NOW (MASON), Additional followed-up results: 6 04/13/2025 Refill [facility] [address] [place] [phone] Angelica Newman MD Constipation, unspecified constipation type 04/12/2025 Orders Only [facility] External Provider, [facility] 03/22/2025 11:30 AM EDT Office Visit [facility] [address] [place] [phone] Angelica Newman MD Benign hypertension (Primary Dx); Moderate persistent asthma with acute exacerbation; Chronic pain of both knees; Positive depression screening; Mood disorder ([facility]); Class 3 severe obesity due to excess calories with serious comorbidity and body mass index (BMI) of 40.0 to 44.9 in adult; Dietary counseling; Exercise counseling; Encounter for immunization 03/22/2025 Travel 03/15/2025 Patient Outreach [address] [address] Angelica Newman MD Pre-visit Planning (Pre visit planning LVM ) 03/15/2025 Travel 02/08/2025 Orders Only [address] [phone] Mariel Lee MD Synovial cyst of popliteal space, unspecified laterality (Primary Dx) 02/08/[address] [address] Angelica Newman MD Referral 02/04/[address] [phone] Angelica Newman MD Medication Question from Last 3 Months Immunizations Immunization Administration Dates Next Due HPV, Quadrivalent 09/15/2012,05/02/2012,02/18/20 12 Hep B, adult 01/25/2024,08/24/2023,07/20/2023 Influenza High-dose Quadriva lent Preservative Free 07/20/2023 Influenza injectable quadriv alent preservative free 09/03/2021,07/05/2018,09/16/2014 Influenza, Split (incl. bina fied surface antigen) 10/02/2012 Influenza, seasonal, injecta ble, preservative free 04/19/2025,08/08/2024 Pfizer Covid-19 Vaccine 12+ 12/18/2020, Pneumococcal Conjugate [...] Sign Reading Time Taken Comments Blood Pressure 116/72 04/19/2025 9:40 AM EDT Pulse 86 04/19/2025 9:40 AM EDT Temperature 35.9 C (96.6 F) 04/19/2025 9:40 AM EDT Respiratory Rate 20 04/19/2025 9:40 AM EDT Oxygen Saturation 98% 03/22/2025 11:30 AM EDT Inhaled Oxygen Concentration - - Weight 105 kg (232 lb 3.2 oz) 04/19/2025 9:40 AM EDT Height 160 cm (5' 3 ) 03/22/2025 11:30 AM EDT Body Mass Index 41.13 03/22/2025 11:30 AM EDT Plan of Treatment Health Maintenance Due Date Last Done Comments Alcohol/Substance Use Screening 08/08/2025 08/08/2024 Family Planning (PISQ) 08/08/2025 08/08/2024 SDOH Screening 08/08/2025 08/08/2024 Depression Monitoring 09/19/2025 03/22/2025, 025 Disability Screening 03/15/2026 03/15/2025 COVID-19 Vaccine ( season) 2026 12/18/2020, 11/27/2020 Postponed from 03/18/2025 (Patient Refused) Tobacco Screening 04/19/2026 04/19/2025 Lipid Panel 01/25/2029 01/26/2024, 08/19, 08/20/2021, Additional history exists Cervical Cancer Screening 04/19/2030 HPV/Cotest 04/19/2030 04/19/2025 Pap Smear 04/19/2030 04/19/2025, 05/17/2018 DTaP/Tdap/Td Vaccines (3 - Td or Tdap) [...] Completed 01/25/2024, 08/24/2023, 07/20/2023 Influenza Vaccine Completed 04/19/2025, , 07/20/2023, Additional history exists HIB Vaccines Aged Out [...] Procedure Name Priority Date/Time Associated Diagnosis Comments CHLAMYDIA/N. GONORRHOEAE AND T. VAGINALIS RNA, QUAL,TMA Routine 04/19/2025 12:00 AM EDT Cervical cancer screening PAP SMEAR Routine 04/19/2025 12:00 AM EDT Cervical cancer screening HPV DNA, LOW/HIGH RISK Routine 12:00 AM EDT Cervical cancer screening URINALYSIS WITH REFLEX TO MICROSCOPIC Routine 04/12/2025 7:28 PM EDT D DIMER HIGH SENSITIVITY Routine 04/12/2025 5:57 PM EDT HIGH SENSITIVITY TROPONIN I Routine 04/12/2025 2:06 PM EDT HCG, TOTAL, QN Routine 04/12/2025 2:06 PM EDT LIPASE Routine 04/12/2025 2:06 PM EDT COMPREHENSIVE METABOLIC PANEL Routine 04/12/2025 2:06 PM EDT COVID-19 ID NOW (MASON) Routine 04/12/2025 2:06 PM EDT CBC WITH AUTO DIFFERENTIAL Routine 04/12/2025 2:06 PM EDT INFLUENZA A B2 ID NOW (MASON) Routine 04/12/2025 2:06 PM EDT XR CHEST 2 VIEWS Routine 04/12/2025 1:45 PM EDT LIPID PANEL, STANDARD Routine 01/26/2024 9:18 AM EDT Class 3 severe obesity due to excess calories with serious comorbidity and body mass index (BMI) of 40.0 to 44.9 in adult (CMS/HCC) HEPATITIS PANEL, GENERAL Routine 11/17/2023 10:36 AM EDT Body aches Post viral syndrome HIV 1/2 ANTIGEN/ANTIBODY, FOURTH GENERATION W/RFL Routine 11/17/2023 10:36 AM EDT Body aches Post viral syndrome from Last 3 Months or Most Recently Relevant to Health Maintenance Results * STI testing add on (NG, CT, Trich) (04/19/2025 12:00 AM EDT) Trichomonas (NAAT) NOT DETECTED NOT DETECTED [facility] Comment:The analytical perfo rmance characteristics of thisassay have been determined by [employer]. Themodifications have not been cleared or approved bythe FDA. This assay has been validated pursuant to theIA regulations and is used for clinical purposes.For additional information, please refer tohttp://education.[employer]guru/faq/Trichomonastma(This link is being provided for information/educational purposes only.)THIS TEST WAS PERFORMED AT:[facility] [place] [phone] HWANG MD CTNG Ref Lab NOT DETECTED NOT DETECTED [facility] NG Ref Lab NOT DETECTED NOT DETECTED [facility] ThinPrep vial Cervix uteri structure / Unknown 04/19/2025 04/22/2025 6:30 AM EDT Angelica Newman MD LAB CYTOLOGY ORDERABLES Fi nal Result Performing Organization Address [facility] Co de Phone Number [facility] [address] [place] [phone] * HPV High Risk with Reflex to Subtypes (04/19/2025 12:00 AM EDT) HPV High Risk Negative Negative [facility] HPV Genotype 16 Negative Negative [facility] HPV Genotype 18 Negative Negative [facility] Comment:HPV testing performe d at [facility] (CLIA#[id number]), [address] [place] [address].Testing for HPV was performed using the [employer] DHAVAL 6800system. The presence of HPV in the female genital tract isassociated with a number of diseases, including cervicalcarcinoma. The HPV DNA high risk pool tests for HPV 31, 33,35, 39, 45, 51, 52, 56, 58, 59, 66 and 68. The testing forHPV 16 and 18 genotypes has also been performed. A positiveresult indicates detection of nucleic acid sequences fromone or more subtypes, whereas a negative result indicatessuch sequences were not detected. Pap Vial 04/19/2025 04/22/2025 6:3 0 AM EDT Angelica Newman MD LAB BLOOD ORDERABLES Final Result Performing Organization Address [facility] Co de Phone Number [facility] [address] [place] [address] [phone] * Pap Smear (04/19/2025 12:00 AM EDT) Swab 04/19/2025 04/22/2025 6:3 0 AM EDT Narrative [facility] - 04/24/2025 9:48 AM EDT ----- ------- Name: Brigette Burt Age/Sex: 39/F : 1985 [id number]#: [id number] Attend Dr: Re04/19/25 Status: PRE REF Location: [facility] Disch: ----- ------- SPEC : [id number] RECD: 04/22/25 STATUS: RAJWINDER SHIN NUM: [id number] TAE: 04/19/250000 SUBM DR: Angelica Newman MD ENTERED: 04/22/25 SP TYPE: Pap Smr OT : ORDERED: Pap Smear Interpretation Satisfactory for evaluation. Negative for intraepithelial lesion or malignancy. No endocervical cells seen. Mild inflammation. HPV High Risk: Negative HPV Genotyping 16: Negative HPV Genotyping 18: Negative Clinical Information LMP:Unknown date Previous PAP test:Unknown date/findings Material Received ThinPrep-Cervical PAP Disclaimer As of May 09, 2024, the technical services to include automated prescreening performed by the ThinPrep Imaging System, PAP screening and HPV testing will be performed at [facility] (IA #[id number]), [address] [place] [address]. Testing for HPV was performed using the [employer]BN TechnologiesAS 6800 system. The presence of HPV in the female genital tract is associated with a number of diseases, including cervical carcinoma. The HPV DNA high risk pool tests for HPV 31, 33, 35, 39, 45, 51, 52, 56, 58, 59, 66 and 68. The testing for HPV 16 and 18 genotypes has also been performed. A positive result indicates detection of nucleic acid sequences from one or more subtypes, whereas a negative result indicates such sequences were not detected. All professional services are performed by [facility] ([address] [place] [phone]; ; CLIA #[id number]). The PAP Test is a screening procedure with the inherent possibility of both false negative and false positive results. Results should be interpreted in the context of historic and current clinical findings. Reliability of the PAP Test is enhanced by performing the test on a regular repetitive basis. CONTINUED ON NEXT PAGE ----- ------- Name: Chele ChaudhariBrigette Age/Sex: 39/F : 1985 Unit#: [id number] Attend Dr: Re04/19/25 Status: PRE [facility] Location: [facility] Disch: ----- ------- SPEC : [id number] RECD: 04/22/25 STATUS: RAJWINDER SHIN NUM: [id number] TAE: 04/19/25-[address]: Angelica Newman MD ENTERED: 04/22/25 SP TYPE: Pap Yelena DOMINGO DR: ORDERED: Pap Smear ----- ------- Signed (signature on file) KATE Leos (ASC) 04/24/25 0948 ----- ------- END OF REPORT Angelica Newman MD LAB CYTOLOGY ORDERABLES Fi nal Result Performing Organization Address [facility] Co de Phone Number [facility] [address] [place] [phone] * Urinalysis with Reflex to Microscopic (04/12/2025 7:28 PM EDT) Color Urine Yellow [facility] Appearance Urine Clear [facility] PH 8.0 5.0 - 9.0 [facility] Glucose Urine UA Negative Negative mg/dL [facility] Urine Blood Negative Negative [facility] Specific Finley - Urine <=1.005 1.005 - 1.025 [facility] Urine Protein Negative Neg-Trace mg/dL [facility] Urine Ketones Negative Negative mg/dL [facility] Nitrite Urine Negative Negative [facility] Leukocyte Esterase Urine Negative Negative [facility] 04/12/2025 7:28 PM EDT 04/12/2025 7:31 PM EDT Generic External Data Provider LAB URINE ORDERAB LES Final Result Performing Organization Address [facility]/State/ZIP Co de Phone Number [facility] [address] [place] [phone] * D Dimer High Sensitivity (04/12/2025 5:57 PM EDT) Pathologist [facility] D Dimer High Sensitivity <150 NG/ML [facility] Comment:D-DIMER HS REFERENCE RANGENote: Our assay reports D-Dimer Units (D- DU).The cut-off value for venous thromboembolic (VTE) disease is230 ng/mL. This value has a very high negative predictivevalue when the patient has a low to moderate clinicalprobability of VTE.The upper limit of normal is 243 ng/mL. 04/12/2025 5:57 PM EDT 04/12/2025 5:59 PM EDT Generic External Data Provider LAB BLOOD ORDERAB LES Final Result [facility] [address] [place] [phone] * Influenza A B2 ID NOW (Mason) (04/12/2025 2:06 PM EDT) Pathologist [facility] IDNOW SERIAL# [id number] [facility] Influenza A Negative Negative [facility] Influenza B2 Negative Negative [facility] Influenza A B2 Note See Note [facility] Comment:The Mason ID NOW In [...] GENERAL ORDERABLES Final Result Performing Organization Address City/[facility]/ZIP Co de Phone Number [facility] [address] [place] [address] [phone] * COVID-19 ID NOW (MASON) (04/12/2025 2:06 PM EDT) IDNOW SERIAL# [id number] [facility] COVID-19 TEST Negative Negative [facility] COVID-19 NOTE See Note [facility] Comment: Results are for the identification of SARS-CoV2 RNA. TheSARS-CoV2 RNA is generally detectable in respiratory samplesduring the acute phase of infection. Positive results areindicative of the presence of SARS-CoV-2 RNA; clinicalcorrelation with patient history and other diagnosticinformation is necessary to determine patient infectionstatus. Positive results do not rule out bacterial infectionor co- infection with other viruses.Testing facilities within the [facility] and itsterritories are required to report all [...] EDT us Generic External Data Provider LAB MOLECULAR DARRION GNOSTICS ORDERABLES Final Result Performing Organization Address City/[facility]/ZIP Co de Phone Number [facility] [address] [place] [phone] [phone] * High Sensitivity Troponin I (04/12/2025 2:06 PM EDT) TROPONIN I HIGH SENSITIVITY <2.7 <3.5 - 17.0 ng/L [facility] Comment:The Mason high sens itivity Troponin-I results should beused in conjunction with other diagnostic information suchas ECG, clinical observations and information, and patientsymptoms to aid in the diagnosis of [place]. 04/12/2025 2:06 PM EDT 04/12/2025 2:16 PM EDT us Generic External Data Provider LAB BLOOD ORDERAB LES Final Result [facility] [address] [place] [address] [phone] * (ABNORMAL) CBC auto differential (04/12/2025 2:06 PM EDT) [facility] White Blood Count 7.6 4.8 - 10.8 X10*3/uL [facility] Red Blood Count 4.55 4.20 - 5.50 X10*6/uL [facility] Hemoglobin 11.1(L) 12.0 - 16.0 g/dl [facility] Hematocrit 34.0(L) 37.0 - 47.0 % [facility] Mean Corpuscular Volume 74.7(L) 80.0 - 98.0 fL [facility] Mean Corpuscular Hemoglobin 24.4(L) 27.0 - 33.0 pg [facility] Mean Corpuscular HGB Conc 32.6 31.0 - 35.0 g/dl [facility] Red Cell Distribution Width 17.0(H) 11.0 - 16.0 % [facility] Platelet Count 388 160 - 400 X10*3/uL [facility] Mean Platelet Volume 9.4 9.4 - 12.3 fL [facility] Neutrophils Percent Auto 70.5 45 - 73 % [facility] Imm Gran Pct Auto 0.3 0.0 - 0.4 % [facility] Lymphocytes Percent Auto 20.1 20 - 40 % [facility] Monocytes Percent Auto 5.2 2 - 11 % [facility] Eosinophils Percent Auto 3.4 0 - 4 % [facility] Basophils Percent Auto 0.5 0 - 2 % [facility] NRBC Pct Auto 0.0 0.0 - 0.2 /100WBC [facility] Neutrophils Absolute Auto 5.4 2.0 - 8.3 x10*3/uL [facility] Imm Gran Abs Auto 0.02 0.00 - 0.03 X10*3/uL [facility] Lymphocytes Absolute Auto 1.5 1.2 - 4.9 X10*3/uL [facility] Monocytes Absolute Auto 0.4 0.1 - 1.2 X10*3/uL [facility] Eosinophils Absolute Auto 0.3 0.0 - 0.4 X10*3/uL [facility] Basophils Absolute Auto 0.0 0.0 - 0.2 X10*3/uL [facility] NRBC Abs Auto 0.000 0.0 - 0.012 X10*3/uL [facility] 04/12/2025 2:06 PM EDT 04/12/2025 2:16 PM EDT us Generic External Data Provider LAB BLOOD ORDERAB LES Final Result [facility] [address] [place] [phone] * hCG, Total, Quantitative (04/12/2025 2:06 PM EDT) HCG Quantitative <2 mIU/mL [facility] Comment:Weeks post LMP Appro ximate hCG(Last Menstrual Period) Range (mIU/ml)3 - 4 weeks 9 - 1304 - 5 weeks 75 - 2,6005 - 6 weeks 850 - 20,8006 - 7 weeks 4000 - 100,2007 - 12 weeks 11,500 - 289,23899 - 16 weeks 18,300 - 137,77734 - 29 weeks (2nd trimester) 1,400 - 53,66380 - 41 weeks (3rd trimester) 940 - [...] ORDERAB LES Final Result Performing Organization Address City/[facility]/ZIP Co de Phone Number [facility] [address] [place] [phone] * Lipase (04/12/2025 2:06 PM EDT) Pathologist [facility] Lipase 16 8 - 78 U/L [facility] 04/12/2025 2:06 PM EDT 04/12/2025 2:16 PM EDT [employer] External Data Provider LAB BLOOD ORDERAB LES Final Result Performing Organization Address [facility] de Phone Number [facility] [address] [place] [phone] * (ABNORMAL) Comprehensive Metabolic Panel (04/12/2025 2:06 PM EDT) Pathologist [facility] Sodium 140 135 - 145 mmol/L [facility] Potassium 3.1(L) 3.3 - 5.1 mmol/L [facility] Chloride 106 96 - 108 mmol/L [facility] Carbon Dioxide 27 22 - 29 mmol/L [facility] Anion Gap 10(L) 12 - 20 [facility] Urea Nitrogen (BUN) 7(L) 9 - 16 mg/dL [facility] Creatinine, Serum 0.65 0.5 - 1.4 mg/dL [facility] Creatinine Clr Calc Pharmacy 231.5 [facility] Comment:Provided height and weight: 160.02 cm,233.8 kg.eGFR (calculated from the MDRD study equation) and eCrCl(calculated from the Cockcroft-Gault equation) are based ondifferent parameters and may not yield comparable results.If eCrCl result is absurd, please check patient'sheight/weight. Estimated Glomerular Filt Rate >60 [facility] Comment:Chronic Kidney Disea se: Estimated GFR < 60 mL/min/1.80x3Aqeqpz Kidney Disease: Estimated GFR < 15 mL/min/1.73m2 Glucose 84 60 - 115 mg/dL [facility] Calcium 9.2 8.4 - 10.2 mg/dL [facility] Bilirubin, Total 0.2 0.0 - 1.0 mg/dL [facility] Aspartate Amino Transferase 21 5 - 31 U/L [facility] Alanine Aminotransferase 15 0 - 31 U/L [facility] Total Protein 7.2 6.5 - 8.0 g/dL [facility] Albumin Level 4.2 3.5 - 5.0 g/dL [facility] Alkaline Phosphatase 65 39 - 117 U/L [facility] 04/12/2025 2:06 PM EDT 04/12/2025 2:16 PM EDT us Generic External Data Provider LAB BLOOD ORDERAB LES Final Result [facility] [address] [place] [phone] * XR Chest 2 Views (04/12/2025 1:45 PM EDT) Anatomical Region Laterality Modality Chest Radiographic Naomi ging 04/12/2025 1:45 PM EDT Narrative 04/12/2025 1:58 PM EDT [address] [address] XRay Report Signed Patient: Brigette Burt MR#: [id number] : 1985 Acct:[id number] Age/Sex: 39 / F ADM Date: 04/12/25 Loc: HO.ED Attending Dr: Ordering Physician: Javy Pardo Date of Service: 04/12/25 Procedure(s): XR chest 2V Accession Number(s): [id number] cc: Angelica Newman MD; Javy Pardo Reason [...] 04/12/25 1355 DD/ 1345 TD/TT: 04/12/25 1347 [employer]: Procedure Note Donotuseinterpreter, Image - 04/12/[address] [address] XRay Report Signed Patient: Demetra Burt#: [id number] : 1985Acct:[id number] Age/Sex: 39 / FADM Date: 04/12/25 Loc: .ED Attending Dr: Ordering Physician: Javy Pardo Date of Service: 04/12/25 Procedure(s): XR chest 2V Accession Number(s): [id number] cc: Angelica Newman MD; Javy Pardo Reason [...] 04/12/25 1355 DD/ 1345 TD/TT: 04/12/25 1347 [facility] Officer: [facility] External Provider IMG XR PROCEDURES Final Result * Lipid Panel, Standard (01/26/2024 9:18 AM EDT) Triglycerides 52 <150 mg/dL [facility] Comment:Desirable Triglyceri de: less than 150 mg/dLBorderline High Triglyceride 150-199 mg/dLHigh Triglyceride: 200-499 mg/dLVery High Triglyceride: greater than or equal to 5OO mg/dL Cholesterol 141 <200 mg/dL [facility] Comment:Desirable Cholestero l: less than 200 mg/dLBorderline High Cholesterol: 200-239 mg/dLHigh Cholesterol: greater than 239 mg/dL LDL Cholesterol Calculated 86 <100 mg/dL [facility] Comment:Desirable LDL: less than 100 mg/dLNear Optimal/Above Optimal LDL: 110- 129 mg/dLBorderline High LDL: 130-159 mg/dLHigh LDL: 160-189 mg/dLVery High LDL: greater than or equal to 190 mg/dL HDL Cholesterol 45 >40 mg/dL [facility] Comment:Desirable HDL: great er than 40 mg/dL Note: This HDL assay may give artificially low results in patients with liver disease. Blood Venous blood specimen / Unknown 01/26/2024 9:18 AM EDT 01/26/2024 11:45 AM EDT Angelica Newman MD LAB BLOOD ORDERABLES Final Result [facility] [address] [place] [address] [phone] * Hepatitis Panel, General (11/17/2023 10:36 AM EDT) Hepatitis A IgM Nonreactive Nonreactive [facility] Comment:IgM antibodies to MAHAN V not detected; does not exclude earlyacute or recovered HAV infection. ~Hepatitis B Surface Antibody REACTIVE Nonreactive [facility] Comment:REACTIVE: > 11.99 mI U/mL Hepatitis B Core Antibody Reactive Nonreactive [facility] Comment:Presumptive evidence of anti-HBc. Hepatitis C Antibody Nonreactive Nonreactive [facility] Comment:Antibodies to HCV no t detected; does not exclude early acuteHCV infection. Hepatitis B Surface Ag Negative Negative [facility] Blood 11/17/2023 10:3 6 AM EDT 11/17/2023 11:28 AM EDT us Shawn House MD LAB BLOOD ORDERABLES Fin al Result Performing Organization Address [facility]/ZIP Co de Phone Number [facility] [address] [place] [phone] * HIV-1/2 Antigen and Antibodies, Fourth Generation, with Reflexes (11/17/2023 10:36 AM EDT) HIV AB/AG Nonreactive Nonreactive [facility] Comment:HIV-1 p24 Ag and/or HIV-1/HIV-2 Ab not detected.A test result that is nonreactive does not exclude thepossibility of exposure to or infection with HIV-1 and/orHIV-2. Nonreactive results in this assay for individualswith prior exposure to HIV-1 and/or HIV-2 may be due toantigen and antibody levels that are below the limit ofdetection of this assay.[employer] HIV Ag/Ab Combo assay result andsupplemental assay results should be interpreted inconjunction with the patient's clinical presentation,history and other laboratory results. If the results areinconsistent with clinical evidence, additional testing issuggested to confirm the result. Blood Venous blood specimen / Unknown 11/17/2023 10:36 AM EDT 11/17/2023 11:28 AM EDT us Shawn House MD LAB BLOOD ORDERABLES Fin al Result Performing Organization Address [facility]/ZIP Co de Phone Number [facility] [address] [place] [phone] from Last 3 Months or Most Recently Relevant to Health Maintenance Insurance [facility] Advance Directives Documents on File Type Date Recorded Patient Scheduling Analyst Expl anation Advance Directives and Living Will 01/25/2024 11:29 AM Health Care Proxy 01/25/24 Care Teams Beater Out Relationship Specialty Start Date End Date Trent, MD Angelica [address] [place] [phone] PCP - General Family Medicine 08/04/12 Mike Fontenot MD [address] [place] [address] Orthopaedic Surgery 06/13/24 Stephanie Strange [address] [address] Obstetrics and Gynecology 08/08/24 Herbert Self MD [address] [place] [address] Rheumatology 08/08/24
--- OUTSIDE RECORDS SUMMARY | 2025-04-29 11:15 | XMS_ITS | Encounter Summary ---
Author Organization [employer] Address [address] [place] [address] Care Team Providers Care Upper Cutter Name Role Phone Angelica Newman MD Primary Care Provider [phone] Mike Fontenot MD Unavailable Stephanie Strange Unavailable Herbert Self MD Unavailable [phone] Encounter Details Date Type Department Care Team (Late st Contact Info) Description 08/26/2023 Telephone [facility] [address] [place] [address] Angelica Newman MD [address] [place], [place] [phone] Social History Tobacco Use Types Packs/Day Years [...] documented as of this encounter Care Teams Upper Cutter Relationship Specialty Start Date End Date Angelica Newman MD [address] [place] [address] PCP - General Family Medicine 08/04/12 Mike Fontenot MD [address] [place] [address] Orthopaedic Surgery 06/13/24 Stephanie Strange [address] [place] [phone] Obstetrics and Gynecology 08/08/24 [place] [address] [place] [phone] Rheumatology 08/08/24 documented as of this encounter
--- OUTSIDE RECORDS SUMMARY | 2025-04-29 11:15 | XMS_ITS | Encounter Summary ---
Author Organization [employer] Address [address] [facility] [address] [place] [address] Care Team Providers Care Ed Case Manager Name Role Phone Angelica Newman MD Primary Care Provider [phone] Mike Fontenot MD Unavailable Stephanie Strange Unavailable Herbert Self MD Unavailable [phone] Reason for Visit * Reason Comments Med Refill Encounter Details Date Type Department Care Team (Late st Contact Info) Description 12/19/2023 Refill [facility] [address] [place], [place] [phone] Angelica Newman MD [address] [place] [address] Social History Tobacco Use Types Packs/Day Years [...] documented as of this encounter Care Teams Ed Case Manager Relationship Specialty Start Date End Date Angelica Newman MD [address] [place] [phone] PCP - General Family Medicine 08/04/12 Mike Fontenot MD [address] [place] [address] [address] [place] [address] Orthopaedic Surgery 06/13/24 Stephanie Strange [address] [address] Obstetrics and Gynecology 08/08/24 Herbert Self MD [address] [place] [address] Rheumatology 08/08/24 documented as of this encounter
--- OUTSIDE RECORDS SUMMARY | 2025-04-29 11:15 | XMS_ITS | Encounter Summary ---
Author Organization [employer] [facility] Address [address] [facility] [address] [place] [address] Care Team Providers Care Trout Farmer Name Role Phone Angelica Newman MD Primary Care Provider [phone] Mike Fontenot MD Unavailable Stephanie Strange Unavailable Herbert Self MD Unavailable [phone] Encounter Details Date Type Department Care Team (Late st Contact Info) Description 03/23/[address] [facility] [address] [place], [place] [phone] Angelica Newman MD [address] [place], [place] [phone] Social History Tobacco Use Types Packs/Day Years [...] on filedocumented in this encounter Care Teams Trout Farmer Relationship Specialty Start Date End Date Angelica Newman MD [address] [place], [place] [phone] PCP - General Family Medicine 08/04/12 Mike Fontenot MD [address] [place] [address] Orthopaedic Surgery 06/13/24 Stephanie Strange [address] [address] Obstetrics and Gynecology 08/08/24 Herbert Self MD [address] [place] [phone] Rheumatology 08/08/24 documented as of this encounter
== END 2025-04-19 00:01 | disposition home or self-care (01) ==
LOC: HO.LNP
PROVIDERS: Visit Provider Family Medicine
DX: Z12.4 Encounter for screening for malignant neoplasm of cervix (principal); Z20.2 Contact with and (suspected) exposure to infections with a predominantly sexual mode of transmission
CPT/HCPCS: 87491; 87591; 87626; 87661; 88175